=== PATIENT | female | born 1960 | race African-American/Black ===

== ENCOUNTER 2017-10-24 18:24 | Inpatient (IN) | payer OTHER ==
--- NOTE | 2017-10-24 19:36 | PDOC ---
History of Present Illness - General Chief Complaint: Edema Stated Complaint: PAIN Time Seen by Provider: 10/24/17 19:35 - History of Present Illness Initial Comments: 57 year old female, with a significant past medical history of anemia, COPD, CHF , hypertension, hypercholesterolemia, CVA (2017 on Coumadin), DVT of lower extremities, substance abuse and obesity presenting with bilateral lower extremity edema and SOB for the past three days. States that she had noticed her legs swelling suddenly three days prior, less urination, and decreased exercise tolerance. She has had a dry cough at night with Denies any recent travel, increased periods of immobility, hemoptysis, chest pain, headache, visual symptoms, nausea, vomiting, or diarrhea. Of note, she was on Lasix in the past but got taken off because of cramping leg pains. Also, her right leg is always slighty more swollen than her left since her DVT in that leg years prior. 10/24/17 19:36 07 Past History - Past Medical History Allergies/Adverse Reactions: Allergies Allergy/AdvReac Type Severity Reaction Status Date / Time Penicillins Allergy Intermediate Hives Verified 08/03/14 17:19 Home Medications: Ambulatory Orders Atorvastatin Ca [Lipitor] 20 mg PO HS 05/30/14 Docusate Sodium [Colace -] 100 mg PO HS 05/30/14 Fluticasone Propionate [Flovent Diskus] 50 mcg IH BID 05/30/14 Omeprazole Magnesium [Prilosec (OTC)] 20 mg PO DAILY 05/30/14 Amlodipine Besylate [Norvasc -] 10 mg PO DAILY 07/07/14 Warfarin Na [Coumadin -] 5 mg PO DAILY@1800 #30 tablet 07/23/14 Acetaminophen with Codeine [Acetaminophen-Cod #3 Tablet] 1 each PO PRN PRN 10/25 Aspirin [ASA -] 81 mg PO DAILY 10/25/17 Hydralazine HCl 25 mg PO DAILY 10/25/17 Magnesium Oxide [Magnesium] 400 mg PO DAILY 10/25/17 Warfarin Na [Coumadin] 1 mg PO DAILY 10/25/17 Anemia: Yes Asthma: Yes Cardiac Disorders: No CVA: No COPD: Yes CHF: No Dementia: No GI Disorders: Yes (CONSTIPATION, RECTAL BLEEDING) HTN: Yes Hypercholesterolemia: Yes Seizures: No Thyroid Disease: No Other medical history: obesity, pulmonary embolism - Surgical History Cardiac Surgery: No Cholecystectomy: No Lung Surgery: No Neurologic Surgery: No - Suicide/Smoking/Psychosocial Hx Smoking Status: Yes Smoking History: Current every day smoker Have you smoked in the past 12 months: Yes Number of Cigarettes Smoked Daily: 5 Information on smoking cessation initiated: Yes 'Breaking Loose' booklet given: 02/25/13 Hx Alcohol Use: No Drug/Substance Use Hx: No Substance Use Type: None Hx Substance Use Treatment: No Review of Systems - Review of Systems Constitutional: No: Chills, Diaphoresis, Fever, Loss of Appetite HEENTM: No: Blurred Vision, Tearing Respiratory: Yes: Cough, Shortness of Breath, SOB with Exertion. No: Wheezing Cardiac (ROS): Yes: Edema. No: Chest Pain, Irregular Heart Rate, Lightheadedness, Palpitations, Syncope, Chest Tightness ABD/GI: No: Constipated, Diarrhea, Nausea, Vomiting : No: Dysuria, Discharge, Frequency Musculoskeletal: No: Muscle Pain, Muscle Weakness Integumentary: No: Bruising, Change in Color, Lesions, Lumps Neurological: No: Headache, Numbness, Paresthesia Psychiatric: No: Anxiety, Depression Hematologic/Lymphatic: Yes: Blood Clots. No: Anemia, Easy Bleeding *Physical Exam - Vital Signs Last Vital Signs Temp Pulse Resp BP Pulse Ox 98.5 F 90 20 185/101 99 10/24/17 19:24 10/24/17 19:24 10/24/17 19:24 10/24/17 19:24 10/24/17 19:24 - Physical Exam General Appearance: Yes: Nourished, Appropriately Dressed, Obese. No: Apparent Distress HEENT: positive: EOMI, JAMEEL, Normal ENT Inspection, Normal Voice Neck: positive: Trachea midline, Normal Thyroid, Supple. negative: Tender, Rigid Respiratory/Chest: positive: Lungs Clear. negative: Chest Tender, Normal Breath Sounds (decreaed breath ounds bilaterally), Respiratory Distress, Accessory Muscle Use Cardiovascular: positive: Regular Rhythm, Regular Rate Gastrointestinal/Abdominal: positive: Normal Bowel Sounds, Flat, Soft. negative : Tender Musculoskeletal: positive: Normal Inspection. negative: CVA Tenderness Extremity: positive: Normal Capillary Refill, Normal Range of Motion, Tender, Pedal Edema, Swelling, Calf Tenderness (Bilateral calf tendernes sand swelling 3 + pitting edema to lower thigh bilaterally with slighly larger right lower exrtremity.), Erythema. negative: Normal Inspection Integumentary: positive: Normal Color, Dry, Warm, Swelling Neurologic: positive: division manager II-XII NML intact, Fully Oriented, Alert, Normal Mood/ Affect, Normal Response, Motor Strength 08/09 ED Treatment Course - LABORATORY CBC & Chemistry Diagram: 10/24/17 22:15 10/24/17 22:15 Medical Decision Making - Medical Decision Making 57 year old female with history of CHF, COPD, DVTs and ischemic stroke on coumadin presenting with LE swelling and SOB. BL LE dopplers negative, CTA chest negative, labs demonstrating JOSH, subtherapeutic INR, and BNP slightly elevated. CXR appears mildly congested. IV lasix defered because of contrast burden and new JOSH. Ptient signed out to medicine, Dr. Stearns for medsurg obs. 10/25/17 03:10 *DC/Admit/Observation/Transfer Diagnosis at time of Disposition: JOSH (acute kidney injury), Shortness of breath, Subtherapeutic international normalized ratio (INR) CHF (congestive heart failure) Qualifiers: Heart failure type: unspecified Heart failure chronicity: unspecified Qualified Code(s): I50.9 - Heart failure, unspecified - Discharge Dispostion Condition at time of disposition: Stable Decision to Admit order: Yes - Referrals Referrals: Sara Velasco [Primary Care Provider] - - Patient Instructions - Post Discharge Activity
--- NOTE | 2017-10-24 19:39 | PDOC ---
Attending Attestation - HPI HPI: 10/24/17 20:58 The patient is a 57 year old female, with a significant PMH of anemia, COPD, CHF , hypertension, hypercholesterolemia, CVA (2017 on Coumadin), DVT of lower extremities, substance abuse and obesity who presents to the emergency department with 3 days of shortness of breath and bilateral lower extremity edema. The patient also endorses decreased urination, dry cough and decreased exercise tolerance. The patient states at baseline her right leg is slightly more swollen than her left leg secondary to her history of DVT. The patient denies any recent travel or immobility. The patient denies chest pain, diaphoresis, lightheadedness, headache and dizziness. Denies fever, chills, nausea, vomit, diarrhea and constipation. Denies dysuria, frequency, urgency and hematuria. Allergies: penicillins - Physicial Exam PE: 10/24/17 21:02 GENERAL: (+) Obese. Awake, alert, and fully oriented, in no acute distress HEAD: No signs of trauma EYES: PERRLA, EOMI, sclera anicteric, conjunctiva clear ENT: Auricles normal inspection, hearing grossly normal, nares patent, oropharynx clear without exudates. Moist mucosa NECK: Normal ROM, supple, no lymphadenopathy, JVD, or masses LUNGS: (+) Decreased breath sounds bilaterally. No respiratory distress. No wheezes, and no crackles HEART: Regular rate and rhythm, normal S1 and S2, no murmurs, rubs or gallops ABDOMEN: Soft, nontender, normoactive bowel sounds. No guarding, no rebound. No masses EXTREMITIES: (+) Bilateral lower extremity 3+ pitting edema with right slightly > than left. (+) Bilateral calf tenderness. (+) Lower extremity erythema. Normal range of motion. No clubbing or cyanosis. No cords. NEUROLOGICAL: Cranial nerves II through XII grossly intact. Normal speech. SKIN: Warm, Dry, normal turgor, no rashes or lesions noted. <Carlos Ring - Last Filed: 10/24/17 21:10> - Resident Resident Name: Katerine Kuhn - ED Attending Attestation I have performed the following: I have examined & evaluated the patient, The case was reviewed & discussed with the resident, I agree w/resident's findings & plan - Medical Decision Making 07/21/18 04:59 Pt has no clear DVT on sono; however, her legs are bilaterally swollen right side greater than the left side; she also as redness and warmth of the right lower leg. She has pain with ambulation. Pt states that she has decreased mobility due to the pain in her legs and she has great difficulty leaving her 2nd story walkup apt. Pt has a hx of DVTs and PE in the past and she is on coumadin, though she is subtherapeutic. CTA chest in nonspecific. Pt will be admitted for further eval and assessment by vasc surg. <Harini Huerta - Last Filed: 10/25/17 05:01> Attestations - Attestations 10/24/17 20:59 Documentation prepared by Carlos Ring, acting as medical office technician for Harini Huerta MD. <Carlos Ring - Last Filed: 10/24/17 21:10>
[2017-10-24 22:23] LABS: BASO % 0.5 % (0-2.0); EOS % 2.2 % (0-4.5); HEMATOCRIT 31.6 % (32.4-45.2); HEMOGLOBIN 10.4 GM/dL (10.7-15.3); LYMPH % 19.2 % (8-40); MCHC 32.8 g/dl (32.0-36.0); MEAN CELL VOLUME 91.4 fl (80-96); MEAN PLT VOLUME 8.2 fl (7.5-11.1); MONO % 8.7 % (3.8-10.2); NEUT % 69.4 % (42.8-82.8); PLATELET COUNT 260 K/MM3 (134-434); RBC 3.46 M/mm3 (3.60-5.2); RDW 16.6 % (11.6-15.6); WHITE BLOOD COUNT 5.7 K/mm3 (4.0-10.0)
[2017-10-24 22:56] LABS: ALBUMIN 3.5 g/dl (3.4-5.0); ANION GAP 7 (8-16); BLOOD UREA NITROGEN 16 mg/dL (7-18); CALCIUM 8.7 mg/dL (8.5-10.1); CHLORIDE 113 mmol/L (98-107); CO2 27 mmol/L (21-32); CREATININE 1.3 mg/dL (0.55-1.02); GLUCOSE,RANDOM 84 mg/dL (74-106); SGPT/ALT 21 U/L (12-78); SODIUM 147 mmol/L (136-145)
[2017-10-24 22:59] LABS: ALK PHOS 127 U/L (45-117); BILIRUBIN,TOTAL 0.2 mg/dL (0.2-1.0); N-TERMINAL BNP 191.31 pg/ml (5-125); TOT PROT 7.3 g/dl (6.4-8.2)
[2017-10-24 23:01] LABS: POTASSIUM 4.2 mmol/L (3.5-5.1); SGOT/AST 32 U/L (15-37)
[2017-10-24] MEDS ORDERED: ACETAMINOPHEN 1000 MG/100 ML VIAL (NON FORMULARY) IVPB ONE (23:20)
[2017-10-24] MEDS ORDERED: ALBUTEROL SO4 2.5/IPRATROPIUM 0.5 INH SOL 3 ML VIAL.NEB. NEB ONE (23:21)
[2017-10-24 23:30] LABS: INR 1.04 (0.82-1.09); PROTHROMBIN TIME (PATIENT) 11.7 SEC (9.7-13.0)
[2017-10-24] MEDS ORDERED: SODIUM CHLORIDE 500 ML IV STA (23:59)
[2017-10-25] MEDS ORDERED: ALBUTEROL SO4 2.5/IPRATROPIUM 0.5 INH SOL 3 ML VIAL.NEB. NEB ONE (00:13)
[2017-10-25] MEDS ORDERED: ACETAMINOPHEN INJECTION 100 ML IVPB ONE (00:13)
[2017-10-25] MEDS ORDERED: CLINDAMYCIN 600MG PREMIX IVPB 600 MG/50 ML BAG IVPB ONE ×2 (02:47→03:37)
--- NOTE | 2017-10-25 03:04 | PN ---
Teaching Attending Note Name of Resident: Shahzad Stearns ATTENDING PHYSICIAN STATEMENT I saw and evaluated the patient. I reviewed the resident's note and discussed the case with the resident. I agree with the resident's findings and plan as documented. SUBJECTIVE: Patient is a 57 year old woman with a history of anemia, COPD, CHF, hypertension , hypercholesterolemia, CVA (2017 on Coumadin), DVT of lower extremities, substance abuse and obesity presenting with bilateral lower extremity edema and SOB for the past three days. States that she had noticed her legs swelling suddenly three days prior, less urination, and decreased exercise tolerance. She has had a dry cough at night with Denies any recent travel, increased periods of immobility, hemoptysis, chest pain, headache, visual symptoms, nausea , vomiting, or diarrhea. Of note, she was on Lasix in the past but got taken off because of cramping leg pains. Also, her right leg is always slighty more swollen than her left since her DVT in that leg years prior. Uses a cane due to knee joint disease - did not want knee replacement. OBJECTIVE: Obese and in no acute distress Vital Signs Period Temp Pulse Resp BP Sys/Yoder Pulse Ox Last 24 Hr 98.5 F 90-92 18-20 145-185/95-101 99-100 HEENT: No Jaundice, eye redness or discharge, PERRLA, EOMI. Normocephalic, atraumatic. External ears are normal and hearing is grossly intact. No nasal discharge. Neck: Supple, nontender. No palpable adenopathy or thyromegaly. No JVD Chest: Good effort. Diminished breath sounds. No rales or wheezing. Clear to percussion. Heart: Irregular. No S3, rub or murmur Abdomen: Not distended, soft, nontender and no HSM. No rebound or guarding. Normoactive bowel sounds. Ext: Peripheral pulses intact. Bilateral non pitting leg edema with left > right. Significant edema of dorsum of left foot with prominence over the medial malleolus. Not warm but slightly tender. Skin: Warm and dry. No petechiae, rash or ecchymosis. Neuro: Alert. Oriented x3. CN 2-12 grossly intact. Sensation grossly intact in all four extremities and DTR are symmetric. Current Medications Generic Name Dose Route Start Last Admin Trade Name Freq PRN Reason Stop Dose Admin Clindamycin Phosphate 600 mg in 50 mls @ 100 mls/hr 10/25/17 02:47 Cleocin 600 Mg Premix Ivpb - IVPB 10/25/17 03:16 ONCE ONE Protocol Home Medications Medication Instructions Recorded Atorvastatin Ca [Lipitor] 20 mg PO HS 05/30/14 Docusate Sodium [Colace -] 100 mg PO HS 05/30/14 Fluticasone Propionate [Flovent 50 mcg IH BID 05/30/14 Diskus] Omeprazole Magnesium [Prilosec 20 mg PO DAILY 05/30/14 (OTC)] Amlodipine Besylate [Norvasc -] 10 mg PO DAILY 07/07/14 Warfarin Na [Coumadin -] 5 mg PO DAILY@1800 #30 tablet 07/23/14 Acetaminophen with Codeine 1 each PO PRN PRN 10/25/17 [Acetaminophen-Cod #3 Tablet] Aspirin [ASA -] 81 mg PO DAILY 10/25/17 Hydralazine HCl 25 mg PO DAILY 10/25/17 Magnesium Oxide [Magnesium] 400 mg PO DAILY 10/25/17 Warfarin Na [Coumadin] 1 mg PO DAILY 10/25/17 Abnormal Lab Results 10/24/17 10/24/17 10/24/17 22:15 22:15 22:44 RBC 3.46 L Hgb 10.4 L Hct 31.6 L RDW 16.6 H D-Dimer 1539 H Sodium 147 H Chloride 113 H Anion Gap 7 L Creatinine 1.3 H Alkaline Phosphatase 127 H Creatine Kinase 543 H B-Natriuretic Peptide 191.31 H ASSESSMENT AND PLAN: 1. Acute exacerbation of diatolic CHF? - CTPA ruled out pulmonary embolism and doppler scan did not show DVT. CXR shows cardiomegaly with pulmonary congestion and blunted left CP angle. She says her "water pill" was stopped 1 year ago because of the blood thinner? ECHO from 07/11/14 showed normal systolic LV function with EF of 66.3%. Will give her 80 mg of lasix IV stat and assess urine output. Subsequent dosing will depend on the efficacy of this initial dose. Daily weight, low salt diet, get ECHO, CT scan of feet (?bursitis) and get uric acid level. There are no ST-T wave changes on EKG and initial troponin is negative. Will admit to telemetry to rule out ACS since there is no other obvious acute precipitating factor. Consult cardiology. 2. Remote DVT - Her INR is subtherapeutic. Will bridge her with IV heparin drip , continue current dose of coumadin (?6mg) and get daily INR. 3. Tobacco Use We will provide patient all the necessary assistance to facilitate smoking cessation and prescribe Nicotine patch. 4. Anemia - Likely multifactorial. Will do basic anemia work up including serial stool guaiacs, reticulocyte count and iron studies. 5. Obesity - Will provide patient all the necessary assistance , counseling and positive reinforcement to facilitate weight loss. Consult strategic analyst. 6. DVT prophylaxis - On IV heparin drip for bridging and coumadin 7. Advance directives - Full code
[2017-10-25] MEDS ORDERED: HEPARIN NA (PORCINE) 5,000 UNITS/ML 1ML VIAL IVPUSH PRN (03:43)
[2017-10-25] MEDS ORDERED: HEPARIN NA (PORCINE) 5,000 UNITS/ML 1ML VIAL IVPUSH ONE (03:43)
[2017-10-25] MEDS ORDERED: HEPARIN INFUSION - 25,000 UNITS/500 ML INFUS.BAG IVPB SCH ×2 (03:45→16:45)
[2017-10-25] MEDS ORDERED: FUROSEMIDE 40 MG/4 ML INJECTABLE VIAL IVPUSH ONE (03:53)
[2017-10-25] MEDS ORDERED: FUROSEMIDE 40 MG/4 ML INJECTABLE VIAL ONE (03:59)
[2017-10-25] MEDS ORDERED: HEPARIN NA (PORCINE) 5,000 UNITS/ML 1ML VIAL ONE (04:59)
[2017-10-25] MEDS ORDERED: HEPARIN INFUSION - 25,000 UNITS/500 ML INFUS.BAG IVPB ONE (05:00)
[2017-10-25 06:23] LABS: URINE APPEARANCE SLCLOUDY; URINE BILIRUBIN NEGATIVE (<2.0 mg/dL); URINE COLOR STRAW; URINE GLUCOSE (UA) NEGATIVE (NEGATIVE); URINE KETONE NEGATIVE (NEGATIVE); URINE LEUK ESTERASE NEGATIVE (NEGATIVE); URINE NITRITE NEGATIVE (NEGATIVE); URINE PROTEIN NEGATIVE (NEGATIVE); URINE UROBILINOGEN NEGATIVE mg/dL (0.2-1.0)
[2017-10-25] MEDS ORDERED: METHADONE HCL 10 MG TABLET PO ONE (08:15)
--- NOTE | 2017-10-25 08:20 | PN ---
Physical Exam: SUBJECTIVE: Patient seen and examined Patient is a 57 year old woman with a history of anemia, COPD, CHF, hypertension , hypercholesterolemia, CVA (2017 on Coumadin), DVT of lower extremities, substance abuse and obesity presenting with bilateral lower extremity edema and SOB for the past three days. Feel little better but continued to have swelling of Lower legs OBJECTIVE: Vital Signs Temperature 97.6 F 10/25/17 06:39 Pulse Rate 69 10/25/17 06:39 Respiratory Rate 19 10/25/17 06:39 Blood Pressure 149/99 10/25/17 06:39 O2 Sat by Pulse Oximetry (%) 99 10/25/17 06:25 GENERAL: The patient is awake, alert, and fully oriented, in no acute distress. HEAD: Normal with no signs of trauma. EYES: PERRL, extraocular movements intact, sclera anicteric, conjunctiva clear. ENT: Ears normal, oropharynx clear without exudates, moist mucous membranes. NECK: Trachea midline, full range of motion, supple. LUNGS: Breath sounds equal, clear to auscultation bilaterally, no wheezes, no crackles, no accessory muscle use. HEART: Regular rate and rhythm, S1, S2 without murmur, rub or gallop. ABDOMEN: Soft, nontender, nondistended, normoactive bowel sounds, no guarding, no rebound, no hepatosplenomegaly, no masses. EXTREMITIES: 2+ pulses, warm, well-perfused, 5 plus edema of LE NEUROLOGICAL: Cranial nerves II through XII grossly intact. Normal speech, gait not observed. PSYCH: Normal mood, normal affect. SKIN: Warm, dry, normal turgor, no rashes or lesions noted WBC 5.7 K/mm3 (4.0-10.0) 10/24/17 22:15 RBC 3.46 M/mm3 (3.60-5.2) L 10/24/17 22:15 Hgb 10.4 GM/dL (10.7-15.3) L 10/24/17 22:15 Hct 31.6 % (32.4-45.2) L 10/24/17 22:15 MCV 91.4 fl (80-96) 10/24/17 22:15 MCHC 32.8 g/dl (32.0-36.0) 10/24/17 22:15 RDW 16.6 % (11.6-15.6) H 10/24/17 22:15 Plt Count 260 K/MM3 (134-434) 10/24/17 22:15 MPV 8.2 fl (7.5-11.1) D 10/24/17 22:15 CMP Sodium 147 mmol/L (136-145) H 10/24/17 22:15 Potassium 4.2 mmol/L (3.5-5.1) 10/24/17 22:15 Chloride 113 mmol/L (98-107) H 10/24/17 22:15 Carbon Dioxide 27 mmol/L (21-32) 10/24/17 22:15 Anion Gap 7 (8-16) L 10/24/17 22:15 BUN 16 mg/dL (7-18) 10/24/17 22:15 Creatinine 1.3 mg/dL (0.55-1.02) H 10/24/17 22:15 Creat Clearance w eGFR 42.53 (>60) 10/24/17 22:15 Random Glucose 84 mg/dL (74-106) 10/24/17 22:15 Calcium 8.7 mg/dL (8.5-10.1) 10/24/17 22:15 Total Bilirubin 0.2 mg/dL (0.2-1.0) 10/24/17 22:15 AST 32 U/L (15-37) 10/24/17 22:15 ALT 21 U/L (12-78) 10/24/17 22:15 Alkaline Phosphatase 127 U/L (45-117) H 10/24/17 22:15 Total Protein 7.3 g/dl (6.4-8.2) 10/24/17 22:15 Albumin 3.5 g/dl (3.4-5.0) 10/24/17 22:15 CARDIAC ENZYMES Creatine Kinase 543 IU/L (26-192) H 10/24/17 22:15 Troponin I < 0.02 ng/ml (0.00-0.05) 10/24/17 22:15 Active Medications Generic Name Dose Route Start Last Admin Trade Name Freq PRN Reason Stop Dose Admin Heparin Sodium (Porcine) 5,400 unit 10/25/17 03:43 Heparin - 40 unit/kg (5400 unit) IVPUSH PRN PRN For aPTT 35 to 45 seconds Heparin Sodium (Porcine) 10,800 unit 10/25/17 03:43 Heparin - 80 unit/kg (50044 unit) IVPUSH PRN PRN aPTT <35 seconds Heparin Sodium/Dextrose 25,000 units in 500 mls @ 48.82 mls/hr 10/25/17 03:45 10/25/17 05:15 Heparin Infusion - IVPB 17.99 unit/kg/hr TITR JIE 48.82 mls/hr Administration Protocol 18 UNIT/KG/HR Methadone HCl 60 mg 10/25/17 08:15 Dolophine - PO 10/25/17 08:16 ONCE ONE Methadone HCl 60 mg 10/26/17 06:00 Dolophine - PO DAILY@0600 [facility] Home Medications Medication Instructions Recorded Atorvastatin Ca [Lipitor] 20 mg PO HS 05/30/14 Docusate Sodium [Colace -] 100 mg PO HS 05/30/14 Fluticasone Propionate [Flovent 50 mcg IH BID 05/30/14 Diskus] Omeprazole Magnesium [Prilosec 20 mg PO DAILY 05/30/14 (OTC)] Amlodipine Besylate [Norvasc -] 10 mg PO DAILY 07/07/14 Warfarin Na [Coumadin -] 5 mg PO DAILY@1800 #30 tablet 07/23/14 Acetaminophen with Codeine 1 each PO PRN PRN 10/25/17 [Acetaminophen-Cod #3 Tablet] Aspirin [ASA -] 81 mg PO DAILY 10/25/17 Hydralazine HCl 25 mg PO DAILY 10/25/17 Magnesium Oxide [Magnesium] 400 mg PO DAILY 10/25/17 Methadone (Detox) [Dolophine -] 60 PO DAILY 10/25/17 Warfarin Na [Coumadin] 1 mg PO DAILY 10/25/17 ASSESSMENT/PLAN: Patient is a 57 yo f w/ [facility] anemia, COPD, HTN, CVA, DVT who is admitted for 3 day history of b/l LE edema associated with SOB. # Acute exacerbation of diastolic CHF with LE edema BL will start the patient on IV lasix bid 20mg # Remote DVT - Her INR is subtherapeutic. Will bridge her with IV heparin drip, continue current dose of coumadin (6mg) and get daily INR. # Tobacco Use We will provide patient all the necessary assistance to facilitate smoking cessation and prescribe Nicotine patch. #Anemia - Likely multifactorial. Will do basic anemia work up including serial stool guaiacs, reticulocyte count and iron studies. # Obesity - Will provide patient all the necessary assistance , counseling and positive reinforcement to facilitate weight loss. Consult service writer advisor. DVT prophylaxis - On IV heparin drip for bridging and coumadin Advance directives - Full code Visit type - Emergency Visit Emergency Visit: Yes ED Registration Date: 10/25/17 Care time: The patient presented to the Emergency Department on the above date and was hospitalized for further evaluation of their emergent condition. - New Patient This patient is new to me today: Yes Date on this admission: 10/25/17 - Critical Care Critical Care patient: No - Discharge Referral Referred to [facility] No
[2017-10-25] MEDS ORDERED: METHADONE 40 MG, METHADONE 20 MG PO ONE (08:30)
[2017-10-25] MEDS ORDERED: METHADONE HCL 10 MG TABLET ONE (09:18)
[2017-10-25] MEDS ORDERED: METHADONE HCL 40 MG DISPERSABLE TABLET ONE (09:18)
[2017-10-25] MEDS: amLODIPine BESYLATE 10 MG TABLET (FP) PO SCH (09:22)
[2017-10-25] MEDS: hydrALAZINE HCL 25 MG TABLET (FP) PO SCH (09:22)
[2017-10-25] MEDS: ASPIRIN 81 MG CHEWABLE TABLETS PO SCH (09:22)
[2017-10-25] MEDS ORDERED: WARFARIN NA 1 MG TABLET (FP) PO SCH ×2 (10:00→18:00)
[2017-10-25 10:04] LABS: HEMATOCRIT 33.6 % (32.4-45.2); MCHC 32.8 g/dl (32.0-36.0); MEAN CELL VOLUME 91.3 fl (80-96); MEAN PLT VOLUME 8.1 fl (7.5-11.1); PLATELET COUNT 261 K/MM3 (134-434); RBC 3.68 M/mm3 (3.60-5.2); RDW 16.9 % (11.6-15.6); WHITE BLOOD COUNT 5.6 K/mm3 (4.0-10.0)
--- NOTE | 2017-10-25 10:08 | EKG ---
Test Reason : Blood Pressure : / mmHG Vent. Rate : 079 BPM Atrial Rate : 079 BPM P-R Int : 172 ms QRS Dur : 082 ms QT Int : 402 ms P-R-T Axes : 035 006 019 degrees QTc Int : 460 ms POOR DATA QUALITY, INTERPRETATION MAY BE ADVERSELY AFFECTED NORMAL SINUS RHYTHM NORMAL ECG WHEN COMPARED WITH ECG OF 09-JUL-2014 08:46, CRITERIA FOR INFERIOR INFARCT ARE NO LONGER PRESENT Confirmed by DELVIN BAKER, ALICJA ([id number]) on 10/25/2017 10:08:16 AM Referred By: Confirmed By:ALICJA HARGROVE MD
[2017-10-25 10:30] LABS: INR 1.12 (0.82-1.09); PROTHROMBIN TIME (PATIENT) 12.7 SEC (9.7-13.0)
[2017-10-25 10:45] LABS: ACTIVATED PTT 205.3 SECONDS (25.2-36.5)
[2017-10-25 10:46] LABS: ANION GAP 9 (8-16); BLOOD UREA NITROGEN 16 mg/dL (7-18); CHLORIDE 109 mmol/L (98-107); CO2 26 mmol/L (21-32); CREATININE 1.3 mg/dL (0.55-1.02); GLUCOSE,RANDOM 105 mg/dL (74-106); PHOSPHOROUS 3.7 mg/dL (2.5-4.9); SODIUM 144 mmol/L (136-145)
--- NOTE | 2017-10-25 14:17 | HP ---
CHIEF COMPLAINT: leg swelling PCP: HISTORY OF PRESENT ILLNESS: The patient is a 57 yo f w/ OMH anemia, COPD, HTN, CVA, DVT who comes into the ed c/o a 3 day history of b/l LE edema associated with SOB. The patient also associates these symptoms with decrease unriation, decreased exercise tolerance and a dry cough for the same period of time. Patient denies chest pain, nausea, vomiting or abdominal pain. ER course was notable for: (1) D-dimer positive (2) CTA negative (3) LE dopplers negative, INR 1.04 PAST MEDICAL HISTORY: See HPI PAST SURGICAL HISTORY: Social History: Smoking: smokes 5 cigarettes per day Alcohol: denies Drugs: denies Family History: Allergies Penicillins Allergy (Intermediate, Verified 08/03/14 17:19) Hives HOME MEDICATIONS: Home Medications Medication Instructions Recorded Atorvastatin Ca [Lipitor] 20 mg PO HS 05/30/14 Docusate Sodium [Colace -] 100 mg PO HS 05/30/14 Fluticasone Propionate [Flovent 50 mcg IH BID 05/30/14 Diskus] Omeprazole Magnesium [Prilosec 20 mg PO DAILY 05/30/14 (OTC)] Amlodipine Besylate [Norvasc -] 10 mg PO DAILY 07/07/14 Warfarin Na [Coumadin -] 5 mg PO DAILY@1800 #30 tablet 07/23/14 Acetaminophen with Codeine 1 each PO PRN PRN 10/25/17 [Acetaminophen-Cod #3 Tablet] Aspirin [ASA -] 81 mg PO DAILY 10/25/17 Hydralazine HCl 25 mg PO DAILY 10/25/17 Magnesium Oxide [Magnesium] 400 mg PO DAILY 10/25/17 Methadone (Detox) [Dolophine -] 60 PO DAILY 10/25/17 Warfarin Na [Coumadin] 1 mg PO DAILY 10/25/17 REVIEW OF SYSTEMS CONSTITUTIONAL: Absent: fever, chills, diaphoresis, generalized weakness, malaise, loss of appetite, weight change HEENT: Absent: rhinorrhea, nasal congestion, throat pain, throat swelling, difficulty swallowing, mouth swelling, ear pain, eye pain, visual changes CARDIOVASCULAR: Absent: chest pain, syncope, palpitations, irregular heart rate, lightheadedness. RESPIRATORY: Absent: orthopnea, wheezing, stridor, hemoptysis GASTROINTESTINAL: Absent: abdominal pain, abdominal distension, nausea, vomiting, diarrhea, constipation, melena, hematochezia GENITOURINARY: Absent: dysuria, frequency, urgency, hesitancy, hematuria, flank pain, genital pain MUSCULOSKELETAL: Absent: myalgia, arthralgia, joint swelling, back pain, neck pain SKIN: Absent: rash, itching, pallor HEMATOLOGIC/IMMUNOLOGIC: Absent: easy bleeding, easy bruising, lymphadenopathy, frequent infections ENDOCRINE: Absent: unexplained weight gain, unexplained weight loss, heat intolerance, cold intolerance NEUROLOGIC: Absent: headache, focal weakness or paresthesias, dizziness, unsteady gait, seizure, mental status changes, bladder or bowel incontinence PSYCHIATRIC: Absent: anxiety, depression, suicidal or homicidal ideation, hallucinations. PHYSICAL EXAMINATION Vital Signs - 24 hr 10/24/17 10/24/17 10/25/17 19:24 19:51 05:17 Temperature 98.5 F 98.5 F Pulse Rate 90 Pulse Rate [ 92 H 89 Left Radial] Respiratory 20 18 19 Rate Blood Pressure 185/101 Blood Pressure 145/95 138/89 [Left Arm] O2 Sat by Pulse 99 100 99 Oximetry (%) 10/25/17 10/25/17 06:25 06:39 Temperature 97.6 F Pulse Rate 69 Pulse Rate [ Left Radial] Respiratory 19 Rate Blood Pressure 149/99 Blood Pressure [Left Arm] O2 Sat by Pulse 99 Oximetry (%) GENERAL: Awake, alert, and fully oriented, in no acute distress. EYES: Pupils equal, round and reactive to light, extraocular movements intact, sclera anicteric, conjunctiva clear. No lid lag. EARS, NOSE, THROAT: Moist mucous membranes. NECK: Normal range of motion, supple without lymphadenopathy, JVD, or masses. LUNGS: Breath sounds equal, clear to auscultation bilaterally. No wheezes, and no crackles. No accessory muscle use. HEART: Regular rate, irregular rhythm, normal S1 and S2 without murmur, rub or gallop. ABDOMEN: Soft, nontender, not distended, normoactive bowel sounds, no guarding, no rebound, no masses. No hepatomegaly or splenomegaly. LOWER EXTREMITIES: 2+ pulses, warm, well-perfused. No calf tenderness. 2+ pitting edema b/l. NEUROLOGICAL: Cranial nerves II-X intact. Normal speech. Laboratory Results - last 24 hr 10/24/17 10/24/17 10/24/17 22:15 22:15 22:44 WBC 5.7 RBC 3.46 L Hgb 10.4 L Hct 31.6 L MCV 91.4 MCH 30.0 MCHC 32.8 RDW 16.6 H Plt Count 260 MPV 8.2 D Absolute Neuts (auto) 4.0 Neutrophils % 69.4 Lymphocytes % 19.2 D Monocytes % 8.7 Eosinophils % 2.2 D Basophils % 0.5 Nucleated RBC % 0 PT with INR 11.70 INR 1.04 D PTT (Actin FS) D-Dimer Sodium 147 H Potassium 4.2 Chloride 113 H Carbon Dioxide 27 Anion Gap 7 L BUN 16 Creatinine 1.3 H Creat Clearance w eGFR 42.53 Random Glucose 84 Uric Acid Calcium 8.7 Phosphorus Magnesium Total Bilirubin 0.2 AST 32 ALT 21 Alkaline Phosphatase 127 H Creatine Kinase 543 H Creatine Kinase Index 0.3 CK-MB (CK-2) 2.07 Troponin I < 0.02 B-Natriuretic Peptide 191.31 H Total Protein 7.3 Albumin 3.5 Urine Color Urine Appearance Urine pH Ur Specific [place] Urine Protein Urine Glucose (UA) Urine Ketones Urine Blood Urine Nitrite Urine Bilirubin Urine Urobilinogen Ur Leukocyte Esterase 10/24/17 10/25/17 10/25/17 22:44 05:46 09:12 WBC RBC Hgb Hct MCV MCH MCHC RDW Plt Count MPV Absolute Neuts (auto) Neutrophils % Lymphocytes % Monocytes % Eosinophils % Basophils % Nucleated RBC % PT with INR INR PTT (Actin FS) D-Dimer 1539 H Sodium 144 Potassium 4.0 Chloride 109 H Carbon Dioxide 26 Anion Gap 9 BUN 16 Creatinine 1.3 H Creat Clearance w eGFR 42.53 Random Glucose 105 Uric Acid 6.0 Calcium 9.0 Phosphorus 3.7 Magnesium 2.0 Total Bilirubin AST ALT Alkaline Phosphatase Creatine Kinase Creatine Kinase Index CK-MB (CK-2) Troponin I B-Natriuretic Peptide Total Protein Albumin Urine Color Straw Urine Appearance Slcloudy Urine pH 5.0 D Ur Specific [place] 1.012 Urine Protein Negative Urine Glucose (UA) Negative Urine Ketones Negative Urine Blood Negative Urine Nitrite Negative Urine Bilirubin Negative Urine Urobilinogen Negative Ur Leukocyte Esterase Negative 10/25/17 10/25/17 09:12 09:12 WBC 5.6 RBC 3.68 Hgb 11.0 Hct 33.6 MCV 91.3 MCH 30.0 MCHC 32.8 RDW 16.9 H Plt Count 261 MPV 8.1 Absolute Neuts (auto) Neutrophils % Lymphocytes % Monocytes % Eosinophils % Basophils % Nucleated RBC % PT with INR 12.70 INR 1.12 PTT (Actin FS) 205.3 H D-Dimer Sodium Potassium Chloride Carbon Dioxide Anion Gap BUN Creatinine Creat Clearance w eGFR Random Glucose Uric Acid Calcium Phosphorus Magnesium Total Bilirubin AST ALT Alkaline Phosphatase Creatine Kinase Creatine Kinase Index CK-MB (CK-2) Troponin I B-Natriuretic Peptide Total Protein Albumin Urine Color Urine Appearance Urine pH Ur Specific [place] Urine Protein Urine Glucose (UA) Urine Ketones Urine Blood Urine Nitrite Urine Bilirubin Urine Urobilinogen Ur Leukocyte Esterase ASSESSMENT/PLAN: The patient is a 57 yo f w/ PMH COPD, HTN, DVT, CVA who comes into the ED c/o b/ l LE edema and SOB for to have subtheraputic INR #SOB and LE swelling possibly 2/2 CHF exacerbation vs COPD exacerbation -Echo -CT of the ankles; patient has deformity @ this joint -Uric acid level -Strict I&O -80mg lasix IV once #subtheraputic INR -Heparin GTT with VTE level PTT goals -c/w home coumadin dose once verified #JOSH -UA -holding IV hydration in the setting of possible CHF exacerbation #FEN -no fluids indicated -monitor lytes -sodium controlled diet #prophy -heparin GTT #dispo -admit med surg Visit type - Emergency Visit Emergency Visit: Yes ED Registration Date: 10/25/17 Care time: The patient presented to the Emergency Department on the above date and was hospitalized for further evaluation of their emergent condition. - New Patient This patient is new to me today: Yes Date on this admission: 10/25/17 - Critical Care Critical Care patient: No Hospitalist Screening - Colonoscopy Questionnaire Colonoscopy Questionnaire: Colonoscopy Questionnaire - Patient: 50 - 75 years old and never had a screening colonoscopy: Unknown History of colon or rectal polyps, or CA: Unknown History of IBD, Crohn's disease or UC: Unknown History of abdominal radiation therapy as a child: Unknown - Relative: 1 with colon or rectal CA, or polyps at age 60 or younger: Unknown Colon or rectal CA diagnosed at age 45 or younger: Unknown Multiple relatives with colon or rectal CA: Unknown - Outcome: Screening Result: Negative Screen
[2017-10-25] MEDS: HEPARIN INFUSION - 25,000 UNITS/500 ML INFUS.BAG IVPB SCH ×2 (16:54→17:24)
[2017-10-25] MEDS ORDERED: WARFARIN NA 5 MG TABLET (UD) PO SCH (18:00)
[2017-10-25] MEDS ORDERED: WARFARIN NA 1 MG TABLET (FP) ONE (18:02)
[2017-10-25] MEDS ORDERED: WARFARIN NA 5 MG TABLET (UD) ONE (18:02)
[2017-10-25] MEDS: WARFARIN NA 5 MG, WARFARIN NA 1 MG PO SCH (18:06)
[2017-10-25] MEDS: ATORVASTATIN CA 20 MG TABLET (FP) PO SCH (22:01)
[2017-10-25] MEDS: DOCUSATE SODIUM 100 MG CAPSULE (FP) PO SCH (22:01)
[2017-10-26] MEDS: HEPARIN NA (PORCINE) 5,000 UNITS/ML 1ML VIAL IVPUSH PRN ×2 (01:55→08:00)
[2017-10-26] MEDS: HEPARIN INFUSION - 25,000 UNITS/500 ML INFUS.BAG IVPB SCH ×2 (02:05→17:52)
[2017-10-26] MEDS ORDERED: METHADONE HCL 40 MG DISPERSABLE TABLET ONE (05:49)
[2017-10-26] MEDS ORDERED: METHADONE HCL 10 MG TABLET ONE (05:49)
[2017-10-26] MEDS: METHADONE 40 MG, METHADONE 20 MG PO SCH (05:51)
[2017-10-26] MEDS: FUROSEMIDE 40 MG/4 ML INJECTABLE VIAL IVPUSH SCH ×2 (05:51→14:52)
[2017-10-26] MEDS ORDERED: METHADONE HCL 10 MG TABLET PO SCH (06:00)
[2017-10-26] MEDS ORDERED: FUROSEMIDE 100 MG/10 ML INJECTABLE VIAL IVPB SCH (06:00)
[2017-10-26 08:03] LABS: HEMATOCRIT 33.3 % (32.4-45.2); HEMOGLOBIN 11.1 GM/dL (10.7-15.3); MCH 30.4 pg (25.7-33.7); MCHC 33.4 g/dl (32.0-36.0); MEAN CELL VOLUME 91.1 fl (80-96); PLATELET COUNT 279 K/MM3 (134-434); RBC 3.65 M/mm3 (3.60-5.2); RDW 16.6 % (11.6-15.6); WHITE BLOOD COUNT 4.9 K/mm3 (4.0-10.0)
[2017-10-26 08:13] LABS: INR 1.05 (0.82-1.09); PROTHROMBIN TIME (PATIENT) 11.9 SEC (9.7-13.0)
[2017-10-26 08:51] LABS: ALBUMIN 3.6 g/dl (3.4-5.0); ANION GAP 7 (8-16); BLOOD UREA NITROGEN 19 mg/dL (7-18); CALCIUM 9.2 mg/dL (8.5-10.1); CHLORIDE 105 mmol/L (98-107); CO2 29 mmol/L (21-32); GLUCOSE,RANDOM 87 mg/dL (74-106); POTASSIUM 3.9 mmol/L (3.5-5.1); SGOT/AST 25 U/L (15-37); SGPT/ALT 21 U/L (12-78); SODIUM 141 mmol/L (136-145)
[2017-10-26 08:53] LABS: ALK PHOS 116 U/L (45-117); BILIRUBIN,TOTAL 0.3 mg/dL (0.2-1.0); CREATININE 1.3 mg/dL (0.55-1.02); TOT PROT 7.7 g/dl (6.4-8.2)
[2017-10-26] MEDS: amLODIPine BESYLATE 10 MG TABLET (FP) PO SCH (11:10)
[2017-10-26] MEDS: hydrALAZINE HCL 25 MG TABLET (FP) PO SCH (11:10)
[2017-10-26] MEDS: ASPIRIN 81 MG CHEWABLE TABLETS PO SCH (11:10)
--- NOTE | 2017-10-26 12:14 | PN ---
<Olinda Richard - Last Filed: 10/26/17 13:39> Physical Exam: SUBJECTIVE: Patient seen and examined at bedside. No acute events overnight. Pt admits to improvement in b/l lower leg swelling today. OBJECTIVE: Vital Signs Period Temp Pulse Resp BP Sys/Yoder Pulse Ox Last 24 Hr 96.6 F-98.6 F 70-82 18-20 122-129/65-77 99 GENERAL: Awake, alert, and fully oriented, in no acute distress. EYES: Pupils equal, round and reactive to light, extraocular movements intact, sclera anicteric, conjunctiva clear. No lid lag. EARS, NOSE, THROAT: Moist mucous membranes. NECK: Normal range of motion, supple without lymphadenopathy, JVD, or masses. LUNGS: Breath sounds equal, clear to auscultation bilaterally. No wheezes, and no crackles. No accessory muscle use. HEART: Regular rate, irregular rhythm, normal S1 and S2 without murmur, rub or gallop. ABDOMEN: Soft, nontender, not distended, normoactive bowel sounds, no guarding, no rebound, no masses. No hepatomegaly or splenomegaly. LOWER EXTREMITIES: 2+ pulses, warm, well-perfused. No calf tenderness. 2+ pitting edema b/l. NEUROLOGICAL: Cranial nerves II-X intact. Normal speech. Laboratory Results - last 24 hr 10/25/17 10/25/17 10/26/17 16:40 21:50 07:30 WBC RBC Hgb Hct MCV MCH MCHC RDW Plt Count MPV PT with INR 11.90 INR 1.05 PTT (Actin FS) Cancelled 29.2 D Sodium Potassium Chloride Carbon Dioxide Anion Gap BUN Creatinine Creat Clearance w eGFR Random Glucose Calcium Total Bilirubin AST ALT Alkaline Phosphatase Total Protein Albumin 10/26/17 10/26/17 10/26/17 07:30 07:30 07:30 WBC 4.9 RBC 3.65 Hgb 11.1 Hct 33.3 MCV 91.1 MCH 30.4 MCHC 33.4 RDW 16.6 H Plt Count 279 MPV 8.0 PT with INR INR PTT (Actin FS) 56.5 H D Sodium 141 Potassium 3.9 Chloride 105 Carbon Dioxide 29 Anion Gap 7 L BUN 19 H Creatinine 1.3 H Creat Clearance w eGFR 42.53 Random Glucose 87 Calcium 9.2 Total Bilirubin 0.3 AST 25 ALT 21 Alkaline Phosphatase 116 D Total Protein 7.7 Albumin 3.6 Active Medications Generic Name Dose Route Start Last Admin Trade Name oTrreyq PRN Reason Stop Dose Admin Amlodipine Besylate 10 mg 10/25/17 10:00 10/26/17 11:10 Norvasc - PO 10 mg DAILY JIE Administration Aspirin 81 mg 10/25/17 10:00 10/26/17 11:10 Asa - PO 81 mg DAILY JIE Administration Atorvastatin Calcium 20 mg 10/25/17 22:00 10/25/17 22:01 Lipitor - PO 20 mg HS JIE Administration Docusate Sodium 100 mg 10/25/17 22:00 10/25/17 22:01 Colace - PO 100 mg HS JIE Administration Furosemide 20 mg 10/26/17 06:00 10/26/17 05:51 Lasix Injection - IVPUSH 20 mg BID@0600,1400 JIE Administration Heparin Sodium (Porcine) 5,400 unit 10/25/17 03:43 Heparin - 40 unit/kg (5400 unit) IVPUSH PRN PRN For aPTT 35 to 45 seconds Heparin Sodium (Porcine) 10,800 unit 10/25/17 03:43 10/26/17 01:55 Heparin - 80 unit/kg (07648 unit) 10,800 unit IVPUSH Administration PRN PRN aPTT <35 seconds Hydralazine HCl 25 mg 10/25/17 10:00 10/26/17 11:10 Apresoline - PO 25 mg DAILY JIE Administration Heparin Sodium/Dextrose 25,000 units in 500 mls @ 54.295 mls/hr 10/25/17 17: 00 10/26/17 02:05 Heparin Infusion - IVPB 22 units/kg/hr TITR JIE 66.36 mls/hr Administration Protocol 18 UNITS/KG/HR Methadone HCl 40 mg/ Methadone 60 mg 10/26/17 06:00 10/26/17 05:51 HCl 20 mg PO 60 mg DAILY@0600 JIE Administration Warfarin Sodium 5 mg/ Warfarin 6 mg 10/25/17 18:00 10/25/17 18:06 Sodium 1 mg PO 6 mg DAILY@1800 JIE Administration CTA: No evidence of acute pulm. emboli Doppler of B/L LE: No evidence of acute DVT. ASSESSMENT/PLAN: The patient is a 57 yo f w/ PMH COPD, HTN, DVT, CVA who comes into the ED c/o b/ l LE edema and SOB for to have subtheraputic INR. #Acute CHF exacerbation; Improving b/l LE edema -cont Lasix 20 mg IV BID, monitor for output -f/u echo tomorrow -CT of the ankles; patient has deformity @ this joint #subtheraputic INR; 1.05 today. -Heparin GTT with VTE level PTT goals -bridging with heparin drip and Coumadin 6 mg PO daily #JOSH; Cr 1.3, unchanged since yesterday. -UA -holding IV hydration in the setting of possible CHF exacerbation #anemia; Hgb 11.1, Hct 33.3, Improved since admission. - monitor CBC #HTN - cont amlodipine 10 mg PO QD, hydralazine 25 mg PO QD #HLD - cont Atorvastatin 20 mg PO HS #hx of tobacco use - counseling on smoking cessation #high BMI/obesity - f/u dietitian consult - weight loss counseling #DVT ppx - currently on IV heparin drip and coumadin for bridging - Doppler B/L LE negative for acute DVT. #FEN -no fluids indicated -monitor lytes -sodium controlled diet dispo -admit med surg -full code Visit type - Emergency Visit Emergency Visit: Yes ED Registration Date: 10/25/17 Care time: The patient presented to the Emergency Department on the above date and was hospitalized for further evaluation of their emergent condition. - New Patient This patient is new to me today: Yes Date on this admission: 10/26/17 - Critical Care Critical Care patient: No <Jake Rodriguez - Last Filed: 10/26/17 18:39> Physical Exam: Agree with the resident note , will get PT/INR for am . Vital Signs Temperature 98.0 F 10/26/17 14:51 Pulse Rate 74 10/26/17 14:51 Respiratory Rate 20 10/26/17 14:51 Blood Pressure 142/81 10/26/17 14:51 O2 Sat by Pulse Oximetry (%) 99 10/26/17 09:00 CBCD WBC 4.9 K/mm3 (4.0-10.0) 10/26/17 07:30 RBC 3.65 M/mm3 (3.60-5.2) 10/26/17 07:30 Hgb 11.1 GM/dL (10.7-15.3) 10/26/17 07:30 Hct 33.3 % (32.4-45.2) 10/26/17 07:30 MCV 91.1 fl (80-96) 10/26/17 07:30 MCHC 33.4 g/dl (32.0-36.0) 10/26/17 07:30 RDW 16.6 % (11.6-15.6) H 10/26/17 07:30 Plt Count 279 K/MM3 (134-434) 10/26/17 07:30 MPV 8.0 fl (7.5-11.1) 10/26/17 07:30 CMP Sodium 141 mmol/L (136-145) 10/26/17 07:30 Potassium 3.9 mmol/L (3.5-5.1) 10/26/17 07:30 Chloride 105 mmol/L (98-107) 10/26/17 07:30 Carbon Dioxide 29 mmol/L (21-32) 10/26/17 07:30 Anion Gap 7 (8-16) L 10/26/17 07:30 BUN 19 mg/dL (7-18) H 10/26/17 07:30 Creatinine 1.3 mg/dL (0.55-1.02) H 10/26/17 07:30 Creat Clearance w eGFR 42.53 (>60) 10/26/17 07:30 Random Glucose 87 mg/dL (74-106) 10/26/17 07:30 Calcium 9.2 mg/dL (8.5-10.1) 10/26/17 07:30 Total Bilirubin 0.3 mg/dL (0.2-1.0) 10/26/17 07:30 AST 25 U/L (15-37) 10/26/17 07:30 ALT 21 U/L (12-78) 10/26/17 07:30 Alkaline Phosphatase 116 U/L (45-117) D 10/26/17 07:30 Total Protein 7.7 g/dl (6.4-8.2) 10/26/17 07:30 Albumin 3.6 g/dl (3.4-5.0) 10/26/17 07:30 CARDIAC ENZYMES Creatine Kinase 543 IU/L (26-192) H 10/24/17 22:15 Troponin I < 0.02 ng/ml (0.00-0.05) 10/24/17 22:15 Current Medications Generic Name Dose Route Start Last Admin Trade Name Karlie PRN Reason Stop Dose Admin Acetaminophen 650 mg 10/26/17 12:45 10/26/17 15:03 Tylenol - PO 650 mg Q6H PRN Administration Fever Or Pain Amlodipine Besylate 10 mg 10/25/17 10:00 10/26/17 11:10 Norvasc - PO 10 mg DAILY JIE Administration Aspirin 81 mg 10/25/17 10:00 10/26/17 11:10 Asa - PO 81 mg DAILY JIE Administration Atorvastatin Calcium 20 mg 10/25/17 22:00 10/25/17 22:01 Lipitor - PO 20 mg HS JIE Administration Docusate Sodium 100 mg 10/25/17 22:00 10/25/17 22:01 Colace - PO 100 mg HS JIE Administration Furosemide 20 mg 10/26/17 06:00 10/26/17 14:52 Lasix Injection - IVPUSH 20 mg BID@0600,1400 [facility] Administration Heparin Sodium (Porcine) 5,400 unit 10/25/17 03:43 Heparin - 40 unit/kg (5400 unit) IVPUSH PRN PRN For aPTT 35 to 45 seconds Heparin Sodium (Porcine) 10,800 unit 10/25/17 03:43 10/26/17 01:55 Heparin - 80 unit/kg (40390 unit) 10,800 unit IVPUSH Administration PRN PRN aPTT <35 seconds Hydralazine HCl 25 mg 10/25/17 10:00 10/26/17 11:10 Apresoline - PO 25 mg DAILY JIE Administration Heparin Sodium/Dextrose 25,000 units in 500 mls @ 54.295 mls/hr 10/25/17 17: 00 10/26/17 17:52 Heparin Infusion - IVPB 22 units/kg/hr TITR JIE 66.36 mls/hr Administration Protocol 18 UNITS/KG/HR Methadone HCl 40 mg/ Methadone 60 mg 10/26/17 06:00 10/26/17 05:51 HCl 20 mg PO 60 mg DAILY@0600 [facility] Administration Warfarin Sodium 5 mg/ Warfarin 6 mg 10/25/17 18:00 10/26/17 17:52 Sodium 1 mg PO 6 mg DAILY@1800 [facility] Administration Home Medications Medication Instructions Recorded RX: Atorvastatin Ca [Lipitor] 20 mg PO HS 05/30/14 RX: Docusate Sodium [Colace -] 100 mg PO HS 05/30/14 RX: Fluticasone Propionate 50 mcg IH BID 05/30/14 [Flovent Diskus] RX: Omeprazole Magnesium [Prilosec 20 mg PO DAILY 05/30/14 (OTC)] RX: Amlodipine Besylate [Norvasc -] 10 mg PO DAILY 07/07/14 RX: Warfarin Na [Coumadin -] 5 mg PO DAILY@1800 #30 tablet 07/23/14 Acetaminophen with Codeine 1 each PO PRN PRN 10/25/17 [Acetaminophen-Cod #3 Tablet] Aspirin [ASA -] 81 mg PO DAILY 10/25/17 Magnesium Oxide [Magnesium] 400 mg PO DAILY 10/25/17 RX: Hydralazine HCl 25 mg PO DAILY 10/25/17 RX: Methadone (Detox) [Dolophine -] 60 PO DAILY 10/25/17 Warfarin Na [Coumadin] 1 mg PO DAILY 10/25/17
[2017-10-26] MEDS: ACETAMINOPHEN 325 MG TABLET (FP) PO PRN ×2 (15:03→22:11)
[2017-10-26] MEDS ORDERED: WARFARIN NA 1 MG TABLET (FP) ONE (17:43)
[2017-10-26] MEDS ORDERED: WARFARIN NA 5 MG TABLET (UD) ONE (17:43)
[2017-10-26] MEDS: WARFARIN NA 5 MG, WARFARIN NA 1 MG PO SCH (17:52)
[2017-10-26] MEDS: DOCUSATE SODIUM 100 MG CAPSULE (FP) PO SCH (21:38)
[2017-10-26] MEDS: ATORVASTATIN CA 20 MG TABLET (FP) PO SCH (21:38)
[2017-10-27] MEDS: HEPARIN INFUSION - 25,000 UNITS/500 ML INFUS.BAG IVPB SCH ×2 (00:10→19:21)
[2017-10-27] MEDS ORDERED: METHADONE HCL 40 MG DISPERSABLE TABLET ONE (05:50)
[2017-10-27] MEDS ORDERED: METHADONE HCL 10 MG TABLET ONE (05:50)
[2017-10-27] MEDS: METHADONE 40 MG, METHADONE 20 MG PO SCH (05:57)
[2017-10-27] MEDS: FUROSEMIDE 40 MG/4 ML INJECTABLE VIAL IVPUSH SCH ×2 (05:57→14:39)
[2017-10-27 08:43] LABS: BASO % 0.8 % (0-2.0); EOS % 2.6 % (0-4.5); HEMATOCRIT 35.2 % (32.4-45.2); HEMOGLOBIN 11.7 GM/dL (10.7-15.3); LYMPH % 22.3 % (8-40); MCH 30.2 pg (25.7-33.7); MCHC 33.3 g/dl (32.0-36.0); MEAN CELL VOLUME 90.8 fl (80-96); MEAN PLT VOLUME 7.8 fl (7.5-11.1); MONO % 10.5 % (3.8-10.2); NEUT % 63.8 % (42.8-82.8); PLATELET COUNT 269 K/MM3 (134-434); RBC 3.88 M/mm3 (3.60-5.2); RDW 16.5 % (11.6-15.6); WHITE BLOOD COUNT 4.9 K/mm3 (4.0-10.0)
[2017-10-27 09:01] LABS: INR 1.14 (0.82-1.09); PROTHROMBIN TIME (PATIENT) 12.9 SEC (9.7-13.0)
[2017-10-27 09:21] LABS: ALBUMIN 3.6 g/dl (3.4-5.0); ALK PHOS 114 U/L (45-117); ANION GAP 7 (8-16); BILIRUBIN,TOTAL 0.3 mg/dL (0.2-1.0); BLOOD UREA NITROGEN 16 mg/dL (7-18); CALCIUM 9.1 mg/dL (8.5-10.1); CHLORIDE 104 mmol/L (98-107); CO2 31 mmol/L (21-32); CREATININE 1.2 mg/dL (0.55-1.02); GLUCOSE,RANDOM 81 mg/dL (74-106); MAGNESIUM 1.8 mg/dL (1.8-2.4); POTASSIUM 3.8 mmol/L (3.5-5.1); SGOT/AST 23 U/L (15-37); SGPT/ALT 19 U/L (12-78); SODIUM 142 mmol/L (136-145); TOT PROT 7.7 g/dl (6.4-8.2)
--- NOTE | 2017-10-27 09:21 | PN ---
Physical Exam: SUBJECTIVE: Patient seen and examined. Admits to improved B/L leg swelling. Eliseo PO intake. Denies fever/chills, nausea/vomiting, headaches/dizziness. OBJECTIVE: Vital Signs Period Temp Pulse Resp BP Sys/Yoder Pulse Ox Last 24 Hr 97.8 F-98.3 F 70-74 20-20 130-148/77-89 99 GENERAL: Awake, alert, and fully oriented, in no acute distress. Obese. EYES: Pupils equal, round and reactive to light, extraocular movements intact, sclera anicteric, conjunctiva clear. No lid lag. EARS, NOSE, THROAT: Moist mucous membranes. NECK: Normal range of motion, supple without lymphadenopathy, JVD, or masses. LUNGS: Breath sounds equal, clear to auscultation bilaterally. No wheezes, and no crackles. No accessory muscle use. HEART: Regular rate, irregular rhythm, normal S1 and S2 without murmur, rub or gallop. ABDOMEN: Soft, nontender, not distended, normoactive bowel sounds, no guarding, no rebound, no masses. No hepatomegaly or splenomegaly. LOWER EXTREMITIES: 2+ pulses, warm, well-perfused. 1+ pitting edema b/l LE, improved since yesterday. +warmth, redness RLE NEUROLOGICAL: Cranial nerves II-X intact. Normal speech. Laboratory Results - last 24 hr 10/26/17 10/26/17 10/27/17 15:30 22:10 08:30 WBC 4.9 RBC 3.88 Hgb 11.7 Hct 35.2 MCV 90.8 MCH 30.2 MCHC 33.3 RDW 16.5 H Plt Count 269 MPV 7.8 Absolute Neuts (auto) 3.1 Neutrophils % 63.8 Lymphocytes % 22.3 Monocytes % 10.5 H Eosinophils % 2.6 Basophils % 0.8 Nucleated RBC % 0 PT with INR INR PTT (Actin FS) 142.7 H D 201.6 H 10/27/17 08:30 WBC RBC Hgb Hct MCV MCH MCHC RDW Plt Count MPV Absolute Neuts (auto) Neutrophils % Lymphocytes % Monocytes % Eosinophils % Basophils % Nucleated RBC % PT with INR 12.90 INR 1.14 PTT (Actin FS) Active Medications Generic Name Dose Route Start Last Admin Trade Name Freq PRN Reason Stop Dose Admin Acetaminophen 650 mg 10/26/17 12:45 10/26/17 22:11 Tylenol - PO 650 mg Q6H PRN Administration Fever Or Pain Amlodipine Besylate 10 mg 10/25/17 10:00 10/26/17 11:10 Norvasc - PO 10 mg DAILY JIE Administration Aspirin 81 mg 10/25/17 10:00 10/26/17 11:10 Asa - PO 81 mg DAILY JIE Administration Atorvastatin Calcium 20 mg 10/25/17 22:00 10/26/17 21:38 Lipitor - PO 20 mg HS JIE Administration Docusate Sodium 100 mg 10/25/17 22:00 10/26/17 21:38 Colace - PO 100 mg HS JIE Administration Furosemide 20 mg 10/26/17 06:00 10/27/17 05:57 Lasix Injection - IVPUSH 20 mg BID@0600,1400 JIE Administration Heparin Sodium (Porcine) 5,400 unit 10/25/17 03:43 Heparin - 40 unit/kg (5400 unit) IVPUSH PRN PRN For aPTT 35 to 45 seconds Heparin Sodium (Porcine) 10,800 unit 10/25/17 03:43 10/26/17 01:55 Heparin - 80 unit/kg (25748 unit) 10,800 unit IVPUSH Administration PRN PRN aPTT <35 seconds Hydralazine HCl 25 mg 10/25/17 10:00 10/26/17 11:10 Apresoline - PO 25 mg DAILY JIE Administration Heparin Sodium/Dextrose 25,000 units in 500 mls @ 54.295 mls/hr 10/25/17 17: 00 10/27/17 00:10 Heparin Infusion - IVPB 19 units/kg/hr TITR JIE 57.311 mls/hr Administration Protocol 18 UNITS/KG/HR Methadone HCl 40 mg/ Methadone 60 mg 10/26/17 06:00 10/27/17 05:57 HCl 20 mg PO 60 mg DAILY@0600 JIE Administration Warfarin Sodium 5 mg/ Warfarin 6 mg 10/25/17 18:00 10/26/17 17:52 Sodium 1 mg PO 6 mg DAILY@1800 JIE Administration CTA: No evidence of acute pulm emboli Doppler of B/L LE: No evidence of acute DVT. Echo: Trace to mild TR. R ventricular systolic pressure is normal. Regional wall motion abnormalities cannot be excluded due to limited visualization. LV EF is normal LV size, thickness, fxn are normal. RV not well visualized. Trace to mild MR. ASSESSMENT/PLAN: 57F w/ PMH COPD, HTN, hx of DVT, CVA who comes into the ED c/o b/l LE edema and SOB for to have subtherapeutic INR. #Acute CHF exacerbation; Improving b/l LE edema; good urine output. -cont Lasix 20 mg IV BID, monitor for output -echo: results stated above -CT of the ankles; patient has deformity @ this joint #subtheraputic INR; 1.14 today. coumadin for hx of DVT (2012) -Heparin GTT with VTE level PTT goals -bridging with heparin drip and Coumadin 6 mg PO daily -called PCP, Dr. Jacquelyn Kruse ([phone]), for follow up regarding coumadin prescribed to pt; await call back #JOSH; Stable. Cr 1.2, yesterday 1.3. -UA neg (10/27/17) #anemia; Hgb 11.7, Hct 36.2, Improved since admission. - monitor CBC #HTN - cont amlodipine 10 mg PO QD, hydralazine 25 mg PO QD #HLD - cont Atorvastatin 20 mg PO HS #hx of tobacco use - counseling on smoking cessation #high BMI/obesity - low sodium diet - weight loss counseling; as per dietitian note, compliance unlikely #DVT ppx - currently on IV heparin drip and coumadin for bridging - Doppler B/L LE negative for acute DVT. #FEN -no fluids indicated -monitor lytes -sodium controlled diet dispo -cont to monitor on med surg -full code Visit type - Emergency Visit Emergency Visit: Yes ED Registration Date: 10/25/17 Care time: The patient presented to the Emergency Department on the above date and was hospitalized for further evaluation of their emergent condition. - New Patient This patient is new to me today: No - Critical Care Critical Care patient: No
[2017-10-27] MEDS ORDERED: PT OWN MED DRAWER 7, Y5N ONE (09:42)
[2017-10-27] MEDS: hydrALAZINE HCL 25 MG TABLET (FP) PO SCH (09:44)
[2017-10-27] MEDS: ASPIRIN 81 MG CHEWABLE TABLETS PO SCH (09:44)
[2017-10-27] MEDS: amLODIPine BESYLATE 10 MG TABLET (FP) PO SCH (09:45)
[2017-10-27 15:58] VITALS: BMI 48.2
--- NOTE | 2017-10-27 16:09 | ECHO ---
Name: NATALIE GARCIA Exam:Adult Echocardiogram Study Date: 10/27/2017 03:17 PM Age: 57 yrs Reason For Study: R/O LV DYSFUNCTION Height: 69 in Weight: 327 lb BSA: 2.5 m2 MMode/2D Measurements & Calculations IVSd: 0.92 cm Ao root diam: 2.6 cm LVIDd: 4.8 cm LA dimension: 3.1 cm LVIDs: 3.1 cm LVPWd: 0.90 cm EDV(Teich): 107.1 ml ESV(Teich): 36.7 ml Doppler Measurements & Calculations MV E max camron: 46.9 cm/sec TR max camron: 178.2 cm/sec MV A max camron: 70.6 cm/sec TR max P.7 mmHg MV E/A: 0.66 PI end-d camron: 66.9 cm/sec Med Peak E' Camron: 6.6 cm/sec Med E/e': 7.1 Lat Peak E' Camron: 7.5 cm/sec Lat E/e': 6.2 Procedure A two-dimensional transthoracic echocardiogram with color flow and Doppler was performed. The study w as technically difficult with many images being suboptimal in quality. Left Ventricle The left ventricular size, thickness and function are normal. The left ventricular ejection fraction is normal. Regional wall motion abnormalities cannot be excluded due to limited visualization. Right Ventricle The right ventricle is not well visualized. Atria Normal left and right atrial size and function. Mitral Valve There is mild mitral valve thickening. There is no mitral valve stenosis. There is trace to mild mitr al regurgitation. Tricuspid Valve There is mild tricuspid valve thickening. There is no tricuspid stenosis. There is Trace to mild tric uspid regurgitation. Right ventricular systolic pressure is normal. Aortic Valve The aortic valve is not well visualized. No hemodynamically significant valvular aortic stenosis. No aortic regurgitation is present. Pulmonic Valve The pulmonic valve is not well visualized. There is no pulmonic valvular stenosis. Trace pulmonic aurelia vular regurgitation. Great Vessels The aortic root is normal size. Interpretation Summary There is Trace to mild tricuspid regurgitation. Right ventricular systolic pressure is normal. The study was technically difficult with many images being suboptimal in quality. Regional wall motion abnormalities cannot be excluded due to limited visualization. The left ventricular ejection fraction is normal. The left ventricular size, thickness and function are normal The right ventricle is not well visualized. There is trace to mild mitral regurgitation. MD Raphael Lyman 10/27/2017 04:09 PM
[2017-10-27] MEDS ORDERED: WARFARIN NA 10 MG TABLET (FP) PO SCH (18:00)
--- NOTE | 2017-10-27 19:09 | PN ---
Teaching Attending Note Name of Resident: Olinda Richard ATTENDING PHYSICIAN STATEMENT I saw and evaluated the patient. I reviewed the resident's note and discussed the case with the resident. I agree with the resident's findings and plan as documented. SUBJECTIVE: Patient is feeling better, swelling of lower extremities are improving. OBJECTIVE: Vital Signs Temperature 97.4 F L 10/27/17 16:30 Pulse Rate 68 10/27/17 16:30 Respiratory Rate 20 10/27/17 16:30 Blood Pressure 153/89 10/27/17 16:30 O2 Sat by Pulse Oximetry (%) 99 10/26/17 21:00 CBCD WBC 4.9 K/mm3 (4.0-10.0) 10/27/17 08:30 RBC 3.88 M/mm3 (3.60-5.2) 10/27/17 08:30 Hgb 11.7 GM/dL (10.7-15.3) 10/27/17 08:30 Hct 35.2 % (32.4-45.2) 10/27/17 08:30 MCV 90.8 fl (80-96) 10/27/17 08:30 MCHC 33.3 g/dl (32.0-36.0) 10/27/17 08:30 RDW 16.5 % (11.6-15.6) H 10/27/17 08:30 Plt Count 269 K/MM3 (134-434) 10/27/17 08:30 MPV 7.8 fl (7.5-11.1) 10/27/17 08:30 CMP Sodium 142 mmol/L (136-145) 10/27/17 08:30 Potassium 3.8 mmol/L (3.5-5.1) 10/27/17 08:30 Chloride 104 mmol/L (98-107) 10/27/17 08:30 Carbon Dioxide 31 mmol/L (21-32) 10/27/17 08:30 Anion Gap 7 (8-16) L 10/27/17 08:30 BUN 16 mg/dL (7-18) 10/27/17 08:30 Creatinine 1.2 mg/dL (0.55-1.02) H 10/27/17 08:30 Creat Clearance w eGFR 46.64 (>60) 10/27/17 08:30 Random Glucose 81 mg/dL (74-106) 10/27/17 08:30 Calcium 9.1 mg/dL (8.5-10.1) 10/27/17 08:30 Total Bilirubin 0.3 mg/dL (0.2-1.0) 10/27/17 08:30 AST 23 U/L (15-37) 10/27/17 08:30 ALT 19 U/L (12-78) 10/27/17 08:30 Alkaline Phosphatase 114 U/L (45-117) 10/27/17 08:30 Total Protein 7.7 g/dl (6.4-8.2) 10/27/17 08:30 Albumin 3.6 g/dl (3.4-5.0) 10/27/17 08:30 CARDIAC ENZYMES Creatine Kinase 543 IU/L (26-192) H 10/24/17 22:15 Troponin I < 0.02 ng/ml (0.00-0.05) 10/24/17 22:15 Current Medications Generic Name Dose Route Start Last Admin Trade Name Torreyq PRN Reason Stop Dose Admin Acetaminophen 650 mg 10/26/17 12:45 10/26/17 22:11 Tylenol - PO 650 mg Q6H PRN Administration Fever Or Pain Amlodipine Besylate 10 mg 10/25/17 10:00 10/27/17 09:45 Norvasc - PO 10 mg DAILY JIE Administration Aspirin 81 mg 10/25/17 10:00 10/27/17 09:44 Asa - PO 81 mg DAILY JIE Administration Atorvastatin Calcium 20 mg 10/25/17 22:00 10/26/17 21:38 Lipitor - PO 20 mg HS JIE Administration Docusate Sodium 100 mg 10/25/17 22:00 10/26/17 21:38 Colace - PO 100 mg HS JIE Administration Furosemide 20 mg 10/26/17 06:00 10/27/17 14:39 Lasix Injection - IVPUSH 20 mg BID@0600,1400 JIE Administration Heparin Sodium (Porcine) 5,400 unit 10/25/17 03:43 Heparin - 40 unit/kg (5400 unit) IVPUSH PRN PRN For aPTT 35 to 45 seconds Heparin Sodium (Porcine) 10,800 unit 10/25/17 03:43 10/26/17 01:55 Heparin - 80 unit/kg (26402 unit) 10,800 unit IVPUSH Administration PRN PRN aPTT <35 seconds Hydralazine HCl 25 mg 10/25/17 10:00 10/27/17 09:44 Apresoline - PO 25 mg DAILY JIE Administration Heparin Sodium/Dextrose 25,000 units in 500 mls @ 54.295 mls/hr 10/25/17 17: 00 10/27/17 00:10 Heparin Infusion - IVPB 19 units/kg/hr TITR JIE 57.311 mls/hr Administration Protocol 18 UNITS/KG/HR Methadone HCl 40 mg/ Methadone 60 mg 10/26/17 06:00 10/27/17 05:57 HCl 20 mg PO 60 mg DAILY@0600 [facility] Administration Warfarin Sodium 10 mg 10/27/17 18:00 10/27/17 17:52 Coumadin - PO 10 mg DAILY@1800 [facility] Administration Home Medications Medication Instructions Recorded Atorvastatin Ca [Lipitor] 20 mg PO HS 05/30/14 Docusate Sodium [Colace -] 100 mg PO HS 05/30/14 Fluticasone Propionate [Flovent 50 mcg IH BID 05/30/14 Diskus] Omeprazole Magnesium [Prilosec 20 mg PO DAILY 05/30/14 (OTC)] Amlodipine Besylate [Norvasc -] 10 mg PO DAILY 07/07/14 Warfarin Na [Coumadin -] 5 mg PO DAILY@1800 #30 tablet 07/23/14 Acetaminophen with Codeine 1 each PO PRN PRN 10/25/17 [Acetaminophen-Cod #3 Tablet] Aspirin [ASA -] 81 mg PO DAILY 10/25/17 Hydralazine HCl 25 mg PO DAILY 10/25/17 Magnesium Oxide [Magnesium] 400 mg PO DAILY 10/25/17 Methadone (Detox) [Dolophine -] 60 PO DAILY 10/25/17 Warfarin Na [Coumadin] 1 mg PO DAILY 10/25/17 PE: per resident's note ASSESSMENT AND PLAN: Patient is a 57 yo f w/ OMH anemia, COPD, HTN, CVA, DVT who is admitted for 3 day history of b/l LE edema associated with SOB. # Acute exacerbation of diastolic CHF with LE edema BL continue IV lasix bid 20mg for now, echo read is pending # Remote DVT - Her INR is subtherapeutic. Will bridge her with IV heparin drip, continue current dose of coumadin (10mg today) and get daily INR. will try to get her records from her MDs office why she is on Coumadin at home, since CTA and duplex are negative for DVT and patient has IVC filter, called and left a message with the primary office to call back. # Tobacco Use We will provide patient all the necessary assistance to facilitate smoking cessation and prescribe Nicotine patch. #Anemia - Likely multifactorial. Will do basic anemia work up including serial stool guaiacs, reticulocyte count and iron studies. # Obesity - Will provide patient all the necessary assistance , counseling and positive reinforcement to facilitate weight loss. Consult welt stitcher. DVT prophylaxis - On IV heparin drip for bridging and coumadin Advance directives - Full code
[2017-10-27] MEDS: ATORVASTATIN CA 20 MG TABLET (FP) PO SCH (22:02)
[2017-10-27] MEDS: DOCUSATE SODIUM 100 MG CAPSULE (FP) PO SCH (22:02)
[2017-10-28] MEDS ORDERED: METHADONE HCL 40 MG DISPERSABLE TABLET ONE (06:13)
[2017-10-28] MEDS ORDERED: METHADONE HCL 10 MG TABLET ONE (06:13)
[2017-10-28] MEDS: FUROSEMIDE 40 MG/4 ML INJECTABLE VIAL IVPUSH SCH ×2 (06:36→14:17)
[2017-10-28] MEDS: METHADONE 40 MG, METHADONE 20 MG PO SCH (06:36)
[2017-10-28 08:19] LABS: BASO % 0.5 % (0-2.0); EOS % 2.3 % (0-4.5); HEMATOCRIT 33.6 % (32.4-45.2); HEMOGLOBIN 11.4 GM/dL (10.7-15.3); MCH 30.5 pg (25.7-33.7); MCHC 33.9 g/dl (32.0-36.0); MEAN CELL VOLUME 89.9 fl (80-96); MEAN PLT VOLUME 7.5 fl (7.5-11.1); MONO % 12.9 % (3.8-10.2); NEUT % 64.3 % (42.8-82.8); PLATELET COUNT 273 K/MM3 (134-434); RBC 3.74 M/mm3 (3.60-5.2); RDW 16.7 % (11.6-15.6); WHITE BLOOD COUNT 4.6 K/mm3 (4.0-10.0)
[2017-10-28 08:44] LABS: ALBUMIN 3.6 g/dl (3.4-5.0); ANION GAP 9 (8-16); BILIRUBIN,TOTAL 0.3 mg/dL (0.2-1.0); BLOOD UREA NITROGEN 17 mg/dL (7-18); CALCIUM 9.2 mg/dL (8.5-10.1); CHLORIDE 102 mmol/L (98-107); CO2 30 mmol/L (21-32); CREATININE 1.2 mg/dL (0.55-1.02); GLUCOSE,RANDOM 92 mg/dL (74-106); POTASSIUM 3.7 mmol/L (3.5-5.1); SGOT/AST 18 U/L (15-37); SGPT/ALT 18 U/L (12-78); SODIUM 141 mmol/L (136-145); TOT PROT 7.4 g/dl (6.4-8.2)
[2017-10-28 08:45] LABS: ALK PHOS 107 U/L (45-117)
--- NOTE | 2017-10-28 09:41 | PN ---
Physical Exam: SUBJECTIVE: Patient seen and examined at bedside. No acute events overnight. Pt admits to b/l lateral leg swelling that is improving. Minimal pain. OBJECTIVE: Vital Signs Period Temp Pulse Resp BP Sys/Yoder Pulse Ox Last 24 Hr 97.4 F-97.9 F 68-81 18-20 112-154/69-96 99 GENERAL: Awake, alert, and fully oriented, in no acute distress. Obese. EYES: Pupils equal, round and reactive to light, extraocular movements intact, sclera anicteric, conjunctiva clear. No lid lag. EARS, NOSE, THROAT: Moist mucous membranes. NECK: Normal range of motion, supple without lymphadenopathy, JVD, or masses. LUNGS: Breath sounds equal, clear to auscultation bilaterally. No wheezes, and no crackles. No accessory muscle use. HEART: Regular rate, irregular rhythm, normal S1 and S2 without murmur, rub or gallop. ABDOMEN: Soft, nontender, not distended, normoactive bowel sounds, no guarding, no rebound, no masses. No hepatomegaly or splenomegaly. LOWER EXTREMITIES: 2+ pulses, warm, well-perfused. 1+ pitting edema b/l LE, improved since yesterday. +warmth, redness RLE NEUROLOGICAL: Cranial nerves II-X intact. Normal speech. Laboratory Results - last 24 hr 10/27/17 10/28/17 10/28/17 16:45 01:20 08:07 WBC 4.6 RBC 3.74 Hgb 11.4 Hct 33.6 MCV 89.9 MCH 30.5 MCHC 33.9 RDW 16.7 H Plt Count 273 MPV 7.5 Absolute Neuts (auto) 2.9 Neutrophils % 64.3 Lymphocytes % 20.0 Monocytes % 12.9 H Eosinophils % 2.3 Basophils % 0.5 Nucleated RBC % 0 PTT (Actin FS) 133.5 H D Cancelled Sodium Potassium Chloride Carbon Dioxide Anion Gap BUN Creatinine Creat Clearance w eGFR Random Glucose Calcium Total Bilirubin AST ALT Alkaline Phosphatase Total Protein Albumin 10/28/17 08:07 WBC RBC Hgb Hct MCV MCH MCHC RDW Plt Count MPV Absolute Neuts (auto) Neutrophils % Lymphocytes % Monocytes % Eosinophils % Basophils % Nucleated RBC % PTT (Actin FS) Sodium 141 Potassium 3.7 Chloride 102 Carbon Dioxide 30 Anion Gap 9 BUN 17 Creatinine 1.2 H Creat Clearance w eGFR 46.64 Random Glucose 92 Calcium 9.2 Total Bilirubin 0.3 AST 18 ALT 18 Alkaline Phosphatase 107 Total Protein 7.4 Albumin 3.6 Active Medications Generic Name Dose Route Start Last Admin Trade Name Karlie PRN Reason Stop Dose Admin Acetaminophen 650 mg 10/26/17 12:45 10/26/17 22:11 Tylenol - PO 650 mg Q6H PRN Administration Fever Or Pain Amlodipine Besylate 10 mg 10/25/17 10:00 10/27/17 09:45 Norvasc - PO 10 mg DAILY JIE Administration Aspirin 81 mg 10/25/17 10:00 10/27/17 09:44 Asa - PO 81 mg DAILY JIE Administration Atorvastatin Calcium 20 mg 10/25/17 22:00 10/27/17 22:02 Lipitor - PO 20 mg HS JIE Administration Docusate Sodium 100 mg 10/25/17 22:00 10/27/17 22:02 Colace - PO 100 mg HS JIE Administration Furosemide 40 mg 10/28/17 09:22 Lasix Injection - IVPUSH BID@0600,1400 JIE Hydralazine HCl 25 mg 10/25/17 10:00 10/27/17 09:44 Apresoline - PO 25 mg DAILY JIE Administration Methadone HCl 40 mg/ Methadone 60 mg 10/26/17 06:00 10/28/17 06:36 HCl 20 mg PO 60 mg DAILY@0600 JIE Administration CTA: No evidence of acute pulm emboli Doppler of B/L LE: No evidence of acute DVT. Echo: Trace to mild TR. R ventricular systolic pressure is normal. Regional wall motion abnormalities cannot be excluded due to limited visualization. LV EF is normal LV size, thickness, fxn are normal. RV not well visualized. Trace to mild MR. ASSESSMENT/PLAN: 57F w/ PMH COPD, HTN, hx of DVT, CVA who comes into the ED c/o b/l LE edema and SOB for to have subtherapeutic INR. #Acute CHF exacerbation; Improving b/l LE edema; good urine output. BP 151/95 this AM. -increased Lasix from 20 mg to 40 mg IV BID, monitor for output -echo: results stated above -CT of the ankles; patient has deformity @ this joint #subtheraputic INR; 1.14 today. coumadin for hx of DVT (2012) -Spoke to pt's PCP, Dr. Kruse ([phone]) from [facility]. Pt's last office visit was 03/2017 and was told to schedule followup visit with pulm and cardio to re-evaluate if Coumadin was still necessary to take since last DVT/PE was in 2014. Pt's last INR was also documented 03/2017 at a subtherapeutic value of 1.8. According to PCP, pt is an unreliable historian and has not been compliant with medical appointments. Of note, pt also has a hx of CHF and was told to follow up with cardio for echo, but patient never went. Echo done during this admission, results stated above. -d/c'd heparin drip and coumadin as hx of DVT/PE was years ago and most likely does not need AC at this time #JOSH; Stable. Cr 1.2, yesterday 1.2. -UA neg (10/27/17) #HTN - cont amlodipine 10 mg PO QD, hydralazine 25 mg PO QD #HLD - cont Atorvastatin 20 mg PO HS #hx of tobacco use - counseling on smoking cessation #high BMI/obesity - low sodium diet - weight loss counseling; as per dietitian note, compliance unlikely #DVT ppx - d/c'd heparin drip and coumadin today - will hold off on hep subQ for now; early ambulation - Doppler B/L LE negative for acute DVT. #FEN -no fluids indicated -monitor lytes -sodium controlled diet dispo -cont to monitor on med surg -full code Visit type - Emergency Visit Emergency Visit: Yes ED Registration Date: 10/25/17 Care time: The patient presented to the Emergency Department on the above date and was hospitalized for further evaluation of their emergent condition. - New Patient This patient is new to me today: No - Critical Care Critical Care patient: No
[2017-10-28] MEDS: hydrALAZINE HCL 25 MG TABLET (FP) PO SCH (09:51)
[2017-10-28] MEDS: amLODIPine BESYLATE 10 MG TABLET (FP) PO SCH (09:51)
[2017-10-28] MEDS: ASPIRIN 81 MG CHEWABLE TABLETS PO SCH (09:51)
--- NOTE | 2017-10-28 15:34 | PN ---
Teaching Attending Note Name of Resident: Olinda Richard ATTENDING PHYSICIAN STATEMENT I saw and evaluated the patient. I reviewed the resident's note and discussed the case with the resident. I agree with the resident's findings and plan as documented. SUBJECTIVE: Patient is improving but still LEs are swollen. OBJECTIVE: Vital Signs Temperature 98.2 F 10/28/17 14:02 Pulse Rate 74 10/28/17 14:02 Respiratory Rate 18 10/28/17 14:02 Blood Pressure 132/68 10/28/17 14:02 O2 Sat by Pulse Oximetry (%) 98 10/28/17 09:00 CBCD WBC 4.6 K/mm3 (4.0-10.0) 10/28/17 08:07 RBC 3.74 M/mm3 (3.60-5.2) 10/28/17 08:07 Hgb 11.4 GM/dL (10.7-15.3) 10/28/17 08:07 Hct 33.6 % (32.4-45.2) 10/28/17 08:07 MCV 89.9 fl (80-96) 10/28/17 08:07 MCHC 33.9 g/dl (32.0-36.0) 10/28/17 08:07 RDW 16.7 % (11.6-15.6) H 10/28/17 08:07 Plt Count 273 K/MM3 (134-434) 10/28/17 08:07 MPV 7.5 fl (7.5-11.1) 10/28/17 08:07 CMP Sodium 141 mmol/L (136-145) 10/28/17 08:07 Potassium 3.7 mmol/L (3.5-5.1) 10/28/17 08:07 Chloride 102 mmol/L (98-107) 10/28/17 08:07 Carbon Dioxide 30 mmol/L (21-32) 10/28/17 08:07 Anion Gap 9 (8-16) 10/28/17 08:07 BUN 17 mg/dL (7-18) 10/28/17 08:07 Creatinine 1.2 mg/dL (0.55-1.02) H 10/28/17 08:07 Creat Clearance w eGFR 46.64 (>60) 10/28/17 08:07 Random Glucose 92 mg/dL (74-106) 10/28/17 08:07 Calcium 9.2 mg/dL (8.5-10.1) 10/28/17 08:07 Total Bilirubin 0.3 mg/dL (0.2-1.0) 10/28/17 08:07 AST 18 U/L (15-37) 10/28/17 08:07 ALT 18 U/L (12-78) 10/28/17 08:07 Alkaline Phosphatase 107 U/L (45-117) 10/28/17 08:07 Total Protein 7.4 g/dl (6.4-8.2) 10/28/17 08:07 Albumin 3.6 g/dl (3.4-5.0) 10/28/17 08:07 CARDIAC ENZYMES Creatine Kinase 543 IU/L (26-192) H 10/24/17 22:15 Troponin I < 0.02 ng/ml (0.00-0.05) 10/24/17 22:15 Current Medications Generic Name Dose Route Start Last Admin Trade Name Karlie PRN Reason Stop Dose Admin Acetaminophen 650 mg 10/26/17 12:45 10/26/17 22:11 Tylenol - PO 650 mg Q6H PRN Administration Fever Or Pain Amlodipine Besylate 10 mg 10/25/17 10:00 10/28/17 09:51 Norvasc - PO 10 mg DAILY JIE Administration Aspirin 81 mg 10/25/17 10:00 10/28/17 09:51 Asa - PO 81 mg DAILY [facility] Administration Atorvastatin Calcium 40 mg 10/28/17 22:00 Lipitor - PO HS [facility] Docusate Sodium 100 mg 10/25/17 22:00 10/27/17 22:02 Colace - PO 100 mg HS [facility] Administration Furosemide 40 mg 10/28/17 09:22 10/28/17 14:17 Lasix Injection - IVPUSH 40 mg BID@0600,1400 [facility] Administration Hydralazine HCl 25 mg 10/25/17 10:00 10/28/17 09:51 Apresoline - PO 25 mg DAILY JIE Administration Methadone HCl 40 mg/ Methadone 60 mg 10/29/17 06:00 HCl 20 mg PO DAILY@0600 [facility] Home Medications Medication Instructions Recorded RX: Atorvastatin Ca [Lipitor] 40 mg PO HS 05/30/14 RX: Fluticasone Propionate 110 mcg IH DAILY 05/30/14 [Flovent Diskus] RX: Omeprazole Magnesium [Prilosec 20 mg PO DAILY 05/30/14 (OTC)] Aspirin [ASA -] 81 mg PO DAILY 10/25/17 Magnesium Oxide [Magnesium] 400 mg PO QID 10/25/17 RX: Hydralazine HCl 25 mg PO TID 10/25/17 Warfarin Na [Coumadin] 1 mg PO DAILY 10/25/17 Amlodipine Besylate/Benazepril 1 cap PO DAILY 10/28/17 [Lotrel 10-20 mg Capsule] Methadone [Dolophine -] 60 mg PO DAILY 10/28/17 PE: LEs swollen 3 plus but better than before rest of PE per resident's note CTA scan of chest - PE protocol, 62 cc Visipaque 320 There is no acute pulmonary emboli. There is no hilar, mediastinal or axillary lymphadenopathy. There is no pleural or pericardial effusion. There is no thoracic aortic aneurysm. There are no infiltrates, pulmonary masses or nodules. There are no adrenal masses. IMPRESSION: No evidence of acute pulmonary emboli. Referring Physician notified of results at time of examination by [facility] radiology service Reported By: Kieran Hansen MD 10/25/17 1012 Duples of LE: demonstrate good compressibility. The calf veins are patent. There is a 2.2 x 1.8 cm right popliteal cyst. Impression: No evidence of acute DVT. 2.2 cm right popliteal cyst Referring Physician notified of results at time of examination by [facility] radiology services Reported By: Kieran Hansen MD 10/25/17 0980 Echo: reviewed ASSESSMENT AND PLAN: Patient is a 57 yo f w/ OMH anemia, COPD, HTN, CVA, DVT who is admitted for 3 day history of b/l LE edema associated with SOB. # Acute exacerbation of diastolic CHF with LE edema BL on IV lasix bid 20mg increased to 40mg bid for now, echo is reviewed. # Hx of DVT 2012 and 2014 and PE 2014 s/p IVC filter , as per PCP, ) from [facility] not sure whether her DVT/ PE is provoked or unprovoked also was given an appointment at [facility] , as per primary ,she never followed up with them and last follow with her PMD is in 2016 , So dr. Kruse is unsure whether to continue Ac or not, discussed the case with will continue with Lovenox 120mg sq Bid for now, and continue with Coumadin 10mg. will see the patient. CTA and duplex of lower extremities are negative. As per will try to get more information and possible that she will benefit from NOac vs coumadin since she is noncompliant as well. Please discuss with further for appropiate management for this patient. Further work up as per by ,discussed with. # Tobacco Use We will provide patient all the necessary assistance to facilitate smoking cessation and prescribe Nicotine patch. #Anemia - Likely multifactorial. improving # Obesity - Will provide patient all the necessary assistance , counseling and positive reinforcement to facilitate weight loss. final inspector paper on board. DVT prophylaxis - On Lovenox 120mg sq bid with coumadin 10mg for now Advance directives - Full code
[2017-10-28] MEDS: WARFARIN NA 10 MG TABLET (FP) PO SCH (18:05)
--- NOTE | 2017-10-28 19:39 | PN ---
Progress Note (short form) - Note Progress Note: CONSULT DICTATED 57 year old obese, sedentary female , smoker since age 18 presents with LE edema. Has history of DVT and P.E> in 2012 and DVT and P>E in 2014 with IVC filter. No antecedent long trips, hormone therapy, prior surgery or trauma. Presumed unprovoked DVT by history. States she has taken a/c since 2012. Since we do not know the INR in 2014 when patient developed her 2nd vascuar evnts, cannot truly state that she is a coumadin failure. In fact, presented with a subtherapeutic INR to hospital Since patient has had 2 unprovoked vascular events despite the IVC filter she will need life-long anticoagulation. There is also a family history of a father who of a blood clot. Whether patient resumes coumadin or switches to a NOAC is choice of patients physicians. She should have age appropriate screening for malignancy with CT of chest , abdomen and pelvis .She has had a colonoscopy 2 years earlier and a mammogrm one year earlier. She could have a thrombophilia work up absence Protein C, S, and ATIII. These can be falsely lowered on a/c.
--- NOTE | 2017-10-28 20:39 | CONS ---
DATE OF CONSULTATION: 10/28/2017 This is a 57-year-old female being seen for evaluation with a history of a DVT. Patient's history includes smoking since age 18 and has smoked up to 2 packs per day. She continues to smoke. She denies drinking in excess. 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 She had occasional marijuana. She states recently there has been no drug abuse. Past history includes stroke in 2017. History in 2012 of DVT and PE. Patient at that time had no control pills, no long trips, and no prior surgery. It does sound like an unprovoked DVT and PE. Patient maintained on anticoagulation and in 2014 once again had a DVT and PE. At that time, an IVC filter was placed. Patient has been on anticoagulation with Coumadin and came in subtherapeutic. Patient is followed at the [facility]. Recent CTA revealed no evidence of acute pulmonary emboli and recent duplex of the lower extremities revealed no evidence of DVT with a right popliteal Chen's cyst. SOCIAL HISTORY: The patient is . Has 2 children. Father of a stroke. Mother of dementia. One brother had HIV and of AIDS. PAST MEDICAL HISTORY: Includes that of COPD, hypertension, stroke, and aforementioned unprovoked DVT and PE x2, on anticoagulation. Current admission was for a lower extremity edema and diastolic failure, i.e. congestive heart failure. CURRENT HOME MEDICINES: Include Lipitor, omeprazole, aspirin, magnesium, hydralazine, Coumadin, amlodipine, and methadone. ALLERGIES: PENICILLIN. REVIEW OF SYSTEMS: Right-sided frontal headaches. No diplopia. No epistaxis. No dysphagia. Positive shortness of breath, plus dyspnea on exertion. No dysphagia or odynophagia. Patient had a mammogram one year ago which reportedly was nonrevealing. Patient denies chest pain, denies palpitations, has reflux. Patient denies nausea, vomiting, diarrhea, constipation, melena. Patient had a colonoscopy 2 years ago. Reportedly unremarkable. Patient states she will never have another colonoscopy. Patient denies dysuria, hematuria, pyuria. Patient denies vaginal bleeding or discharge. CURRENT MEDICINES: Tylenol, Lovenox, Coumadin, Colace, Norvasc, hydralazine, Lipitor, Lasix, aspirin, and methadone. CURRENT PHYSICAL EXAMINATION: Vital Signs: Blood pressure 147/84, pulse 82, respiratory rate 18, afebrile. HEENT: PERRLA. EOM intact. Oropharynx unremarkable. Lungs: Relatively clear. Cardiac: RSR. Breasts: Pendulous. No dominant masses. Abdomen: Obese. Extremities: Reveal lower extremity edema. LABORATORY: Sodium 141, potassium 3.7, chloride 102, CO2 30, BUN 17, creatinine 1.2, uric acid 6.0, phosphorous 4, bilirubin 0.3. AST 18, ALT 18, alkaline phosphatase 107, protein 7.4, albumin 3.6. Chest x-ray: No evidence of focal infiltrate identified. IMPRESSION: Obese 57-year-old female with history of deep vein thrombosis and pulmonary embolus, presumably unprovoked in 2012. History of deep vein thrombosis, pulmonary embolus, and inferior vena cava filter in 2014. Patient states she has been on anticoagulation since 2012. Level of INR when the patient had second pulmonary embolism is unclear. No obvious provocations. Patient has a family history of a father who of a pulmonary embolus. Current physical reveals an obese female. Patient is somewhat sedentary and has difficulty with ambulation. Patient's risks factors for DVT are obesity, sedentary lifestyle, and smoking since age 18. In addition, there is a family history as aforementioned. I would suggest evaluation with age-appropriate malignancy workup. Patient has had a mammogram in the past year. She has had a colonoscopy 2 years ago. Chest, abdomen, and pelvis CT scan can be obtained. Thrombophilia workup can be performed, although protein CS and antithrombin-3 levels will be non-valid as they may be low secondary to the current anticoagulation therapy. Unclear if the patient is a Coumadin failure, in view of lack of knowledge of INR at the time of the secondary blood clot. In that setting, the patient will need life-long anticoagulation and would be a candidate for either a NOAC or anticoagulation with Coumadin. RAMSES DING M.D. [id number]
[2017-10-28] MEDS ORDERED: ENOXAPARIN 100 MG, ENOXAPARIN 40 MG SQ SCH (22:00)
[2017-10-28] MEDS: ACETAMINOPHEN 325 MG TABLET (FP) PO PRN (22:40)
[2017-10-28] MEDS: DOCUSATE SODIUM 100 MG CAPSULE (FP) PO SCH (22:40)
[2017-10-28] MEDS: ATORVASTATIN CA 40 MG TABLET (FP) PO SCH (22:40)
[2017-10-28] MEDS: ENOXAPARIN NA (PORCINE) 80 MG/0.8 ML DISP.SYRIN SQ SCH (22:41)
[2017-10-29] MEDS ORDERED: METHADONE HCL 10 MG TABLET ONE (05:44)
[2017-10-29] MEDS ORDERED: METHADONE HCL 40 MG DISPERSABLE TABLET ONE (05:44)
[2017-10-29] MEDS: FUROSEMIDE 40 MG/4 ML INJECTABLE VIAL IVPUSH SCH ×2 (05:47→13:40)
[2017-10-29] MEDS: METHADONE 40 MG, METHADONE 20 MG PO SCH (05:47)
[2017-10-29] MEDS ORDERED: METHADONE HCL 40 MG DISPERSABLE TABLET PO SCH ×2 (06:00)
--- NOTE | 2017-10-29 06:55 | PN ---
Physical Exam: SUBJECTIVE: Patient seen and examined at bedside. Pt had no complaints overnight. As per nurse, not acute events overnight. OBJECTIVE: Vital Signs Period Temp Pulse Resp BP Sys/Yoder Pulse Ox Last 24 Hr 97.7 F-98.2 F 70-82 18-20 132-151/68-95 98-98 GENERAL: Awake, alert, and fully oriented, in no acute distress. Obese. HEENT: NC/AT. EOMI. Moist mucus membranes. NECK: Normal range of motion, supple without lymphadenopathy, JVD, or masses. LUNGS: Breath sounds equal, clear to auscultation bilaterally. No wheezes, and no crackles. No accessory muscle use. HEART: Regular rate, irregular rhythm, normal S1 and S2 without murmur, rub or gallop. ABDOMEN: Soft, nontender, not distended, normoactive bowel sounds, no guarding, no rebound, no masses. No hepatomegaly or splenomegaly. LOWER EXTREMITIES: 2+ pulses, warm, well-perfused. 1+ pitting edema b/l LE, improved since yesterday. +warmth, redness RLE. 5/5 muscle strength in B/L U/L extremities. NEUROLOGICAL: Cranial nerves II-X intact. Normal speech. Laboratory Results - last 24 hr 10/28/17 10/28/17 08:07 08:07 WBC 4.6 RBC 3.74 Hgb 11.4 Hct 33.6 MCV 89.9 MCH 30.5 MCHC 33.9 RDW 16.7 H Plt Count 273 MPV 7.5 Absolute Neuts (auto) 2.9 Neutrophils % 64.3 Lymphocytes % 20.0 Monocytes % 12.9 H Eosinophils % 2.3 Basophils % 0.5 Nucleated RBC % 0 Sodium 141 Potassium 3.7 Chloride 102 Carbon Dioxide 30 Anion Gap 9 BUN 17 Creatinine 1.2 H Creat Clearance w eGFR 46.64 Random Glucose 92 Calcium 9.2 Total Bilirubin 0.3 AST 18 ALT 18 Alkaline Phosphatase 107 Total Protein 7.4 Albumin 3.6 Active Medications Generic Name Dose Route Start Last Admin Trade Name Freq PRN Reason Stop Dose Admin Acetaminophen 650 mg 10/26/17 12:45 10/28/17 22:40 Tylenol - PO 650 mg Q6H PRN Administration Fever Or Pain Amlodipine Besylate 10 mg 10/25/17 10:00 07/24/18 09:51 Norvasc - PO 10 mg DAILY JIE Administration Aspirin 81 mg 10/25/17 10:00 10/28/17 09:51 Asa - PO 81 mg DAILY JIE Administration Atorvastatin Calcium 40 mg 10/28/17 22:00 10/28/17 22:40 Lipitor - PO 40 mg HS JIE Administration Docusate Sodium 100 mg 10/25/17 22:00 10/28/17 22:40 Colace - PO 100 mg HS JIE Administration Enoxaparin Sodium 140 mg 10/28/17 22:00 10/28/17 22:41 Lovenox - SQ 140 mg BID JIE Administration Furosemide 40 mg 10/28/17 09:22 10/29/17 05:47 Lasix Injection - IVPUSH 40 mg BID@0600,1400 JIE Administration Hydralazine HCl 25 mg 10/25/17 10:00 10/28/17 09:51 Apresoline - PO 25 mg DAILY JIE Administration Methadone HCl 40 mg/ Methadone 60 mg 10/29/17 06:00 10/29/17 05:47 HCl 20 mg PO 60 mg DAILY@0600 JIE Administration Warfarin Sodium 10 mg 10/28/17 18:00 10/28/17 18:05 Coumadin - PO 10 mg DAILY@1800 JIE Administration CTA: No evidence of acute pulm emboli Doppler of B/L LE: No evidence of acute DVT. Echo: Trace to mild TR. R ventricular systolic pressure is normal. Regional wall motion abnormalities cannot be excluded due to limited visualization. LV EF is normal LV size, thickness, fxn are normal. RV not well visualized. Trace to mild MR. ASSESSMENT/PLAN: 57F w/ PMH COPD, HTN, hx of DVT, CVA who comes into the ED c/o b/l LE edema and SOB for to have subtherapeutic INR. #Acute CHF exacerbation; Improving b/l LE edema; good urine output. BP 117/75 this AM. -cont Lasix to 40 mg IV BID, monitor for output; If Cr continues to increase , consider decreasing Lasix dose -echo: results stated above -CT of the ankles; patient has deformity @ this joint #Hx of DVT/PE/subtheraputic INR; 1.14 today. coumadin for hx of DVT (2012) -Per Heme (Dr. Michaud): Spoke to Dr. Michaud this AM. Would like pt to be on Coumadin given history of DVT/PE. Has requested thrombophilia workup and requested CT Abd/Pel/Chest to evaluate possible malignancy as possible cause of DVT -f/u CT chest/abd/pel for malignancy workup -f/u thrombophilia workup -Cont Coumadin 10 mg PO daily at 6pm -Spoke to pt's PCP, Dr. Kruse ([phone]) on 10/28/17 from [facility]. Pt's last office visit was 03/2017 and was told to schedule followup visit with pulm and cardio to re-evaluate if Coumadin was still necessary to take since last DVT/PE was in 2014. Pt's last INR was also documented 03/2017 at a subtherapeutic value of 1.8. According to PCP, pt is an unreliable historian and has not been compliant with medical appointments. Of note, pt also has a hx of CHF and was told to follow up with cardio for echo, but patient never went. Echo done during this admission, results stated above. #JOSH; Stable. Cr 1.4, yesterday 1.2. -UA neg (10/27/17) -Cont to monitor; If Cr increases, decrease Lasix #HTN - cont Amlodipine 10 mg PO QD, Hydralazine 25 mg PO QD #HLD - cont Atorvastatin 20 mg PO HS #hx of tobacco use - counseling on smoking cessation #high BMI/obesity - low sodium diet - weight loss counseling; as per dietitian note, compliance unlikely #DVT ppx - cont Lovenox 140 mg SQ BID - Doppler B/L LE negative for acute DVT; persistent b/l leg swelling #FEN -no fluids indicated -monitor lytes -sodium controlled diet dispo -cont to monitor on med surg -full code Visit type - Emergency Visit Emergency Visit: Yes ED Registration Date: 10/25/17 Care time: The patient presented to the Emergency Department on the above date and was hospitalized for further evaluation of their emergent condition. - New Patient This patient is new to me today: No - Critical Care Critical Care patient: No
[2017-10-29 07:21] LABS: HEMATOCRIT 32.6 % (32.4-45.2); HEMOGLOBIN 10.8 GM/dL (10.7-15.3); MCH 30.3 pg (25.7-33.7); MCHC 33.2 g/dl (32.0-36.0); MEAN CELL VOLUME 91.1 fl (80-96); PLATELET COUNT 246 K/MM3 (134-434); RBC 3.58 M/mm3 (3.60-5.2); RDW 16.8 % (11.6-15.6); WHITE BLOOD COUNT 4.7 K/mm3 (4.0-10.0)
[2017-10-29 07:29] LABS: INR 1.6 (0.82-1.09); PROTHROMBIN TIME (PATIENT) 18.1 SEC (9.7-13.0)
[2017-10-29 07:41] LABS: ALBUMIN 3.5 g/dl (3.4-5.0); ANION GAP 7 (8-16); BLOOD UREA NITROGEN 23 mg/dL (7-18); CALCIUM 8.8 mg/dL (8.5-10.1); CHLORIDE 101 mmol/L (98-107); CO2 32 mmol/L (21-32); CREATININE 1.4 mg/dL (0.55-1.02); GLUCOSE,RANDOM 88 mg/dL (74-106); MAGNESIUM 1.9 mg/dL (1.8-2.4); POTASSIUM 3.9 mmol/L (3.5-5.1); SGOT/AST 19 U/L (15-37); SGPT/ALT 20 U/L (12-78); SODIUM 140 mmol/L (136-145)
[2017-10-29 07:43] LABS: ALK PHOS 104 U/L (45-117); BILIRUBIN,TOTAL 0.2 mg/dL (0.2-1.0); TOT PROT 7.3 g/dl (6.4-8.2)
[2017-10-29] MEDS ORDERED: PT OWN MED DRAWER 7, Y5N ONE ×2 (08:07→09:44)
[2017-10-29] MEDS: hydrALAZINE HCL 25 MG TABLET (FP) PO SCH (09:47)
[2017-10-29] MEDS: ASPIRIN 81 MG CHEWABLE TABLETS PO SCH (09:47)
[2017-10-29] MEDS: amLODIPine BESYLATE 10 MG TABLET (FP) PO SCH (09:47)
[2017-10-29] MEDS: ENOXAPARIN NA (PORCINE) 80 MG/0.8 ML DISP.SYRIN SQ SCH ×2 (09:48→21:41)
[2017-10-29] MEDS: WARFARIN NA 10 MG TABLET (FP) PO SCH (17:44)
--- NOTE | 2017-10-29 18:53 | PN ---
Teaching Attending Note Name of Resident: Olinda Richard ATTENDING PHYSICIAN STATEMENT I saw and evaluated the patient. I reviewed the resident's note and discussed the case with the resident. I agree with the resident's findings and plan as documented. SUBJECTIVE: No fever or chills. SOB is better OBJECTIVE: NAD Cv : RRr Lungs:" CTAB Abd: obese, soft, Nt, ND Ext: edema , tenderness on LE. erythema on R leg . ASSESSMENT AND PLAN: 57 yo lady with h/o DVT/PE, HTN, CVA, COPD , diastolic heart failure , who presented with LE edema and was found to have acute diastolic heart failure 1- Acute diastolic heart failure: cont lasix . monitor renal function , if cnt to increae, then will decrease to once daily echo reviewed. 2- h/o DVT/PE. s/p IVC filter. - cont lovenox with bridging to coumadin - ? NOACS not studies in morbidly obese patients. will d/w Heme . - CT Abd/pelvis to r/o malignancy . had CTA of chest on 10/25 neg for masses - hypercoagulable w/u . - on aspirin at home. not clear if has stents. per Card note in 2013 was on asa for primary prophylaxis . nl cath in 2012. will confirm with her doctor 3- CKD: cr around her base line 4- HTN: cont Norvasc . 5- cont methadone dispo : HLOC
[2017-10-29] MEDS: ACETAMINOPHEN 325 MG TABLET (FP) PO PRN (20:19)
[2017-10-29] MEDS: ATORVASTATIN CA 40 MG TABLET (FP) PO SCH (21:40)
[2017-10-29] MEDS: DOCUSATE SODIUM 100 MG CAPSULE (FP) PO SCH (21:40)
[2017-10-30] MEDS ORDERED: METHADONE HCL 10 MG TABLET ONE (06:01)
[2017-10-30] MEDS ORDERED: METHADONE HCL 40 MG DISPERSABLE TABLET ONE (06:02)
[2017-10-30] MEDS: METHADONE 40 MG, METHADONE 20 MG PO SCH (06:07)
[2017-10-30] MEDS: FUROSEMIDE 40 MG/4 ML INJECTABLE VIAL IVPUSH SCH (06:08)
--- NOTE | 2017-10-30 06:10 | PN ---
Physical Exam: SUBJECTIVE: Patient seen and examined at bedside. As per nurse, no acute events overnight. Pt complains of R ankle pain in lateral aspect. Denies fever/chills, nausea/vomiting, headaches/dizziness. +BM this AM. OBJECTIVE: Vital Signs Period Temp Pulse Resp BP Sys/Yoder Pulse Ox Last 24 Hr 98.2 F-98.4 F 74-90 18-20 108-148/53-81 98 GENERAL: Awake, alert, and fully oriented, in no acute distress. Obese. HEENT: NC/AT. EOMI. Moist mucus membranes. NECK: Normal range of motion, supple without lymphadenopathy, JVD, or masses. LUNGS: Breath sounds equal, clear to auscultation bilaterally. No wheezes, and no crackles. No accessory muscle use. HEART: Regular rate, irregular rhythm, normal S1 and S2 without murmur, rub or gallop. ABDOMEN: Soft, nontender, not distended, normoactive bowel sounds, no guarding, no rebound, no masses. No hepatomegaly or splenomegaly. LOWER EXTREMITIES: 2+ pulses, warm, well-perfused. 1+ pitting edema b/l LE, improved since yesterday. +warmth, redness RLE. 5/5 muscle strength in B/L U/L extremities. Lateral R ankle tenderness. NEUROLOGICAL: Cranial nerves II-X intact. Normal speech. Laboratory Results - last 24 hr 10/29/17 10/29/17 10/29/17 06:40 06:40 06:40 WBC 4.7 RBC 3.58 L Hgb 10.8 Hct 32.6 MCV 91.1 MCH 30.3 MCHC 33.2 RDW 16.8 H Plt Count 246 MPV 8.0 PT with INR 18.10 H* INR 1.60 H D Sodium 140 Potassium 3.9 Chloride 101 Carbon Dioxide 32 Anion Gap 7 L BUN 23 H Creatinine 1.4 H Creat Clearance w eGFR 39.04 Random Glucose 88 Calcium 8.8 Phosphorus 5.0 H Magnesium 1.9 Total Bilirubin 0.2 AST 19 ALT 20 Alkaline Phosphatase 104 Total Protein 7.3 Albumin 3.5 Active Medications Generic Name Dose Route Start Last Admin Trade Name Freq PRN Reason Stop Dose Admin Acetaminophen 650 mg 10/26/17 12:45 10/29/17 20:19 Tylenol - PO 650 mg Q6H PRN Administration Fever Or Pain Amlodipine Besylate 10 mg 10/25/17 10:00 10/29/17 09:47 Norvasc - PO 10 mg DAILY JIE Administration Aspirin 81 mg 10/25/17 10:00 10/29/17 09:47 Asa - PO 81 mg DAILY JIE Administration Atorvastatin Calcium 40 mg 10/28/17 22:00 10/29/17 21:40 Lipitor - PO 40 mg HS JIE Administration Docusate Sodium 100 mg 10/25/17 22:00 10/29/17 21:40 Colace - PO 100 mg HS JIE Administration Enoxaparin Sodium 140 mg 10/28/17 22:00 10/29/17 21:41 Lovenox - SQ 140 mg BID JIE Administration Furosemide 40 mg 10/28/17 09:22 10/30/17 06:08 Lasix Injection - IVPUSH 40 mg BID@0600,1400 JIE Administration Hydralazine HCl 25 mg 10/25/17 10:00 10/29/17 09:47 Apresoline - PO 25 mg DAILY JIE Administration Methadone HCl 40 mg/ Methadone 60 mg 10/29/17 06:00 10/30/17 06:07 HCl 20 mg PO 60 mg DAILY@0600 JIE Administration Warfarin Sodium 10 mg 10/28/17 18:00 10/29/17 17:44 Coumadin - PO 10 mg DAILY@1800 JIE Administration CTA: No evidence of acute pulm emboli Doppler of B/L LE: No evidence of acute DVT. Echo: Trace to mild TR. R ventricular systolic pressure is normal. Regional wall motion abnormalities cannot be excluded due to limited visualization. LV EF is normal LV size, thickness, fxn are normal. RV not well visualized. Trace to mild MR. Antiphospholipid Ab panel - pending ASSESSMENT/PLAN: 57F w/ PMH COPD, HTN, hx of DVT, CVA who comes into the ED c/o b/l LE edema and SOB for to have subtherapeutic INR. #Acute CHF exacerbation; Improving b/l LE edema; good urine output. BP 133/76 this AM. -decrease frequency of Lasix to 40 mg IV QD, monitor for output -echo: results stated above -CT of the ankles; patient has deformity @ this joint #Hx of DVT/PE/subtheraputic INR; 2.21 today. Coumadin for hx of DVT (2012) -Per Heme (Dr. Michaud/Dr. Burkett): Spoke to Dr. Burkett, Antiphospholipid Ab workup ordered. f/u recs in regards to giving pt coumadin vs. NOAcs upon discharge -f/u antiphosphilipid Ab workup -Cont Coumadin 10 mg PO daily at 6pm, possibly decrease dose since INR 2.21 today -Spoke to pt's PCP, Dr. Kruse ([phone]) on 10/28/17 from [facility]. Pt's last office visit was 03/2017 and was told to schedule followup visit with pulm and cardio to re-evaluate if Coumadin was still necessary to take since last DVT/PE was in 2014. Pt's last INR was also documented 03/2017 at a subtherapeutic value of 1.8. According to PCP, pt is an unreliable historian and has not been compliant with medical appointments. Of note, pt also has a hx of CHF and was told to follow up with cardio for echo, but patient never went. Echo done during this admission, results stated above. #JOSH; Stable. Cr 1.6, yesterday 1.4. -Cont to monitor; Lasix decreased from BID to QD #HTN - cont Amlodipine 10 mg PO QD, Hydralazine 25 mg PO QD #HLD - cont Atorvastatin 20 mg PO HS #hx of tobacco use - counseling on smoking cessation #high BMI/obesity - low sodium diet - weight loss counseling; as per dietitian note, compliance unlikely #DVT ppx - cont Lovenox 140 mg SQ BID - Doppler B/L LE negative for acute DVT; persistent b/l leg swelling #FEN -no fluids indicated -monitor lytes -sodium controlled diet dispo -cont to monitor on med surg -full code Visit type - Emergency Visit Emergency Visit: Yes ED Registration Date: 10/25/17 Care time: The patient presented to the Emergency Department on the above date and was hospitalized for further evaluation of their emergent condition. - New Patient This patient is new to me today: No - Critical Care Critical Care patient: No
[2017-10-30 07:20] LABS: HEMATOCRIT 33.3 % (32.4-45.2); HEMOGLOBIN 11.1 GM/dL (10.7-15.3); MCH 30.3 pg (25.7-33.7); MCHC 33.4 g/dl (32.0-36.0); MEAN CELL VOLUME 90.7 fl (80-96); PLATELET COUNT 266 K/MM3 (134-434); RBC 3.67 M/mm3 (3.60-5.2); RDW 16.3 % (11.6-15.6); WHITE BLOOD COUNT 5.2 K/mm3 (4.0-10.0)
[2017-10-30 07:42] LABS: INR 2.21 (0.82-1.09)
[2017-10-30 08:07] LABS: ALBUMIN 3.5 g/dl (3.4-5.0); ANION GAP 10 (8-16); BLOOD UREA NITROGEN 26 mg/dL (7-18); CALCIUM 8.8 mg/dL (8.5-10.1); CHLORIDE 104 mmol/L (98-107); CO2 28 mmol/L (21-32); GLUCOSE,RANDOM 86 mg/dL (74-106); POTASSIUM 4.3 mmol/L (3.5-5.1); SGOT/AST 22 U/L (15-37); SGPT/ALT 20 U/L (12-78); SODIUM 142 mmol/L (136-145)
[2017-10-30 08:11] LABS: ALK PHOS 105 U/L (45-117); BILIRUBIN,TOTAL 0.2 mg/dL (0.2-1.0); CREATININE 1.6 mg/dL (0.55-1.02); TOT PROT 7.3 g/dl (6.4-8.2)
[2017-10-30] MEDS ORDERED: PT OWN MED DRAWER 7, Y5N ONE ×3 (09:41→18:22)
[2017-10-30] MEDS: hydrALAZINE HCL 25 MG TABLET (FP) PO SCH (09:52)
[2017-10-30] MEDS: amLODIPine BESYLATE 10 MG TABLET (FP) PO SCH (09:53)
[2017-10-30] MEDS: ENOXAPARIN NA (PORCINE) 80 MG/0.8 ML DISP.SYRIN SQ SCH (09:53)
[2017-10-30] MEDS: ASPIRIN 81 MG CHEWABLE TABLETS PO SCH (09:53)
[2017-10-30] MEDS: FUROSEMIDE 40 MG TABLET (FP) PO SCH (09:58)
--- NOTE | 2017-10-30 14:59 | PN ---
Teaching Attending Note Name of Resident: Olinda Richard ATTENDING PHYSICIAN STATEMENT I saw and evaluated the patient. I reviewed the resident's note and discussed the case with the resident. I agree with the resident's findings and plan as documented. SUBJECTIVE: No fever or chills. No CP , No ABD pain. ambulating with her cane with no problem OBJECTIVE: NAD, morbidly obese Cv : RRr Lungs: CTAB Abd: obese, soft, Nt, ND Ext: edema , tenderness on LE. erythema on R leg is better ASSESSMENT AND PLAN: 57 yo lady with h/o DVT/PE, HTN, CVA, COPD , diastolic heart failure , who presented with LE edema and was found to have acute diastolic heart failure 1- Acute diastolic heart failure: cont lasix, but switch to PO due to rising renal function 2- h/o DVT/PE. s/p IVC filter. No evidence of malignancy on CT scans - INR 2.2 , stop lovenox. - coumadin might be the choice of AC despite questionable compliance. will d/w Heme if NOACS are appropriate in extreme weight as her BMI is > 40 . - on aspirin at home. not clear if has stents. per Card note in 2013 was on asa for primary prophylaxis . nl cath in 2013. will confirm with her doctor 3- CKD:monitor Cr . slightly above her base line with IV diuresis . PO lasix 4- HTN: cont Norvasc and hydralazine . 5- cont methadone dispo : Might Dc today , awaiting Heme Recs about AC PCP monitors her INR usually
[2017-10-30] MEDS ORDERED: WARFARIN NA 10 MG TABLET (FP) PO SCH (17:18)
[2017-10-30] MEDS ORDERED: WARFARIN NA 7.5 MG TABLET (FP) PO SCH (18:00)
--- NOTE | 2017-10-30 19:49 | DS ---
Physical Exam: SUBJECTIVE: Patient seen and examined OBJECTIVE: Vital Signs Period Temp Pulse Resp BP Sys/Yoder Pulse Ox Last 24 Hr 97.5 F-98.3 F 74-103 18-20 115-145/76-86 98 PHYSICAL EXAM GENERAL: The patient is awake, alert, and fully oriented, in no acute distress. HEAD: Normal with no signs of trauma. EYES: PERRL, extraocular movements intact, sclera anicteric, conjunctiva clear. ENT: Ears normal, nares patent, oropharynx clear without exudates, moist mucous membranes. NECK: Trachea midline, full range of motion, supple. LUNGS: Breath sounds equal, clear to auscultation bilaterally, no wheezes, no crackles, no accessory muscle use. HEART: Regular rate and rhythm, S1, S2 without murmur, rub or gallop. ABDOMEN: Soft, nontender, nondistended, normoactive bowel sounds, no guarding, no rebound, no hepatosplenomegaly, no masses. EXTREMITIES: 2+ pulses, warm, well-perfused, no edema. NEUROLOGICAL: Cranial nerves II through XII grossly intact. Normal speech, gait not observed. PSYCH: Normal mood, normal affect. SKIN: Warm, dry, normal turgor, no rashes or lesions noted. LABS Laboratory Results - last 24 hr 10/30/17 10/30/17 10/30/17 06:40 06:40 06:40 WBC 5.2 RBC 3.67 Hgb 11.1 Hct 33.3 MCV 90.7 MCH 30.3 MCHC 33.4 RDW 16.3 H Plt Count 266 MPV 8.0 PT with INR 25.00 H* INR 2.21 H D Sodium 142 Potassium 4.3 Chloride 104 Carbon Dioxide 28 Anion Gap 10 BUN 26 H Creatinine 1.6 H Creat Clearance w eGFR 33.47 Random Glucose 86 Calcium 8.8 Total Bilirubin 0.2 AST 22 ALT 20 Alkaline Phosphatase 105 Total Protein 7.3 Albumin 3.5 HOSPITAL COURSE: Date of Admission:10/25/17 CTA: No evidence of acute pulm emboli Doppler of B/L LE: No evidence of acute DVT. Echo: Trace to mild TR. R ventricular systolic pressure is normal. Regional wall motion abnormalities cannot be excluded due to limited visualization. LV EF is normal LV size, thickness, fxn are normal. RV not well visualized. Trace to mild MR. 57F w/ PMH COPD, HTN, hx of DVT, CVA presented with b/l LE edema and SOB and found to have subtherapeutic INR (currently on Coumadin). In the ED, ddimer, CTA and, doppler of b/l legs ordered. D-dimer was positive, but CTA showed no acute PE, and doppler showed no acute DVT. Due to pt's persistent b/l leg edema , pt was given Lasix due to likely CHF exacerbation. After treatment, bilateral leg swelling subsequently improved throughout hospital stay with good urine output and no SOB. Echo was ordered to further evaluate HF. Additionally, pt's INR was found to be subtherapeutic as well. She was placed on a heparin drip to establish therapeutic level of anticoagulation and then bridged to Coumadin. Heme was consulted for further evaluation of appropriate AC medication. Further workup was done to determine possible causes of DVT/PE in the past as reasons were unknown. CT abd/pel was done, but was negative for malignancy. Antiphospholipid panel was ordered and results will be followed up outpatient. Per dennis's recommendation, pt was discharged on Coumadin with outpatient follow up for INR checks. Pt was also instructed to follow up with PCP outpatient. Date of Discharge: 10/30/17 Minutes to complete discharge: 35 Discharge Summary Reason For Visit: ACUTE KIDNEY INJURY Current Active Problems JOSH (acute kidney injury) (Acute) CHF (congestive heart failure) (Acute) COPD (chronic obstructive pulmonary disease) (Chronic) Condition: Improved - Instructions Diet, Activity, Other Instructions: You were admitted to the hospital for bilateral leg swelling and shortness of breath. YOu were treated for acute diastolic heart failure exacerbation .. A CT scan with angiography was done that was negative for an acute pulmonary embolism. An ultrasound of both legs was done that showed no evidence of DVT. During your hospital stay, your leg swelling and shortness of breath improved. You were discharged to home with instructions to follow up with your primary care physician. MEDICAL RECOMMENDATIONS Please take Coumadin 7.5 mg every day at 6pm starting tomorrow night. Please be advised that you should be consistent with your leafy greens intake while taking this medication Please continue to take the rest of your home medications as prescribed. You should get a blood test in 2 days to check your INR and make sure your Coumadin level in therapeutic. fax result to your primary care doctor You should get a blood test in 1 week to make sure your kidneys are improving CONSULT RECOMMENDATIONS Please follow up with your primary care physician within 1 week. Please follow up with lunchroom mother lunchroom mother within 1 week.( Dr. casarez ) Please follow up with a bucket turner within one week to follow up on some tests to find out why you keep having clots. If you experience worsening leg swelling, persistent shortness of breath, chest pain or other worsening symptoms, please go to your nearest emergency room immediately. Do not stop any of your medicationson your own without consulting with your doctors first Referrals: Sara Velasco [Non Staff, Medical] - 1 Week Chandni Linton MD [Staff Physician] - 1 Week Madelaine Hill MD [Staff Physician] - 1 Week Disposition: VNS/HOME HEALTH CARE - Home Medications Comprehensive Discharge Medication List: Ambulatory Orders Atorvastatin Ca [Lipitor] 40 mg PO HS 05/30/14 Fluticasone Propionate [Flovent Diskus] 110 mcg IH DAILY 05/30/14 Omeprazole Magnesium [Prilosec (OTC)] 20 mg PO DAILY 05/30/14 Aspirin [ASA -] 81 mg PO DAILY 10/25/17 Hydralazine HCl 25 mg PO TID 10/25/17 Magnesium Oxide [Magnesium] 400 mg PO QID 10/25/17 Amlodipine Besylate/Benazepril [Lotrel 10-20 mg Capsule] 1 cap PO DAILY Methadone [Dolophine -] 60 mg PO DAILY 10/28/17 Miscellaneous Drug Not In Syst [Outpatient Lab Test] 1 each ASDIR #1 [facility] [place] Miscellaneous Drug Not In Syst [Outpatient Lab Test] 1 each ASDIR #1 [facility] [place] Miscellaneous Medical Supply [Outpatient Order] 1 each ASDIR #1 [facility] [place] Warfarin Na [Coumadin -] 7.5 mg PO DAILY@1800 #30 tablet 10/30/17 This patient is new to me today: No Emergency Visit: Yes ED Registration Date: 10/25/17 Care time: The patient presented to the Emergency Department on the above date and was hospitalized for further evaluation of their emergent condition. Critical Care patient: No - Discharge Referral Referred to [facility] Med P.C.: No
[2017-10-30] MEDS: ATORVASTATIN CA 40 MG TABLET (FP) PO SCH (21:24)
[2017-10-30] MEDS: DOCUSATE SODIUM 100 MG CAPSULE (FP) PO SCH (21:24)
[2017-10-30] MEDS: ACETAMINOPHEN 325 MG TABLET (FP) PO PRN (21:26)
--- NOTE | 2017-10-30 23:29 | PN ---
Progress Note (short form) - Note Progress Note: Patient seen and examined No complaints AFVSS Cor: RSR, No murmurs, No gallops Lungs: Clear to P&A Abd: Soft, Normal bowel sounds, No organomegaly Ext:No significant edema Abnormal Lab Results 10/30/17 10/30/17 10/30/17 06:40 06:40 06:40 RDW 16.3 H PT with INR 25.00 H* INR 2.21 H D BUN 26 H Creatinine 1.6 H Active Medications Generic Name Dose Route Start Last Admin Trade Name Freq PRN Reason Stop Dose Admin Acetaminophen 650 mg 10/26/17 12:45 10/30/17 21:26 Tylenol - PO 650 mg Q6H PRN Administration Fever Or Pain Amlodipine Besylate 10 mg 10/25/17 10:00 10/30/17 09:53 Norvasc - PO 10 mg DAILY JIE Administration Aspirin 81 mg 10/25/17 10:00 10/30/17 09:53 Asa - PO 81 mg DAILY JIE Administration Atorvastatin Calcium 40 mg 10/28/17 22:00 10/30/17 21:24 Lipitor - PO 40 mg HS JIE Administration Docusate Sodium 100 mg 10/25/17 22:00 10/30/17 21:24 Colace - PO 100 mg HS JIE Administration Furosemide 40 mg 10/30/17 10:00 10/30/17 09:58 Lasix - PO 40 mg DAILY JIE Administration Hydralazine HCl 25 mg 10/25/17 10:00 10/30/17 09:52 Apresoline - PO 25 mg DAILY JIE Administration Methadone HCl 40 mg/ Methadone 60 mg 10/29/17 06:00 10/30/17 06:07 HCl 20 mg PO 60 mg DAILY@0600 JIE Administration Warfarin Sodium 7.5 mg 10/30/17 18:00 10/30/17 18:24 Coumadin - PO 7.5 mg DAILY@1800 JIE Administration A/P 57 year old obese, sedentary female , smoker since age 18 presented with LE edema. Has history of DVT and P.E> in 2012 and DVT and P>E in 2014 with IVC filter. No antecedent long trips, hormone therapy, prior surgery or trauma. Presumed unprovoked DVT by history. States she has taken a/c since 2012. Since we do not know the INR in 2014 when patient developed her 2nd vascuar evnts, cannot truly state that she is a coumadin failure. In fact, presented with a subtherapeutic INR to hospital Since patient has had 2 unprovoked vascular events despite the IVC filter she will need life-long anticoagulation. There is also a family history of a father who of a blood clot. She should have age appropriate screening for malignancy with CT of chest , abdomen and pelvis .She has had a colonoscopy 2 years earlier and a mammogrm one year earlier. CTA chest/ CT abdomen/pelvis w/o contrast shows no evidence of malignancy No evidence of DVT/PE this admission Bridged from hepain to coumadin--currently INR therapeutic on 7.5mg daily coumadin Rediscussed pros/cos of NOACS vs coumadin---convenience of NOACS but lack oaf date fro VTE in obese patients, lack of antidotes She understands. Discussed that we would consider NOACs if difficulty maintaining therapeutic INR/if she has compliance issues monitoring coumadin She understands and at this time prefers to continue coumadin
[2017-10-31] MEDS ORDERED: METHADONE HCL 10 MG TABLET ONE (06:14)
[2017-10-31] MEDS ORDERED: METHADONE HCL 40 MG DISPERSABLE TABLET ONE (06:14)
[2017-10-31] MEDS: METHADONE 40 MG, METHADONE 20 MG PO SCH (06:19)
[2017-10-31 07:56] LABS: HEMATOCRIT 32.9 % (32.4-45.2); MCH 30.2 pg (25.7-33.7); MCHC 33.3 g/dl (32.0-36.0); MEAN CELL VOLUME 90.7 fl (80-96); MEAN PLT VOLUME 8.4 fl (7.5-11.1); PLATELET COUNT 256 K/MM3 (134-434); RBC 3.63 M/mm3 (3.60-5.2); RDW 17.4 % (11.6-15.6); WHITE BLOOD COUNT 4.8 K/mm3 (4.0-10.0)
[2017-10-31 08:09] LABS: ALBUMIN 3.4 g/dl (3.4-5.0); ANION GAP 7 (8-16); BLOOD UREA NITROGEN 26 mg/dL (7-18); CHLORIDE 103 mmol/L (98-107); CO2 33 mmol/L (21-32); CREATININE 1.6 mg/dL (0.55-1.02); GLUCOSE,RANDOM 83 mg/dL (74-106); POTASSIUM 4.4 mmol/L (3.5-5.1); SGOT/AST 19 U/L (15-37); SGPT/ALT 19 U/L (12-78); SODIUM 143 mmol/L (136-145)
[2017-10-31 08:11] LABS: ALK PHOS 93 U/L (45-117); BILIRUBIN,TOTAL 0.2 mg/dL (0.2-1.0)
[2017-10-31 08:25] LABS: INR 2.24 (0.82-1.09); PROTHROMBIN TIME (PATIENT) 25.3 SEC (9.7-13.0)
[2017-10-31] MEDS: FUROSEMIDE 40 MG TABLET (FP) PO SCH (09:56)
[2017-10-31] MEDS: ASPIRIN 81 MG CHEWABLE TABLETS PO SCH (09:56)
[2017-10-31] MEDS: amLODIPine BESYLATE 10 MG TABLET (FP) PO SCH (09:56)
[2017-10-31] MEDS: hydrALAZINE HCL 25 MG TABLET (FP) PO SCH (09:56)
[2017-10-31 10:59] VITALS: BP 151/86; PULSE 90; TEMP 98.3
== END 2017-10-31 15:29 | disposition home health service (06) | DRG 291 ==
LOC: JER 18:24 → JERBED 10-25 03:14 → OBSVTOIN 10-25 03:54 → J8W 10-25 06:12
PROVIDERS: ADMIT Internal Medicine; ATTEND Internal Medicine
DX: I13.0 Hypertensive heart and chronic kidney disease with heart failure and stage 1 through stage 4 chronic kidney disease, or unspecified chronic kidney disease (principal); I50.33 Acute on chronic diastolic (congestive) heart failure; N17.9 Acute kidney failure, unspecified; Z68.42 Body mass index [BMI] 45.0-49.9, adult; D68.8 Other specified coagulation defects; F17.210 Nicotine dependence, cigarettes, uncomplicated; J44.9 Chronic obstructive pulmonary disease, unspecified; E78.5 Hyperlipidemia, unspecified; Z86.73 Personal history of transient ischemic attack (TIA), and cerebral infarction without residual deficits; Z86.718 Personal history of other venous thrombosis and embolism; Z79.01 Long term (current) use of anticoagulants; K59.00 Constipation, unspecified; E66.01 Morbid (severe) obesity due to excess calories
CPT/HCPCS: 36415; 71045-TC-FY; 71275-TC; 73700-TC-RT; 74176-TC; 80048; 80053; 81003; 82550; 82553; 83735; 83880; 84100; 84484; 84550; 85025; 85027; 85379; 85610; 85730; 93005; 93010; 93306-TC; 93970-TC; 99283-25; G0378; J0131; J1644; J7620

== ENCOUNTER 2018-04-15 14:22 | Inpatient (IN) | payer OTHER ==
--- NOTE | 2018-04-15 14:34 | PDOC ---
Rapid Medical Evaluation Chief Complaint: Shortness of Breath Time Seen by Provider: 04/15/18 14:33 Medical Evaluation: Allergies Allergy/AdvReac Type Severity Reaction Status Date / Time Penicillins Allergy Intermediate Hives Verified 04/15/18 14:31 Vital Signs Temp Pulse Resp BP Pulse Ox 98.4 F 110 H 16 179/100 H 96 04/15/18 14:29 04/15/18 14:29 04/15/18 14:29 04/15/18 14:29 04/15/18 14:29 04/15/18 14:33 I have performed a brief in-person evaluation of this patient. The patient presents with a chief complaint of: SOB and pedal edema Pertinent physical exam findings: Fine crackles bases bilaterally. +pitting edema I have ordered the following: labs, urine, cxr, ekg The patient will proceed to the ED for further evaluation. Discharge Disposition - Diagnosis SOB (shortness of breath) - Referrals - Patient Instructions - Post Discharge Activity
--- NOTE | 2018-04-15 16:52 | PDOC ---
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 The patient reports that her symptoms began 2 weeks ago and consist of subjective fever, headache (5/10, right frontal lobe), orthopnea, dizziness, numbness in lower extremities, difficulty swallowing, lower extremity edema, and darkening of skin in her lower extremities. She also reports not receiving the flu vaccine. Patient denies chest pain. Denies nausea, vomiting, diarrhea, abdominal pain. Allergies: Penicillins PCP: none reported - Medical Decision Making 04/15/18 18:50 Documentation prepared by AVI Sanchez, acting as medical administrative specialist for Roosevelt Jenkins MD. <Chan Tabor - Last Filed: 04/15/18 19:02> - Resident Resident Name: Lonnie Jaime - ED Attending Attestation I have performed the following: I have examined & evaluated the patient, The case was reviewed & discussed with the resident, I agree w/resident's findings & plan, Exceptions are as noted - Physicial Exam PE: 04/15/18 21:22 Patient is awake and alert, morbidly obese, tachypneic and dyspneic on initial evaluation Normocephalic, atraumatic PERRLA, EOMI No JVD Significantly decreased air entry bilaterally with intermittent end expiratory wheezing bilaterally Speaking in short phrases only RRR Abdomen soft, nontender, nondistended +1 pitting edema bilaterally - Medical Decision Making 04/15/18 21:23 Patient is a 58-year-old female with multiple comorbidities, history of morbid obesity who presented with shortness of breath, cough productive of initially purulent no clear sputum and lower extremity edema. Patient noted be tachypneic , dyspneic on initial evaluation with severely limited air entry and wheezing bilaterally. I suspect acute COPD exacerbation brought on by an infectious process. EKG showed no evidence of acute ischemia. Chest x-ray revealed cardiomegaly but no evidence of infiltrate or effusion. CBC/CMP are within normal limit. Lower extremity Doppler ultrasound reveals a nonocclusive DVT of the left superficial femoral and popliteal veins. INR is noted to be 0.98. Patient received Combivent therapy, IM Decadron-10 mg; Lovenox- 160 mg subcutaneously and Zithromax-500iv. Patient will require admission for further evaluation and treatments. <Roosevelt Jenkins - Last Filed: 04/15/18 21:25>
--- NOTE | 2018-04-15 17:22 | PDOC ---
History of Present Illness - General Chief Complaint: Shortness of Breath Stated Complaint: SEND BY PCP Time Seen by Provider: 04/15/18 14:33 History Source: Patient Exam Limitations: No Limitations - History of Present Illness Initial Comments: 04/15/18 17:20 Pt. is a 58 y.o. F w/ PMHx. 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 Pt. states that she has had subjective fever and chills. Pt. endorses headache(5/10) intensity in the right frontal lobe over the last 3 days. Pt. endorses having to sit up at night to sleep because of increased difficulty breathing, dizziness on standing , increased numbness and tingling form her baseline in lower extremities R>L, and difficulty swallowing (over the last 3 days). Pt. states that her legs are more than 2x her normal size with darkening of the skin. Pt. denies receiving Pneumonia vaccine or Flu vaccine for this year. CBC, CMP, Mag, CXR, EKG, PT/INR, UA, Cardiac Profile, LE Duplex, BNP ordered to evaluate for CHF exacerbation vs. COPD exacerbation vs. PE. Pt. likely has COPD exacerbation given clear CXR, wheezing and non-pitting edema therefore will give Decadron 10 mg, Duonebs x 3 and Atrovent PRN. 04/15/18 18:50 INR came back at ~1 despite Pt. saying she takes 7mg Coumadin. PE has increased in likelihood. If we are able to obtain IV access we will consider Heparin to Coumadin bridge, if not we can do a therapeutic Lovenox regimen to Coumadin bridge. 04/15/18 19:07 Pt. endorsed over to Dr. Joseph. Timing/Duration: constant Modifying Factors: improves with: rest Associated Symptoms: reports: fever/chills, headaches, shortness of breath, weakness. denies: loss of appetite, nausea/vomiting, syncope Aspirin Received prior to arrival: Yes: 81 mg x 1 Beta Charles Contraindications(Core Measure): Yes: Not Prescribed Past History - Past Medical History Allergies/Adverse Reactions: Allergies Allergy/AdvReac Type Severity Reaction Status Date / Time Penicillins Allergy Intermediate Hives Verified 04/15/18 14:31 Home Medications: Ambulatory Orders RX: Atorvastatin Ca [Lipitor] 40 mg PO HS 05/30/14 RX: Fluticasone Propionate [Flovent Diskus] 110 mcg IH PRN 05/30/14 RX: Omeprazole Magnesium [Prilosec (OTC)] 20 mg PO DAILY 05/30/14 RX: Aspirin [ASA -] 81 mg PO DAILY 10/25/17 RX: Hydralazine HCl 25 mg PO BID 10/25/17 RX: Amlodipine Besylate/Benazepril [Lotrel 10-20 mg Capsule] 1 cap PO DAILY RX: Methadone [Dolophine -] 40 mg PO DAILY 10/28/17 RX: Warfarin Na [Coumadin -] 7.5 mg PO DAILY@1800 #30 tablet 10/30/17 Anemia: Yes Asthma: Yes Cardiac Disorders: No CVA: Yes (residual right sided weakness ) COPD: Yes CHF: Yes Dementia: No Diabetes: No Dialysis: No GI Disorders: Yes (CONSTIPATION, RECTAL BLEEDING) Disorders: Yes (GERD) HTN: Yes Hypercholesterolemia: Yes Liver Disease: No Seizures: No Thyroid Disease: No Lung CA: No Other medical history: Pulmonary artery aneurysm repair, RA - Surgical History Cardiac Surgery: No Cholecystectomy: No Lung Surgery: No Neurologic Surgery: No - Suicide/Smoking/Psychosocial Hx Smoking Status: Yes Smoking History: Former smoker Have you smoked in the past 12 months: No Number of Cigarettes Smoked Daily: 5 Information on smoking cessation initiated: No 'Breaking Loose' booklet given: 02/25/13 Hx Alcohol Use: No Drug/Substance Use Hx: No Substance Use Type: None Hx Substance Use Treatment: No Review of Systems - Review of Systems Able to Perform ROS?: Yes Is the patient limited Occitan proficient: No Constitutional: Yes: Chills, Fever, Weakness. No: Malaise HEENTM: Yes: Difficulty Swallowing. No: Recent change in vision Respiratory: Yes: Cough, Orthopnea, Shortness of Breath, SOB with Exertion, Wheezing, Productive cough Cardiac (ROS): Yes: Chest Pain (substernal worse with deep breaths and ) ABD/GI: Yes: Symptoms Reported, Difficulty Swallowing, Other (RLQ abdominal pain ). No: Diarrhea, Nausea, Poor Appetite, Poor Fluid Intake, Rectal Bleeding, Vomiting : No: Symptoms Reported, Burning, Dysuria, Discharge, Frequency, Flank Pain, Hematuria, Incontinence, Pain, Urgency Musculoskeletal: Yes: See HPI, Muscle Weakness, Joint Stiffness Integumentary: Yes: Change in Color (darkening of the skin in lower extremities ) Neurological: Yes: See HPI, Headache, Numbness, Pre-Existing Deficit, Weakness, Unsteady Gait, Dizziness Endocrine: No: Symptoms Reported *Physical Exam - Vital Signs Last Vital Signs Temp Pulse Resp BP Pulse Ox 98.4 F 110 H 16 179/100 H 96 04/15/18 14:29 04/15/18 14:29 04/15/18 14:29 04/15/18 14:29 04/15/18 14:29 - Physical Exam General Appearance: Yes: Nourished, Appropriately Dressed, Apparent Distress, Mild Distress, Obese. No: Alcohol on Breath HEENT: positive: JAMEEL, Normal ENT Inspection, Normal Voice, Symmetrical, Pharynx Normal, Sinus Tenderness, Hearing Grossly Normal. negative: Scleral Icterus (R), Scleral Icterus (L), Pharyngeal Erythema, Tonsillar Exudate, Tonsillar Erythema Neck: positive: Tender, Trachea midline, Normal Thyroid, Supple, Tender midline Respiratory/Chest: positive: Chest Tender, Respiratory Distress, Decreased Breath Sounds, Wheezing. negative: Accessory Muscle Use, Labored Respiration, Crackles, Rales, Rhonchi Cardiovascular: positive: Regular Rhythm, Regular Rate, S1, S2, Edema, Other ( limted exam d/t body habitus ). negative: JVD, Murmur Vascular Pulses: Dorsalis-Pedis (R): 0 (too edematous, 2+ radial pulse ), Doralis-Pedis (L): 0 (too edematous, 2+ radial pulse ) Gastrointestinal/Abdominal: positive: Normal Bowel Sounds, Tender (RLQ tenderness ), Soft, Protuberent, Tenderness. negative: Distended, Guarding, Rebound Rectal Exam: positive: deferred Musculoskeletal: positive: Normal Inspection. negative: CVA Tenderness Extremity: positive: Normal Capillary Refill, Tender, Pelvis Stable, Pedal Edema , Swelling, Calf Tenderness. negative: Normal Inspection (significant non- pitting edema with anasarca R>L), Coldness Integumentary: positive: Dry, Warm, Swelling, Other (Anasarca). negative: Pale , Cold, Diaphoresis, Petechiae Neurologic: positive: Fully Oriented, Alert, Normal Mood/Affect, Normal Response , Respond to painful stimul, Responsive, Numbness. negative: Confused Moderate Sedation - Procedure Monitoring Vital Signs: Procedure Monitoring Vital Signs Temperature 98.4 F 04/15/18 14:29 Pulse Rate 110 H 04/15/18 14:29 Respiratory Rate 16 04/15/18 14:29 Blood Pressure 179/100 H 04/15/18 14:29 O2 Sat by Pulse Oximetry (%) 96 04/15/18 14:29 ED Treatment Course - LABORATORY CBC & Chemistry Diagram: 04/15/18 18:00 04/15/18 18:00 *DC/Admit/Observation/Transfer Diagnosis at time of Disposition: SOB (shortness of breath) - Referrals - Patient Instructions - Post Discharge Activity
[2018-04-15] MEDS ORDERED: methylPREDNISolone NA SUCC 125 MG/2 ML VIAL IVPUSH ONE (17:26)
[2018-04-15] MEDS ORDERED: IPRATROPIUM BR 0.02% 0.5 MG/2.5 ML VIAL.NEB. NEB PRN (17:33)
[2018-04-15] MEDS ORDERED: methylPREDNISolone NA SUCC 125 MG/2 ML VIAL ONE (17:34)
[2018-04-15] MEDS ORDERED: ALBUTEROL SO4 2.5/IPRATROPIUM 0.5 INH SOL 3 ML VIAL.NEB. NEB ONE ×3 (17:34→18:33)
[2018-04-15] MEDS: ALBUTEROL SO4 2.5/IPRATROPIUM 0.5 INH SOL 3 ML VIAL.NEB. NEB SCH ×3 (18:01→18:32)
[2018-04-15 18:06] LABS: BASO % 0.5 % (0-2.0); EOS % 3.6 % (0-4.5); HEMATOCRIT 35.5 % (32.4-45.2); HEMOGLOBIN 11.8 GM/dL (10.7-15.3); LYMPH % 17.9 % (8-40); MCH 29.8 pg (25.7-33.7); MCHC 33.2 g/dl (32.0-36.0); MEAN CELL VOLUME 89.6 fl (80-96); MEAN PLT VOLUME 7.6 fl (7.5-11.1); PLATELET COUNT 241 K/MM3 (134-434); RBC 3.96 M/mm3 (3.60-5.2); RDW 14.8 % (11.6-15.6); WHITE BLOOD COUNT 6.3 K/mm3 (4.0-10.0)
[2018-04-15] MEDS ORDERED: DEXAMETHASONE SOD PHOSPHATE 10 MG/1 ML VIAL IM ONE (18:22)
[2018-04-15 18:23] LABS: INR 0.98 (0.83-1.09); PROTHROMBIN TIME (PATIENT) 11.6 SEC (9.7-13.0)
[2018-04-15] MEDS ORDERED: DEXAMETHASONE SOD PHOSPHATE 10 MG/1 ML VIAL ONE (18:33)
[2018-04-15 18:47] LABS: ALBUMIN 3.3 g/dl (3.4-5.0); ALK PHOS 138 U/L (45-117); ANION GAP 3 MMOL/L (8-16); BILIRUBIN,TOTAL 0.2 mg/dL (0.2-1); BLOOD UREA NITROGEN 16 mg/dL (7-18); CALCIUM 8.9 mg/dL (8.5-10.1); CHLORIDE 106 mmol/L (98-107); CO2 31 mmol/L (21-32); CREATININE 1.3 mg/dL (0.55-1.3); GLUCOSE,RANDOM 96 mg/dL (74-106); N-TERMINAL BNP 31.1 pg/ml (5-125); POTASSIUM 4.2 mmol/L (3.5-5.1); SGOT/AST 19 U/L (15-37); SGPT/ALT 18 U/L (13-61); SODIUM 140 mmol/L (136-145); TOT PROT 7.9 g/dl (6.4-8.2)
[2018-04-15] MEDS ORDERED: ENOXAPARIN NA (PORCINE) 40 MG/0.4 ML DISP.SYRIN SQ ONE (20:21)
[2018-04-15] MEDS ORDERED: ENOXAPARIN NA (PORCINE) 100 MG/1 ML DISP.SYRIN SQ ONE (20:44)
[2018-04-15] MEDS ORDERED: ENOXAPARIN NA (PORCINE) 60 MG/0.6 ML DISP.SYRIN SQ ONE (20:44)
--- NOTE | 2018-04-15 21:09 | PDOC ---
*Physical Exam - Vital Signs Last Vital Signs Temp Pulse Resp BP Pulse Ox 98.4 F 100 H 20 167/92 97 04/15/18 14:29 04/15/18 19:15 04/15/18 19:15 04/15/18 19:15 04/15/18 19:15 ED Treatment Course - LABORATORY CBC & Chemistry Diagram: 04/15/18 18:00 04/15/18 18:00 - ADDITIONAL ORDERS Additional order review: Laboratory Results 04/15/18 04/15/18 18:00 18:00 PT with INR 11.60 INR 0.98 Sodium 140 Potassium 4.2 Chloride 106 Carbon Dioxide 31 Anion Gap 3 L BUN 16 Creatinine 1.3 Creat Clearance w eGFR 42.37 Random Glucose 96 Calcium 8.9 Magnesium 2.0 Total Bilirubin 0.2 AST 19 ALT 18 Alkaline Phosphatase 138 H Creatine Kinase 194 H Creatine Kinase Index 0.7 CK-MB (CK-2) 1.4 Troponin I < 0.02 B-Natriuretic Peptide 31.1 Total Protein 7.9 Albumin 3.3 L 04/15/18 18:00 RBC 3.96 MCV 89.6 MCHC 33.2 RDW 14.8 D MPV 7.6 Neutrophils % 68.0 Lymphocytes % 17.9 Monocytes % 10.0 Eosinophils % 3.6 Basophils % 0.5 - Medications Given in the ED: ED Medications Discontinued Medications Generic Name Dose Route Start Last Admin Trade Name Freq PRN Reason Stop Dose Admin Albuterol/Ipratropium 1 amp 04/15/18 17:30 04/15/18 18:32 Duoneb - NEB 04/15/18 18:11 1 amp Q20M JIE Administration Albuterol/Ipratropium 2 amp 04/15/18 18:23 04/15/18 18:38 Duoneb - NEB 04/15/18 18:24 2 amp ONCE ONE Administration Dexamethasone Sodium Phosphate 10 mg 04/15/18 18:22 04/15/18 18:38 Decadron Injection - IM 04/15/18 18:23 10 mg ONCE ONE Administration Enoxaparin Sodium 160 mg 04/15/18 20:21 04/15/18 20:51 Lovenox - SQ 04/15/18 20:22 160 mg ONCE ONE Administration Methylprednisolone Sodium Succinate 125 mg 04/15/18 17:26 04/15/18 18:38 Solu-Medrol - IVPUSH 04/15/18 17:27 Not Given ONCE ONE Medical Decision Making - Medical Decision Making Patient signed out from Dr. Jaime 58yo F with shortness of breath and cold-like symptoms DDX includes CHF, COPD, PE DVT ultrasound positive for left SF femoral and popliteal DVT EKG: rate 102, QTc 427, Sinus Tachycardia 160mg Lovenox ordered Dr. Jenkins discussed case with Dr. Luke who accepted patient for admission *DC/Admit/Observation/Transfer Diagnosis at time of Disposition: SOB (shortness of breath), DVT (deep venous thrombosis) - Discharge Dispostion Condition at time of disposition: Guarded Decision to Admit order: Yes - Referrals - Patient Instructions - Post Discharge Activity
[2018-04-15] MEDS ORDERED: AZITHROMYCIN IVPB 500 MG in DEXTROSE 5%-WATER - 250 ML IVPB ONE (21:11)
[2018-04-15] MEDS ORDERED: AZITHROMYCIN IVPB 500 MG/250 ML BAG IVPB ONE (21:16)
--- NOTE | 2018-04-15 22:05 | HP ---
Admitting History and Physical - Primary Care Physician PCP: Nereida Luke - Admission History of Present Illness: -58 y.o. F w/ PMHx. 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 Pt. states that she has had subjective fever and chills. Pt. c/o headache(5/10) intensity in the right frontal lobe over the last 3 days. Pt. also had to to sit up at night to sleep because of increased difficulty breathing, dizziness on standing, increased numbness and tingling form her baseline in lower extremities R>L, and difficulty swallowing (over the last 3 days). Pt. states that her legs are more than 2x her normal size with darkening of the skin. Pt. denies receiving Pneumonia vaccine or Flu vaccine for this year. - Past Medical History Cardiovascular: Yes: CHF (Chronic Diastolic), HTN, Hyperlipdemia Pulmonary: Yes: Asthma, COPD, Sleep Apnea (Pt states negative recent test, will attempt to retrieve results) - Smoking History Smoking history: Former smoker Have you smoked in the past 12 months: No Aproximately how many cigarettes per day: 5 - Alcohol/Substance Use Hx Alcohol Use: No - Social History ADL: Independent History of Recent Travel: No Home Medications - Allergies Allergies/Adverse Reactions: Allergies Allergy/AdvReac Type Severity Reaction Status Date / Time Penicillins Allergy Intermediate Hives Verified 04/15/18 14:31 - Home Medications Home Medications: Ambulatory Orders Atorvastatin Ca [Lipitor] 40 mg PO HS 05/30/14 Fluticasone Propionate [Flovent Diskus] 110 mcg IH PRN 05/30/14 Omeprazole Magnesium [Prilosec (OTC)] 20 mg PO DAILY 05/30/14 Aspirin [ASA -] 81 mg PO DAILY 10/25/17 Hydralazine HCl 25 mg PO BID 10/25/17 Amlodipine Besylate/Benazepril [Lotrel 10-20 mg Capsule] 1 cap PO DAILY Methadone [Dolophine -] 40 mg PO DAILY 10/28/17 Warfarin Na [Coumadin -] 7.5 mg PO DAILY@1800 #30 tablet 10/30/17 Family Disease History - Family Disease History Family Disease History: Other: Father (33, multiple DVTs) Physical Examination Vital Signs: Vital Signs Temperature 98.4 F 04/15/18 14:29 Pulse Rate 100 H 04/15/18 19:15 Respiratory Rate 20 04/15/18 19:15 Blood Pressure 167/92 04/15/18 19:15 O2 Sat by Pulse Oximetry (%) 97 04/15/18 19:15 Constitutional: Yes: No Distress HENT: Yes: Atraumatic Neck: Yes: Supple Cardiovascular: Yes: Regular Rate and Rhythm Respiratory: Yes: CTA Bilaterally Gastrointestinal: Yes: Normal Bowel Sounds Edema: Yes Neurological: Yes: Alert, Oriented Labs: CBC, BMP 04/15/18 18:00 04/15/18 18:00 Problem List - Problems (1) DVT (deep venous thrombosis) Assessment/Plan: left candi on lovenox heme consult Code(s): I82.409 - ACUTE EMBOLISM AND THOMBOS UNSP DEEP VN UNSP LOWER EXTREMITY (2) SOB (shortness of breath) Assessment/Plan: duo nebs iv steroids pulmonary consult Code(s): R06.02 - SHORTNESS OF BREATH (3) JOSH (acute kidney injury) Code(s): N17.9 - ACUTE KIDNEY FAILURE, UNSPECIFIED (4) COPD (chronic obstructive pulmonary disease) Code(s): J44.9 - CHRONIC OBSTRUCTIVE PULMONARY DISEASE, UNSPECIFIED (5) Presence of IVC filter Code(s): Z95.828 - PRESENCE OF OTHER VASCULAR IMPLANTS AND GRAFTS Assessment/Plan Laboratory Tests 04/15/18 04/15/18 04/15/18 18:00 18:00 18:00 WBC 6.3 RBC 3.96 Hgb 11.8 Hct 35.5 MCV 89.6 MCH 29.8 MCHC 33.2 RDW 14.8 D Plt Count 241 MPV 7.6 Absolute Neuts (auto) 4.3 Neutrophils % 68.0 Lymphocytes % 17.9 Monocytes % 10.0 Eosinophils % 3.6 Basophils % 0.5 Nucleated RBC % 0 PT with INR 11.60 INR 0.98 Sodium 140 Potassium 4.2 Chloride 106 Carbon Dioxide 31 Anion Gap 3 L BUN 16 Creatinine 1.3 Creat Clearance w eGFR 42.37 Random Glucose 96 Calcium 8.9 Magnesium 2.0 Total Bilirubin 0.2 AST 19 ALT 18 Alkaline Phosphatase 138 H Creatine Kinase 194 H Creatine Kinase Index 0.7 CK-MB (CK-2) 1.4 Troponin I < 0.02 B-Natriuretic Peptide 31.1 Total Protein 7.9 Albumin 3.3 L Active Medications Generic Name Dose Route Start Last Admin Trade Name Torreyq PRN Reason Stop Dose Admin Azithromycin 500 mg/ Dextrose 250 mls @ 250 mls/hr 04/15/18 21:11 04/15/18 21 :22 IVPB 04/15/18 22:10 250 mls/hr ONCE ONE Administration Ipratropium [place] 1 amp 04/15/18 17:33 Atrovent 0.02% Nebulizer - NEB Q1H PRN WHEEZING Active Medications Generic Name Dose Route Start Last Admin Trade Name Karlie PRN Reason Stop Dose Admin Amlodipine Besylate 10 mg 04/16/18 10:00 04/17/18 09:07 Norvasc - PO 10 mg DAILY JIE Administration Atorvastatin Calcium 40 mg 04/16/18 22:00 04/16/18 21:39 Lipitor - PO 40 mg HS JIE Administration Enoxaparin Sodium 100 mg/ 160 mg 04/16/18 10:00 04/17/18 09:08 Enoxaparin Sodium 60 mg SQ 160 mg BID JIE Administration Hydralazine HCl 25 mg 04/16/18 10:00 04/17/18 09:08 Apresoline - PO 25 mg BID JIE Administration Aztreonam 1 gm/ Dextrose 50 mls @ 100 mls/hr 04/16/18 18:00 04/17/18 17:13 IVPB 100 mls/hr Q8H-IV JIE Administration Protocol Ibuprofen 600 mg 04/16/18 18:45 04/17/18 17:13 Motrin - PO 600 mg Q8H PRN Administration PAIN LEVEL 4 - 6 Ipratropium [place] 1 amp 04/15/18 17:33 Atrovent 0.02% Nebulizer - NEB Q1H PRN WHEEZING Lisinopril 20 mg 04/16/18 10:00 04/17/18 09:08 Prinivil PO 20 mg DAILY JIE Administration Methadone HCl 40 mg/ Methadone 60 mg 04/16/18 13:30 04/17/18 09:07 HCl 20 mg PO 60 mg DAILY JIE Administration Methylprednisolone Sodium Succinate 60 mg 01/11/19 17:33 Solu-Medrol - IVPUSH Q8H-IV JIE Nystatin 1 applic 04/16/18 11:15 04/17/18 09:09 Nystop Powder - TP 1 applic BID JIE Administration Pantoprazole Sodium 20 mg 04/16/18 10:00 04/17/18 09:08 Protonix - PO 20 mg DAILY JIE Administration
[2018-04-15] MEDS ORDERED: ACETAMINOPHEN 325 MG TABLET (FP) PO PRN (22:08)
[2018-04-16] MEDS ORDERED: PNEUMOC 13-VAL CONJ-DIP CRM/PF 0.5 ML DISP.SYRIN IM ONE (01:17)
[2018-04-16] MEDS: methylPREDNISolone NA SUCC 40 MG/1 ML VIAL IVPUSH SCH ×3 (01:30→18:32)
[2018-04-16 09:06] LABS: URINE APPEARANCE CLEAR; URINE BILIRUBIN NEGATIVE (<2.0 mg/dL); URINE COLOR YELLOW; URINE GLUCOSE (UA) NEGATIVE (NEGATIVE); URINE KETONE NEGATIVE (NEGATIVE); URINE LEUK ESTERASE NEGATIVE (NEGATIVE); URINE NITRITE NEGATIVE (NEGATIVE); URINE PROTEIN 3+ (NEGATIVE); URINE UROBILINOGEN NEGATIVE mg/dL (0.2-1.0)
[2018-04-16 09:17] LABS: EPI CELLS RARE /HPF (FEW); URINE MUCUS RARE
[2018-04-16] MEDS ORDERED: ENOXAPARIN NA (PORCINE) 100 MG/1 ML DISP.SYRIN SQ ONE ×2 (09:59→21:09)
[2018-04-16] MEDS ORDERED: ENOXAPARIN NA (PORCINE) 60 MG/0.6 ML DISP.SYRIN SQ ONE ×2 (09:59→21:09)
[2018-04-16] MEDS ORDERED: PATIENT'S OWN MEDICATION (NON-FORMULARY) (Amlodipine Besylate/Benazepril [Lotrel 10-20 Mg PO SCH (10:00)
[2018-04-16] MEDS ORDERED: METHADONE HCL 40 MG DISPERSABLE TABLET PO SCH (10:00)
[2018-04-16] MEDS ORDERED: ENOXAPARIN NA (PORCINE) 40 MG/0.4 ML DISP.SYRIN SQ SCH (10:00)
[2018-04-16] MEDS: LISINOPRIL 20 MG TABLET (FP) PO SCH (10:11)
[2018-04-16] MEDS: PANTOPRAZOLE 20 MG TABLET (FP) PO SCH (10:11)
[2018-04-16] MEDS: hydrALAZINE HCL 25 MG TABLET (FP) PO SCH ×2 (10:11→21:39)
[2018-04-16] MEDS: amLODIPine BESYLATE 10 MG TABLET (FP) PO SCH (10:11)
--- NOTE | 2018-04-16 10:29 | CONSULT ---
Consult Consult Specialty:: Hematology-Oncology Referred by:: Ti Reason for Consultation:: VTE - History of Present Illness Chief Complaint: lower leg swelling History of Present Illness: 58 yr old woman with a hx of multipe VTEs since 2013 initially post-right knee surgery currently on warfarin presents with b/l LE swelling R>L progressively increasing for past week. She c/o productive cough with yellow sputum and taking OTC robutussin for the past 1.5 weeks a/w SOB. She has been eating green cabbage 3-4 meals last week She checks her INR at home once a week on Friday, 04/08/2018 was 2.3. She went on an 8hr car ride to [place] for [employer] with minimal car breaks, INR prior to trip was therapeutic, after returning from [place] checked her INR on 04/01/2018 and it was 1.2 and 03/25/2018 it was 2.1. After her initial VTE she was placed on xarelto but developed another VTE so she was switched on warfarin. She quit smoking Dec 2017 (was smoking 3ppk/day since she was 18 then slowly weaned down to 2cigs and finally quit in dec 2017, denies restarting) PCP: Jacquelyn Youngblood, [facility] Pmhx: HTN, diastolic CHF, aortic aneurysm, VTEs, methadone maintenence therapy says she gets a mammogram every year without any abnomarlities, last one in spring. last colonoscopy was 2 yrs ago but "she got sick from it" and had to be hospitalized(unclear, pt unable to elaborate specifics) and does not want another colonoscopy denies fevers, weightloss, chest pain, night sweating, change in urinary or bowel habits. - Past Medical History Cardio/Vascular: Yes: CHF (Chronic Diastolic), HTN, Hyperlipdemia Pulmonary: Yes: Asthma, COPD, Sleep Apnea (Pt states negative recent test, will attempt to retrieve results) ...: No - Alcohol/Substance Use Hx Alcohol Use: No - Smoking History Smoking history: Former smoker Have you smoked in the past 12 months: Yes Aproximately how many cigarettes per day: 5 If you are a former smoker, when did you quit?: 1 month - Social History ADL: Independent History of Recent Travel: No Home Medications - Allergies Allergies/Adverse Reactions: Allergies Allergy/AdvReac Type Severity Reaction Status Date / Time Penicillins Allergy Intermediate Hives Verified 04/15/18 14:31 - Home Medications Home Medications: Ambulatory Orders Atorvastatin Ca [Lipitor] 40 mg PO HS 05/30/14 Fluticasone Propionate [Flovent Diskus] 110 mcg IH PRN 05/30/14 Omeprazole Magnesium [Prilosec (OTC)] 20 mg PO DAILY 05/30/14 Aspirin [ASA -] 81 mg PO DAILY 10/25/17 Hydralazine HCl 25 mg PO BID 10/25/17 Amlodipine Besylate/Benazepril [Lotrel 10-20 mg Capsule] 1 cap PO DAILY Methadone [Dolophine -] 60 mg PO DAILY 10/28/17 Amlodipine Besylate [Norvasc -] 10 mg PO DAILY #30 tablet 04/20/18 Enoxaparin [Lovenox -] 160 mg SQ BID #14 disp.syrin 04/20/18 Lisinopril [Prinivil] 20 mg PO BID #30 tablet 04/20/18 Prednisone 10 mg PO ASDIR #30 tablet 04/20/18 Family Disease History - Family Disease History Family Disease History: Other: Father (33, multiple DVTs) Physical Exam Vital Signs: Vital Signs Temperature 98.1 F 04/16/18 10:09 Pulse Rate 88 04/16/18 10:09 Respiratory Rate 20 04/16/18 10:09 Blood Pressure 187/108 H 04/16/18 10:09 O2 Sat by Pulse Oximetry (%) 97 04/16/18 01:18 Labs: CBC, BMP 04/15/18 18:00 04/15/18 18:00 Assessment/Plan 58 yr old woman with morbid obesity, with a hx of VTE's on warfarin presented leg swelling found to have acute VTE. A/P - VTE likely resulting from a combination of dietary interaction from cabbage + prolonged car ride + subtherapeutic INR rather than warfarin failure, can restart warfarin with goal INR 2-3. however, pt would prefer to continue with lovenox shots BID, 160mg BID(weight BID dosing preferred for obese patients). It is covered by her insurance, will need to send two prescriptions: 1 for 100mg prefilled syringe and 1 for 60mg prefilled syringe to reach required dose of 160mg. - diet and exercise counseling - recommend testing of anti Factor Xa levels to be drawn 4hrs after lovenox dose
[2018-04-16] MEDS: ENOXAPARIN SQ SCH ×2 (10:38→21:39)
[2018-04-16] MEDS ORDERED: FLU VACCINE QUAD 60 MCG/0.5 ML (MDV 18-19) IM ONE (11:00)
[2018-04-16] MEDS ORDERED: PNEUMOCOCCAL 23 VACCINE 0.5 ML VIAL IM ONE (11:00)
[2018-04-16] MEDS ORDERED: METHADONE 40 MG, METHADONE 10 MG PO SCH (11:15)
[2018-04-16] MEDS ORDERED: METHADONE 40 MG, METHADONE 20 MG PO SCH (11:29)
--- NOTE | 2018-04-16 12:47 | EKG ---
Test Reason : Blood Pressure : / mmHG Vent. Rate : 102 BPM Atrial Rate : 102 BPM P-R Int : 184 ms QRS Dur : 068 ms QT Int : 336 ms P-R-T Axes : 059 021 032 degrees QTc Int : 437 ms SINUS TACHYCARDIA CANNOT RULE OUT ANTERIOR INFARCT , AGE UNDETERMINED ABNORMAL ECG WHEN COMPARED WITH ECG OF 24-OCT-2017 21:19, NO SIGNIFICANT CHANGE WAS FOUND Confirmed by ROSARIO WALLACE MD ([id number]) on 04/16/2018 12:46:50 PM Referred By: Confirmed By:ROSARIO WALLACE MD
[2018-04-16] MEDS: NYSTATIN POWDER 100,000 UNITS/GM - 15 GM TOPICAL POWDER TP SCH ×2 (13:16→21:40)
[2018-04-16] MEDS ORDERED: METHADONE HCL 10 MG TABLET ONE (13:34)
[2018-04-16] MEDS ORDERED: METHADONE HCL 40 MG DISPERSABLE TABLET ONE (13:34)
[2018-04-16] MEDS: METHADONE 40 MG, METHADONE 20 MG PO SCH (13:36)
--- NOTE | 2018-04-16 16:26 | PN ---
Progress Note, Physician History of Present Illness: feeling better - Current Medication List Current Medications: Active Medications Acetaminophen (Tylenol -) 650 mg PO Q6H PRN PRN Reason: FEVER Amlodipine Besylate (Norvasc -) 10 mg PO DAILY [facility] Last Admin: 04/16/18 10:11 Dose: 10 mg Atorvastatin Calcium (Lipitor -) 40 mg PO HS [facility] Enoxaparin Sodium 100 mg/ (Enoxaparin Sodium 60 mg) 160 mg SQ BID [facility] Last Admin: 04/16/18 10:38 Dose: 160 mg Hydralazine HCl (Apresoline -) 25 mg PO BID [facility] Last Admin: 04/16/18 10:11 Dose: 25 mg Ipratropium [place] (Atrovent 0.02% Nebulizer -) 1 amp NEB Q1H PRN PRN Reason: WHEEZING Lisinopril (Prinivil) 20 mg PO DAILY [facility] Last Admin: 04/16/18 10:11 Dose: 20 mg Methadone HCl 40 mg/ Methadone (HCl 20 mg) 60 mg PO DAILY [facility] Last Admin: 04/16/18 13:36 Dose: 60 mg Methylprednisolone Sodium Succinate (Solu-Medrol -) 80 mg IVPUSH Q8H-IV [facility] Last Admin: 04/16/18 10:11 Dose: 80 mg Nystatin (Nystop Powder -) 1 applic TP BID [facility] Last Admin: 04/16/18 13:16 Dose: 1 applic Pantoprazole Sodium (Protonix -) 20 mg PO DAILY [facility] Last Admin: 04/16/18 10:11 Dose: 20 mg - Objective Vital Signs: Vital Signs Temperature 97.8 F 04/16/18 14:32 Pulse Rate 102 H 04/16/18 14:32 Respiratory Rate 22 H 04/16/18 14:32 Blood Pressure 153/79 04/16/18 14:32 O2 Sat by Pulse Oximetry (%) 97 04/16/18 01:18 Constitutional: Yes: No Distress HENT: Yes: Atraumatic Neck: Yes: Supple Cardiovascular: Yes: Regular Rate and Rhythm Respiratory: Yes: CTA Bilaterally Gastrointestinal: Yes: Normal Bowel Sounds Extremities: Yes: WNL Edema: No Peripheral Pulses WNL: Yes Neurological: Yes: Alert, Oriented Labs: CBC, BMP 04/15/18 18:00 04/15/18 18:00 INR, PTT INR 0.98 (0.83-1.09) 04/15/18 18:00 Problem List - Problems (1) DVT (deep venous thrombosis) Assessment/Plan: left candi on lovenox heme consult Code(s): I82.409 - ACUTE EMBOLISM AND THOMBOS UNSP DEEP VN UNSP LOWER EXTREMITY (2) SOB (shortness of breath) Assessment/Plan: duo nebs iv steroids pulmonary consult Code(s): R06.02 - SHORTNESS OF BREATH (3) JOSH (acute kidney injury) Code(s): N17.9 - ACUTE KIDNEY FAILURE, UNSPECIFIED (4) COPD (chronic obstructive pulmonary disease) Code(s): J44.9 - CHRONIC OBSTRUCTIVE PULMONARY DISEASE, UNSPECIFIED
--- NOTE | 2018-04-16 16:27 | CON.ID ---
Consult Consult Specialty:: infectious diseases Referred by:: Reason for Consultation:: [place] - History of Present Illness Chief Complaint: cough and sputum production History of Present Illness: 58 y.o. F w/ PMHx. 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 Pt. states that she has had subjective fever and chills. Pt. c/o headache(5/10) intensity in the right frontal lobe over the last 3 days. Pt. also had to to sit up at night to sleep because of increased difficulty breathing, dizziness on standing, increased numbness and tingling form her baseline in lower extremities R>L, and difficulty swallowing (over the last 3 days). says she also feels weak still with cough and sputum production - History Source History Provided By: Patient Limitations to Obtaining History: No Limitations - Past Medical History Cardio/Vascular: Yes: CHF (Chronic Diastolic), HTN, Hyperlipdemia Pulmonary: Yes: Asthma, COPD, Sleep Apnea (Pt states negative recent test, will attempt to retrieve results) ...: No - Alcohol/Substance Use Hx Alcohol Use: No - Smoking History Smoking history: Former smoker Have you smoked in the past 12 months: Yes Aproximately how many cigarettes per day: 5 If you are a former smoker, when did you quit?: 1 month - Social History ADL: Independent History of Recent Travel: No Home Medications - Allergies Allergies/Adverse Reactions: Allergies Allergy/AdvReac Type Severity Reaction Status Date / Time Penicillins Allergy Intermediate Hives Verified 04/15/18 14:31 - Home Medications Home Medications: Ambulatory Orders RX: Atorvastatin Ca [Lipitor] 40 mg PO HS 05/30/14 RX: Fluticasone Propionate [Flovent Diskus] 110 mcg IH PRN 05/30/14 RX: Omeprazole Magnesium [Prilosec (OTC)] 20 mg PO DAILY 05/30/14 RX: Aspirin [ASA -] 81 mg PO DAILY 10/25/17 RX: Hydralazine HCl 25 mg PO BID 10/25/17 RX: Amlodipine Besylate/Benazepril [Lotrel 10-20 mg Capsule] 1 cap PO DAILY RX: Methadone [Dolophine -] 40 mg PO DAILY 10/28/17 RX: Warfarin Na [Coumadin -] 7.5 mg PO DAILY@1800 #30 tablet 10/30/17 Family Disease History - Family Disease History Family Disease History: Other: Father (33, multiple DVTs) Review of Systems - Review of Systems Constitutional: reports: No Symptoms Eyes: reports: No Symptoms HENT: reports: No Symptoms Neck: reports: No Symptoms Cardiovascular: reports: No Symptoms Respiratory: reports: Cough, SOB, Other (sputum) Gastrointestinal: reports: No Symptoms Genitourinary: reports: No Symptoms Musculoskeletal: reports: No Symptoms Integumentary: reports: No Symptoms Neurological: reports: No Symptoms Endocrine: reports: No Symptoms Hematology/Lymphatic: reports: No Symptoms Psychiatric: reports: No Symptoms Physical Exam Vital Signs: Vital Signs Temperature 97.8 F 04/16/18 14:32 Pulse Rate 102 H 04/16/18 14:32 Respiratory Rate 22 H 04/16/18 14:32 Blood Pressure 153/79 04/16/18 14:32 O2 Sat by Pulse Oximetry (%) 97 04/16/18 01:18 Constitutional: Yes: Well Nourished, Calm, Mild Distress, Obese Eyes: Yes: Conjunctiva Clear Cardiovascular: Yes: Regular Rate and Rhythm Respiratory: Yes: On Nasal O2, Poor Air Entry, Rhonchi Gastrointestinal: Yes: Normal Bowel Sounds, Soft Musculoskeletal: Yes: WNL Extremities: Yes: WNL Neurological: Yes: Alert, Oriented Psychiatric: Yes: Alert, Oriented Labs: CBC, BMP 04/15/18 18:00 04/15/18 18:00 Imaging - Results Chest X-ray: Report Reviewed, Image Reviewed Assessment/Plan Problem List - Problems (1) DVT (deep venous thrombosis) Code(s): I82.409 - ACUTE EMBOLISM AND THOMBOS UNSP DEEP VN UNSP LOWER EXTREMITY (2) SOB (shortness of breath) Code(s): R06.02 - SHORTNESS OF BREATH (3) JOSH (acute kidney injury) Code(s): N17.9 - ACUTE KIDNEY FAILURE, UNSPECIFIED (4) COPD (chronic obstructive pulmonary disease) Code(s): J44.9 - CHRONIC OBSTRUCTIVE PULMONARY DISEASE, UNSPECIFIED 5 pneumonia plan will start patient on abx incentive jena await for all the results ct scan rest as per the team
[2018-04-16] MEDS: IBUPROFEN 600 MG TABLET (FP) PO PRN (19:08)
[2018-04-16] MEDS ORDERED: PT OWN MED DRAWER 7, Y5N ONE ×2 (19:39→20:20)
[2018-04-16] MEDS: AZTREONAM 1 GM in DEXTROSE 5%-WATER - 50 ML IVPB SCH (20:11)
[2018-04-16] MEDS: ATORVASTATIN CA 40 MG TABLET (FP) PO SCH (21:39)
--- NOTE | 2018-04-16 23:36 | PN ---
Teaching Attending Note Name of Resident: Sage Moss ATTENDING PHYSICIAN STATEMENT I saw and evaluated the patient. I reviewed the resident's note and discussed the case with the resident. I agree with the resident's findings and plan as documented. ASSESSMENT AND PLAN: recurrent dvt after prolonged car ride, also with morbid obesity, subtherapeutic INR PAtient prefers lovenox and does not wnt to do frequent inr checks discussed that titrating coumadin would be ideal also given obesity need to check anti XA LEBVELS 4 HRS. AFTER LOVENOX DOSE prefer bid lovenox dosing Data of NOACS in patients iwth morbid obesity is limited and h/o gi bleed on xeralto discussed all this with patient and need for f/u ith PMD
[2018-04-17] MEDS: methylPREDNISolone NA SUCC 40 MG/1 ML VIAL IVPUSH SCH ×3 (01:58→17:12)
[2018-04-17] MEDS: AZTREONAM 1 GM in DEXTROSE 5%-WATER - 50 ML IVPB SCH ×3 (01:59→17:13)
[2018-04-17] MEDS: IBUPROFEN 600 MG TABLET (FP) PO PRN ×2 (06:34→17:13)
[2018-04-17] MEDS ORDERED: METHADONE HCL 40 MG DISPERSABLE TABLET ONE (09:05)
[2018-04-17] MEDS ORDERED: METHADONE HCL 10 MG TABLET ONE (09:05)
[2018-04-17] MEDS ORDERED: ENOXAPARIN NA (PORCINE) 100 MG/1 ML DISP.SYRIN SQ ONE ×2 (09:05→20:38)
[2018-04-17] MEDS ORDERED: ENOXAPARIN NA (PORCINE) 60 MG/0.6 ML DISP.SYRIN SQ ONE ×2 (09:06→20:38)
[2018-04-17] MEDS ORDERED: PT OWN MED DRAWER 7, Y5N ONE ×3 (09:06→23:36)
[2018-04-17] MEDS: amLODIPine BESYLATE 10 MG TABLET (FP) PO SCH (09:07)
[2018-04-17] MEDS: METHADONE 40 MG, METHADONE 20 MG PO SCH (09:07)
[2018-04-17] MEDS: hydrALAZINE HCL 25 MG TABLET (FP) PO SCH ×2 (09:08→21:27)
[2018-04-17] MEDS: ENOXAPARIN SQ SCH ×2 (09:08→21:28)
[2018-04-17] MEDS: LISINOPRIL 20 MG TABLET (FP) PO SCH (09:08)
[2018-04-17] MEDS: PANTOPRAZOLE 20 MG TABLET (FP) PO SCH (09:08)
[2018-04-17] MEDS: NYSTATIN POWDER 100,000 UNITS/GM - 15 GM TOPICAL POWDER TP SCH ×2 (09:09→21:28)
--- NOTE | 2018-04-17 13:27 | PN ---
Progress Note, Physician History of Present Illness: patient stable feels much better coughing less minimal sputum production - Current Medication List Current Medications: Active Medications Amlodipine Besylate (Norvasc -) 10 mg PO DAILY [facility] Last Admin: 04/17/18 09:07 Dose: 10 mg Atorvastatin Calcium (Lipitor -) 40 mg PO HS [facility] Last Admin: 04/16/18 21:39 Dose: 40 mg Enoxaparin Sodium 100 mg/ (Enoxaparin Sodium 60 mg) 160 mg SQ BID [facility] Last Admin: 04/17/18 09:08 Dose: 160 mg Hydralazine HCl (Apresoline -) 25 mg PO BID [facility] Last Admin: 04/17/18 09:08 Dose: 25 mg Aztreonam 1 gm/ Dextrose 50 mls @ 100 mls/hr IVPB Q8H-IV [facility]; Protocol Last Admin: 04/17/18 09:07 Dose: 100 mls/hr Ibuprofen (Motrin -) 600 mg PO Q8H PRN PRN Reason: PAIN LEVEL 4 - 6 Last Admin: 04/17/18 06:34 Dose: 600 mg Ipratropium [place] (Atrovent 0.02% Nebulizer -) 1 amp NEB Q1H PRN PRN Reason: WHEEZING Lisinopril (Prinivil) 20 mg PO DAILY [facility] Last Admin: 04/17/18 09:08 Dose: 20 mg Methadone HCl 40 mg/ Methadone (HCl 20 mg) 60 mg PO DAILY [facility] Last Admin: 04/17/18 09:07 Dose: 60 mg Methylprednisolone Sodium Succinate (Solu-Medrol -) 80 mg IVPUSH Q8H-IV [facility] Last Admin: 04/17/18 09:08 Dose: 80 mg Nystatin (Nystop Powder -) 1 applic TP BID [facility] Last Admin: 04/17/18 09:09 Dose: 1 applic Pantoprazole Sodium (Protonix -) 20 mg PO DAILY [facility] Last Admin: 04/17/18 09:08 Dose: 20 mg - Objective Vital Signs: Vital Signs Temperature 98.3 F 04/17/18 10:00 Pulse Rate 76 04/17/18 10:00 Respiratory Rate 18 04/17/18 10:00 Blood Pressure 137/47 L 04/17/18 10:00 O2 Sat by Pulse Oximetry (%) 96 04/17/18 09:44 Constitutional: Yes: No Distress, Calm, Obese (morbid) Neck: Yes: Supple Cardiovascular: Yes: Regular Rate and Rhythm Respiratory: Yes: Regular, Poor Air Entry Gastrointestinal: Yes: Normal Bowel Sounds, Soft Musculoskeletal: Yes: WNL Extremities: Yes: WNL Neurological: Yes: Alert, Oriented Psychiatric: Yes: Alert, Oriented Labs: CBC, BMP 04/15/18 18:00 04/15/18 18:00 INR, PTT INR 0.98 (0.83-1.09) 04/15/18 18:00 Assessment/Plan Problem List - Problems (1) DVT (deep venous thrombosis) Code(s): I82.409 - ACUTE EMBOLISM AND THOMBOS UNSP DEEP VN UNSP LOWER EXTREMITY (2) SOB (shortness of breath) Code(s): R06.02 - SHORTNESS OF BREATH (3) JOSH (acute kidney injury) Code(s): N17.9 - ACUTE KIDNEY FAILURE, UNSPECIFIED (4) COPD (chronic obstructive pulmonary disease) Code(s): J44.9 - CHRONIC OBSTRUCTIVE PULMONARY DISEASE, UNSPECIFIED 5 pneumonia plan we will continue abx monitor closely heam/onc onboard will see how patient does tomorrow and then decie incentive jena rest as per the team
[2018-04-17 15:13] VITALS: BMI 54.0
--- NOTE | 2018-04-17 17:38 | PN ---
Progress Note, Physician - Current Medication List Current Medications: Active Medications Amlodipine Besylate (Norvasc -) 10 mg PO DAILY [facility] Last Admin: 04/17/18 09:07 Dose: 10 mg Atorvastatin Calcium (Lipitor -) 40 mg PO HS [facility] Last Admin: 04/16/18 21:39 Dose: 40 mg Enoxaparin Sodium 100 mg/ (Enoxaparin Sodium 60 mg) 160 mg SQ BID [facility] Last Admin: 04/17/18 09:08 Dose: 160 mg Hydralazine HCl (Apresoline -) 25 mg PO BID [facility] Last Admin: 04/17/18 09:08 Dose: 25 mg Aztreonam 1 gm/ Dextrose 50 mls @ 100 mls/hr IVPB Q8H-IV [facility]; Protocol Last Admin: 04/17/18 17:13 Dose: 100 mls/hr Ibuprofen (Motrin -) 600 mg PO Q8H PRN PRN Reason: PAIN LEVEL 4 - 6 Last Admin: 04/17/18 17:13 Dose: 600 mg Ipratropium [place] (Atrovent 0.02% Nebulizer -) 1 amp NEB Q1H PRN PRN Reason: WHEEZING Lisinopril (Prinivil) 20 mg PO DAILY [facility] Last Admin: 04/17/18 09:08 Dose: 20 mg Methadone HCl 40 mg/ Methadone (HCl 20 mg) 60 mg PO DAILY [facility] Last Admin: 04/17/18 09:07 Dose: 60 mg Methylprednisolone Sodium Succinate (Solu-Medrol -) 60 mg IVPUSH Q8H-IV [facility] Nystatin (Nystop Powder -) 1 applic TP BID [facility] Last Admin: 04/17/18 09:09 Dose: 1 applic Pantoprazole Sodium (Protonix -) 20 mg PO DAILY [facility] Last Admin: 04/17/18 09:08 Dose: 20 mg - Objective Vital Signs: Vital Signs Temperature 98.3 F 04/17/18 15:12 Pulse Rate 79 04/17/18 15:12 Respiratory Rate 18 04/17/18 15:12 Blood Pressure 157/82 04/17/18 15:12 O2 Sat by Pulse Oximetry (%) 96 04/17/18 09:44 Constitutional: Yes: No Distress HENT: Yes: Atraumatic Neck: Yes: Supple Cardiovascular: Yes: Regular Rate and Rhythm Respiratory: Yes: Rhonchi Gastrointestinal: Yes: Normal Bowel Sounds Extremities: Yes: WNL Edema: Yes Edema: LLE: 1+ Neurological: Yes: Alert, Oriented Labs: CBC, BMP 04/15/18 18:00 04/15/18 18:00 INR, PTT INR 0.98 (0.83-1.09) 04/15/18 18:00 Problem List - Problems (1) DVT (deep venous thrombosis) Assessment/Plan: left candi on lovenox heme consult Code(s): I82.409 - ACUTE EMBOLISM AND THOMBOS UNSP DEEP VN UNSP LOWER EXTREMITY (2) SOB (shortness of breath) Assessment/Plan: duo nebs iv steroids pulmonary consult Code(s): R06.02 - SHORTNESS OF BREATH (3) JOSH (acute kidney injury) Assessment/Plan: cr wnl Code(s): N17.9 - ACUTE KIDNEY FAILURE, UNSPECIFIED (4) COPD (chronic obstructive pulmonary disease) Assessment/Plan: iv steroids duo nebs prn Code(s): J44.9 - CHRONIC OBSTRUCTIVE PULMONARY DISEASE, UNSPECIFIED
[2018-04-17] MEDS: ATORVASTATIN CA 40 MG TABLET (FP) PO SCH (21:28)
[2018-04-18] MEDS: AZTREONAM 1 GM in DEXTROSE 5%-WATER - 50 ML IVPB SCH ×2 (01:59→09:08)
[2018-04-18] MEDS: methylPREDNISolone NA SUCC 40 MG/1 ML VIAL IVPUSH SCH ×3 (01:59→18:14)
[2018-04-18 08:14] LABS: BASO % 0.1 % (0-2.0); HEMATOCRIT 38.6 % (32.4-45.2); LYMPH % 8.1 % (8-40); MCH 28.1 pg (25.7-33.7); MCHC 31.1 g/dl (32.0-36.0); MEAN CELL VOLUME 90.1 fl (80-96); MEAN PLT VOLUME 8.2 fl (7.5-11.1); MONO % 3.8 % (3.8-10.2); PLATELET COUNT 296 K/MM3 (134-434); RBC 4.28 M/mm3 (3.60-5.2); RDW 15.1 % (11.6-15.6); WHITE BLOOD COUNT 7.5 K/mm3 (4.0-10.0)
[2018-04-18] MEDS ORDERED: METHADONE HCL 40 MG DISPERSABLE TABLET ONE (09:02)
[2018-04-18] MEDS ORDERED: METHADONE HCL 10 MG TABLET ONE (09:02)
[2018-04-18] MEDS ORDERED: ENOXAPARIN NA (PORCINE) 100 MG/1 ML DISP.SYRIN SQ ONE ×2 (09:03→20:37)
[2018-04-18] MEDS ORDERED: PT OWN MED DRAWER 7, Y5N ONE (09:03)
[2018-04-18] MEDS ORDERED: ENOXAPARIN NA (PORCINE) 60 MG/0.6 ML DISP.SYRIN SQ ONE ×2 (09:03→20:37)
[2018-04-18] MEDS: NYSTATIN POWDER 100,000 UNITS/GM - 15 GM TOPICAL POWDER TP SCH ×2 (09:07→21:16)
[2018-04-18] MEDS: METHADONE 40 MG, METHADONE 20 MG PO SCH (09:08)
[2018-04-18] MEDS: amLODIPine BESYLATE 10 MG TABLET (FP) PO SCH (09:09)
[2018-04-18] MEDS: LISINOPRIL 20 MG TABLET (FP) PO SCH (09:09)
[2018-04-18] MEDS: ENOXAPARIN SQ SCH ×2 (09:09→21:16)
[2018-04-18] MEDS: PANTOPRAZOLE 20 MG TABLET (FP) PO SCH (09:09)
[2018-04-18] MEDS: hydrALAZINE HCL 25 MG TABLET (FP) PO SCH ×2 (09:09→21:15)
[2018-04-18 09:19] LABS: ALBUMIN 3.3 g/dl (3.4-5.0); ALK PHOS 117 U/L (45-117); ANION GAP 8 MMOL/L (8-16); BILIRUBIN,TOTAL 0.7 mg/dL (0.2-1); BLOOD UREA NITROGEN 22 mg/dL (7-18); CALCIUM 9.2 mg/dL (8.5-10.1); CHLORIDE 104 mmol/L (98-107); CO2 25 mmol/L (21-32); CREATININE 1.2 mg/dL (0.55-1.3); GLUCOSE,RANDOM 138 mg/dL (74-106); POTASSIUM 4.1 mmol/L (3.5-5.1); SGOT/AST 13 U/L (15-37); SGPT/ALT 18 U/L (13-61); SODIUM 137 mmol/L (136-145); TOT PROT 8.1 g/dl (6.4-8.2)
--- NOTE | 2018-04-18 13:05 | PN ---
Progress Note, Physician History of Present Illness: feeling better - Current Medication List Current Medications: Active Medications Amlodipine Besylate (Norvasc -) 10 mg PO DAILY [facility] Last Admin: 04/18/18 09:09 Dose: 10 mg Atorvastatin Calcium (Lipitor -) 40 mg PO HS [facility] Last Admin: 04/17/18 21:28 Dose: 40 mg Enoxaparin Sodium 100 mg/ (Enoxaparin Sodium 60 mg) 160 mg SQ BID [facility] Last Admin: 04/18/18 09:09 Dose: 160 mg Hydralazine HCl (Apresoline -) 25 mg PO BID [facility] Last Admin: 04/18/18 09:09 Dose: 25 mg Aztreonam 1 gm/ Dextrose 50 mls @ 100 mls/hr IVPB Q8H-IV [facility]; Protocol Last Admin: 04/18/18 09:08 Dose: 100 mls/hr Ibuprofen (Motrin -) 600 mg PO Q8H PRN PRN Reason: PAIN LEVEL 4 - 6 Last Admin: 04/17/18 17:13 Dose: 600 mg Ipratropium [place] (Atrovent 0.02% Nebulizer -) 1 amp NEB Q1H PRN PRN Reason: WHEEZING Lisinopril (Prinivil) 20 mg PO DAILY [facility] Last Admin: 04/18/18 09:09 Dose: 20 mg Methadone HCl 40 mg/ Methadone (HCl 20 mg) 60 mg PO DAILY [facility] Last Admin: 04/18/18 09:08 Dose: 60 mg Methylprednisolone Sodium Succinate (Solu-Medrol -) 60 mg IVPUSH Q8H-IV [facility] Last Admin: 04/18/18 09:09 Dose: 60 mg Nystatin (Nystop Powder -) 1 applic TP BID [facility] Last Admin: 04/18/18 09:07 Dose: 1 applic Pantoprazole Sodium (Protonix -) 20 mg PO DAILY [facility] Last Admin: 04/18/18 09:09 Dose: 20 mg - Objective Vital Signs: Vital Signs Temperature 98.0 F 04/18/18 09:21 Pulse Rate 87 04/18/18 09:21 Respiratory Rate 18 04/18/18 09:21 Blood Pressure 148/76 04/18/18 09:21 O2 Sat by Pulse Oximetry (%) 99 04/18/18 09:27 Constitutional: Yes: No Distress HENT: Yes: Atraumatic Neck: Yes: Supple Cardiovascular: Yes: Regular Rate and Rhythm Respiratory: Yes: CTA Bilaterally Gastrointestinal: Yes: Normal Bowel Sounds Extremities: Yes: WNL Edema: Yes Edema: LLE: Trace Peripheral Pulses WNL: Yes Neurological: Yes: Alert, Oriented Labs: CBC, BMP 04/18/18 07:00 04/18/18 07:00 INR, PTT INR 0.98 (0.83-1.09) 04/15/18 18:00 Problem List - Problems (1) DVT (deep venous thrombosis) Assessment/Plan: left candi on lovenox heme consult Code(s): I82.409 - ACUTE EMBOLISM AND THOMBOS UNSP DEEP VN UNSP LOWER EXTREMITY (2) SOB (shortness of breath) Assessment/Plan: duo nebs iv steroids pulmonary consult Code(s): R06.02 - SHORTNESS OF BREATH (3) JOHS (acute kidney injury) Assessment/Plan: cr wnl Code(s): N17.9 - ACUTE KIDNEY FAILURE, UNSPECIFIED (4) COPD (chronic obstructive pulmonary disease) Assessment/Plan: iv steroids duo nebs prn Code(s): J44.9 - CHRONIC OBSTRUCTIVE PULMONARY DISEASE, UNSPECIFIED
--- NOTE | 2018-04-18 13:42 | PN ---
Progress Note (short form) - Note Progress Note: PULMONARY CONSULTATION DICTATED 04/18/18 IMP DYSPNEA COPD EXACERBATION RECURRENT DVT,?PE H/O PE S/P IVC FILTER DIASTOLIC HF HTN H/O CVA MORBID OBESITY LIKELY OSAS PLAN MEDROL INHALED BRONCHODILATORS LOVENOX O2 NEEDED CHEST CTA PFTS OUTPATIENT YEARLY LOW DOSE CHEST CT FOR LUNG CANCER SCREENING SLEEP SCREEN DR SONG Problem List - Problems (1) DVT (deep venous thrombosis) Code(s): I82.409 - ACUTE EMBOLISM AND THOMBOS UNSP DEEP VN UNSP LOWER EXTREMITY (2) SOB (shortness of breath) Code(s): R06.02 - SHORTNESS OF BREATH (3) JOSH (acute kidney injury) Code(s): N17.9 - ACUTE KIDNEY FAILURE, UNSPECIFIED (4) CHF (congestive heart failure) Code(s): I50.9 - HEART FAILURE, UNSPECIFIED Qualifiers: Heart failure type: unspecified Heart failure chronicity: unspecified Qualified Code(s): I50.9 - Heart failure, unspecified (5) COPD (chronic obstructive pulmonary disease) Code(s): J44.9 - CHRONIC OBSTRUCTIVE PULMONARY DISEASE, UNSPECIFIED (6) Presence of IVC filter Code(s): Z95.828 - PRESENCE OF OTHER VASCULAR IMPLANTS AND GRAFTS (7) Abdominal pain Code(s): R10.9 - UNSPECIFIED ABDOMINAL PAIN (8) Shortness of breath Code(s): R06.02 - SHORTNESS OF BREATH
--- NOTE | 2018-04-18 13:51 | PN ---
Progress Note (short form) - Note Progress Note: PULMONARY CONSULTATION DICTATED 04/18/18 IMP DYSPNEA COPD EXACERBATION RECURRENT DVT,?PE H/O PE S/P IVC FILTER DIASTOLIC HF HTN H/O CVA MORBID OBESITY LIKELY OSAS PLAN MEDROL INHALED BRONCHODILATORS LOVENOX O2 NEEDED CHEST CTA PFTS OUTPATIENT YEARLY LOW DOSE CHEST CT FOR LUNG CANCER SCREENING SLEEP SCREEN DR SONG Problem List - Problems (1) DVT (deep venous thrombosis) Code(s): I82.409 - ACUTE EMBOLISM AND THOMBOS UNSP DEEP VN UNSP LOWER EXTREMITY (2) SOB (shortness of breath) Code(s): R06.02 - SHORTNESS OF BREATH (3) CHF (congestive heart failure) Code(s): I50.9 - HEART FAILURE, UNSPECIFIED Qualifiers: Heart failure type: unspecified Heart failure chronicity: unspecified Qualified Code(s): I50.9 - Heart failure, unspecified (4) COPD (chronic obstructive pulmonary disease) Code(s): J44.9 - CHRONIC OBSTRUCTIVE PULMONARY DISEASE, UNSPECIFIED (5) Presence of IVC filter Code(s): Z95.828 - PRESENCE OF OTHER VASCULAR IMPLANTS AND GRAFTS (6) Morbid obesity Code(s): E66.01 - MORBID (SEVERE) OBESITY DUE TO EXCESS CALORIES (7) Shortness of breath Code(s): R06.02 - SHORTNESS OF BREATH (8) History of pulmonary embolism Code(s): Z86.711 - PERSONAL HISTORY OF PULMONARY EMBOLISM
--- NOTE | 2018-04-18 14:34 | PN ---
Progress Note, Physician History of Present Illness: patient stable improving breathing well no sputum production - Current Medication List Current Medications: Active Medications Albuterol/Ipratropium (Duoneb -) 1 amp NEB Q4H PRN PRN Reason: SHORTNESS OF BREATH Amlodipine Besylate (Norvasc -) 10 mg PO DAILY [facility] Last Admin: 04/18/18 09:09 Dose: 10 mg Atorvastatin Calcium (Lipitor -) 40 mg PO HS [facility] Last Admin: 04/17/18 21:28 Dose: 40 mg Enoxaparin Sodium 100 mg/ (Enoxaparin Sodium 60 mg) 160 mg SQ BID [facility] Last Admin: 04/18/18 09:09 Dose: 160 mg Hydralazine HCl (Apresoline -) 25 mg PO BID [facility] Last Admin: 04/18/18 09:09 Dose: 25 mg Ibuprofen (Motrin -) 600 mg PO Q8H PRN PRN Reason: PAIN LEVEL 4 - 6 Last Admin: 04/17/18 17:13 Dose: 600 mg Lisinopril (Prinivil) 20 mg PO DAILY [facility] Last Admin: 04/18/18 09:09 Dose: 20 mg Methadone HCl 40 mg/ Methadone (HCl 20 mg) 60 mg PO DAILY [facility] Last Admin: 04/18/18 09:08 Dose: 60 mg Methylprednisolone Sodium Succinate (Solu-Medrol -) 60 mg IVPUSH Q8H-IV [facility] Last Admin: 04/18/18 09:09 Dose: 60 mg Nystatin (Nystop Powder -) 1 applic TP BID [facility] Last Admin: 04/18/18 09:07 Dose: 1 applic Pantoprazole Sodium (Protonix -) 20 mg PO DAILY [facility] Last Admin: 04/18/18 09:09 Dose: 20 mg - Objective Vital Signs: Vital Signs Temperature 98.0 F 04/18/18 09:21 Pulse Rate 87 04/18/18 09:21 Respiratory Rate 18 04/18/18 09:21 Blood Pressure 148/76 04/18/18 09:21 O2 Sat by Pulse Oximetry (%) 99 04/18/18 09:27 Constitutional: Yes: No Distress, Calm, Obese Cardiovascular: Yes: Regular Rate and Rhythm Respiratory: Yes: Regular, CTA Bilaterally Gastrointestinal: Yes: Normal Bowel Sounds, Soft Musculoskeletal: Yes: WNL Extremities: Yes: WNL Neurological: Yes: Alert, Oriented Psychiatric: Yes: Alert, Oriented Labs: CBC, BMP 04/18/18 07:00 04/18/18 07:00 INR, PTT INR 0.98 (0.83-1.09) 04/15/18 18:00 Assessment/Plan Problem List - Problems (1) DVT (deep venous thrombosis) Code(s): I82.409 - ACUTE EMBOLISM AND THOMBOS UNSP DEEP VN UNSP LOWER EXTREMITY (2) SOB (shortness of breath) Code(s): R06.02 - SHORTNESS OF BREATH (3) JOSH (acute kidney injury) Code(s): N17.9 - ACUTE KIDNEY FAILURE, UNSPECIFIED (4) COPD (chronic obstructive pulmonary disease) Code(s): J44.9 - CHRONIC OBSTRUCTIVE PULMONARY DISEASE, UNSPECIFIED 5 pneumonia plan will stop abx and monitor incentive jena rest as per the team
--- NOTE | 2018-04-18 14:49 | CONS ---
DATE OF CONSULTATION: 04/18/2018 REFERRING PHYSICIAN: Nereida Luke MD HISTORY OF PRESENT ILLNESS: The patient is a 58-year-old black female with past medical history of CHF, GERD, DVT, pulmonary emboli 2 years ago, hypertension, COPD, CVA, residual right-sided weakness, admitted to [facility] on April 15 with complaint of 2-week history of cough productive of yellow sputum, shortness of breath and wheezing. Patient had subjective fevers and chills. Patient presented to the emergency room. On admission she was felt to have acute exacerbation of COPD likely secondary to bronchitis. Prior to admission she was also complaining of 2-pillow orthopnea and states when she walks gets severely dyspneic with minimal exertion. She presented to the emergency department as above. On admission she was placed on steroids, inhaled bronchodilators. Of note is she underwent a duplex on her lower extremities on April 15 which revealed DVT in the left superficial femoral and popliteal veins. Patient as noted has been on Coumadin chronically. Apparently she recently had a prolonged car ride around [place] when she went to [place]. On admission she was noted to have a sub- therapeutic INR. She was started on Lovenox. Patient has a history of tobacco use; quit approximately 2 years ago. There is no history of occupational exposure to chemicals or fumes. She denies any chest pains or palpitations. PAST MEDICAL HISTORY: Again includes recurrent DVT, pulmonary embolism, CVA, a history of right knee surgery, diastolic heart failure, aortic aneurysm, hypertension and COPD and methadone maintenance program, pulmonary artery aneurysm repair. SOCIAL HISTORY: Positive tobacco use 3 packs a day since 18, quit in 2018. No occupational exposures. REVIEW OF SYSTEMS: Positive orthopnea. Positive dyspnea. Positive cough. Positive mild chest congestion. No fever. No chills. No weight loss. No night sweats. Positive lower extremity edema. CURRENT MEDICATIONS: Include Solu-Medrol, prednisone, Lovenox, Norvasc, Apresoline, Atrovent, Lipitor, methadone, Protonix PHYSICAL EXAMINATION: General: The patient is an obese female, wide awake, alert, in no acute distress. Vital Signs: She is currently afebrile, blood pressure 140/76, respiratory rate is 18, O2 saturation is 99% on room air. HEENT: Normocephalic, atraumatic. Neck: Supple. Heart: Regular, S1, S2. Chest: A few bibasilar crackles. Abdomen: Soft, bowel sounds positive. Extremities: Bilateral lower extremity edema. LABORATORIES: WBC is 7.5, hemoglobin 12.0, hematocrit 38.5 with a platelet count of 296,000. INR is 0.98. BUN 22, creatinine 1.2. CK is 194. Chest x-ray: Cardiomegaly but no acute infiltrates or effusions. IMPRESSION: 1. Dyspnea, multiple factors, one likely chronic obstructive pulmonary disease with exacerbation possibly secondary to upper respiratory infection.? PE 2. Recurrent deep vein thrombosis most likely secondary to subtherapeutic international normalized ratio. 3. Morbid obesity. 4. Likely obstructive sleep apnea. 5. Diastolic congestive heart failure. 6. Hypertension. 7. History of pulmonary embolism. 8. History of cerebrovascular accident with residual right-sided weakness. 9. History of pulmonary artery aneurysm, status post repair. PLAN: Continue Lovenox. Inhaled bronchodilators. Supplemental O2 as needed. Taper steroids. Obtain CTA of the chest. Pulmonary function tests as outpatient. compliance with Lovenox. Also patient requires yearly low-dose CAT scan for lung cancer screening secondary to longstanding history of tobacco use.Sleep screen Thank you. Will follow closely with you. MEIR SONG M.D. LILIAN/[id number] MTDD
[2018-04-18] MEDS: ALBUTEROL SO4 2.5/IPRATROPIUM 0.5 INH SOL 3 ML VIAL.NEB. NEB PRN (20:10)
[2018-04-18] MEDS: ATORVASTATIN CA 40 MG TABLET (FP) PO SCH (21:15)
[2018-04-19] MEDS: methylPREDNISolone NA SUCC 40 MG/1 ML VIAL IVPUSH SCH ×3 (01:56→17:23)
[2018-04-19] MEDS: amLODIPine BESYLATE 10 MG TABLET (FP) PO SCH ×2 (06:50→15:52)
[2018-04-19] MEDS: hydrALAZINE HCL 25 MG TABLET (FP) PO SCH ×3 (06:50→21:03)
[2018-04-19] MEDS: LISINOPRIL 20 MG TABLET (FP) PO SCH ×3 (06:50→21:03)
[2018-04-19] MEDS: IBUPROFEN 600 MG TABLET (FP) PO PRN (06:54)
[2018-04-19] MEDS ORDERED: METHADONE HCL 40 MG DISPERSABLE TABLET ONE (09:30)
[2018-04-19] MEDS ORDERED: METHADONE HCL 10 MG TABLET ONE (09:31)
[2018-04-19] MEDS ORDERED: ENOXAPARIN NA (PORCINE) 60 MG/0.6 ML DISP.SYRIN SQ ONE ×2 (09:31→20:49)
[2018-04-19] MEDS ORDERED: ENOXAPARIN NA (PORCINE) 100 MG/1 ML DISP.SYRIN SQ ONE ×2 (09:31→20:49)
[2018-04-19] MEDS: PANTOPRAZOLE 20 MG TABLET (FP) PO SCH (09:57)
[2018-04-19] MEDS: METHADONE 40 MG, METHADONE 20 MG PO SCH (10:00)
[2018-04-19] MEDS: ENOXAPARIN SQ SCH ×2 (10:04→21:04)
[2018-04-19] MEDS: NYSTATIN POWDER 100,000 UNITS/GM - 15 GM TOPICAL POWDER TP SCH ×2 (10:50→22:27)
--- NOTE | 2018-04-19 11:57 | PN ---
Progress Note, Physician History of Present Illness: PULMONARY ALERT,FEELING BETTER,LESS DYSPNEIC.SLEEP SCREEN AHI 7 - Current Medication List Current Medications: Active Medications Albuterol/Ipratropium (Duoneb -) 1 amp NEB Q4H PRN PRN Reason: SHORTNESS OF BREATH Last Admin: 04/18/18 20:10 Dose: 1 amp Amlodipine Besylate (Norvasc -) 10 mg PO DAILY [facility] Last Admin: 04/19/18 06:50 Dose: 10 mg Atorvastatin Calcium (Lipitor -) 40 mg PO HS [facility] Last Admin: 04/18/18 21:15 Dose: 40 mg Enoxaparin Sodium 100 mg/ (Enoxaparin Sodium 60 mg) 160 mg SQ BID [facility] Last Admin: 04/19/18 10:04 Dose: 160 mg Hydralazine HCl (Apresoline -) 25 mg PO BID [facility] Last Admin: 04/19/18 06:50 Dose: 25 mg Ibuprofen (Motrin -) 600 mg PO Q8H PRN PRN Reason: PAIN LEVEL 4 - 6 Last Admin: 04/19/18 06:54 Dose: 600 mg Lisinopril (Prinivil) 20 mg PO DAILY [facility] Last Admin: 04/19/18 06:50 Dose: 20 mg Methadone HCl 40 mg/ Methadone (HCl 20 mg) 60 mg PO DAILY [facility] Last Admin: 04/19/18 10:00 Dose: 60 mg Methylprednisolone Sodium Succinate (Solu-Medrol -) 40 mg IVPUSH Q8H-IV [facility] Last Admin: 04/19/18 10:04 Dose: 40 mg Nystatin (Nystop Powder -) 1 applic TP BID [facility] Last Admin: 04/18/18 21:16 Dose: 1 applic Pantoprazole Sodium (Protonix -) 20 mg PO DAILY [facility] Last Admin: 04/19/18 09:57 Dose: 20 mg - Objective Vital Signs: Vital Signs Temperature 98.0 F 04/19/18 01:00 Pulse Rate 72 04/19/18 01:00 Respiratory Rate 18 04/19/18 06:47 Blood Pressure 155/106 H 04/19/18 06:47 O2 Sat by Pulse Oximetry (%) 97 04/18/18 21:00 Constitutional: Yes: Calm, Obese Eyes: Yes: WNL HENT: Yes: WNL Neck: Yes: WNL Cardiovascular: Yes: Regular Rate and Rhythm, S1, S2 Respiratory: Yes: Diminished Gastrointestinal: Yes: Normal Bowel Sounds, Soft Extremities: Yes: WNL Edema: Yes Labs: CBC, BMP 04/18/18 07:00 04/18/18 07:00 INR, PTT INR 0.98 (0.83-1.09) 04/15/18 18:00 Problem List - Problems (1) DVT (deep venous thrombosis) Code(s): I82.409 - ACUTE EMBOLISM AND THOMBOS UNSP DEEP VN UNSP LOWER EXTREMITY (2) SOB (shortness of breath) Code(s): R06.02 - SHORTNESS OF BREATH (3) CHF (congestive heart failure) Code(s): I50.9 - HEART FAILURE, UNSPECIFIED Qualifiers: Heart failure type: unspecified Heart failure chronicity: unspecified Qualified Code(s): I50.9 - Heart failure, unspecified (4) COPD (chronic obstructive pulmonary disease) Code(s): J44.9 - CHRONIC OBSTRUCTIVE PULMONARY DISEASE, UNSPECIFIED (5) Presence of IVC filter Code(s): Z95.828 - PRESENCE OF OTHER VASCULAR IMPLANTS AND GRAFTS (6) Morbid obesity Code(s): E66.01 - MORBID (SEVERE) OBESITY DUE TO EXCESS CALORIES (7) Shortness of breath Code(s): R06.02 - SHORTNESS OF BREATH (8) History of pulmonary embolism Code(s): Z86.711 - PERSONAL HISTORY OF PULMONARY EMBOLISM Assessment/Plan IMP DYSPNEA COPD EXACERBATION RECURRENT DVT,?PE H/O PE S/P IVC FILTER DIASTOLIC HF HTN H/O CVA MORBID OBESITY OSAS AHI 7 PLAN MEDROL INHALED BRONCHODILATORS LOVENOX O2 NEEDED PFTS OUTPATIENT YEARLY LOW DOSE CHEST CT FOR LUNG CANCER SCREENING FORMAL SLEEP STUDIES OUTPATIENT DR SONG
--- NOTE | 2018-04-19 13:05 | PN ---
Progress Note, Physician History of Present Illness: stable says no issues - Current Medication List Current Medications: Active Medications Albuterol/Ipratropium (Duoneb -) 1 amp NEB Q4H PRN PRN Reason: SHORTNESS OF BREATH Last Admin: 04/18/18 20:10 Dose: 1 amp Amlodipine Besylate (Norvasc -) 10 mg PO DAILY [facility] Last Admin: 04/19/18 06:50 Dose: 10 mg Atorvastatin Calcium (Lipitor -) 40 mg PO HS [facility] Last Admin: 04/18/18 21:15 Dose: 40 mg Enoxaparin Sodium 100 mg/ (Enoxaparin Sodium 60 mg) 160 mg SQ BID [facility] Last Admin: 04/19/18 10:04 Dose: 160 mg Hydralazine HCl (Apresoline -) 25 mg PO BID [facility] Last Admin: 04/19/18 06:50 Dose: 25 mg Ibuprofen (Motrin -) 600 mg PO Q8H PRN PRN Reason: PAIN LEVEL 4 - 6 Last Admin: 04/19/18 06:54 Dose: 600 mg Lisinopril (Prinivil) 20 mg PO DAILY [facility] Last Admin: 04/19/18 06:50 Dose: 20 mg Methadone HCl 40 mg/ Methadone (HCl 20 mg) 60 mg PO DAILY [facility] Last Admin: 04/19/18 10:00 Dose: 60 mg Methylprednisolone Sodium Succinate (Solu-Medrol -) 40 mg IVPUSH Q8H-IV [facility] Last Admin: 04/19/18 10:04 Dose: 40 mg Nystatin (Nystop Powder -) 1 applic TP BID [facility] Last Admin: 04/19/18 10:50 Dose: 1 applic Pantoprazole Sodium (Protonix -) 20 mg PO DAILY [facility] Last Admin: 04/19/18 09:57 Dose: 20 mg - Objective Vital Signs: Vital Signs Temperature 98.0 F 04/19/18 01:00 Pulse Rate 72 04/19/18 01:00 Respiratory Rate 18 04/19/18 06:47 Blood Pressure 155/106 H 04/19/18 06:47 O2 Sat by Pulse Oximetry (%) 97 04/18/18 21:00 Constitutional: Yes: No Distress, Calm, Obese Cardiovascular: Yes: Regular Rate and Rhythm Respiratory: Yes: Regular, CTA Bilaterally Gastrointestinal: Yes: Normal Bowel Sounds, Soft Musculoskeletal: Yes: WNL Extremities: Yes: WNL Neurological: Yes: Alert, Oriented Psychiatric: Yes: Alert, Oriented Labs: CBC, BMP 04/18/18 07:00 04/18/18 07:00 INR, PTT INR 0.98 (0.83-1.09) 04/15/18 18:00 Assessment/Plan Problem List - Problems (1) DVT (deep venous thrombosis) Code(s): I82.409 - ACUTE EMBOLISM AND THOMBOS UNSP DEEP VN UNSP LOWER EXTREMITY (2) SOB (shortness of breath) Code(s): R06.02 - SHORTNESS OF BREATH (3) JOSH (acute kidney injury) Code(s): N17.9 - ACUTE KIDNEY FAILURE, UNSPECIFIED (4) COPD (chronic obstructive pulmonary disease) Code(s): J44.9 - CHRONIC OBSTRUCTIVE PULMONARY DISEASE, UNSPECIFIED 5 pneumonia plan continue to monitor doing well incentive jena rest as per the team
--- NOTE | 2018-04-19 15:28 | CON.CARD ---
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 Patient reports improved dyspnea, denies chest pain, near or true syncope, palpitations, orthopnea, PND or LE edema. Allergies: Penicillins PCP: none reported - History Source History Provided By: Patient Limitations to Obtaining History: No Limitations - Past Medical History Cardio/Vascular: Yes: CHF (Chronic Diastolic), HTN, Hyperlipdemia Pulmonary: Yes: Asthma, COPD, Sleep Apnea (Pt states negative recent test, will attempt to retrieve results) ...: No - Alcohol/Substance Use Hx Alcohol Use: No - Smoking History Smoking history: Former smoker Have you smoked in the past 12 months: No Aproximately how many cigarettes per day: 5 If you are a former smoker, when did you quit?: 1 month - Social History ADL: Independent History of Recent Travel: No Home Medications - Allergies Allergies/Adverse Reactions: Allergies Allergy/AdvReac Type Severity Reaction Status Date / Time Penicillins Allergy Intermediate Hives Verified 04/15/18 14:31 - Home Medications Home Medications: Ambulatory Orders Atorvastatin Ca [Lipitor] 40 mg PO HS 05/30/14 Fluticasone Propionate [Flovent Diskus] 110 mcg IH PRN 05/30/14 Omeprazole Magnesium [Prilosec (OTC)] 20 mg PO DAILY 05/30/14 Aspirin [ASA -] 81 mg PO DAILY 10/25/17 Hydralazine HCl 25 mg PO BID 10/25/17 Amlodipine Besylate/Benazepril [Lotrel 10-20 mg Capsule] 1 cap PO DAILY Methadone [Dolophine -] 40 mg PO DAILY 10/28/17 Warfarin Na [Coumadin -] 7.5 mg PO DAILY@1800 #30 tablet 10/30/17 Family Disease History - Family Disease History Family Disease History: Other: Father (33, multiple DVTs) Review of Systems - Review of Systems Cardiovascular: reports: Shortness of Breath Vital Signs: Vital Signs Temperature 98.1 F 04/19/18 13:19 Pulse Rate 81 04/19/18 13:19 Respiratory Rate 20 04/19/18 13:19 Blood Pressure 151/94 04/19/18 13:19 O2 Sat by Pulse Oximetry (%) 97 04/19/18 09:00 Constitutional: Yes: No Distress, Calm Neck: Yes: Supple Respiratory: Yes: Regular, Diminished, On Nasal O2 Gastrointestinal: Yes: Normal Bowel Sounds, Soft, Abdomen, Obese Cardiovascular: Yes: Regular Rate and Rhythm JVD: No Carotid Bruit: No Heart Sounds: Yes: S1, S2 Edema: Yes Edema: LLE: 1+, RLE: 1+ - Other Data Labs, Other Data: CBC, BMP 04/18/18 07:00 04/18/18 07:00 INR, PTT INR 0.98 (0.83-1.09) 04/15/18 18:00 Imaging - Results Cat Scan: Report Reviewed (No PE) Ultrasound: Report Reviewed (Left SFV and popliteal DVT) Problem List - Problems (1) DVT (deep venous thrombosis) Code(s): I82.409 - ACUTE EMBOLISM AND THOMBOS UNSP DEEP VN UNSP LOWER EXTREMITY Qualifiers: Affected thrombotic vein of extremity: femoral Laterality: left (2) History of pulmonary embolism Code(s): Z86.711 - PERSONAL HISTORY OF PULMONARY EMBOLISM (3) Morbid obesity Code(s): E66.01 - MORBID (SEVERE) OBESITY DUE TO EXCESS CALORIES (4) SOB (shortness of breath) Code(s): R06.02 - SHORTNESS OF BREATH (5) JOSH (acute kidney injury) Code(s): N17.9 - ACUTE KIDNEY FAILURE, UNSPECIFIED (6) COPD (chronic obstructive pulmonary disease) Code(s): J44.9 - CHRONIC OBSTRUCTIVE PULMONARY DISEASE, UNSPECIFIED Qualifiers: COPD type: unspecified COPD Qualified Code(s): J44.9 - Chronic obstructive pulmonary disease, unspecified (7) Presence of IVC filter Code(s): Z95.828 - PRESENCE OF OTHER VASCULAR IMPLANTS AND GRAFTS Assessment/Plan 1. Dyspnea referable to AE COPD 2. Recurrent DVT w/o PE after prolonged immobility, car ride 3. H/o PE s/p IVC filter 4. Diastolic dysfunction 5. Hypertensive heart disease 6. H/o CVA 7. Morbid obesity with OSAS AHI 7 8. Hyperlipidemia P:1. Increase lisinopril 20 bid, continue Norvasc 10 qd, Lipitor 40 qhs, hydralazine 25 bid, d/c ibuprofen if possible 2. IV steroid taper with GI protection, BD, O2 as needed, empiric abx, weight based Lovenox per heme recs (GI bleed h/o on Xarelto and limited data on obesity and NOAC), PFT and sleep screen as outpatient 3. Thank you for consultative opportunity
[2018-04-19] MEDS: guaiFENesin 200 MG/10 ML 10 ML UNIT-DOSE CUPS PO PRN (16:01)
[2018-04-19] MEDS: ALBUTEROL SO4 2.5/IPRATROPIUM 0.5 INH SOL 3 ML VIAL.NEB. NEB PRN (20:18)
--- NOTE | 2018-04-19 20:45 | PN ---
Progress Note, Physician - Current Medication List Current Medications: Active Medications Albuterol/Ipratropium (Duoneb -) 1 amp NEB Q4H PRN PRN Reason: SHORTNESS OF BREATH Last Admin: 04/19/18 20:18 Dose: 1 amp Amlodipine Besylate (Norvasc -) 10 mg PO DAILY [facility] Last Admin: 04/19/18 15:52 Dose: Not Given Atorvastatin Calcium (Lipitor -) 40 mg PO HS [facility] Last Admin: 04/18/18 21:15 Dose: 40 mg Enoxaparin Sodium 100 mg/ (Enoxaparin Sodium 60 mg) 160 mg SQ BID [facility] Last Admin: 04/19/18 10:04 Dose: 160 mg Guaifenesin (Robitussin -) 10 ml PO Q6H PRN PRN Reason: COUGH Last Admin: 04/19/18 16:01 Dose: 10 ml Hydralazine HCl (Apresoline -) 25 mg PO BID [facility] Last Admin: 04/19/18 15:51 Dose: Not Given Ibuprofen (Motrin -) 600 mg PO Q8H PRN PRN Reason: PAIN LEVEL 4 - 6 Last Admin: 04/19/18 06:54 Dose: 600 mg Lisinopril (Prinivil) 20 mg PO BID [facility] Methadone HCl 40 mg/ Methadone (HCl 20 mg) 60 mg PO DAILY [facility] Last Admin: 04/19/18 10:00 Dose: 60 mg Methylprednisolone Sodium Succinate (Solu-Medrol -) 40 mg IVPUSH Q8H-IV [facility] Last Admin: 04/19/18 17:23 Dose: 40 mg Nystatin (Nystop Powder -) 1 applic TP BID [facility] Last Admin: 04/19/18 10:50 Dose: 1 applic Pantoprazole Sodium (Protonix -) 20 mg PO DAILY [facility] Last Admin: 04/19/18 09:57 Dose: 20 mg - Objective Vital Signs: Vital Signs Temperature 98.1 F 04/19/18 18:00 Pulse Rate 81 04/19/18 18:00 Respiratory Rate 20 04/19/18 18:00 Blood Pressure 151/94 04/19/18 18:00 O2 Sat by Pulse Oximetry (%) 97 04/19/18 09:00 Labs: CBC, BMP 04/18/18 07:00 04/18/18 07:00 INR, PTT INR 0.98 (0.83-1.09) 04/15/18 18:00
[2018-04-19] MEDS: ATORVASTATIN CA 40 MG TABLET (FP) PO SCH (21:03)
[2018-04-20] MEDS: guaiFENesin 200 MG/10 ML 10 ML UNIT-DOSE CUPS PO PRN (01:47)
[2018-04-20] MEDS: methylPREDNISolone NA SUCC 40 MG/1 ML VIAL IVPUSH SCH ×3 (01:47→21:20)
[2018-04-20] MEDS ORDERED: METHADONE HCL 40 MG DISPERSABLE TABLET ONE (09:37)
[2018-04-20] MEDS ORDERED: ENOXAPARIN NA (PORCINE) 100 MG/1 ML DISP.SYRIN SQ ONE ×2 (09:38→20:52)
[2018-04-20] MEDS ORDERED: METHADONE HCL 10 MG TABLET ONE (09:38)
[2018-04-20] MEDS ORDERED: ENOXAPARIN NA (PORCINE) 60 MG/0.6 ML DISP.SYRIN SQ ONE ×2 (09:39→20:52)
[2018-04-20] MEDS: LISINOPRIL 20 MG TABLET (FP) PO SCH ×2 (09:40→21:18)
[2018-04-20] MEDS: PANTOPRAZOLE 20 MG TABLET (FP) PO SCH (09:40)
[2018-04-20] MEDS: hydrALAZINE HCL 25 MG TABLET (FP) PO SCH ×2 (09:40→21:19)
[2018-04-20] MEDS: METHADONE 40 MG, METHADONE 20 MG PO SCH (09:41)
[2018-04-20] MEDS: amLODIPine BESYLATE 10 MG TABLET (FP) PO SCH (09:41)
[2018-04-20] MEDS: ENOXAPARIN SQ SCH ×2 (09:56→21:19)
[2018-04-20] MEDS: NYSTATIN POWDER 100,000 UNITS/GM - 15 GM TOPICAL POWDER TP SCH ×2 (09:59→21:18)
--- NOTE | 2018-04-20 12:26 | PN ---
Progress Note, Physician History of Present Illness: Dyspnea and cough improving. - Current Medication List Current Medications: Active Medications Albuterol/Ipratropium (Duoneb -) 1 amp NEB Q4H PRN PRN Reason: SHORTNESS OF BREATH Last Admin: 04/19/18 20:18 Dose: 1 amp Amlodipine Besylate (Norvasc -) 10 mg PO DAILY [facility] Last Admin: 04/20/18 09:41 Dose: 10 mg Atorvastatin Calcium (Lipitor -) 40 mg PO HS [facility] Last Admin: 04/19/18 21:03 Dose: 40 mg Enoxaparin Sodium 100 mg/ (Enoxaparin Sodium 60 mg) 160 mg SQ BID [facility] Last Admin: 04/20/18 09:56 Dose: 160 mg Guaifenesin (Robitussin -) 10 ml PO Q6H PRN PRN Reason: COUGH Last Admin: 04/20/18 01:47 Dose: 10 ml Hydralazine HCl (Apresoline -) 25 mg PO BID [facility] Last Admin: 04/20/18 09:40 Dose: 25 mg Ibuprofen (Motrin -) 600 mg PO Q8H PRN PRN Reason: PAIN LEVEL 4 - 6 Last Admin: 04/19/18 06:54 Dose: 600 mg Lisinopril (Prinivil) 20 mg PO BID [facility] Last Admin: 04/20/18 09:40 Dose: 20 mg Methadone HCl 40 mg/ Methadone (HCl 20 mg) 60 mg PO DAILY [facility] Last Admin: 04/20/18 09:41 Dose: 60 mg Methylprednisolone Sodium Succinate (Solu-Medrol -) 40 mg IVPUSH Q8H-IV [facility] Last Admin: 04/20/18 01:47 Dose: 40 mg Nystatin (Nystop Powder -) 1 applic TP BID [facility] Last Admin: 04/20/18 09:59 Dose: 1 applic Pantoprazole Sodium (Protonix -) 20 mg PO DAILY [facility] Last Admin: 04/20/18 09:40 Dose: 20 mg - Objective Vital Signs: Vital Signs Temperature 97.5 F L 04/20/18 10:00 Pulse Rate 72 04/20/18 10:00 Respiratory Rate 20 04/20/18 10:00 Blood Pressure 162/92 04/20/18 10:00 O2 Sat by Pulse Oximetry (%) 97 04/19/18 21:00 Constitutional: Yes: No Distress, Calm Neck: Yes: Supple, Tenderness Respiratory: Yes: Regular, Diminished, On Nasal O2 Gastrointestinal: Yes: Normal Bowel Sounds, Soft, Abdomen, Obese Edema: Yes Edema: LLE: 2+, RLE: 2+ Integumentary: Yes: Venous Stasis Changes Labs: CBC, BMP 04/18/18 07:00 04/18/18 07:00 INR, PTT INR 0.98 (0.83-1.09) 04/15/18 18:00 Problem List - Problems (1) DVT (deep venous thrombosis) Code(s): I82.409 - ACUTE EMBOLISM AND THOMBOS UNSP DEEP VN UNSP LOWER EXTREMITY Qualifiers: Affected thrombotic vein of extremity: femoral Laterality: left (2) History of pulmonary embolism Code(s): Z86.711 - PERSONAL HISTORY OF PULMONARY EMBOLISM (3) Morbid obesity Code(s): E66.01 - MORBID (SEVERE) OBESITY DUE TO EXCESS CALORIES (4) SOB (shortness of breath) Code(s): R06.02 - SHORTNESS OF BREATH (5) JOSH (acute kidney injury) Code(s): N17.9 - ACUTE KIDNEY FAILURE, UNSPECIFIED (6) COPD (chronic obstructive pulmonary disease) Code(s): J44.9 - CHRONIC OBSTRUCTIVE PULMONARY DISEASE, UNSPECIFIED Qualifiers: COPD type: unspecified COPD Qualified Code(s): J44.9 - Chronic obstructive pulmonary disease, unspecified (7) Presence of IVC filter Code(s): Z95.828 - PRESENCE OF OTHER VASCULAR IMPLANTS AND GRAFTS Assessment/Plan 1. Dyspnea referable to AE COPD 2. Recurrent DVT w/o PE after prolonged immobility, car ride 3. H/o PE s/p IVC filter 4. Diastolic dysfunction 5. Hypertensive heart disease 6. H/o CVA 7. Morbid obesity with OSAS AHI 7 8. Hyperlipidemia P:1. Increased lisinopril 20 bid, continue Norvasc 10 qd, Lipitor 40 qhs, hydralazine 25 bid, d/c ibuprofen if possible 2. IV steroid taper with GI protection, BD, O2 as needed, empiric abx, weight based Lovenox per heme recs (GI bleed h/o on Xarelto and limited data on obesity and NOAC), PFT and sleep screen as outpatient
--- NOTE | 2018-04-20 13:42 | PN ---
Progress Note (short form) - Note Progress Note: PULMONARY States breathing better, closer to baseline. Less cough and wheezing. Vital Signs Period Temp Pulse Resp BP Sys/Yoder Pulse Ox Last 24 Hr 97.5 F-98.4 F 72-81 20-20 145-162/89-94 97 Gen: NAD at rest Heart: RRR Lung: decreased breath sounds at the bases Abd: soft, nontender Ext: distal edema CBC, BMP 04/18/18 07:00 04/18/18 07:00 Active Medications Albuterol/Ipratropium (Duoneb -) 1 amp NEB Q4H PRN PRN Reason: SHORTNESS OF BREATH Last Admin: 04/19/18 20:18 Dose: 1 amp Amlodipine Besylate (Norvasc -) 10 mg PO DAILY [facility] Last Admin: 04/20/18 09:41 Dose: 10 mg Atorvastatin Calcium (Lipitor -) 40 mg PO HS [facility] Last Admin: 04/19/18 21:03 Dose: 40 mg Enoxaparin Sodium 100 mg/ (Enoxaparin Sodium 60 mg) 160 mg SQ BID [facility] Last Admin: 04/20/18 09:56 Dose: 160 mg Guaifenesin (Robitussin -) 10 ml PO Q6H PRN PRN Reason: COUGH Last Admin: 04/20/18 01:47 Dose: 10 ml Hydralazine HCl (Apresoline -) 25 mg PO BID [facility] Last Admin: 04/20/18 09:40 Dose: 25 mg Ibuprofen (Motrin -) 600 mg PO Q8H PRN PRN Reason: PAIN LEVEL 4 - 6 Last Admin: 04/19/18 06:54 Dose: 600 mg Lisinopril (Prinivil) 20 mg PO BID [facility] Last Admin: 04/20/18 09:40 Dose: 20 mg Methadone HCl 40 mg/ Methadone (HCl 20 mg) 60 mg PO DAILY [facility] Last Admin: 04/20/18 09:41 Dose: 60 mg Methylprednisolone Sodium Succinate (Solu-Medrol -) 40 mg IVPUSH Q8H-IV [facility] Last Admin: 04/20/18 12:33 Dose: 40 mg Nystatin (Nystop Powder -) 1 applic TP BID [facility] Last Admin: 04/20/18 09:59 Dose: 1 applic Pantoprazole Sodium (Protonix -) 20 mg PO DAILY [facility] Last Admin: 04/20/18 09:40 Dose: 20 mg A/P Acute COPD Exacerbation Recurrent DVT s/p IVC filter h/o PE LV Diastolic Dysfunction Morbid Obesity HTN Hyperlipidemia h/o CVA Methadone Maintenance - will decrease medrol to q12h - can likely change steroids to PO prednisone 40mg daily in AM and taper as outpt - continue anticoagulation - inhaled bronchodilators - PFTs, PSG as outpt
--- NOTE | 2018-04-20 14:27 | PN ---
Progress Note, Physician History of Present Illness: patient doing well no new issues - Current Medication List Current Medications: Active Medications Albuterol/Ipratropium (Duoneb -) 1 amp NEB Q4H PRN PRN Reason: SHORTNESS OF BREATH Last Admin: 04/19/18 20:18 Dose: 1 amp Amlodipine Besylate (Norvasc -) 10 mg PO DAILY [facility] Last Admin: 04/20/18 09:41 Dose: 10 mg Atorvastatin Calcium (Lipitor -) 40 mg PO HS [facility] Last Admin: 04/19/18 21:03 Dose: 40 mg Enoxaparin Sodium 100 mg/ (Enoxaparin Sodium 60 mg) 160 mg SQ BID [facility] Last Admin: 04/20/18 09:56 Dose: 160 mg Guaifenesin (Robitussin -) 10 ml PO Q6H PRN PRN Reason: COUGH Last Admin: 04/20/18 01:47 Dose: 10 ml Hydralazine HCl (Apresoline -) 25 mg PO BID [facility] Last Admin: 04/20/18 09:40 Dose: 25 mg Ibuprofen (Motrin -) 600 mg PO Q8H PRN PRN Reason: PAIN LEVEL 4 - 6 Last Admin: 04/19/18 06:54 Dose: 600 mg Lisinopril (Prinivil) 20 mg PO BID [facility] Last Admin: 04/20/18 09:40 Dose: 20 mg Methadone HCl 40 mg/ Methadone (HCl 20 mg) 60 mg PO DAILY [facility] Last Admin: 04/20/18 09:41 Dose: 60 mg Methylprednisolone Sodium Succinate (Solu-Medrol -) 40 mg IVPUSH BID [facility] Nystatin (Nystop Powder -) 1 applic TP BID [facility] Last Admin: 04/20/18 09:59 Dose: 1 applic Pantoprazole Sodium (Protonix -) 20 mg PO DAILY [facility] Last Admin: 04/20/18 09:40 Dose: 20 mg - Objective Vital Signs: Vital Signs Temperature 97.5 F L 04/20/18 10:00 Pulse Rate 85 04/20/18 13:52 Respiratory Rate 04/20/18 13:52 Blood Pressure 141/92 04/20/18 13:52 O2 Sat by Pulse Oximetry (%) 97 04/19/18 21:00 Constitutional: Yes: No Distress, Calm, Obese Cardiovascular: Yes: Regular Rate and Rhythm Respiratory: Yes: Regular, Poor Air Entry Gastrointestinal: Yes: Normal Bowel Sounds, Soft Musculoskeletal: Yes: WNL Extremities: Yes: WNL Neurological: Yes: Alert, Oriented Psychiatric: Yes: Alert, Oriented Labs: CBC, BMP 04/18/18 07:00 04/18/18 07:00 INR, PTT INR 0.98 (0.83-1.09) 04/15/18 18:00 Assessment/Plan Problem List - Problems (1) DVT (deep venous thrombosis) Code(s): I82.409 - ACUTE EMBOLISM AND THOMBOS UNSP DEEP VN UNSP LOWER EXTREMITY (2) SOB (shortness of breath) Code(s): R06.02 - SHORTNESS OF BREATH (3) JOSH (acute kidney injury) Code(s): N17.9 - ACUTE KIDNEY FAILURE, UNSPECIFIED (4) COPD (chronic obstructive pulmonary disease) Code(s): J44.9 - CHRONIC OBSTRUCTIVE PULMONARY DISEASE, UNSPECIFIED 5 pneumonia plan continue to monitor incentive jena rest as per pul and the team
--- NOTE | 2018-04-20 16:07 | PN ---
Progress Note, Physician History of Present Illness: feeling better - Current Medication List Current Medications: Active Medications Albuterol/Ipratropium (Duoneb -) 1 amp NEB Q4H PRN PRN Reason: SHORTNESS OF BREATH Last Admin: 04/19/18 20:18 Dose: 1 amp Amlodipine Besylate (Norvasc -) 10 mg PO DAILY [facility] Last Admin: 04/20/18 09:41 Dose: 10 mg Atorvastatin Calcium (Lipitor -) 40 mg PO HS [facility] Last Admin: 04/19/18 21:03 Dose: 40 mg Enoxaparin Sodium 100 mg/ (Enoxaparin Sodium 60 mg) 160 mg SQ BID [facility] Last Admin: 04/20/18 09:56 Dose: 160 mg Guaifenesin (Robitussin -) 10 ml PO Q6H PRN PRN Reason: COUGH Last Admin: 04/20/18 01:47 Dose: 10 ml Hydralazine HCl (Apresoline -) 25 mg PO BID [facility] Last Admin: 04/20/18 09:40 Dose: 25 mg Ibuprofen (Motrin -) 600 mg PO Q8H PRN PRN Reason: PAIN LEVEL 4 - 6 Last Admin: 04/19/18 06:54 Dose: 600 mg Lisinopril (Prinivil) 20 mg PO BID [facility] Last Admin: 04/20/18 09:40 Dose: 20 mg Methadone HCl 40 mg/ Methadone (HCl 20 mg) 60 mg PO DAILY [facility] Last Admin: 04/20/18 09:41 Dose: 60 mg Methylprednisolone Sodium Succinate (Solu-Medrol -) 40 mg IVPUSH BID [facility] Nystatin (Nystop Powder -) 1 applic TP BID [facility] Last Admin: 04/20/18 09:59 Dose: 1 applic Pantoprazole Sodium (Protonix -) 20 mg PO DAILY [facility] Last Admin: 04/20/18 09:40 Dose: 20 mg - Objective Vital Signs: Vital Signs Temperature 98.2 F 04/20/18 14:46 Pulse Rate 85 04/20/18 13:52 Respiratory Rate 04/20/18 13:52 Blood Pressure 141/92 04/20/18 13:52 O2 Sat by Pulse Oximetry (%) 95 04/20/18 09:00 Constitutional: Yes: No Distress HENT: Yes: Atraumatic Neck: Yes: Supple Cardiovascular: Yes: Regular Rate and Rhythm Respiratory: Yes: CTA Bilaterally Gastrointestinal: Yes: Normal Bowel Sounds Extremities: Yes: WNL Edema: No Peripheral Pulses WNL: Yes Neurological: Yes: Alert, Oriented Labs: CBC, BMP 04/18/18 07:00 04/18/18 07:00 INR, PTT INR 0.98 (0.83-1.09) 04/15/18 18:00 Problem List - Problems (1) DVT (deep venous thrombosis) Assessment/Plan: left candi on lovenox heme consult Code(s): I82.409 - ACUTE EMBOLISM AND THOMBOS UNSP DEEP VN UNSP LOWER EXTREMITY Qualifiers: Affected thrombotic vein of extremity: femoral Laterality: left (2) SOB (shortness of breath) Assessment/Plan: duo nebs...much better now iv steroids...taper pulmonary consult Code(s): R06.02 - SHORTNESS OF BREATH (3) JOSH (acute kidney injury) Assessment/Plan: cr wnl Code(s): N17.9 - ACUTE KIDNEY FAILURE, UNSPECIFIED (4) COPD (chronic obstructive pulmonary disease) Assessment/Plan: iv steroids duo nebs prn Code(s): J44.9 - CHRONIC OBSTRUCTIVE PULMONARY DISEASE, UNSPECIFIED Qualifiers: COPD type: unspecified COPD Qualified Code(s): J44.9 - Chronic obstructive pulmonary disease, unspecified
--- NOTE | 2018-04-20 20:45 | DS ---
Physical Examination Vital Signs: Vital Signs Temperature 98.2 F 04/20/18 14:46 Pulse Rate 85 04/20/18 13:52 Respiratory Rate 19 04/20/18 13:52 Blood Pressure 141/92 04/20/18 13:52 O2 Sat by Pulse Oximetry (%) 95 04/20/18 09:00 Labs: CBC, BMP 04/18/18 07:00 04/18/18 07:00 Discharge Summary Reason For Visit: DEEP VEIN THROMBOSIS CHRONIC OBSTRUCTIVE PULMONARY Current Active Problems DVT (deep venous thrombosis) (Acute) History of pulmonary embolism (Acute) Morbid obesity (Acute) SOB (shortness of breath) (Acute) Condition: Guarded - Instructions Diet, Activity, Other Instructions: see kidney doctor as out patient see your pmd Referrals: Jacquelyn Kruse MD [Other] Flaco Michaud MD [Staff Physician] - - Home Medications Comprehensive Discharge Medication List: Ambulatory Orders Atorvastatin Ca [Lipitor] 40 mg PO HS 05/30/14 Fluticasone Propionate [Flovent Diskus] 110 mcg IH PRN 05/30/14 Omeprazole Magnesium [Prilosec (OTC)] 20 mg PO DAILY 05/30/14 Aspirin [ASA -] 81 mg PO DAILY 10/25/17 Hydralazine HCl 25 mg PO BID 10/25/17 Amlodipine Besylate/Benazepril [Lotrel 10-20 mg Capsule] 1 cap PO DAILY Methadone [Dolophine -] 40 mg PO DAILY 10/28/17 Amlodipine Besylate [Norvasc -] 10 mg PO DAILY #30 tablet 04/20/18 Enoxaparin [Lovenox -] 160 mg SQ BID #14 disp.syrin 04/20/18 Lisinopril [Prinivil] 20 mg PO BID #30 tablet 04/20/18 Prednisone 10 mg PO ASDIR #30 tablet 04/20/18
--- NOTE | 2018-04-20 20:55 | PN ---
Progress Note (short form) - Note Progress Note: patient seen and examined feels well afvss Cor: RSR, No murmurs, No gallops Lungs: Clear to P&A Abd: Soft, Normal bowel sounds, No organomegaly Ext:CHRONIC STASIS DERMATITIS labs/meds reiewed a/p recurrent dvt after prolonged car ride, also with morbid obesity, subtherapeutic INR PAtient prefers lovenox and does not wnt to do frequent inr checks discussed that titrating coumadin would be ideal also given obesity need to check anti XA LEBVELS 4 HRS. AFTER LOVENOX DOSE prefer bid lovenox dosing Data of NOACS in patients iwth morbid obesity is limited and h/o gi bleed on xeralto 3+proteinuri--nephrology consult discussed all this with patient and need for close f/u ith PMD
[2018-04-20] MEDS: ATORVASTATIN CA 40 MG TABLET (FP) PO SCH (21:17)
[2018-04-21 08:01] LABS: BASO % 0.2 % (0-2.0); HEMATOCRIT 39.6 % (32.4-45.2); HEMOGLOBIN 13.2 GM/dL (10.7-15.3); MCH 29.6 pg (25.7-33.7); MCHC 33.4 g/dl (32.0-36.0); MEAN CELL VOLUME 88.7 fl (80-96); MEAN PLT VOLUME 8.4 fl (7.5-11.1); NEUT % 85.8 % (42.8-82.8); PLATELET COUNT 332 K/MM3 (134-434); RBC 4.47 M/mm3 (3.60-5.2); RDW 14.9 % (11.6-15.6); WHITE BLOOD COUNT 9.2 K/mm3 (4.0-10.0)
[2018-04-21 08:41] LABS: ALBUMIN 3.2 g/dl (3.4-5.0); ALK PHOS 104 U/L (45-117); ANION GAP 8 MMOL/L (8-16); BILIRUBIN,TOTAL 0.4 mg/dL (0.2-1); BLOOD UREA NITROGEN 25 mg/dL (7-18); CALCIUM 8.6 mg/dL (8.5-10.1); CHLORIDE 104 mmol/L (98-107); CO2 27 mmol/L (21-32); CREATININE 1.3 mg/dL (0.55-1.3); GLUCOSE,RANDOM 147 mg/dL (74-106); POTASSIUM 4.1 mmol/L (3.5-5.1); SGOT/AST 10 U/L (15-37); SGPT/ALT 21 U/L (13-61); SODIUM 138 mmol/L (136-145); TOT PROT 7.5 g/dl (6.4-8.2)
[2018-04-21] MEDS ORDERED: METHADONE HCL 40 MG DISPERSABLE TABLET ONE (08:55)
[2018-04-21] MEDS ORDERED: METHADONE HCL 10 MG TABLET ONE (08:55)
[2018-04-21] MEDS ORDERED: ENOXAPARIN NA (PORCINE) 60 MG/0.6 ML DISP.SYRIN SQ ONE (08:56)
[2018-04-21] MEDS ORDERED: ENOXAPARIN NA (PORCINE) 100 MG/1 ML DISP.SYRIN SQ ONE (08:56)
[2018-04-21] MEDS: amLODIPine BESYLATE 10 MG TABLET (FP) PO SCH (09:24)
[2018-04-21] MEDS: LISINOPRIL 20 MG TABLET (FP) PO SCH (09:24)
[2018-04-21] MEDS: hydrALAZINE HCL 25 MG TABLET (FP) PO SCH (09:24)
[2018-04-21] MEDS: PANTOPRAZOLE 20 MG TABLET (FP) PO SCH (09:24)
[2018-04-21] MEDS: METHADONE 40 MG, METHADONE 20 MG PO SCH (09:24)
[2018-04-21] MEDS: methylPREDNISolone NA SUCC 40 MG/1 ML VIAL IVPUSH SCH (09:25)
[2018-04-21] MEDS: ENOXAPARIN SQ SCH (09:26)
[2018-04-21] MEDS: NYSTATIN POWDER 100,000 UNITS/GM - 15 GM TOPICAL POWDER TP SCH (09:33)
[2018-04-21 09:35] VITALS: BP 156/91; PULSE 88; TEMP 97.5
[2018-04-21 11:10] LABS: ANISOCYTOSIS 0; MACROCYTOSIS 0; PLATELET ESTIMATE NORMAL
[2018-04-21] MEDS ORDERED: FLU VACCINE QUAD 60 MCG/0.5 ML (MDV 18-19) IM ONE (12:33)
--- NOTE | 2018-04-21 12:42 | PN ---
Progress Note (short form) - Note Progress Note: PULMONARY States breathing continues to improve. Less cough and wheezing. Vital Signs Period Temp Pulse Resp BP Sys/Yoder Pulse Ox Last 24 Hr 97.5 F-98.3 F 81-88 18-22 141-156/86-92 98 Gen: NAD at rest Heart: RRR Lung: decreased breath sounds at the bases Abd: soft, nontender Ext: distal edema CBC, BMP 04/21/18 06:35 04/21/18 06:35 Active Medications Albuterol/Ipratropium (Duoneb -) 1 amp NEB Q4H PRN PRN Reason: SHORTNESS OF BREATH Last Admin: 04/19/18 20:18 Dose: 1 amp Amlodipine Besylate (Norvasc -) 10 mg PO DAILY [facility] Last Admin: 04/21/18 09:24 Dose: 10 mg Atorvastatin Calcium (Lipitor -) 40 mg PO HS [facility] Last Admin: 04/20/18 21:17 Dose: 40 mg Enoxaparin Sodium 100 mg/ (Enoxaparin Sodium 60 mg) 160 mg SQ BID [facility] Last Admin: 04/21/18 09:26 Dose: 160 mg Guaifenesin (Robitussin -) 10 ml PO Q6H PRN PRN Reason: COUGH Last Admin: 04/20/18 01:47 Dose: 10 ml Hydralazine HCl (Apresoline -) 25 mg PO BID [facility] Last Admin: 04/21/18 09:24 Dose: 25 mg Ibuprofen (Motrin -) 600 mg PO Q8H PRN PRN Reason: PAIN LEVEL 4 - 6 Last Admin: 04/19/18 06:54 Dose: 600 mg Lisinopril (Prinivil) 20 mg PO BID [facility] Last Admin: 04/21/18 09:24 Dose: 20 mg Methadone HCl 40 mg/ Methadone (HCl 20 mg) 60 mg PO DAILY [facility] Last Admin: 04/21/18 09:24 Dose: 60 mg Methylprednisolone Sodium Succinate (Solu-Medrol -) 40 mg IVPUSH BID [facility] Last Admin: 04/21/18 09:25 Dose: 40 mg Nystatin (Nystop Powder -) 1 applic TP BID [facility] Last Admin: 04/21/18 09:33 Dose: 1 applic Pantoprazole Sodium (Protonix -) 20 mg PO DAILY [facility] Last Admin: 01/15/19 09:24 Dose: 20 mg A/P Acute COPD Exacerbation Recurrent DVT s/p IVC filter h/o PE LV Diastolic Dysfunction Morbid Obesity HTN Hyperlipidemia h/o CVA Methadone Maintenance - can change steroids to PO prednisone 40mg daily and taper as outpt - continue anticoagulation - inhaled bronchodilators - PFTs, PSG as outpt
--- NOTE | 2018-04-21 13:23 | PN ---
Progress Note, Physician Chief Complaint: Not in distress History of Present Illness: Patient seen. Chart reviewed Awake and alert. Denies chest pain, SOB or palpitations Planned for discharge - Current Medication List Current Medications: Active Medications Albuterol/Ipratropium (Duoneb -) 1 amp NEB Q4H PRN PRN Reason: SHORTNESS OF BREATH Last Admin: 04/19/18 20:18 Dose: 1 amp Amlodipine Besylate (Norvasc -) 10 mg PO DAILY [facility] Last Admin: 04/21/18 09:24 Dose: 10 mg Atorvastatin Calcium (Lipitor -) 40 mg PO HS [facility] Last Admin: 04/20/18 21:17 Dose: 40 mg Enoxaparin Sodium 100 mg/ (Enoxaparin Sodium 60 mg) 160 mg SQ BID [facility] Last Admin: 04/21/18 09:26 Dose: 160 mg Guaifenesin (Robitussin -) 10 ml PO Q6H PRN PRN Reason: COUGH Last Admin: 04/20/18 01:47 Dose: 10 ml Hydralazine HCl (Apresoline -) 25 mg PO BID [facility] Last Admin: 04/21/18 09:24 Dose: 25 mg Ibuprofen (Motrin -) 600 mg PO Q8H PRN PRN Reason: PAIN LEVEL 4 - 6 Last Admin: 04/19/18 06:54 Dose: 600 mg Lisinopril (Prinivil) 20 mg PO BID [facility] Last Admin: 04/21/18 09:24 Dose: 20 mg Methadone HCl 40 mg/ Methadone (HCl 20 mg) 60 mg PO DAILY [facility] Last Admin: 04/21/18 09:24 Dose: 60 mg Methylprednisolone Sodium Succinate (Solu-Medrol -) 40 mg IVPUSH BID [facility] Last Admin: 04/21/18 09:25 Dose: 40 mg Nystatin (Nystop Powder -) 1 applic TP BID [facility] Last Admin: 04/21/18 09:33 Dose: 1 applic Pantoprazole Sodium (Protonix -) 20 mg PO DAILY [facility] Last Admin: 04/21/18 09:24 Dose: 20 mg - Objective Vital Signs: Vital Signs Temperature 97.5 F L 04/21/18 09:34 Pulse Rate 88 04/21/18 09:34 Respiratory Rate 20 04/21/18 09:34 Blood Pressure 156/91 04/21/18 09:34 O2 Sat by Pulse Oximetry (%) 98 04/20/18 21:00 HENT: Yes: Atraumatic Neck: Yes: Supple Cardiovascular: Yes: Regular Rate and Rhythm, S1, S2 Respiratory: Yes: CTA Bilaterally Gastrointestinal: Yes: Normal Bowel Sounds, Soft. No: Tenderness Edema: Yes Labs: CBC, BMP 04/21/18 06:35 04/21/18 06:35 Problem List - Problems (1) DVT (deep venous thrombosis) Code(s): I82.409 - ACUTE EMBOLISM AND THOMBOS UNSP DEEP VN UNSP LOWER EXTREMITY Qualifiers: Affected thrombotic vein of extremity: femoral Laterality: left (2) History of pulmonary embolism Code(s): Z86.711 - PERSONAL HISTORY OF PULMONARY EMBOLISM (3) Morbid obesity Code(s): E66.01 - MORBID (SEVERE) OBESITY DUE TO EXCESS CALORIES (4) SOB (shortness of breath) Code(s): R06.02 - SHORTNESS OF BREATH (5) JOSH (acute kidney injury) Code(s): N17.9 - ACUTE KIDNEY FAILURE, UNSPECIFIED (6) CHF (congestive heart failure) Code(s): I50.9 - HEART FAILURE, UNSPECIFIED Qualifiers: Heart failure type: unspecified Heart failure chronicity: unspecified Qualified Code(s): I50.9 - Heart failure, unspecified (7) COPD (chronic obstructive pulmonary disease) Code(s): J44.9 - CHRONIC OBSTRUCTIVE PULMONARY DISEASE, UNSPECIFIED Qualifiers: COPD type: unspecified COPD Qualified Code(s): J44.9 - Chronic obstructive pulmonary disease, unspecified (8) Presence of IVC filter Code(s): Z95.828 - PRESENCE OF OTHER VASCULAR IMPLANTS AND GRAFTS Assessment/Plan 1. Dyspnea referable to acute exacerbation of COPD 2. Recurrent DVT w/o PE after prolonged immobility 3. History of PE s/p IVC filter 4. Diastolic dysfunction 5. Hypertensive heart disease 6. History of CVA 7. Morbid obesity with OSAS 8. Hyperlipidemia PLAN: 1. Continue Lisinopril, Norvasc, Lipitor and Hydralazine 2. Lovenox 3. Sleep study as outpatient 4. Patient asks for follow up as outpatient. Sid Gallego MD
--- NOTE | 2018-04-21 13:40 | PN ---
Progress Note, Physician History of Present Illness: patient stable no new issues - Current Medication List Current Medications: Active Medications Albuterol/Ipratropium (Duoneb -) 1 amp NEB Q4H PRN PRN Reason: SHORTNESS OF BREATH Last Admin: 04/19/18 20:18 Dose: 1 amp Amlodipine Besylate (Norvasc -) 10 mg PO DAILY [facility] Last Admin: 04/21/18 09:24 Dose: 10 mg Atorvastatin Calcium (Lipitor -) 40 mg PO HS [facility] Last Admin: 04/20/18 21:17 Dose: 40 mg Enoxaparin Sodium 100 mg/ (Enoxaparin Sodium 60 mg) 160 mg SQ BID [facility] Last Admin: 04/21/18 09:26 Dose: 160 mg Guaifenesin (Robitussin -) 10 ml PO Q6H PRN PRN Reason: COUGH Last Admin: 04/20/18 01:47 Dose: 10 ml Hydralazine HCl (Apresoline -) 25 mg PO BID [facility] Last Admin: 04/21/18 09:24 Dose: 25 mg Ibuprofen (Motrin -) 600 mg PO Q8H PRN PRN Reason: PAIN LEVEL 4 - 6 Last Admin: 04/19/18 06:54 Dose: 600 mg Lisinopril (Prinivil) 20 mg PO BID [facility] Last Admin: 04/21/18 09:24 Dose: 20 mg Methadone HCl 40 mg/ Methadone (HCl 20 mg) 60 mg PO DAILY [facility] Last Admin: 04/21/18 09:24 Dose: 60 mg Methylprednisolone Sodium Succinate (Solu-Medrol -) 40 mg IVPUSH BID [facility] Last Admin: 04/21/18 09:25 Dose: 40 mg Nystatin (Nystop Powder -) 1 applic TP BID [facility] Last Admin: 04/21/18 09:33 Dose: 1 applic Pantoprazole Sodium (Protonix -) 20 mg PO DAILY [facility] Last Admin: 04/21/18 09:24 Dose: 20 mg - Objective Vital Signs: Vital Signs Temperature 97.5 F L 04/21/18 09:34 Pulse Rate 88 04/21/18 09:34 Respiratory Rate 20 04/21/18 09:34 Blood Pressure 156/91 04/21/18 09:34 O2 Sat by Pulse Oximetry (%) 98 04/20/18 21:00 Constitutional: Yes: No Distress, Calm Cardiovascular: Yes: Regular Rate and Rhythm Respiratory: Yes: Regular, CTA Bilaterally Gastrointestinal: Yes: Normal Bowel Sounds, Soft Musculoskeletal: Yes: WNL Extremities: Yes: WNL Neurological: Yes: Alert, Oriented Psychiatric: Yes: Alert, Oriented Labs: CBC, BMP 04/21/18 06:35 04/21/18 06:35 INR, PTT INR 0.98 (0.83-1.09) 04/15/18 18:00 Assessment/Plan Problem List - Problems (1) DVT (deep venous thrombosis) Code(s): I82.409 - ACUTE EMBOLISM AND THOMBOS UNSP DEEP VN UNSP LOWER EXTREMITY (2) SOB (shortness of breath) Code(s): R06.02 - SHORTNESS OF BREATH (3) JOSH (acute kidney injury) Code(s): N17.9 - ACUTE KIDNEY FAILURE, UNSPECIFIED (4) COPD (chronic obstructive pulmonary disease) Code(s): J44.9 - CHRONIC OBSTRUCTIVE PULMONARY DISEASE, UNSPECIFIED 5 pneumonia plan continue to monitor incentive jena rest as per pul and the team
--- NOTE | 2018-04-21 15:59 | DS ---
Physical Examination Vital Signs: Vital Signs Temperature 97.5 F L 04/21/18 09:34 Pulse Rate 88 04/21/18 09:34 Respiratory Rate 20 04/21/18 09:34 Blood Pressure 156/91 04/21/18 09:34 O2 Sat by Pulse Oximetry (%) 96 04/21/18 09:00 Constitutional: Yes: No Distress HENT: Yes: Atraumatic Neck: Yes: Supple Cardiovascular: Yes: Regular Rate and Rhythm Respiratory: Yes: CTA Bilaterally Gastrointestinal: Yes: Normal Bowel Sounds Extremities: Yes: WNL Edema: Yes Edema: LLE: Trace, RLE: Trace Neurological: Yes: Alert, Oriented Labs: CBC, BMP 04/21/18 06:35 04/21/18 06:35 Discharge Summary Reason For Visit: DEEP VEIN THROMBOSIS CHRONIC OBSTRUCTIVE PULMONARY Condition: Guarded - Instructions Diet, Activity, Other Instructions: see kidney doctor as out patient see your pmd Referrals: Jacquelyn Kruse MD [Other] Flaco Michaud MD [Staff Physician] - Nathanael Thakur MD [Staff Physician] - Disposition: HOME - Home Medications Comprehensive Discharge Medication List: Ambulatory Orders Atorvastatin Ca [Lipitor] 40 mg PO HS 05/30/14 Fluticasone Propionate [Flovent Diskus] 110 mcg IH PRN 05/30/14 Omeprazole Magnesium [Prilosec (OTC)] 20 mg PO DAILY 05/30/14 Aspirin [ASA -] 81 mg PO DAILY 10/25/17 Hydralazine HCl 25 mg PO BID 10/25/17 Amlodipine Besylate/Benazepril [Lotrel 10-20 mg Capsule] 1 cap PO DAILY Methadone [Dolophine -] 60 mg PO DAILY 10/28/17 Amlodipine Besylate [Norvasc -] 10 mg PO DAILY #30 tablet 04/20/18 Enoxaparin [Lovenox -] 160 mg SQ BID #14 disp.syrin 04/20/18 Lisinopril [Prinivil] 20 mg PO BID #30 tablet 04/20/18 Prednisone 10 mg PO ASDIR #30 tablet 04/20/18 [facility]
== END 2018-04-21 15:10 | disposition home or self-care (01) | DRG 299 ==
LOC: JER 14:22 → JERBED 21:09 → J5S 04-16 00:44
PROVIDERS: ADMIT Internal Medicine; ATTEND Internal Medicine
DX: I82.432 Acute embolism and thrombosis of left popliteal vein (principal); J18.9 Pneumonia, unspecified organism; J44.1 Chronic obstructive pulmonary disease with (acute) exacerbation; Z68.43 Body mass index [BMI] 50.0-59.9, adult; I50.32 Chronic diastolic (congestive) heart failure; I69.351 Hemiplegia and hemiparesis following cerebral infarction affecting right dominant side; D68.8 Other specified coagulation defects; I82.412 Acute embolism and thrombosis of left femoral vein; E66.9 Obesity, unspecified; I11.0 Hypertensive heart disease with heart failure; E66.01 Morbid (severe) obesity due to excess calories; Z68.39 Body mass index [BMI] 39.0-39.9, adult; K21.9 Gastro-esophageal reflux disease without esophagitis; Z86.718 Personal history of other venous thrombosis and embolism; Z86.711 Personal history of pulmonary embolism; M06.9 Rheumatoid arthritis, unspecified; Z88.0 Allergy status to penicillin; Z87.891 Personal history of nicotine dependence; R51 Headache; E78.5 Hyperlipidemia, unspecified; Z79.01 Long term (current) use of anticoagulants; Z95.828 Presence of other vascular implants and grafts; G47.33 Obstructive sleep apnea (adult) (pediatric)
CPT/HCPCS: 36415; 71046-TC-FY; 71275-TC; 80053; 81003; 81015; 82550; 82553; 83735; 83880; 84484; 85025; 85610; 90688; 93005; 93010; 93970-TC; 94640; 99283-25; G0008; J1100

== ENCOUNTER 2018-06-30 11:55 | Emergency (ER) | payer OTHER ==
[2018-06-30 12:12] VITALS: BP 136/85; PULSE 85; TEMP 98.2; BMI 47.2
--- NOTE | 2018-06-30 14:29 | PDOC ---
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 Patient was seen by her primary doctor today and was referred to the emergency department for continued evaluation. Patient had factor Xa labs drawn at her primary's office but no results as of yet. Patient reports she's been taking Lovenox shots for her DVT as prescribed and has not missed any doses. Patient reports the pain in her left breast that started approximately 1-1/2 weeks ago which started as a mild rash is now spread to the underside of her left breast. Patient has been using baby powder with minimal to no relief of symptoms. No recent travel or sick contacts. PAST MEDICAL HISTORY: see HPI SURGICAL HISTORY: Denies ALLERGIES: PCN REVIEW OF SYSTEMS General/Constitutional: Denies fever or chills. Denies weakness, weight change. HEENT: Denies change in vision. Denies ear pain or discharge. Denies sore throat. Cardiovascular: Denies chest pain or shortness of breath. Respiratory: see HPI Gastrointestinal: Denies nausea, vomiting, diarrhea or constipation. Denies rectal bleeding. Genitourinary: Denies dysuria, frequency, or change in urination. Musculoskeletal: see HPI Skin and breasts: see HPI Neurologic: Denies headache, vertigo, loss of consciousness, or loss of sensation. Psychiatric: Denies depression or anxiety. Endocrine: Denies increased thirst. Denies abnormal weight change. Hematologic/Lymphatic: Denies anemia, easy bleeding, or history of blood clots. Allergic/Immunologic: Denies hives or skin allergy. Denies latex allergy. PHYSICAL EXAM General Appearance: Well-appearing, appropriately dressed. No apparent distress , no intoxication. HEENT: EOMI, PERRLA, normal ENT inspection, normal voice, TMs normal, pharynx normal. No conjunctival pallor. No photophobia, scleral icterus. Neck: Supple. Trachea midline. No tenderness, rigidity, carotid bruit, stridor , lymphadenopathy, or thyromegaly. Respiratory/Chest: Patient is tachypneic. Lungs clear to auscultation bilaterally. No accessory muscle use noted. Unable to lie flat. Cardiovascular: RRR. S1, S2. No JVD, murmur, bradycardia, tachycardia. Vascular Pulses: Dorsalis-Pedis (R): 2+, Dorsalis-Pedis (L): 2+ Gastrointestinal/Abdominal: Normal bowel sounds. Abdomen soft, non-distended. No tenderness or rebound tenderness. No organomegaly, pulsatile mass, guarding, hernia, hepatomegaly, splenomegaly. Lymphatic: No adenopathy, tenderness. Musculoskeletal/Extremities: Bilateral lower extremity +3 edema. Right leg worse than left. Bony edema present on the right leg. No pitting present. 2+ DP pulses present bilaterally. Patient with tenderness in the right popliteal. Integumentary: Excoriated tissue present underneath the left breast. Skin breaks present in the skin fold with erythema present in the shape of her left breast. Area is warm to touch and moist. 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 Fully oriented, alert. Appropriate mood/affect. Motor strength 5/5. No appreciable EOM palsy, facial droop or sensory deficit. 06/30/18 14:30 06/30/18 15:05 07/01/18 19:32 Past History - Past Medical History Allergies/Adverse Reactions: Allergies Allergy/AdvReac Type Severity Reaction Status Date / Time Penicillins Allergy Intermediate Hives Verified 06/30/18 14:05 Home Medications: Ambulatory Orders Atorvastatin Ca [Lipitor] 40 mg PO HS 05/30/14 Fluticasone Propionate [Flovent Diskus] 110 mcg IH PRN 05/30/14 Omeprazole Magnesium [Prilosec (OTC)] 20 mg PO DAILY 05/30/14 Aspirin [ASA -] 81 mg PO DAILY 10/25/17 Hydralazine HCl 25 mg PO BID 10/25/17 Amlodipine Besylate/Benazepril [Lotrel 10-20 mg Capsule] 1 cap PO DAILY Methadone [Dolophine -] 60 mg PO DAILY 10/28/17 Amlodipine Besylate [Norvasc -] 10 mg PO DAILY #30 tablet 04/20/18 Enoxaparin [Lovenox -] 160 mg SQ BID #14 disp.syrin 04/20/18 Lisinopril [Prinivil] 20 mg PO BID #30 tablet 04/20/18 Prednisone 10 mg PO ASDIR #30 tablet 04/20/18 Nystatin Powder [Nystop Powder -] 15 gm TP TID #2 bottle 06/30/18 Anemia: No Asthma: No Cancer: No Cardiac Disorders: No CVA: Yes (residual right sided weakness ) COPD: Yes CHF: Yes Dementia: No Diabetes: No Dialysis: No GI Disorders: Yes (GERD, Constipation, rectal bleeding) Disorders: No HTN: Yes Hypercholesterolemia: Yes Liver Disease: No Seizures: No Thyroid Disease: No Lung CA: No Other medical history: DVT LEFT LEG - Surgical History Abdominal Surgery: No Appendectomy: No Cardiac Surgery: No Cholecystectomy: No Lung Surgery: No Neurologic Surgery: No Orthopedic Surgery: No - Suicide/Smoking/Psychosocial Hx Smoking Status: Yes Smoking History: Current every day smoker Have you smoked in the past 12 months: Yes Number of Cigarettes Smoked Daily: 5 If you are a former smoker, when did you quit?: 1 month Information on smoking cessation initiated: No 'Breaking Loose' booklet given: 02/25/13 Hx Alcohol Use: No Drug/Substance Use Hx: No Substance Use Type: None Hx Substance Use Treatment: Yes (Methadone) *Physical Exam - Vital Signs Last Vital Signs Temp Pulse Resp BP Pulse Ox 98.2 F 85 24 H 136/85 97 06/30/18 12:04 06/30/18 12:04 06/30/18 12:04 06/30/18 12:04 06/30/18 12:04 ED Treatment Course - LABORATORY CBC & Chemistry Diagram: 06/30/18 14:56 06/30/18 14:56 - RADIOLOGY Radiology Studies Ordered: Category Date Time Status CHEST PA & LAT [RAD] Stat Radiology 06/30/18 14:09 Ordered Medical Decision Making - Medical Decision Making 06/30/18 14:36 A/P: 58-year-old woman with worsening shortness of breath and right lower extremity swelling. Patient also with excoriated tissue to the skin fold under left breast which is likely fungal in nature Labs including cardiac profile Urinalysis, urine culture EKG Chest x-ray 06/30/18 15:05 06/30/18 15:06 Patient Able to Obtain IV Access or Lab Draws. 20-gauge Angiocath Placed in the Left before Meals Using Ultrasound on the [place]. Visualization of the Vein on the [place] Reveals Successful Cannulation with Easy Blood Draw. 06/30/18 18:55 Patient unable to get CT scan as Sa;ine lock was infiltrated. Patient is refusing continued attempts to place IV for CT angiogram of the chest. 06/30/18 18:56 The patient insists on leaving the emergency dept and is signing out against medical advice. The patient understands the risks and complications that may result from the refusal of medical care and admission which includes cardiac arrest, severe infection, dehydration, myocardial infarction, arrhythmias, stroke, respiratory failure, electrolyte derangements, coma, pulmonary embolism, coma, severe disability and . The patient has the mental capacity of understanding the risks of refusing care and is capable of making an informed decision. The patient was instructed to return to the emergency department should she change her mind regarding medical care or should she condition worsen. The patient signed the Against Medical Advice form. 06/30/18 19:02 07/01/18 19:33 07/01/18 19:34 *DC/Admit/Observation/Transfer Diagnosis at time of Disposition: SOB (shortness of breath), Tinea - Discharge Dispostion Disposition: AGAINST MEDICAL ADVICE Condition at time of disposition: Fair - Prescriptions Prescriptions: Nystatin Powder [Nystop Powder -] 15 gm TP TID #2 bottle - Referrals - Patient Instructions Additional Instructions: You are signing out of this hospital against medical advice when further testing needs to be completed to protect your health. Try to wear brassiere. Apply nystatin to skin under both breasts 3 times a day for the next week. Follow-up with her primary doctor in the next couple of days for reevaluation. You are welcome to return to the emergency department at any time for continued evaluation. - Post Discharge Activity
[2018-06-30 15:32] LABS: BASO % 0.3 % (0-2.0); EOS % 2.6 % (0-4.5); HEMATOCRIT 36.9 % (32.4-45.2); HEMOGLOBIN 12.4 GM/dL (10.7-15.3); LYMPH % 15.8 % (8-40); MCH 30.7 pg (25.7-33.7); MCHC 33.7 g/dl (32.0-36.0); MEAN CELL VOLUME 91.1 fl (80-96); MEAN PLT VOLUME 7.8 fl (7.5-11.1); MONO % 9.3 % (3.8-10.2); PLATELET COUNT 267 K/MM3 (134-434); RBC 4.05 M/mm3 (3.60-5.2); RDW 16.2 % (11.6-15.6); WHITE BLOOD COUNT 6.8 K/mm3 (4.0-10.0)
[2018-06-30 15:45] LABS: INR 1.06 (0.83-1.09); PROTHROMBIN TIME (PATIENT) 12.5 SEC (9.7-13.0)
[2018-06-30 16:03] LABS: ALBUMIN 3.6 g/dl (3.4-5.0); ALK PHOS 117 U/L (45-117); ANION GAP 5 MMOL/L (8-16); BILIRUBIN,TOTAL 0.3 mg/dL (0.2-1); BLOOD UREA NITROGEN 13 mg/dL (7-18); CALCIUM 9.4 mg/dL (8.5-10.1); CHLORIDE 106 mmol/L (98-107); CO2 30 mmol/L (21-32); CREATININE 1.1 mg/dL (0.55-1.3); GLUCOSE,RANDOM 80 mg/dL (74-106); MAGNESIUM 1.8 mg/dL (1.8-2.4); N-TERMINAL BNP 75.6 pg/ml (5-125); POTASSIUM 3.7 mmol/L (3.5-5.1); SGOT/AST 14 U/L (15-37); SGPT/ALT 15 U/L (13-61); SODIUM 141 mmol/L (136-145)
--- NOTE | 2018-06-30 21:55 | EKG ---
Test Reason : Blood Pressure : / mmHG Vent. Rate : 073 BPM Atrial Rate : 073 BPM P-R Int : 204 ms QRS Dur : 076 ms QT Int : 390 ms P-R-T Axes : 033 006 027 degrees QTc Int : 429 ms NORMAL SINUS RHYTHM CANNOT RULE OUT ANTERIOR INFARCT (CITED ON OR BEFORE 07-JUL-2014) ABNORMAL ECG WHEN COMPARED WITH ECG OF 15-APR-2018 14:39, NO SIGNIFICANT CHANGE WAS FOUND Confirmed by MD ZACHARIAH, JAKE ([id number]) on 06/30/2018 9:55:14 PM Referred By: Confirmed By:JAKE SONI MD
== END 2018-06-30 19:06 | disposition left against medical advice (07) ==
LOC: JER 11:55
DX: R06.02 Shortness of breath (principal); B35.4 Tinea corporis; I11.0 Hypertensive heart disease with heart failure; I50.9 Heart failure, unspecified; J44.9 Chronic obstructive pulmonary disease, unspecified; K21.9 Gastro-esophageal reflux disease without esophagitis; Z86.711 Personal history of pulmonary embolism; Z86.718 Personal history of other venous thrombosis and embolism; Z79.01 Long term (current) use of anticoagulants; Z95.828 Presence of other vascular implants and grafts; I69.851 Hemiplegia and hemiparesis following other cerebrovascular disease affecting right dominant side; M06.9 Rheumatoid arthritis, unspecified
CPT/HCPCS: 36415; 71046-TC-FY; 80053; 82550; 83735; 83880; 84484; 85025; 85610; 87040; 93005; 93010; 99283-25

== ENCOUNTER 2018-12-20 09:45 | Inpatient (IN) | payer OTHER ==
--- NOTE | 2018-12-20 10:05 | PDOC ---
History of Present Illness - General Chief Complaint: Wound Stated Complaint: BILAT LEG WOUNDS Time Seen by Provider: 12/20/18 10:04 - History of Present Illness Initial Comments: 12/20/18 11:47 58W of CHF, GERD, COPD, hypertension, DVT, PE s/p IVC filter, rheumatoid arthritis, pulmonary artery aneurysm and CVA with right-sided residual weakness who presents emergency department for evaluation of worsening leg ulcers, worse in the back of her right leg, foul smelling. WAS seen in [facility] office on where she was started on Doxycyclin by Dr. Allen. However the bandages a soaked by a yellowish seepage and the pain is worst than it's ever been. Denies fever, chills, n/v/d, fatigue or weakness. Past History - Past Medical History Allergies/Adverse Reactions: Allergies Allergy/AdvReac Type Severity Reaction Status Date / Time Penicillins Allergy Intermediate Hives Verified 12/20/18 09:52 Home Medications: Ambulatory Orders Atorvastatin Ca [Lipitor] 40 mg PO HS 05/30/14 Fluticasone Propionate [Flovent Diskus] 110 mcg IH PRN 05/30/14 Omeprazole Magnesium [Prilosec (OTC)] 20 mg PO DAILY 05/30/14 Hydralazine HCl 25 mg PO TID 10/25/17 Methadone [Dolophine -] 60 mg PO DAILY 10/28/17 Amlodipine Besylate [Norvasc -] 10 mg PO DAILY #30 tablet 04/20/18 Lisinopril [Prinivil] 20 mg PO BID #30 tablet 04/20/18 Nystatin Powder [Nystop Powder -] 15 gm TP TID #2 bottle 06/30/18 Albuterol Sulfate [Proair Respiclick] 90 mcg IH QID PRN 09/11/18 Diclofenac Sodium [Voltaren] 2 gm TP TID PRN #3 tube 09/11/18 Docusate Sodium [Colace -] 100 mg PO TID 09/11/18 Furosemide [Lasix -] 20 mg PO BID 09/11/18 Cholecalciferol (Vitamin D3) [Vitamin D3] 5,000 unit PO DAILY #30 capsule Pramipexole Dihydrochloride [Mirapex -] 1 - 2 tab PO HS #60 tablet 12/01/18 Enoxaparin Sodium [Lovenox] 160 mg SQ BID 12/15/18 Anemia: No Asthma: No Cancer: No Cardiac Disorders: No CVA: Yes (residual right sided weakness ) COPD: Yes (also with history of PE, on inhalers) CHF: Yes Dementia: No Diabetes: No Dialysis: No GI Disorders: Yes (GERD, Constipation) Disorders: No HTN: Yes Hypercholesterolemia: Yes Liver Disease: No Seizures: No Thyroid Disease: No Lung CA: No Other medical history: morbib obesity, leg wounds - Surgical History Abdominal Surgery: No Appendectomy: No Cardiac Surgery: No Cholecystectomy: No Lung Surgery: Yes (IVC filter in Rt groin for PE 2012) Neurologic Surgery: No Orthopedic Surgery: No - Suicide/Smoking/Psychosocial Hx Smoking Status: Yes Smoking History: Never smoked Have you smoked in the past 12 months: No Number of Cigarettes Smoked Daily: 2 If you are a former smoker, when did you quit?: 1 month Information on smoking cessation initiated: No 'Breaking Loose' booklet given: 02/25/13 Hx Alcohol Use: No Drug/Substance Use Hx: No Substance Use Type: None, Heroin Hx Substance Use Treatment: Yes (Methadone) Review of Systems - Review of Systems Able to Perform ROS?: Yes Is the patient limited Macedonian proficient: No Constitutional: No: Symptoms Reported HEENTM: No: Symptoms Reported Respiratory: No: Symptoms reported Cardiac (ROS): No: Symptoms Reported ABD/GI: No: Symptoms Reported : No: Symptoms Reported Musculoskeletal: Yes: See HPI Integumentary: Yes: See HPI Neurological: No: Symptoms reported All Other Systems: Reviewed and Negative *Physical Exam - Vital Signs Last Vital Signs Temp Pulse Resp BP Pulse Ox 98.2 F 107 H 19 173/104 H 94 L 12/20/18 09:47 12/20/18 09:47 12/20/18 09:47 12/20/18 09:47 12/20/18 09:47 - Physical Exam General Appearance: Yes: Obese HEENT: positive: EOMI, JAMEEL, Normal ENT Inspection Respiratory/Chest: positive: Lungs Clear, Normal Breath Sounds. negative: Chest Tender, Respiratory Distress Cardiovascular: positive: S1, S2, Tachycardia Gastrointestinal/Abdominal: positive: Normal Bowel Sounds, Soft, Protuberent. negative: Tender Extremity: positive: Pedal Edema (4+), Swelling Integumentary: positive: Other (Left leg, posterior distal multiple (largest 4x4cm) irregular ulcerations of the skin with foul discharge deep to the subcutaneous tissues, ) Neurologic: positive: Fully Oriented, Alert, Normal Mood/Affect, Normal Response , Motor Strength 08/09 ED Treatment Course - LABORATORY CBC & Chemistry Diagram: 12/21/18 06:24 12/21/18 06:24 Medical Decision Making - Medical Decision Making 12/20/18 12:49 58W of CHF, GERD, COPD, hypertension, DVT, PE s/p IVC filter, rheumatoid arthritis, pulmonary artery aneurysm and CVA with right-sided residual weakness who presents emergency department for evaluation of worsening leg ulcers, worse in the back of her right leg, foul smelling. Spoke to Dr. Allen who recommended switching the patient to IV Vanco and admitting. Placing consult for Dr. Toño Narvaez. First CMP partially hemolyzed. EKG done : Normal sinus rhythm, minimal voltage criteria for LVH, may be normal varian. vent rate 86, AK 178, QRS 78, QT/QTc: 372/445 Patient admitted to med surg. *DC/Admit/Observation/Transfer Diagnosis at time of Disposition: Lower extremity ulceration - Referrals - Patient Instructions - Post Discharge Activity
[2018-12-20] MEDS ORDERED: VANCOMYCIN 1 GM in D5W (PRE-DOCKED) 1,000 MG/250 ML IVPB ONE (10:33)
[2018-12-20] MEDS ORDERED: VANCOMYCIN 1 GRAM (PRE-DOCKED) 1,000 MG/250 ML BAG IVPB ONE (11:25)
[2018-12-20 11:58] LABS: ALBUMIN 3.3 g/dl (3.4-5.0); BILIRUBIN,TOTAL 0.4 mg/dL (0.2-1); BLOOD UREA NITROGEN 14.6 mg/dL (7-18); CALCIUM 9.4 mg/dL (8.5-10.1); CREATININE 1.3 mg/dL (0.55-1.3); TOT PROT 8.1 g/dl (6.4-8.2)
[2018-12-20 12:09] LABS: POTASSIUM 6.5 mmol/L (3.5-5.1)
--- NOTE | 2018-12-20 12:20 | PDOC ---
Documentation entered by Chan Tabor SCRIBE, acting as scribe for Ej Mcnair MD. Ej Mcnair MD: This documentation has been prepared by the Leander feliz Daniel, SCRIBE, under my direction and personally reviewed by me in its entirety. I confirm that the documentation accurately reflects all work, treatment, procedures, and medical decision making performed by me. Attending Attestation - Resident Resident Name: MainMane - ED Attending Attestation I have performed the following: I have examined & evaluated the patient, The case was reviewed & discussed with the resident, I agree w/resident's findings & plan, Exceptions are as noted - HPI HPI: 12/20/18 11:00 The patient is a 58 year old female with a past medical history of CHF, COPD, DVT, PE s/p IVC filter, GERD, HTN, HLD, and CVA (2017 with residual right sided weakness) here today for evaluation of worsening leg ulcers. The patient reports that she was recently seen by Dr. Allen at wound clinic and was prescribed doxycycline for her leg ulcers. Patient is here today due to the worsening of her leg ulcers. Allergies: penicillins PCP: Sara Velasco - Physicial Exam PE: 12/20/18 11:00 agree with resident exam - Medical Decision Making 12/20/18 12:16 58yo F presents to the ED with persistent LE cellulitis despite outpt doxycycline Wound appears infected, is very malodorous Case discussed with Dr. Allen, recommends IV vanc, admission Heart Score/ECG Review #1 12/20/18 12:57 Twelve-lead EKG was performed and reviewed by me. Normal sinus rhythm, rate 86. Normal axis. No ST elevations or T-wave inversions.
[2018-12-20 12:33] LABS: EPI CELLS 8.3 /HPF (0-5/HPF); HYALINE CASTS 6 /lpf (0-8); PH,URINE 5.5 (5.0-8.0); URINE APPEARANCE CLEAR; URINE BACTERIA 276.7 /hpf (NEGATIVE); URINE BILIRUBIN NEGATIVE (NEGATIVE); URINE COLOR YELLOW; URINE GLUCOSE (UA) NEGATIVE (NEGATIVE); URINE KETONE NEGATIVE (NEGATIVE); URINE LEUK ESTERASE NEGATIVE (NEGATIVE); URINE NITRITE NEGATIVE (NEGATIVE); URINE PROTEIN 3+ (NEGATIVE); URINE RBC 4 /hpf (0-4); URINE WBC 4 /hpf (0-5)
[2018-12-20 13:33] LABS: BASO % 0.9 % (0-2.0); EOS % 1.5 % (0-4.5); HEMATOCRIT 33.6 % (32.4-45.2); LYMPH % 16.7 % (8-40); MCH 30.2 pg (25.7-33.7); MCHC 32.8 g/dl (32.0-36.0); MEAN CELL VOLUME 92.2 fl (80-96); MEAN PLT VOLUME 7.2 fl (7.5-11.1); MONO % 8.4 % (3.8-10.2); NEUT % 72.5 % (42.8-82.8); PLATELET COUNT 249 K/MM3 (134-434); RBC 3.65 M/mm3 (3.60-5.2); RDW 16.9 % (11.6-15.6); WHITE BLOOD COUNT 5.9 K/mm3 (4.0-10.0)
--- NOTE | 2018-12-20 14:23 | HP ---
CHIEF COMPLAINT: Draining ulcers on the L and R lower extremities PCP: Sara Velasco HISTORY OF PRESENT ILLNESS: Ms. Jay is a 58 y/o F with a pmhx of HTN,CHF, HLD , DVT/PE (s/p R IVC filter), MICHELE, OA, GERD, and restless leg syndrome who presents today with a 3 week history of ulcers on her bilateral lower extremities which are associated with pain and foul smelling, green drainage. The patient reports that about 3 weeks ago she noted a small draining ulcer on the L leg which she tried to keep clean with dial antibacterial soap. The ulcer did not improve and about 1 week later she noticed she had one on her R leg. She followed up in wound care clinic was was given an antibiotic. She returned to clinic 1 week later (Saturday 12/16) and they gave her a "stronger" antibiotic but her condition did not improve. The patient cannot remember which antibiotics she had been taking. She came to the hospital today because last night her wounds became extremely painful and were reportedly draining copious amounts of green fluids. Dr. Allen was consulted by the ED physicians, and he recommended we start IV vanc and admit the patient to med-surg. ER course was notable for: (1) IV vanc started (2) blood, wound, and urine cultures pending (3) UA w/ 3+ protein Recent Travel: denies PAST MEDICAL HISTORY: HTN,CHF, HLD, DVT/PE (s/p R IVC filter), MICHELE, GERD, and restless leg syndrome PAST SURGICAL HISTORY: R side IVC filter Social History: Smokin cigarettes/ day, down from 3ppd previously Alcohol: denies Drugs: denies Family History: dad- prostate cancer Allergies Penicillins Allergy (Intermediate, Verified 12/20/18 09:52) Hives HOME MEDICATIONS: Home Medications Medication Instructions Recorded Atorvastatin Ca [Lipitor] 40 mg PO HS 05/30/14 Fluticasone Propionate [Flovent 110 mcg IH PRN 05/30/14 Diskus] Omeprazole Magnesium [Prilosec 20 mg PO DAILY 05/30/14 (OTC)] Hydralazine HCl 25 mg PO TID 10/25/17 Methadone [Dolophine -] 60 mg PO DAILY 10/28/17 Amlodipine Besylate [Norvasc -] 10 mg PO DAILY #30 tablet 04/20/18 Lisinopril [Prinivil] 20 mg PO BID #30 tablet 04/20/18 Nystatin Powder [Nystop Powder -] 15 gm TP TID #2 bottle 06/30/18 Albuterol Sulfate [Proair 90 mcg IH QID PRN 09/11/18 Respiclick] Diclofenac Sodium [Voltaren] 2 gm TP TID PRN #3 tube 09/11/18 Docusate Sodium [Colace -] 100 mg PO TID 09/11/18 Furosemide [Lasix -] 20 mg PO BID 09/11/18 Cholecalciferol (Vitamin D3) 5,000 unit PO DAILY #30 capsule 10/02/18 [Vitamin D3] Pramipexole Dihydrochloride 1 - 2 tab PO HS #60 tablet 12/01/18 [Mirapex -] Enoxaparin Sodium [Lovenox] 160 mg SQ BID 12/15/18 REVIEW OF SYSTEMS CONSTITUTIONAL: chills Absent: fever, diaphoresis, generalized weakness, malaise, loss of appetite, weight change HEENT: Absent: rhinorrhea, nasal congestion, throat pain, throat swelling, difficulty swallowing, mouth swelling, ear pain, eye pain, visual changes CARDIOVASCULAR: Absent: chest pain, syncope, palpitations, irregular heart rate, lightheadedness , peripheral edema RESPIRATORY: Absent: cough, shortness of breath, dyspnea with exertion, orthopnea, wheezing, stridor, hemoptysis GASTROINTESTINAL: nausea, diarrhea (for 2days, watery without blood) Absent: abdominal pain, abdominal distension, vomiting, constipation, melena, hematochezia GENITOURINARY: Absent: dysuria, frequency, urgency, hesitancy, hematuria, flank pain, genital pain MUSCULOSKELETAL: Absent: myalgia, arthralgia, joint swelling, back pain, neck pain SKIN: Absent: rash, itching, pallor HEMATOLOGIC/IMMUNOLOGIC: Absent: easy bleeding, easy bruising, lymphadenopathy, frequent infections ENDOCRINE: Absent: unexplained weight gain, unexplained weight loss, heat intolerance, cold intolerance NEUROLOGIC: Absent: headache, focal weakness or paresthesias, dizziness, unsteady gait, seizure, mental status changes, bladder or bowel incontinence PSYCHIATRIC: Absent: anxiety, depression, suicidal or homicidal ideation, hallucinations. PHYSICAL EXAMINATION Vital Signs - 24 hr 12/20/18 09:47 Temperature 98.2 F Pulse Rate 107 H Respiratory 19 Rate Blood Pressure 173/104 H O2 Sat by Pulse 94 L Oximetry (%) GENERAL: Awake, alert, and fully oriented, in no acute distress, obese HEAD: Normal with no signs of trauma. EYES: Pupils equal, round and reactive to light, extraocular movements intact, sclera anicteric, conjunctiva clear. No lid lag. EARS, NOSE, THROAT: Ears normal, nares patent, oropharynx clear without exudates. Moist mucous membranes, dentures NECK: Normal range of motion, supple without lymphadenopathy, JVD, or masses. LUNGS: Breath sounds equal, clear to auscultation bilaterally. No wheezes, and no crackles. No accessory muscle use. HEART: Regular rate and rhythm, normal S1 and S2 without murmur, rub or gallop. ABDOMEN: Soft, nontender, not distended, normoactive bowel sounds, no guarding, no rebound, no masses. No hepatomegaly or splenomegaly. MUSCULOSKELETAL: Normal range of motion at all joints. No bony deformities or tenderness. UPPER EXTREMITIES: 2+ pulses, warm, well-perfused. No cyanosis. No clubbing. No peripheral edema. LOWER EXTREMITIES: 2+ pulses, warm, well-perfused. No calf tenderness, bilateral small draining ulcers, pink granulation tissue, no obvious erythrma surrounding. Each ulcer about 1-1.5cm in diameter. L>R. Tender to palpation but no pus drainage observed on my exam. NEUROLOGICAL: Cranial nerves II-XII intact. Normal speech. Gait not observed. PSYCHIATRIC: Cooperative. Good eye contact. Appropriate mood and affect. SKIN: Warm, dry, normal turgor, no rashes or lesions noted, normal capillary refill. Laboratory Results - last 24 hr 12/20/18 12/20/18 12/20/18 11:00 11:00 12:17 WBC Cancelled Corrected WBC (auto) Cancelled RBC Cancelled Hgb Cancelled Hct Cancelled MCV Cancelled MCH Cancelled MCHC Cancelled RDW Cancelled Plt Count Cancelled MPV Cancelled Absolute Neuts (auto) Cancelled Neutrophils % Cancelled Lymphocytes % Cancelled Monocytes % Cancelled Eosinophils % Cancelled Basophils % Cancelled Nucleated RBC % Cancelled Platelet Estimate Cancelled Platelet Comment Cancelled Sodium 135 L Potassium 6.5 H* Chloride 106 Carbon Dioxide 23 Anion Gap 6 L BUN 14.6 Creatinine 1.3 Est GFR (CKD-EPI)AfAm 53.11 Est GFR (CKD-EPI)NonAf 45.82 Random Glucose 107 H Calcium 9.4 Total Bilirubin 0.4 AST 41 H ALT 15 Alkaline Phosphatase 138 H Total Protein 8.1 Albumin 3.3 L Urine Color Yellow Urine Appearance Clear Urine pH 5.5 Ur Specific [place] 1.028 Urine Protein 3+ H Urine Glucose (UA) Negative Urine Ketones Negative Urine Blood 1+ H Urine Nitrite Negative Urine Bilirubin Negative Urine Urobilinogen 1.0 Ur Leukocyte Esterase Negative Urine WBC (Auto) 4 Urine RBC (Auto) 4 Urine Casts (Auto) 6 U Epithel Cells (Auto) 8.3 Urine Bacteria (Auto) 276.7 12/20/18 13:10 WBC 5.9 Corrected WBC (auto) RBC 3.65 Hgb 11.0 Hct 33.6 MCV 92.2 MCH 30.2 MCHC 32.8 RDW 16.9 H Plt Count 249 MPV 7.2 L Absolute Neuts (auto) 4.2 Neutrophils % 72.5 Lymphocytes % 16.7 Monocytes % 8.4 Eosinophils % 1.5 Basophils % 0.9 Nucleated RBC % 0 Platelet Estimate Platelet Comment Sodium Potassium Chloride Carbon Dioxide Anion Gap BUN Creatinine Est GFR (CKD-EPI)AfAm Est GFR (CKD-EPI)NonAf Random Glucose Calcium Total Bilirubin AST ALT Alkaline Phosphatase Total Protein Albumin Urine Color Urine Appearance Urine pH Ur Specific [place] Urine Protein Urine Glucose (UA) Urine Ketones Urine Blood Urine Nitrite Urine Bilirubin Urine Urobilinogen Ur Leukocyte Esterase Urine WBC (Auto) Urine RBC (Auto) Urine Casts (Auto) U Epithel Cells (Auto) Urine Bacteria (Auto) Current Medications Amlodipine Besylate (Norvasc -) 10 mg PO DAILY [facility] Atorvastatin Calcium (Lipitor -) 40 mg PO HS [facility] Docusate Sodium (Colace -) 100 mg PO BID PRN PRN Reason: CONSTIPATION Enoxaparin Sodium (Lovenox -) 160 mg SQ BID [facility] Furosemide (Lasix -) 20 mg PO DAILY [facility] Hydralazine HCl (Apresoline -) 25 mg PO TID [facility] Lisinopril (Prinivil) 20 mg PO BID [facility] Methadone HCl (Dolophine -) 60 mg PO DAILY@0600 [facility] Pramipexole Dihydrochloride (Mirapex -) 1 mg PO HS [facility] ASSESSMENT/PLAN: Ms. Jay is a 58 y/o F with a pmhx of HTN,CHF, HLD, DVT/PE (s/p R IVC filter) , MICHELE, GERD, OA and restless leg syndrome who presents today with a 3 week history of ulcers on her bilateral lower extremities which are associated with pain and foul smelling, green drainage. #Lower extremity ulcers - Dr. Allen and Dr. Narvaez consulted, appreciate recommendations - IV vancomycin - keep area clean and dry, - xeroform and daily dressing changes - elevate legs #HTN/CHF/HLD/DVT - Continue home medications: - hydralazine 25 TID - norvasc 10 daily - lisinopril 20 BID - furosemide 20 daily - lovenox 160 BID - lipitor 40 HS # OA - cont home meds - methadone 60 daily #Restless Leg - cont home meds - mirapex 1HS Hyper-[place]- DUE TO HEMOLYZED SAMPLE - patient with K+ of 6.5 on admission however sample noted to be hemolyzed - F/U repeat chem 7 #FEN - PO fluids - replete lytes PRN - Na controlled diet #PPx - Lovenox 160 BID #Dispo pending switch from IV to oral antibiotics Visit type - Emergency Visit Emergency Visit: Yes ED Registration Date: 12/20/18 Care time: The patient presented to the Emergency Department on the above date and was hospitalized for further evaluation of their emergent condition. - New Patient This patient is new to me today: Yes Date on this admission: 12/20/18 - Critical Care Critical Care patient: No ATTENDING PHYSICIAN STATEMENT I saw and evaluated the patient. I reviewed the resident's note and discussed the case with the resident. I agree with the resident's findings and plan as documented. SUBJECTIVE: OBJECTIVE: ASSESSMENT AND PLAN:
[2018-12-20 14:44] LABS: ALBUMIN 3.6 g/dl (3.4-5.0); BILIRUBIN,TOTAL 0.3 mg/dL (0.2-1); BLOOD UREA NITROGEN 14.8 mg/dL (7-18); CALCIUM 9.6 mg/dL (8.5-10.1); CREATININE 1.2 mg/dL (0.55-1.3); POTASSIUM 4.1 mmol/L (3.5-5.1)
--- NOTE | 2018-12-20 15:40 | PN ---
Teaching Attending Note Name of Resident: Georgia Wasserman ATTENDING PHYSICIAN STATEMENT I saw and evaluated the patient. I reviewed the resident's note and discussed the case with the resident. I agree with the resident's findings and plan as documented. SUBJECTIVE: Patient is a 58 y/o F with a pmhx of HTN,CHF, HLD, DVT/PE (s/p R IVC filter), MICHELE, OA, GERD, and restless leg syndrome who presents today with a 3 week history of ulcers on her bilateral lower extremities with pain ,foul smelling, and green drainage that started 3 days ago as per patient , was on oral antibiotics, had subjective fever las night as per patient. OBJECTIVE: Vital Signs Temperature 98.9 F 12/20/18 15:02 Pulse Rate 84 12/20/18 15:02 Respiratory Rate 19 12/20/18 15:02 Blood Pressure 145/102 H 12/20/18 15:02 O2 Sat by Pulse Oximetry (%) 97 12/20/18 15:02 GENERAL: The patient is awake, alert, and fully oriented, in no acute distress. HEAD: Normal with no signs of trauma. EYES: PERRL, extraocular movements intact, sclera anicteric, conjunctiva clear. ENT: Ears normal, oropharynx clear without exudates, moist mucous membranes. NECK: Trachea midline, full range of motion, supple. LUNGS: Breath sounds equal, clear to auscultation bilaterally, no wheezes, no crackles, no accessory muscle use. HEART: Regular rate and rhythm, S1, S2 without murmur, rub or gallop. ABDOMEN: Soft, nontender, nondistended, normoactive bowel sounds, no guarding, no rebound, no hepatosplenomegaly, no masses. EXTREMITIES: 2+ pulses, warm, bilateral small draining ulcers , Each ulcer about 1-1.5cm in diameter. warm to touch. NEUROLOGICAL: Cranial nerves II through XII grossly intact. Normal speech, gait not observed. PSYCH: Normal mood, normal affect. SKIN: Warm, dry, normal turgor, no rashes or lesions noted CBCD WBC 5.9 K/mm3 (4.0-10.0) 12/20/18 13:10 RBC 3.65 M/mm3 (3.60-5.2) 12/20/18 13:10 Hgb 11.0 GM/dL (10.7-15.3) 12/20/18 13:10 Hct 33.6 % (32.4-45.2) 12/20/18 13:10 MCV 92.2 fl (80-96) 12/20/18 13:10 MCHC 32.8 g/dl (32.0-36.0) 12/20/18 13:10 RDW 16.9 % (11.6-15.6) H 12/20/18 13:10 Plt Count 249 K/MM3 (134-434) 12/20/18 13:10 MPV 7.2 fl (7.5-11.1) L 12/20/18 13:10 CMP Sodium 140 mmol/L (136-145) 12/20/18 13:10 Potassium 4.1 mmol/L (3.5-5.1) 12/20/18 13:10 Chloride 104 mmol/L (98-107) 12/20/18 13:10 Carbon Dioxide 30 mmol/L (21-32) 12/20/18 13:10 Anion Gap 5 MMOL/L (8-16) L 12/20/18 13:10 BUN 14.8 mg/dL (7-18) 12/20/18 13:10 Creatinine 1.2 mg/dL (0.55-1.3) 12/20/18 13:10 Random Glucose 96 mg/dL (74-106) 12/20/18 13:10 Calcium 9.6 mg/dL (8.5-10.1) 12/20/18 13:10 Total Bilirubin 0.3 mg/dL (0.2-1) 12/20/18 13:10 AST 15 U/L (15-37) 12/20/18 13:10 ALT 14 U/L (13-61) 12/20/18 13:10 Alkaline Phosphatase 140 U/L (45-117) H 12/20/18 13:10 Total Protein 8.0 g/dl (6.4-8.2) 12/20/18 13:10 Albumin 3.6 g/dl (3.4-5.0) 12/20/18 13:10 Home Medications Medication Instructions Recorded Atorvastatin Ca [Lipitor] 40 mg PO HS 05/30/14 Fluticasone Propionate [Flovent 110 mcg IH PRN 05/30/14 Diskus] Omeprazole Magnesium [Prilosec 20 mg PO DAILY 05/30/14 (OTC)] Hydralazine HCl 25 mg PO TID 10/25/17 Methadone [Dolophine -] 60 mg PO DAILY 10/28/17 Amlodipine Besylate [Norvasc -] 10 mg PO DAILY #30 tablet 04/20/18 Lisinopril [Prinivil] 20 mg PO BID #30 tablet 04/20/18 Nystatin Powder [Nystop Powder -] 15 gm TP TID #2 bottle 06/30/18 Albuterol Sulfate [Proair 90 mcg IH QID PRN 09/11/18 Respiclick] Diclofenac Sodium [Voltaren] 2 gm TP TID PRN #3 tube 09/11/18 Docusate Sodium [Colace -] 100 mg PO TID 09/11/18 Furosemide [Lasix -] 20 mg PO BID 09/11/18 Cholecalciferol (Vitamin D3) 5,000 unit PO DAILY #30 capsule 10/02/18 [Vitamin D3] Pramipexole Dihydrochloride 1 - 2 tab PO HS #60 tablet 12/01/18 [Mirapex -] Enoxaparin Sodium [Lovenox] 160 mg SQ BID 12/15/18 ASSESSMENT AND PLAN: Patient is a 58 yo female with morbid obesity with PMHx of COPD, MICHELE (on CPAP not consistently used), b/l knee OA, DVT/PE s/p IVC filter, CHF, GERD, presents with worsening pain , edema with b/l lower extremities edema associated with draining ulcers refractory to outpatient oral antibiotics, as per patient she follows with Wound clinic. #Infected LE ulcers on IV vanco as per ID , trough at the 4th dose , continue wound care , dr nieto for consult, #Cellulitis LE follow up wound and blood culture results, hepatitis screen, xeroform and daily dressing changes, elevate legs #COPD continue current meds #MICHELE ; oxygen/bipap #OA on methadone for pain #Hx of DVT/PE s/p IVC #CHF/HTN continue home meds #Morbid obesity #GERD #Restless Leg : on mirapex 1HS DVT/PE Tx: Lovenox 160 BID
--- NOTE | 2018-12-20 16:27 | CON.ID ---
Consult - History of Present Illness History of Present Illness: 58 y.o. female with PMH of COPD, MICHELE (CPAP not consistently used), b/l knee OA, DVT/PE s/p IVC filter, CHF, GERD, and morbid obesity presents with worsening pain and edema in b/l LEs associated with draining ulcers. St states she initially developed ulcerations in LLE about 3 wks ago and subsequently developed them on the RLE as well. She has been gradually having pain in both LEs. Pt states she completed a 1 wk course of Bactrim but was noted to have persistent pain and drainage. She was seen in wound care clinic 3 days ago and was started on Doxycycline. She presented to the ER because of severe pain with difficulty ambulating, worsened drainage and swelling. Also became diaphoretic at night the night before coming to the ER. She was noted to be afebrile but tachycardic. Currently with pain in LEs b/l, ulcers worse on Lt posterior calf with edema and erythema L>RLE. - History Source History Provided By: Patient Limitations to Obtaining History: No Limitations - Past Medical History Cardio/Vascular: Yes: CHF (Chronic Diastolic), HTN, Hyperlipdemia Pulmonary: Yes: Asthma, COPD, Sleep Apnea (Pt states negative recent test, will attempt to retrieve results) Gastrointestinal: Yes: GERD Musculoskeletal: Yes: Osteoarthritis - Alcohol/Substance Use Hx Alcohol Use: No History of Substance Use: reports: Heroin (denies IVDU, has snorted heroin many years ago) - Smoking History Smoking history: Never smoked Have you smoked in the past 12 months: No Aproximately how many cigarettes per day: 2 If you are a former smoker, when did you quit?: 1 month - Social History ADL: Independent History of Recent Travel: No Home Medications - Allergies Allergies/Adverse Reactions: Allergies Allergy/AdvReac Type Severity Reaction Status Date / Time Penicillins Allergy Intermediate Hives Verified 12/20/18 09:52 - Home Medications Home Medications: Ambulatory Orders Atorvastatin Ca [Lipitor] 40 mg PO HS 05/30/14 Fluticasone Propionate [Flovent Diskus] 110 mcg IH PRN 05/30/14 Omeprazole Magnesium [Prilosec (OTC)] 20 mg PO DAILY 05/30/14 Hydralazine HCl 25 mg PO TID 10/25/17 Methadone [Dolophine -] 60 mg PO DAILY 10/28/17 Amlodipine Besylate [Norvasc -] 10 mg PO DAILY #30 tablet 04/20/18 Lisinopril [Prinivil] 20 mg PO BID #30 tablet 04/20/18 Nystatin Powder [Nystop Powder -] 15 gm TP TID #2 bottle 06/30/18 Albuterol Sulfate [Proair Respiclick] 90 mcg IH QID PRN 09/11/18 Diclofenac Sodium [Voltaren] 2 gm TP TID PRN #3 tube 09/11/18 Docusate Sodium [Colace -] 100 mg PO TID 09/11/18 Furosemide [Lasix -] 20 mg PO BID 09/11/18 Cholecalciferol (Vitamin D3) [Vitamin D3] 5,000 unit PO DAILY #30 capsule Pramipexole Dihydrochloride [Mirapex -] 1 - 2 tab PO HS #60 tablet 12/01/18 Enoxaparin Sodium [Lovenox] 160 mg SQ BID 12/15/18 Family Disease History - Family Disease History Family Disease History: Diabetes: Son (living - IDDM), Other: Father (, 33, multiple DVTs), Mother (living - dementia, in [place]), Brother (two, one from AIDS - ), Sister (two living - ), Son, Daughter (living - healthy) Review of Systems - Review of Systems Constitutional: reports: No Symptoms. denies: Chills, Diaphoresis, Fever, Lethargy, Loss of Appetite, Malaise, Night Sweats, Unintentional Wgt. Loss, Weakness, Other Eyes: reports: No Symptoms. denies: Blind Spots, Blurred Vision, Double Vision , Eye Pain, Floaters, Photophobia, Recent Change in Vision, Other HENT: reports: No Symptoms. denies: Difficult Swallowing, Ear Discharge, Ear Pain, Epistaxis, Gingival Bleeding, Hearing Loss, Mouth Swelling, Nasal Congestion, Ocular Prosthesis, Throat Pain, Toothache, Ringing in Ears, Other Neck: reports: No Symptoms. denies: Decreased ROM, Lumps, Pain on Movement, Stiffness, Swollen Glands, Tenderness, Other Cardiovascular: reports: No Symptoms. denies: Chest Pain, Edema, Palpitations, Shortness of Breath, Other Respiratory: reports: No Symptoms. denies: Cough, Exercise Intolerance, Hemoptysis, Orthopnea, PND, Snoring, SOB, SOB on Exertion, Wheezing, Other Gastrointestinal: reports: No Symptoms. denies: Abdominal Pain, Bloating, Constipation, Diarrhea, Dysphagia, Indigestion, Melena, Nausea, Rectal Bleeding , Vomiting, Vomiting Blood, Other Genitourinary: reports: No Symptoms. denies: Burning, Discharge, Dysuria, Flank Pain, Frequency, Hematuria, Incontinence, Lesions, Menses, Pain, Testicular Mass, Testicular Pain, Testicular Swelling, Urgency, Vaginal Bleeding , Other Musculoskeletal: reports: No Symptoms. denies: Back Pain, Crepitus, Decreased ROM, Extremity Pain, Joint Pain, Joint Swelling, Muscle Pain, Muscle Cramps, Muscle Weakness, Other Integumentary: reports: Erythema. denies: No Symptoms, Blister, Bruising, Change in Color, Eczema, Incision, Lesions, Lump, Pallor, Pruritis, Rash, Wound , Other Neurological: reports: No Symptoms. denies: Change in LOC, Change in Speech, Confusion, Dizziness, Headache, Incoordination, Numbness, Parasthesia, Pre- Existing Deficit, Seizure, Syncope, Tremors, Unsteady Gait, Weakness, Other Endocrine: reports: No Symptoms. denies: Excessive Sweating, Flushing, Increased Hunger, Increased Thirst, Intolerance to Cold, Intolerance to Heat, Unexplained Weight Gain, Unexplained Weight Loss, Other Hematology/Lymphatic: reports: No Symptoms. denies: Easily Bruised, Excessive Bleeding, Swollen Glands, Other Physical Exam Vital Signs: Vital Signs Temperature 98.9 F 12/20/18 15:02 Pulse Rate 84 12/20/18 15:02 Respiratory Rate 12/20/18 15:02 Blood Pressure 145/102 H 12/20/18 15:02 O2 Sat by Pulse Oximetry (%) 97 12/20/18 15:02 Constitutional: Yes: No Distress, Calm Eyes: Yes: Conjunctiva Clear Neck: Yes: Supple Cardiovascular: Yes: Regular Rate and Rhythm Respiratory: Yes: CTA Bilaterally Gastrointestinal: Yes: Normal Bowel Sounds, Soft, Abdomen, Obese Renal/: Yes: WNL Musculoskeletal: Yes: WNL Extremities: Yes: Erythema Edema: Yes Edema: LLE: 2+, RLE: 2+ Integumentary: Yes: WNL Wound/Incision: Yes: Other (b/l LE ulcers, Lt post. calf ulcer largest with serous drainage LLE >RLE erythema/warmth/tenderness) Neurological: Yes: Alert, Oriented Psychiatric: Yes: Alert Labs: CBC, BMP 12/20/18 13:10 12/20/18 13:10 Imaging - Results Chest X-ray: Report Reviewed Problem List - Problems (1) CHF (congestive heart failure) Code(s): I50.9 - HEART FAILURE, UNSPECIFIED Qualifiers: Heart failure type: unspecified Heart failure chronicity: unspecified Qualified Code(s): I50.9 - Heart failure, unspecified (2) COPD (chronic obstructive pulmonary disease) Code(s): J44.9 - CHRONIC OBSTRUCTIVE PULMONARY DISEASE, UNSPECIFIED Qualifiers: COPD type: unspecified COPD Qualified Code(s): J44.9 - Chronic obstructive pulmonary disease, unspecified (3) DVT (deep venous thrombosis) Code(s): I82.409 - ACUTE EMBOLISM AND THOMBOS UNSP DEEP VN UNSP LOWER EXTREMITY Qualifiers: Affected thrombotic vein of extremity: femoral Laterality: left (4) HTN (hypertension) Code(s): I10 - ESSENTIAL (PRIMARY) HYPERTENSION (5) History of pulmonary embolism Code(s): Z86.711 - PERSONAL HISTORY OF PULMONARY EMBOLISM (6) Morbid obesity Code(s): E66.01 - MORBID (SEVERE) OBESITY DUE TO EXCESS CALORIES (7) Osteoarthritis of knees, bilateral Code(s): M17.0 - BILATERAL PRIMARY OSTEOARTHRITIS OF KNEE (8) Presence of IVC filter Code(s): Z95.828 - PRESENCE OF OTHER VASCULAR IMPLANTS AND GRAFTS (9) Sleep apnea Code(s): G47.30 - SLEEP APNEA, UNSPECIFIED Assessment/Plan 58 y.o. female with PMH of COPD, MICHELE (CPAP not consistently used), b/l knee OA, DVT/PE s/p IVC filter, CHF, GERD, and morbid obesity presents with worsening pain and edema/erythema in b/l LEs associated with draining ulcers refractory to outpatient oral antibiotics Infected LE ulcers Cellulitis LE COPD MICHELE OA Hx of DVT/PE s/p IVC CHF Morbid obesity GERD -- will start Vancomycin IV, Obtain trough level prior to 4th dose, monitor renal function -- continue wound care -- follow up wound and blood culture results -- hepatitis screen
--- NOTE | 2018-12-20 16:30 | EKG ---
Test Reason : Blood Pressure : / mmHG Vent. Rate : 086 BPM Atrial Rate : 086 BPM P-R Int : 178 ms QRS Dur : 078 ms QT Int : 372 ms P-R-T Axes : 039 006 024 degrees QTc Int : 445 ms NORMAL SINUS RHYTHM MINIMAL VOLTAGE CRITERIA FOR LVH, MAY BE NORMAL VARIANT BORDERLINE ECG WHEN COMPARED WITH ECG OF 30-JUN-2018 14:24, NO SIGNIFICANT CHANGE WAS FOUND Confirmed by MD ALBER, KAMINI ([id number]) on 12/20/2018 4:30:01 PM Referred By: Confirmed By:KAMINI CAMPO MD
[2018-12-20] MEDS ORDERED: amLODIPine BESYLATE 10 MG TABLET (FP) PO ONE (16:55)
[2018-12-20] MEDS ORDERED: PT OWN MED DRAWER 7, Y5N ONE (21:43)
[2018-12-20] MEDS: hydrALAZINE HCL 25 MG TABLET (FP) PO SCH (22:32)
[2018-12-20] MEDS: LISINOPRIL 20 MG TABLET (FP) PO SCH (22:32)
[2018-12-20] MEDS: ATORVASTATIN CA 40 MG TABLET (FP) PO SCH (22:32)
[2018-12-20] MEDS: ENOXAPARIN NA (PORCINE) 80 MG/0.8 ML DISP.SYRIN SQ SCH (22:33)
[2018-12-20] MEDS: VANCOMYCIN 1,250 MG in DEXTROSE 5%-WATER - 250 ML IVPB SCH (22:48)
[2018-12-20] MEDS: PRAMIPEXOLE DIHYDROCHLORIDE 1 MG TABLET PO SCH (23:00)
[2018-12-21] MEDS ORDERED: ACETAMINOPHEN 325 MG TABLET (FP) PO ONE (04:59)
[2018-12-21] MEDS ORDERED: METHADONE HCL 10 MG TABLET PO SCH (06:00)
[2018-12-21] MEDS: hydrALAZINE HCL 25 MG TABLET (FP) PO SCH ×3 (06:21→21:25)
[2018-12-21 07:32] LABS: HEMATOCRIT 31.1 % (32.4-45.2); HEMOGLOBIN 10.2 GM/dL (10.7-15.3); MCH 30.2 pg (25.7-33.7); MCHC 32.8 g/dl (32.0-36.0); MEAN CELL VOLUME 91.8 fl (80-96); MEAN PLT VOLUME 7.3 fl (7.5-11.1); PLATELET COUNT 235 K/MM3 (134-434); RBC 3.39 M/mm3 (3.60-5.2); RDW 17.4 % (11.6-15.6); WHITE BLOOD COUNT 5.7 K/mm3 (4.0-10.0)
[2018-12-21 08:04] LABS: BLOOD UREA NITROGEN 15.5 mg/dL (7-18); CALCIUM 8.8 mg/dL (8.5-10.1); CREATININE 1.2 mg/dL (0.55-1.3); POTASSIUM 4.3 mmol/L (3.5-5.1)
[2018-12-21] MEDS ORDERED: METHADONE HCL 40 MG DISPERSABLE TABLET ONE (08:26)
[2018-12-21] MEDS ORDERED: METHADONE HCL 10 MG TABLET ONE (08:26)
[2018-12-21] MEDS: METHADONE 40 MG, METHADONE 20 MG PO SCH (08:29)
[2018-12-21] MEDS ORDERED: PT OWN MED DRAWER 7, Y5N ONE ×7 (09:01→23:54)
[2018-12-21] MEDS: LISINOPRIL 20 MG TABLET (FP) PO SCH ×2 (09:42→21:25)
[2018-12-21] MEDS: amLODIPine BESYLATE 10 MG TABLET (FP) PO SCH (09:42)
[2018-12-21] MEDS: FUROSEMIDE 20 MG TABLET (FP) PO SCH (09:42)
[2018-12-21] MEDS: ENOXAPARIN NA (PORCINE) 80 MG/0.8 ML DISP.SYRIN SQ SCH ×2 (09:51→21:25)
--- NOTE | 2018-12-21 10:25 | PN ---
Progress Note, Physician Chief Complaint: Cellulitis B/L LE wound History of Present Illness: Previous notes and events reviewed awake and alert NAD LLE wound draining green colored discharge from wound - Current Medication List Current Medications: Active Medications Amlodipine Besylate (Norvasc -) 10 mg PO DAILY [facility] Last Admin: 12/21/18 09:42 Dose: 10 mg Atorvastatin Calcium (Lipitor -) 40 mg PO HS [facility] Last Admin: 12/20/18 22:32 Dose: 40 mg Docusate Sodium (Colace -) 100 mg PO BID PRN PRN Reason: CONSTIPATION Enoxaparin Sodium (Lovenox -) 160 mg SQ BID [facility] Last Admin: 12/21/18 09:51 Dose: 160 mg Furosemide (Lasix -) 20 mg PO DAILY [facility] Last Admin: 12/21/18 09:42 Dose: 20 mg Hydralazine HCl (Apresoline -) 25 mg PO TID [facility] Last Admin: 12/21/18 06:21 Dose: 25 mg Vancomycin HCl 1,250 mg/ (Dextrose) 250 mls @ 166.667 mls/hr IVPB Q12H [facility]; Protocol Last Admin: 12/20/18 22:48 Dose: 166.667 mls/hr Lisinopril (Prinivil) 20 mg PO BID [facility] Last Admin: 12/21/18 09:42 Dose: 20 mg Methadone HCl 40 mg/ Methadone (HCl 20 mg) 60 mg PO DAILY@0600 [facility] Last Admin: 12/21/18 08:29 Dose: 60 mg Pramipexole Dihydrochloride (Mirapex -) 1 mg PO [facility] Last Admin: 12/20/18 23:00 Dose: 1 mg - Objective Vital Signs: Vital Signs Temperature 98.9 F 12/21/18 06:00 Pulse Rate 85 12/21/18 06:00 Respiratory Rate 18 12/21/18 06:00 Blood Pressure 120/64 12/21/18 06:00 O2 Sat by Pulse Oximetry (%) 97 12/20/18 21:00 Constitutional: Yes: No Distress, Calm, Obese Eyes: Yes: Conjunctiva Clear HENT: Yes: Atraumatic Cardiovascular: Yes: Regular Rate and Rhythm Respiratory: Yes: Regular, CTA Bilaterally Gastrointestinal: Yes: Normal Bowel Sounds, Soft, Abdomen, Obese Musculoskeletal: Yes: Muscle Weakness Extremities: Yes: WNL Edema: Yes (lower extremity) Wound/Incision: Yes: Dressing Removed (draining large amount gree fluid), Draining Neurological: Yes: Alert, Oriented Psychiatric: Yes: Alert, Oriented Labs: CBC, BMP 12/21/18 06:24 12/21/18 06:24 Microbiology 12/20/18 12:17 Urine - Urine Clean Catch Urine Culture - Preliminary Problem List - Problems (1) Lower extremity ulceration Assessment/Plan: -ID on board -Vascular consult -Vancomycin -wound culture pending -no leukocytosis -afebrile -daily dressing changes Code(s): L97.909 - NON-PRS CHRONIC ULC UNSP PRT OF UNSP LOW LEG W UNSP SEVERITY (2) CHF (congestive heart failure) Assessment/Plan: -1L fluid restriction -daily weights -Furosemide Code(s): I50.9 - HEART FAILURE, UNSPECIFIED Qualifiers: Heart failure type: unspecified Heart failure chronicity: unspecified Qualified Code(s): I50.9 - Heart failure, unspecified (3) COPD (chronic obstructive pulmonary disease) Assessment/Plan: -O2 via NC -keep SpO2 >90% Code(s): J44.9 - CHRONIC OBSTRUCTIVE PULMONARY DISEASE, UNSPECIFIED Qualifiers: COPD type: unspecified COPD Qualified Code(s): J44.9 - Chronic obstructive pulmonary disease, unspecified (4) DVT (deep venous thrombosis) Assessment/Plan: -Lovenox Code(s): I82.409 - ACUTE EMBOLISM AND THOMBOS UNSP DEEP VN UNSP LOWER EXTREMITY Qualifiers: Affected thrombotic vein of extremity: femoral Laterality: left (5) HTN (hypertension) Assessment/Plan: -Lisinopril, Hydralazine, Amlodipine -low Na diet Code(s): I10 - ESSENTIAL (PRIMARY) HYPERTENSION (6) Morbid obesity Assessment/Plan: -Dietary consult Code(s): E66.01 - MORBID (SEVERE) OBESITY DUE TO EXCESS CALORIES (7) Methadone maintenance therapy patient Assessment/Plan: -Methadone 60mg daily Code(s): F11.20 - OPIOID DEPENDENCE, UNCOMPLICATED Assessment/Plan see problem list dvt ppx
[2018-12-21] MEDS ORDERED: INSULIN (NOVOLOG) ASPART 100 UNITS/ML 10ML VIAL ONE (11:14)
[2018-12-21] MEDS: VANCOMYCIN 1,250 MG in DEXTROSE 5%-WATER - 250 ML IVPB SCH ×2 (11:18→21:30)
--- NOTE | 2018-12-21 11:44 | PN ---
Progress Note, Physician History of Present Illness: stable feels better - Current Medication List Current Medications: Active Medications Amlodipine Besylate (Norvasc -) 10 mg PO DAILY [facility] Last Admin: 12/21/18 09:42 Dose: 10 mg Atorvastatin Calcium (Lipitor -) 40 mg PO HS [facility] Last Admin: 12/20/18 22:32 Dose: 40 mg Ceftazidime (Fortaz 1 Gm Ivpb (Pre-Docked)) 1 gm IVPB Q8H-IV [facility]; Protocol Docusate Sodium (Colace -) 100 mg PO BID PRN PRN Reason: CONSTIPATION Enoxaparin Sodium (Lovenox -) 160 mg SQ BID [facility] Last Admin: 12/21/18 09:51 Dose: 160 mg Furosemide (Lasix -) 20 mg PO DAILY [facility] Last Admin: 12/21/18 09:42 Dose: 20 mg Hydralazine HCl (Apresoline -) 25 mg PO TID [facility] Last Admin: 12/21/18 06:21 Dose: 25 mg Vancomycin HCl 1,250 mg/ (Dextrose) 250 mls @ 166.667 mls/hr IVPB Q12H [facility]; Protocol Last Admin: 12/21/18 11:18 Dose: 166.667 mls/hr Lisinopril (Prinivil) 20 mg PO BID [facility] Last Admin: 12/21/18 09:42 Dose: 20 mg Methadone HCl 40 mg/ Methadone (HCl 20 mg) 60 mg PO DAILY@0600 [facility] Last Admin: 12/21/18 08:29 Dose: 60 mg Pramipexole Dihydrochloride (Mirapex -) 1 mg PO [facility] Last Admin: 12/20/18 23:00 Dose: 1 mg - Objective Vital Signs: Vital Signs Temperature 98.3 F 12/21/18 10:00 Pulse Rate 86 12/21/18 10:00 Respiratory Rate 18 12/21/18 10:00 Blood Pressure 142/76 12/21/18 10:00 O2 Sat by Pulse Oximetry (%) 97 12/20/18 21:00 Constitutional: Yes: No Distress, Calm, Obese Cardiovascular: Yes: S1, S2 Respiratory: Yes: Regular, CTA Bilaterally Gastrointestinal: Yes: Normal Bowel Sounds, Soft Musculoskeletal: Yes: WNL Extremities: Yes: Erythema (warm), Other Wound/Incision: Yes: Clean/Dry, Open to air Neurological: Yes: Alert, Oriented Psychiatric: Yes: Alert, Oriented Labs: CBC, BMP 12/21/18 06:24 12/21/18 06:24 Assessment/Plan Problem List - Problems (1) CHF (congestive heart failure) Code(s): I50.9 - HEART FAILURE, UNSPECIFIED Qualifiers: Heart failure type: unspecified Heart failure chronicity: unspecified Qualified Code(s): I50.9 - Heart failure, unspecified (2) COPD (chronic obstructive pulmonary disease) Code(s): J44.9 - CHRONIC OBSTRUCTIVE PULMONARY DISEASE, UNSPECIFIED Qualifiers: COPD type: unspecified COPD Qualified Code(s): J44.9 - Chronic obstructive pulmonary disease, unspecified (3) DVT (deep venous thrombosis) Code(s): I82.409 - ACUTE EMBOLISM AND THOMBOS UNSP DEEP VN UNSP LOWER EXTREMITY Qualifiers: Affected thrombotic vein of extremity: femoral Laterality: left (4) HTN (hypertension) Code(s): I10 - ESSENTIAL (PRIMARY) HYPERTENSION (5) History of pulmonary embolism Code(s): Z86.711 - PERSONAL HISTORY OF PULMONARY EMBOLISM (6) Morbid obesity Code(s): E66.01 - MORBID (SEVERE) OBESITY DUE TO EXCESS CALORIES (7) Osteoarthritis of knees, bilateral Code(s): M17.0 - BILATERAL PRIMARY OSTEOARTHRITIS OF KNEE (8) Presence of IVC filter Code(s): Z95.828 - PRESENCE OF OTHER VASCULAR IMPLANTS AND GRAFTS (9) Sleep apnea Code(s): G47.30 - SLEEP APNEA, UNSPECIFIED Assessment/Plan 58 y.o. female with PMH of COPD, MICHELE (CPAP not consistently used), b/l knee OA, DVT/PE s/p IVC filter, CHF, GERD, and morbid obesity presents with worsening pain and edema/erythema in b/l LEs associated with draining ulcers refractory to outpatient oral antibiotics Infected LE ulcers Cellulitis LE COPD MICHELE OA Hx of DVT/PE s/p IVC CHF Morbid obesity GERD plan continue vanco check trough before 4th dose added ceftazidime wound care rest as per the team
[2018-12-21] MEDS ORDERED: cefTAZidime PENTAHYDRATE 1 GM/50ML PRE-DOCKED (RESTRICTED TO ID) IVPB SCH (11:45)
[2018-12-21] MEDS: CEFTAZIDIME PENTAHYDRATE 1 GM in DEXTROSE 5%-WATER - 50 ML IVPB SCH ×2 (13:43→18:48)
[2018-12-21] MEDS: ATORVASTATIN CA 40 MG TABLET (FP) PO SCH (21:25)
[2018-12-21] MEDS: PRAMIPEXOLE DIHYDROCHLORIDE 1 MG TABLET PO SCH (21:30)
[2018-12-21] MEDS: ACETAMINOPHEN 325 MG TABLET (FP) PO PRN (23:58)
[2018-12-22] MEDS: CEFTAZIDIME PENTAHYDRATE 1 GM in DEXTROSE 5%-WATER - 50 ML IVPB SCH ×3 (02:30→18:35)
[2018-12-22] MEDS ORDERED: PT OWN MED DRAWER 7, Y5N ONE ×2 (03:06→20:26)
[2018-12-22] MEDS ORDERED: ALBUTEROL SO4 2.5/IPRATROPIUM 0.5 INH SOL 3 ML VIAL.NEB. NEB PRN (04:35)
[2018-12-22] MEDS ORDERED: LIDOCAINE 5% TOPICAL PATCH TP ONE (04:42)
--- NOTE | 2018-12-22 04:50 | HOSP ---
Subjective - Review of Symptoms Events since last encounter: Hospitalist Encounter Was notified by the RN that the patient was wheezing has COPD hx and no treatment ordered. Also, patient reports having lumbar pain. Was asked to assess Arrived to bedside, patient is awake, alert and oriented, reports having lumbar pain. PE performed see EMR Plan: Duonebs prn Lidocaine Patch Musculoskeletal: Yes: Back Pain Physical Examination Vital Signs: Vital Signs Temperature 98.2 F 12/21/18 22:00 Pulse Rate 89 12/21/18 22:00 Respiratory Rate 18 12/21/18 22:00 Blood Pressure 115/73 12/21/18 22:00 O2 Sat by Pulse Oximetry (%) 99 12/21/18 20:32 Constitutional: Yes: Well Nourished, Obese Eyes: Yes: WNL, Conjunctiva Clear, EOM Intact, PERRL HENT: Yes: WNL, Atraumatic, Normocephalic Neck: Yes: WNL, Supple, Trachea Midline Cardiovascular: Yes: WNL, Regular Rate and Rhythm, S1, S2 Respiratory: Yes: WNL, Regular, CTA Bilaterally Gastrointestinal: Yes: WNL, Normal Bowel Sounds, Soft, Abdomen, Obese ...Rectal Exam: Yes: Deferred Renal/: Yes: WNL Breast(s): Yes: WNL Musculoskeletal: Yes: Back Pain Extremities: Yes: WNL Edema: Yes Peripheral Pulses WNL: Yes Integumentary: Yes: Erythema Wound/Incision: Yes: Clean/Dry, Open to air Neurological: Yes: WNL, Alert, Oriented, Cran Nerves II-XII Intact ...Motor Strength: WNL Psychiatric: Yes: WNL, Alert, Oriented Labs: CBC, BMP 12/21/18 06:24 12/21/18 06:24 Laboratory Results - last 24 hr 12/21/18 12/21/18 06:24 06:24 WBC 5.7 RBC 3.39 L Hgb 10.2 L Hct 31.1 L MCV 91.8 MCH 30.2 MCHC 32.8 RDW 17.4 H Plt Count 235 MPV 7.3 L Sodium 139 Potassium 4.3 Chloride 104 Carbon Dioxide 29 Anion Gap 6 L BUN 15.5 Creatinine 1.2 Est GFR (CKD-EPI)AfAm 58.51 Est GFR (CKD-EPI)NonAf 50.48 Random Glucose 91 Calcium 8.8 Microbiology 12/20/18 12:17 Gram Stain - Final Leg - Left Lower Wound Culture - Preliminary Non Lactose Fermenting Gnb Group D Strep Or Entero Coccus 12/20/18 13:10 Blood Culture - Preliminary Blood - Peripheral Venous NO GROWTH OBTAINED AFTER 24 HOURS, INCUBATION TO CONTINUE FOR 4 DAYS. 12/20/18 11:00 Blood Culture - Preliminary Blood - Peripheral Venous NO GROWTH OBTAINED AFTER 24 HOURS, INCUBATION TO CONTINUE FOR 4 DAYS. 12/20/18 12:17 Urine Culture - Preliminary Urine - Urine Clean Catch Current Medications Generic Name Dose Route Start Last Admin Trade Name Freq PRN Reason Stop Dose Admin Acetaminophen 650 mg 12/21/18 21:58 12/21/18 23:58 Tylenol - PO 650 mg Q6H PRN Administration PAIN LEVEL 6-10 Albuterol/Ipratropium 1 amp 12/22/18 04:35 Duoneb - NEB Q6H PRN SHORTNESS OF BREATH Amlodipine Besylate 10 mg 12/21/18 10:00 12/21/18 09:42 Norvasc - PO 10 mg DAILY JIE Administration Atorvastatin Calcium 40 mg 12/20/18 22:00 12/21/18 21:25 Lipitor - PO 40 mg HS JIE Administration Docusate Sodium 100 mg 12/20/18 14:50 Colace - PO BID PRN CONSTIPATION Enoxaparin Sodium 160 mg 12/20/18 22:00 12/21/18 21:25 Lovenox - SQ 160 mg BID JIE Administration Furosemide 20 mg 12/21/18 10:00 12/21/18 09:42 Lasix - PO 20 mg DAILY JIE Administration Hydralazine HCl 25 mg 12/20/18 22:00 12/21/18 21:25 Apresoline - PO 25 mg TID JIE Administration Vancomycin HCl 1,250 mg/ 250 mls @ 166.667 mls/hr 12/20/18 22:00 12/21/18 21: 30 Dextrose IVPB 166.667 mls/hr Q12H JIE Administration Protocol Ceftazidime 1 gm/ Dextrose 50 mls @ 100 mls/hr 12/21/18 12:00 12/22/18 02:30 IVPB 100 mls/hr Q8H-IV JIE Administration Lisinopril 20 mg 12/20/18 22:00 12/21/18 21:25 Prinivil PO 20 mg BID JIE Administration Methadone HCl 40 mg/ Methadone 60 mg 12/21/18 07:30 12/21/18 08:29 HCl 20 mg PO 60 mg DAILY@0600 JIE Administration Miscellaneous 1 each 12/22/18 22:00 Lidoderm Patch Removal MC 12/22/18 22:01 ONCE@2200 ONE Pramipexole Dihydrochloride 1 mg 12/20/18 22:00 12/21/18 21:30 Mirapex - PO 1 mg HS JIE Administration
[2018-12-22] MEDS ORDERED: METHADONE HCL 40 MG DISPERSABLE TABLET ONE (05:17)
[2018-12-22] MEDS ORDERED: METHADONE HCL 10 MG TABLET ONE (05:17)
[2018-12-22] MEDS: METHADONE 40 MG, METHADONE 20 MG PO SCH (05:21)
[2018-12-22] MEDS: hydrALAZINE HCL 25 MG TABLET (FP) PO SCH ×3 (05:25→21:32)
[2018-12-22 07:47] LABS: HEMATOCRIT 32.3 % (32.4-45.2); HEMOGLOBIN 10.5 GM/dL (10.7-15.3); MCH 30.3 pg (25.7-33.7); MCHC 32.4 g/dl (32.0-36.0); MEAN CELL VOLUME 93.3 fl (80-96); MEAN PLT VOLUME 7.7 fl (7.5-11.1); PLATELET COUNT 235 K/MM3 (134-434); RBC 3.46 M/mm3 (3.60-5.2); RDW 17.6 % (11.6-15.6); WHITE BLOOD COUNT 6.1 K/mm3 (4.0-10.0)
[2018-12-22 08:43] LABS: ALBUMIN 3.2 g/dl (3.4-5.0); BILIRUBIN,TOTAL 0.5 mg/dL (0.2-1); BLOOD UREA NITROGEN 19.3 mg/dL (7-18); CALCIUM 9.1 mg/dL (8.5-10.1); CREATININE 1.5 mg/dL (0.55-1.3); POTASSIUM 4.5 mmol/L (3.5-5.1); TOT PROT 7.2 g/dl (6.4-8.2)
[2018-12-22] MEDS: ENOXAPARIN NA (PORCINE) 80 MG/0.8 ML DISP.SYRIN SQ SCH ×2 (09:37→21:31)
[2018-12-22] MEDS: LISINOPRIL 20 MG TABLET (FP) PO SCH ×2 (09:37→21:32)
[2018-12-22] MEDS: FUROSEMIDE 20 MG TABLET (FP) PO SCH (09:37)
[2018-12-22] MEDS: amLODIPine BESYLATE 10 MG TABLET (FP) PO SCH (09:38)
--- NOTE | 2018-12-22 10:32 | CONSULT ---
- Consultation REQUESTING PROVIDER: CONSULT REQUEST: We have been asked to surgically evaluate this patient for b/l leg wounds PCP:Maddi Goodwin HISTORY OF PRESENT ILLNESS: 58yo F h/o b/l venous stasis ulcers seen in the wound care clinic. Pt states that she presented to the ED with worsening redness and pain in her legs. Pt last went to the wound care clinic on and has been having silver aginate and pressure dressings. PMHx: Venous stasis ulcers, HTN, HLD, CAD Home Medications Medication Instructions Recorded Atorvastatin Ca [Lipitor] 40 mg PO HS 05/30/14 Fluticasone Propionate [Flovent 110 mcg IH PRN 05/30/14 Diskus] Omeprazole Magnesium [Prilosec 20 mg PO DAILY 05/30/14 (OTC)] Hydralazine HCl 25 mg PO TID 10/25/17 Methadone [Dolophine -] 60 mg PO DAILY 10/28/17 Amlodipine Besylate [Norvasc -] 10 mg PO DAILY #30 tablet 04/20/18 Lisinopril [Prinivil] 20 mg PO BID #30 tablet 04/20/18 Nystatin Powder [Nystop Powder -] 15 gm TP TID #2 bottle 06/30/18 Albuterol Sulfate [Proair 90 mcg IH QID PRN 09/11/18 Respiclick] Diclofenac Sodium [Voltaren] 2 gm TP TID PRN #3 tube 09/11/18 Docusate Sodium [Colace -] 100 mg PO TID 09/11/18 Furosemide [Lasix -] 20 mg PO BID 09/11/18 Cholecalciferol (Vitamin D3) 5,000 unit PO DAILY #30 capsule 10/02/18 [Vitamin D3] Pramipexole Dihydrochloride 1 - 2 tab PO HS #60 tablet 12/01/18 [Mirapex -] Enoxaparin Sodium [Lovenox] 160 mg SQ BID 12/15/18 Allergies Allergy/AdvReac Type Severity Reaction Status Date / Time Penicillins Allergy Intermediate Hives Verified 12/20/18 09:52 REVIEW OF SYSTEMS: CONSTITUTIONAL: Absent: fever, chills, diaphoresis, generalized weakness, malaise, loss of appetite, weight change CARDIOVASCULAR: Absent: chest pain, syncope, palpitations, irregular heart rate, lightheadedness , peripheral edema RESPIRATORY: Absent: cough, shortness of breath, dyspnea with exertion, wheezing, stridor, hemoptysis PHYSICAL EXAM: GENERAL: Awake, alert, and fully oriented, in no acute distress. HEAD: Normal with no signs of trauma. EYES: PERRL, sclera anicteric, conjunctiva clear. NECK: Normal ROM LUNGS: Breathing comfortably, No accessory muscle use. HEART: Regular rate and rhythm. LOWER EXTREMITIES: 2+ pulses, warm, well-perfused. No calf tenderness. +2 edema , Multiple stasis ulcers b/l Lt>Rt. NEUROLOGICAL: Normal speech, gait not observed. PSYCH: Cooperative. Good eye contact. Appropriate mood and affect. SKIN: Warm, dry, normal turgor, no rashes or lesions noted. Vital Signs Temperature 98.7 F 12/22/18 09:54 Pulse Rate 93 H 12/22/18 09:54 Respiratory Rate 20 12/22/18 09:54 Blood Pressure 109/74 12/22/18 09:54 O2 Sat by Pulse Oximetry (%) 99 12/21/18 20:32 Lab Results WBC 6.1 K/mm3 (4.0-10.0) 12/22/18 06:30 RBC 3.46 M/mm3 (3.60-5.2) L 12/22/18 06:30 Hgb 10.5 GM/dL (10.7-15.3) L 12/22/18 06:30 Hct 32.3 % (32.4-45.2) L 12/22/18 06:30 MCV 93.3 fl (80-96) 12/22/18 06:30 MCHC 32.4 g/dl (32.0-36.0) 12/22/18 06:30 RDW 17.6 % (11.6-15.6) H 12/22/18 06:30 Plt Count 235 K/MM3 (134-434) 12/22/18 06:30 Sodium 139 mmol/L (136-145) 12/22/18 06:30 Potassium 4.5 mmol/L (3.5-5.1) 12/22/18 06:30 Chloride 106 mmol/L (98-107) 12/22/18 06:30 Carbon Dioxide 24 mmol/L (21-32) 12/22/18 06:30 Anion Gap 9 MMOL/L (8-16) 12/22/18 06:30 BUN 19.3 mg/dL (7-18) H 12/22/18 06:30 Creatinine 1.5 mg/dL (0.55-1.3) H 12/22/18 06:30 Random Glucose 95 mg/dL (74-106) 12/22/18 06:30 Calcium 9.1 mg/dL (8.5-10.1) 12/22/18 06:30 Problem List - Problems (1) Lower extremity ulceration Assessment/Plan: Plan -continue silver aginate with compression dressing b/l legs -follow up with wound care clinic as outpatient Code(s): L97.909 - NON-PRS CHRONIC ULC UNSP PRT OF UNSP LOW LEG W UNSP SEVERITY
--- NOTE | 2018-12-22 12:10 | PN ---
Progress Note, Physician History of Present Illness: stable no new issues - Current Medication List Current Medications: Active Medications Acetaminophen (Tylenol -) 650 mg PO Q6H PRN PRN Reason: PAIN LEVEL 6-10 Last Admin: 12/21/18 23:58 Dose: 650 mg Albuterol/Ipratropium (Duoneb -) 1 amp NEB Q6H PRN PRN Reason: SHORTNESS OF BREATH Amlodipine Besylate (Norvasc -) 10 mg PO DAILY [facility] Last Admin: 12/22/18 09:38 Dose: 10 mg Atorvastatin Calcium (Lipitor -) 40 mg PO HS [facility] Last Admin: 12/21/18 21:25 Dose: 40 mg Docusate Sodium (Colace -) 100 mg PO BID PRN PRN Reason: CONSTIPATION Enoxaparin Sodium (Lovenox -) 160 mg SQ BID [facility] Last Admin: 12/22/18 09:37 Dose: 160 mg Furosemide (Lasix -) 20 mg PO DAILY [facility] Last Admin: 12/22/18 09:37 Dose: 20 mg Hydralazine HCl (Apresoline -) 25 mg PO TID [facility] Last Admin: 12/22/18 05:25 Dose: 25 mg Vancomycin HCl 1,250 mg/ (Dextrose) 250 mls @ 166.667 mls/hr IVPB Q12H [facility]; Protocol Last Admin: 12/21/18 21:30 Dose: 166.667 mls/hr Ceftazidime 1 gm/ Dextrose 50 mls @ 100 mls/hr IVPB Q8H-IV [facility] Last Admin: 12/22/18 09:38 Dose: 100 mls/hr Lisinopril (Prinivil) 20 mg PO BID [facility] Last Admin: 12/22/18 09:37 Dose: 20 mg Methadone HCl 40 mg/ Methadone (HCl 20 mg) 60 mg PO DAILY@0600 [facility] Last Admin: 12/22/18 05:21 Dose: 60 mg Miscellaneous (Lidoderm Patch Removal) 1 each [facility] ONCE@2200 ONE Stop: 12/22/18 22:01 Pramipexole Dihydrochloride (Mirapex -) 1 mg PO [facility] Last Admin: 12/21/18 21:30 Dose: 1 mg - Objective Vital Signs: Vital Signs Temperature 98.7 F 12/22/18 09:54 Pulse Rate 93 H 12/22/18 09:54 Respiratory Rate 20 09/17/19 09:54 Blood Pressure 109/74 12/22/18 09:54 O2 Sat by Pulse Oximetry (%) 99 12/21/18 20:32 Constitutional: Yes: No Distress, Calm, Obese Cardiovascular: Yes: S1, S2 Respiratory: Yes: Regular, CTA Bilaterally Gastrointestinal: Yes: Normal Bowel Sounds, Soft Musculoskeletal: Yes: WNL Extremities: Yes: Other Wound/Incision: Yes: Clean/Dry, Open to air Neurological: Yes: Alert, Oriented Psychiatric: Yes: Alert, Oriented Labs: CBC, BMP 12/22/18 06:30 12/22/18 06:30 Assessment/Plan Problem List - Problems (1) CHF (congestive heart failure) Code(s): I50.9 - HEART FAILURE, UNSPECIFIED Qualifiers: Heart failure type: unspecified Heart failure chronicity: unspecified Qualified Code(s): I50.9 - Heart failure, unspecified (2) COPD (chronic obstructive pulmonary disease) Code(s): J44.9 - CHRONIC OBSTRUCTIVE PULMONARY DISEASE, UNSPECIFIED Qualifiers: COPD type: unspecified COPD Qualified Code(s): J44.9 - Chronic obstructive pulmonary disease, unspecified (3) DVT (deep venous thrombosis) Code(s): I82.409 - ACUTE EMBOLISM AND THOMBOS UNSP DEEP VN UNSP LOWER EXTREMITY Qualifiers: Affected thrombotic vein of extremity: femoral Laterality: left (4) HTN (hypertension) Code(s): I10 - ESSENTIAL (PRIMARY) HYPERTENSION (5) History of pulmonary embolism Code(s): Z86.711 - PERSONAL HISTORY OF PULMONARY EMBOLISM (6) Morbid obesity Code(s): E66.01 - MORBID (SEVERE) OBESITY DUE TO EXCESS CALORIES (7) Osteoarthritis of knees, bilateral Code(s): M17.0 - BILATERAL PRIMARY OSTEOARTHRITIS OF KNEE (8) Presence of IVC filter Code(s): Z95.828 - PRESENCE OF OTHER VASCULAR IMPLANTS AND GRAFTS (9) Sleep apnea Code(s): G47.30 - SLEEP APNEA, UNSPECIFIED Assessment/Plan 58 y.o. female with PMH of COPD, MICHELE (CPAP not consistently used), b/l knee OA, DVT/PE s/p IVC filter, CHF, GERD, and morbid obesity presents with worsening pain and edema/erythema in b/l LEs associated with draining ulcers refractory to outpatient oral antibiotics Infected LE ulcers Cellulitis LE COPD MICHELE OA Hx of DVT/PE s/p IVC CHF Morbid obesity GERD plan continue vanco check trough before 4th dose added ceftazidime wound care rest as per the team
--- NOTE | 2018-12-22 14:22 | PN ---
Progress Note, Physician Chief Complaint: Cellulitis B/L LE wound History of Present Illness: Previous notes and events reviewed awake and alert NAD during night complain of SOB and lower back pain complain to R calf tenderness and RLE swelling - Current Medication List Current Medications: Active Medications Acetaminophen (Tylenol -) 650 mg PO Q6H PRN PRN Reason: PAIN LEVEL 6-10 Last Admin: 12/21/18 23:58 Dose: 650 mg Albuterol/Ipratropium (Duoneb -) 1 amp NEB Q6H PRN PRN Reason: SHORTNESS OF BREATH Amlodipine Besylate (Norvasc -) 10 mg PO DAILY [facility] Last Admin: 12/22/18 09:38 Dose: 10 mg Atorvastatin Calcium (Lipitor -) [address] [facility] Last Admin: 12/21/18 21:25 Dose: 40 mg Docusate Sodium (Colace -) 100 mg PO BID PRN PRN Reason: CONSTIPATION Enoxaparin Sodium (Lovenox -) 160 mg SQ BID [facility] Last Admin: 12/22/18 09:37 Dose: 160 mg Furosemide (Lasix -) 20 mg PO DAILY [facility] Last Admin: 12/22/18 09:37 Dose: 20 mg Hydralazine HCl (Apresoline -) 25 mg PO TID [facility] Last Admin: 12/22/18 05:25 Dose: 25 mg Vancomycin HCl 1,250 mg/ (Dextrose) 250 mls @ 166.667 mls/hr IVPB Q12H [facility]; Protocol Last Admin: 12/21/18 21:30 Dose: 166.667 mls/hr Ceftazidime 1 gm/ Dextrose 50 mls @ 100 mls/hr IVPB Q8H-IV [facility] Last Admin: 12/22/18 09:38 Dose: 100 mls/hr Lisinopril (Prinivil) 20 mg PO BID [facility] Last Admin: 12/22/18 09:37 Dose: 20 mg Methadone HCl 40 mg/ Methadone (HCl 20 mg) 60 mg PO DAILY@0600 [facility] Last Admin: 12/22/18 05:21 Dose: 60 mg Miscellaneous (Lidoderm Patch Removal) 1 each [facility] ONCE@2200 ONE Stop: 12/22/18 22:01 Pramipexole Dihydrochloride (Mirapex -) [address] [facility] Last Admin: 12/21/18 21:30 Dose: 1 mg - Objective Vital Signs: Vital Signs Temperature 98.7 F 12/22/18 09:54 Pulse Rate 93 H 12/22/18 09:54 Respiratory Rate 20 12/22/18 09:54 Blood Pressure 109/74 12/22/18 09:54 O2 Sat by Pulse Oximetry (%) 97 12/22/18 09:00 Constitutional: Yes: No Distress, Calm, Obese Eyes: Yes: Conjunctiva Clear HENT: Yes: Atraumatic Cardiovascular: Yes: Regular Rate and Rhythm Respiratory: Yes: Regular, Wheezes Gastrointestinal: Yes: Normal Bowel Sounds, Soft, Abdomen, Obese Genitourinary: Yes: Incontinence Musculoskeletal: Yes: Muscle Weakness Extremities: Yes: Calf Tenderness (right) Edema: Yes (b/l lower extremity R>L) Wound/Incision: Yes: Dressing Dry and Intact Neurological: Yes: Alert, Oriented Psychiatric: Yes: Alert, Oriented Labs: CBC, BMP 12/22/18 06:30 12/22/18 06:30 Microbiology 12/20/18 13:10 Blood - Peripheral Venous Blood Culture - Preliminary NO GROWTH OBTAINED AFTER 48 HOURS, INCUBATION TO CONTINUE FOR 3 DAYS. 12/20/18 11:00 Blood - Peripheral Venous Blood Culture - Preliminary NO GROWTH OBTAINED AFTER 48 HOURS, INCUBATION TO CONTINUE FOR 3 DAYS. 12/20/18 12:17 Leg - Left Lower Gram Stain - Final 12/20/18 12:17 Leg - Left Lower Wound Culture - Final Pseudomonas Aeruginosa Alpha Hemolytic Streptococcus Staphylococcus Coagulase Neg 12/20/18 12:17 Urine - Urine Clean Catch Urine Culture - Final Normal Urogenital Sandy Problem List - Problems (1) Lower extremity ulceration Assessment/Plan: -ID on board -Vascular consult -Vancomycin, Ceftazidime -wound culture positive -no leukocytosis -afebrile -daily dressing changes Code(s): L97.909 - NON-PRS CHRONIC ULC UNSP PRT OF UNSP LOW LEG W UNSP SEVERITY (2) CHF (congestive heart failure) Assessment/Plan: -1L fluid restriction -daily weights -Furosemide Code(s): I50.9 - HEART FAILURE, UNSPECIFIED Qualifiers: Heart failure type: unspecified Heart failure chronicity: unspecified Qualified Code(s): I50.9 - Heart failure, unspecified (3) COPD (chronic obstructive pulmonary disease) Assessment/Plan: -O2 via NC -keep SpO2 >90% -Bronchodilator -Pulm COnsult Code(s): J44.9 - CHRONIC OBSTRUCTIVE PULMONARY DISEASE, UNSPECIFIED Qualifiers: COPD type: unspecified COPD Qualified Code(s): J44.9 - Chronic obstructive pulmonary disease, unspecified (4) DVT (deep venous thrombosis) Assessment/Plan: -Lovenox -R calf edema--Vascular US RLE Code(s): I82.409 - ACUTE EMBOLISM AND THOMBOS UNSP DEEP VN UNSP LOWER EXTREMITY Qualifiers: Affected thrombotic vein of extremity: femoral Laterality: left (5) HTN (hypertension) Assessment/Plan: -Lisinopril, Hydralazine, Amlodipine -low Na diet Code(s): I10 - ESSENTIAL (PRIMARY) HYPERTENSION (6) Morbid obesity Assessment/Plan: -Dietary consult Code(s): E66.01 - MORBID (SEVERE) OBESITY DUE TO EXCESS CALORIES (7) Methadone maintenance therapy patient Assessment/Plan: -Methadone 60mg daily Code(s): F11.20 - OPIOID DEPENDENCE, UNCOMPLICATED Assessment/Plan see problem list dvt ppx
[2018-12-22] MEDS: VANCOMYCIN 1,250 MG in DEXTROSE 5%-WATER - 250 ML IVPB SCH (16:00)
[2018-12-22] MEDS: PRAMIPEXOLE DIHYDROCHLORIDE 1 MG TABLET PO SCH (21:31)
[2018-12-22] MEDS: ATORVASTATIN CA 40 MG TABLET (FP) PO SCH (21:32)
[2018-12-22] MEDS: ACETAMINOPHEN 325 MG TABLET (FP) PO PRN (21:32)
[2018-12-22] MEDS ORDERED: LIDOCAINE PATCH REMOVAL MC ONE (22:00)
[2018-12-23] MEDS: CEFTAZIDIME PENTAHYDRATE 1 GM in DEXTROSE 5%-WATER - 50 ML IVPB SCH ×3 (01:37→19:28)
[2018-12-23] MEDS ORDERED: METHADONE HCL 40 MG DISPERSABLE TABLET ONE (04:46)
[2018-12-23] MEDS ORDERED: METHADONE HCL 10 MG TABLET ONE (04:46)
[2018-12-23] MEDS: METHADONE 40 MG, METHADONE 20 MG PO SCH (05:20)
[2018-12-23] MEDS: ACETAMINOPHEN 325 MG TABLET (FP) PO PRN ×2 (05:21→22:31)
[2018-12-23] MEDS: hydrALAZINE HCL 25 MG TABLET (FP) PO SCH ×3 (05:22→22:30)
[2018-12-23] MEDS ORDERED: RANITIDINE HCL 150 MG TABLET (FP) PO ONE (07:15)
[2018-12-23 07:57] LABS: HEMATOCRIT 34.3 % (32.4-45.2); HEMOGLOBIN 11.1 GM/dL (10.7-15.3); MCH 30.3 pg (25.7-33.7); MCHC 32.4 g/dl (32.0-36.0); MEAN CELL VOLUME 93.5 fl (80-96); MEAN PLT VOLUME 7.7 fl (7.5-11.1); PLATELET COUNT 278 K/MM3 (134-434); RBC 3.67 M/mm3 (3.60-5.2); RDW 17.8 % (11.6-15.6); WHITE BLOOD COUNT 5.4 K/mm3 (4.0-10.0)
[2018-12-23 08:32] LABS: ALBUMIN 3.4 g/dl (3.4-5.0); BILIRUBIN,TOTAL 0.4 mg/dL (0.2-1); BLOOD UREA NITROGEN 24.2 mg/dL (7-18); CALCIUM 9.3 mg/dL (8.5-10.1); CREATININE 1.8 mg/dL (0.55-1.3); POTASSIUM 4.4 mmol/L (3.5-5.1); TOT PROT 7.8 g/dl (6.4-8.2)
[2018-12-23] MEDS ORDERED: PT OWN MED DRAWER 7, Y5N ONE ×2 (09:43→16:58)
[2018-12-23] MEDS: ENOXAPARIN NA (PORCINE) 80 MG/0.8 ML DISP.SYRIN SQ SCH ×2 (09:46→22:30)
[2018-12-23] MEDS: amLODIPine BESYLATE 10 MG TABLET (FP) PO SCH (09:46)
[2018-12-23] MEDS: FUROSEMIDE 20 MG TABLET (FP) PO SCH (09:46)
[2018-12-23] MEDS: LISINOPRIL 20 MG TABLET (FP) PO SCH ×2 (09:46→22:30)
--- NOTE | 2018-12-23 11:12 | PN ---
Progress Note, Physician History of Present Illness: stable no complaints improving - Current Medication List Current Medications: Active Medications Acetaminophen (Tylenol -) 650 mg PO Q6H PRN PRN Reason: PAIN LEVEL 6-10 Last Admin: 12/23/18 05:21 Dose: 650 mg Albuterol/Ipratropium (Duoneb -) 1 amp NEB Q6H PRN PRN Reason: SHORTNESS OF BREATH Amlodipine Besylate (Norvasc -) 10 mg PO DAILY [facility] Last Admin: 12/23/18 09:46 Dose: 10 mg Atorvastatin Calcium (Lipitor -) 40 mg PO HS [facility] Last Admin: 12/22/18 21:32 Dose: 40 mg Docusate Sodium (Colace -) 100 mg PO BID PRN PRN Reason: CONSTIPATION Enoxaparin Sodium (Lovenox -) 160 mg SQ BID [facility] Last Admin: 12/23/18 09:46 Dose: 160 mg Furosemide (Lasix -) 20 mg PO DAILY [facility] Last Admin: 12/23/18 09:46 Dose: 20 mg Hydralazine HCl (Apresoline -) 25 mg PO TID [facility] Last Admin: 12/23/18 05:22 Dose: 25 mg Ceftazidime 1 gm/ Dextrose 50 mls @ 100 mls/hr IVPB Q8H-IV [facility] Last Admin: 12/23/18 09:46 Dose: 100 mls/hr Lisinopril (Prinivil) 20 mg PO BID [facility] Last Admin: 12/23/18 09:46 Dose: 20 mg Methadone HCl 40 mg/ Methadone (HCl 20 mg) 60 mg PO DAILY@0600 [facility] Last Admin: 12/23/18 05:20 Dose: 60 mg Pramipexole Dihydrochloride (Mirapex -) 1 mg PO [facility] Last Admin: 12/22/18 21:31 Dose: 1 mg - Objective Vital Signs: Vital Signs Temperature 97.7 F 12/23/18 06:24 Pulse Rate 92 H 12/22/18 22:00 Respiratory Rate 18 12/23/18 06:24 Blood Pressure 125/82 12/23/18 06:24 O2 Sat by Pulse Oximetry (%) 99 12/22/18 21:00 Constitutional: Yes: No Distress, Calm, Obese Cardiovascular: Yes: S1, S2 Respiratory: Yes: Regular, CTA Bilaterally Gastrointestinal: Yes: Normal Bowel Sounds, Soft Musculoskeletal: Yes: Other Extremities: Yes: Other Wound/Incision: Yes: Clean/Dry Neurological: Yes: Alert, Oriented Psychiatric: Yes: Alert, Oriented Labs: CBC, BMP 12/23/18 07:00 12/23/18 07:00 Assessment/Plan Problem List - Problems (1) CHF (congestive heart failure) Code(s): I50.9 - HEART FAILURE, UNSPECIFIED Qualifiers: Heart failure type: unspecified Heart failure chronicity: unspecified Qualified Code(s): I50.9 - Heart failure, unspecified (2) COPD (chronic obstructive pulmonary disease) Code(s): J44.9 - CHRONIC OBSTRUCTIVE PULMONARY DISEASE, UNSPECIFIED Qualifiers: COPD type: unspecified COPD Qualified Code(s): J44.9 - Chronic obstructive pulmonary disease, unspecified (3) DVT (deep venous thrombosis) Code(s): I82.409 - ACUTE EMBOLISM AND THOMBOS UNSP DEEP VN UNSP LOWER EXTREMITY Qualifiers: Affected thrombotic vein of extremity: femoral Laterality: left (4) HTN (hypertension) Code(s): I10 - ESSENTIAL (PRIMARY) HYPERTENSION (5) History of pulmonary embolism Code(s): Z86.711 - PERSONAL HISTORY OF PULMONARY EMBOLISM (6) Morbid obesity Code(s): E66.01 - MORBID (SEVERE) OBESITY DUE TO EXCESS CALORIES (7) Osteoarthritis of knees, bilateral Code(s): M17.0 - BILATERAL PRIMARY OSTEOARTHRITIS OF KNEE (8) Presence of IVC filter Code(s): Z95.828 - PRESENCE OF OTHER VASCULAR IMPLANTS AND GRAFTS (9) Sleep apnea Code(s): G47.30 - SLEEP APNEA, UNSPECIFIED Assessment/Plan 58 y.o. female with PMH of COPD, MICHELE (CPAP not consistently used), b/l knee OA, DVT/PE s/p IVC filter, CHF, GERD, and morbid obesity presents with worsening pain and edema/erythema in b/l LEs associated with draining ulcers refractory to outpatient oral antibiotics Infected LE ulcers Cellulitis LE COPD MICHELE OA Hx of DVT/PE s/p IVC CHF Morbid obesity GERD plan all cx results noted vanco stopped continue abx rest as per the team wound care
[2018-12-23 12:46] VITALS: BMI 51.8
--- NOTE | 2018-12-23 14:05 | PN ---
Progress Note, Physician Chief Complaint: Cellulitis B/L LE wound History of Present Illness: Previous notes and events reviewed awake and alert NAD episode of chest pain last night intermittent episode of SOB - Current Medication List Current Medications: Active Medications Acetaminophen (Tylenol -) 650 mg PO Q6H PRN PRN Reason: PAIN LEVEL 6-10 Last Admin: 12/23/18 05:21 Dose: 650 mg Albuterol/Ipratropium (Duoneb -) 1 amp NEB Q6H PRN PRN Reason: SHORTNESS OF BREATH Amlodipine Besylate (Norvasc -) 10 mg PO DAILY [facility] Last Admin: 12/23/18 09:46 Dose: 10 mg Atorvastatin Calcium (Lipitor -) 40 mg PO HS [facility] Last Admin: 12/22/18 21:32 Dose: 40 mg Docusate Sodium (Colace -) 100 mg PO BID PRN PRN Reason: CONSTIPATION Enoxaparin Sodium (Lovenox -) 160 mg SQ BID [facility] Last Admin: 12/23/18 09:46 Dose: 160 mg Furosemide (Lasix -) 20 mg PO DAILY [facility] Last Admin: 12/23/18 09:46 Dose: 20 mg Hydralazine HCl (Apresoline -) 25 mg PO TID [facility] Last Admin: 12/23/18 05:22 Dose: 25 mg Ceftazidime 1 gm/ Dextrose 50 mls @ 100 mls/hr IVPB Q8H-IV [facility] Last Admin: 12/23/18 09:46 Dose: 100 mls/hr Lisinopril (Prinivil) 20 mg PO BID [facility] Last Admin: 12/23/18 09:46 Dose: 20 mg Methadone HCl 40 mg/ Methadone (HCl 20 mg) 60 mg PO DAILY@0600 [facility] Last Admin: 12/23/18 05:20 Dose: 60 mg Pramipexole Dihydrochloride (Mirapex -) 1 mg PO HS [facility] Last Admin: 12/22/18 21:31 Dose: 1 mg - Objective Vital Signs: Vital Signs Temperature 97.7 F 12/23/18 06:24 Pulse Rate 92 H 12/22/18 22:00 Respiratory Rate 18 12/23/18 06:24 Blood Pressure 125/82 12/23/18 06:24 O2 Sat by Pulse Oximetry (%) 99 12/22/18 21:00 Constitutional: Yes: No Distress, Calm Eyes: Yes: Conjunctiva Clear HENT: Yes: Atraumatic Cardiovascular: Yes: Regular Rate and Rhythm Respiratory: Yes: Regular, CTA Bilaterally Gastrointestinal: Yes: Normal Bowel Sounds, Soft Musculoskeletal: Yes: Muscle Weakness Extremities: Yes: WNL Edema: Yes (RLE) Neurological: Yes: Alert, Oriented Psychiatric: Yes: Alert, Oriented Labs: CBC, BMP 12/23/18 07:00 12/23/18 07:00 - ....Imaging Ultrasound: Report Reviewed Problem List - Problems (1) Lower extremity ulceration Assessment/Plan: -ID on board -Vascular consult - Ceftazidime -wound culture positive -no leukocytosis -afebrile -daily dressing changes Code(s): L97.909 - NON-PRS CHRONIC ULC UNSP PRT OF UNSP LOW LEG W UNSP SEVERITY (2) CHF (congestive heart failure) Assessment/Plan: -1L fluid restriction -daily weights -Furosemide Code(s): I50.9 - HEART FAILURE, UNSPECIFIED Qualifiers: Heart failure type: unspecified Heart failure chronicity: unspecified Qualified Code(s): I50.9 - Heart failure, unspecified (3) COPD (chronic obstructive pulmonary disease) Assessment/Plan: -O2 via NC -keep SpO2 >90% -Bronchodilator -pulm on board -Bipap HS -Symbicort Code(s): J44.9 - CHRONIC OBSTRUCTIVE PULMONARY DISEASE, UNSPECIFIED Qualifiers: COPD type: unspecified COPD Qualified Code(s): J44.9 - Chronic obstructive pulmonary disease, unspecified (4) DVT (deep venous thrombosis) Assessment/Plan: -Lovenox -Vascular US RLE shows DVT superficial femoral vein--unknown if new DVT or old DVT given history -R IVC filter -Hematology consult -re-consult Vascular Code(s): I82.409 - ACUTE EMBOLISM AND THOMBOS UNSP DEEP VN UNSP LOWER EXTREMITY Qualifiers: Affected thrombotic vein of extremity: femoral Laterality: left (5) HTN (hypertension) Assessment/Plan: -Lisinopril, Hydralazine, Amlodipine -low Na diet Code(s): I10 - ESSENTIAL (PRIMARY) HYPERTENSION (6) Morbid obesity Assessment/Plan: -Dietary consult Code(s): E66.01 - MORBID (SEVERE) OBESITY DUE TO EXCESS CALORIES (7) Methadone maintenance therapy patient Assessment/Plan: -Methadone 60mg daily Code(s): F11.20 - OPIOID DEPENDENCE, UNCOMPLICATED Assessment/Plan see problem list dvt ppx
--- NOTE | 2018-12-23 15:03 | CON.PULM ---
Consult Consult Specialty:: PULMONARY Referred by:: Dr Goodwin Reason for Consultation:: COPD - History of Present Illness Chief Complaint: leg swelling/pain History of Present Illness: 58yo female with h/o HTN, hyperlipidemia, recurrent DVT/PE s/p R IVC filter on home lovenox, MICHELE, LV diastolic dysfunction who was admitted with worsening leg pain and swelling with drainage. Being treated for cellulitis and ulcer infection. Doppler studies showing a nonocclusive R SFV thrombosis. She reports compliance with her lovenox BID. Did have an episode of chest pain yesterday. Reports some shortness of breath and wheezing. No fevers, chills or sweats. No nausea or vomiting. Maintained at home on flovent, proair and nebulizer treatments. - History Source History Provided By: Patient, Medical Record Limitations to Obtaining History: No Limitations - Past Medical History Cardio/Vascular: Yes: CHF (Chronic Diastolic), HTN, Hyperlipdemia Pulmonary: Yes: Asthma, COPD, Sleep Apnea (Pt states negative recent test, will attempt to retrieve results) Gastrointestinal: Yes: GERD Musculoskeletal: Yes: Osteoarthritis - Alcohol/Substance Use Hx Alcohol Use: No History of Substance Use: reports: Heroin (denies IVDU, has snorted heroin many years ago) - Smoking History Smoking history: Never smoked Have you smoked in the past 12 months: No Aproximately how many cigarettes per day: 2 If you are a former smoker, when did you quit?: 1 month - Social History ADL: Independent History of Recent Travel: No Home Medications - Allergies Allergies/Adverse Reactions: Allergies Allergy/AdvReac Type Severity Reaction Status Date / Time Penicillins Allergy Intermediate Hives Verified 12/20/18 09:52 - Home Medications Home Medications: Ambulatory Orders Atorvastatin Ca [Lipitor] 40 mg PO HS 05/30/14 Fluticasone Propionate [Flovent Diskus] 110 mcg IH PRN 05/30/14 Omeprazole Magnesium [Prilosec (OTC)] 20 mg PO DAILY 05/30/14 Hydralazine HCl 25 mg PO TID 10/25/17 Methadone [Dolophine -] 60 mg PO DAILY 10/28/17 Amlodipine Besylate [Norvasc -] 10 mg PO DAILY #30 tablet 04/20/18 Lisinopril [Prinivil] 20 mg PO BID #30 tablet 04/20/18 Nystatin Powder [Nystop Powder -] 15 gm TP TID #2 bottle 06/30/18 Albuterol Sulfate [Proair Respiclick] 90 mcg IH QID PRN 09/11/18 Diclofenac Sodium [Voltaren] 2 gm TP TID PRN #3 tube 09/11/18 Docusate Sodium [Colace -] 100 mg PO TID 09/11/18 Furosemide [Lasix -] 20 mg PO BID 09/11/18 Cholecalciferol (Vitamin D3) [Vitamin D3] 5,000 unit PO DAILY #30 capsule Pramipexole Dihydrochloride [Mirapex -] 1 - 2 tab PO HS #60 tablet 12/01/18 Enoxaparin Sodium [Lovenox] 160 mg SQ BID 12/15/18 Family Disease History - Family Disease History Family Disease History: Diabetes: Son (living - IDDM), Other: Father (, 33, multiple DVTs), Mother (living - dementia, in NH), Brother (two, one from AIDS - ), Sister (two living - ), Son, Daughter (living - healthy) Review of Systems - Review of Systems Constitutional: denies: Chills, Fever Eyes: denies: Recent Change in Vision HENT: denies: Nasal Congestion, Throat Pain Neck: denies: Stiffness, Tenderness Cardiovascular: reports: Chest Pain, Edema, Shortness of Breath. denies: Palpitations Respiratory: reports: Wheezing. denies: Cough, Hemoptysis Gastrointestinal: denies: Abdominal Pain, Nausea, Vomiting Genitourinary: denies: Dysuria, Hematuria Neurological: denies: Dizziness, Headache Endocrine: denies: Unexplained Weight Loss Physical Exam Vital Sings: Vital Signs Temperature 97.7 F 12/23/18 06:24 Pulse Rate 92 H 12/22/18 22:00 Respiratory Rate 18 12/23/18 06:24 Blood Pressure 125/82 12/23/18 06:24 O2 Sat by Pulse Oximetry (%) 99 12/22/18 21:00 Constitutional: Yes: Calm Eyes: Yes: Conjunctiva Clear, EOM Intact HENT: Yes: Atraumatic, Normocephalic Neck: Yes: Supple, Trachea Midline Cardiovascular: Yes: Regular Rate and Rhythm Respiratory: Yes: Diminished, Wheezes (scattered) ...Clubbing: No Gastrointestinal: Yes: Normal Bowel Sounds, Soft. No: Tenderness Extremities: Yes: Other (wrapped) Labs: CBC, BMP 12/23/18 07:00 12/23/18 07:00 Imaging - Results Chest X-ray: Report Reviewed, Image Reviewed (no infiltrates) Assessment/Plan Cellulitis/Infected Leg Ulcers COPD h/o PE/DVT on anticoagulation Recurrent RLE DVT LV Diastolic Dysfunction Obstructive Sleep Apnea RLS HTN Hyperlipidemia - continue antibiotics per ID - wound care - continue anticoagulation - consider heme eval for recurrent DVT on anticoagulation - inhaled bronchodilators - will order BiPAP at night per her last NPSG - O2 as needed Thank you for this consult Peewee Maya MD
[2018-12-23] MEDS ORDERED: ALBUTEROL SO4 0.083% IH SOL 2.5 MG/3 ML VIAL.NEB. NEB PRN (15:06)
[2018-12-23] MEDS ORDERED: DEXTROSE 5%-LACTATED RINGERS 1,000 ML IV SCH (16:30)
[2018-12-23] MEDS ORDERED: TUBERCULIN PPD 5 TU/0.1ML SYRINGE (IN PATIENT USE ONLY) ID ONE (17:45)
[2018-12-23] MEDS: LIDOCAINE 5% TOPICAL PATCH TP SCH (19:03)
[2018-12-23] MEDS: ALBUTEROL SO4 2.5/IPRATROPIUM 0.5 INH SOL 3 ML VIAL.NEB. NEB SCH (20:48)
[2018-12-23] MEDS: ATORVASTATIN CA 40 MG TABLET (FP) PO SCH (22:30)
[2018-12-23] MEDS: DOCUSATE SODIUM 100 MG CAPSULE (FP) PO PRN (22:31)
[2018-12-23] MEDS: PRAMIPEXOLE DIHYDROCHLORIDE 1 MG TABLET PO SCH (22:31)
[2018-12-23] MEDS: LIDOCAINE PATCH REMOVAL MC SCH (23:03)
[2018-12-23] MEDS: BUDESONIDE/FORMETEROL FUMARATE 160/4.5 mcg INHALER IH SCH (23:04)
[2018-12-24] MEDS: CEFTAZIDIME PENTAHYDRATE 1 GM in DEXTROSE 5%-WATER - 50 ML IVPB SCH ×3 (02:13→17:09)
[2018-12-24] MEDS ORDERED: METHADONE HCL 10 MG TABLET ONE (05:32)
[2018-12-24] MEDS ORDERED: METHADONE HCL 40 MG DISPERSABLE TABLET ONE (05:33)
[2018-12-24] MEDS ORDERED: RANITIDINE HCL 150 MG TABLET (FP) PO ONE (06:00)
[2018-12-24] MEDS: METHADONE 40 MG, METHADONE 20 MG PO SCH (06:11)
[2018-12-24] MEDS: hydrALAZINE HCL 25 MG TABLET (FP) PO SCH ×3 (06:11→22:47)
[2018-12-24] MEDS: ALBUTEROL SO4 2.5/IPRATROPIUM 0.5 INH SOL 3 ML VIAL.NEB. NEB SCH ×3 (07:30→20:45)
[2018-12-24 07:31] LABS: HEMATOCRIT 31.7 % (32.4-45.2); HEMOGLOBIN 10.3 GM/dL (10.7-15.3); MCH 30.2 pg (25.7-33.7); MCHC 32.4 g/dl (32.0-36.0); MEAN CELL VOLUME 93.3 fl (80-96); MEAN PLT VOLUME 7.3 fl (7.5-11.1); PLATELET COUNT 253 K/MM3 (134-434); RDW 17.4 % (11.6-15.6); WHITE BLOOD COUNT 5.7 K/mm3 (4.0-10.0)
[2018-12-24] MEDS ORDERED: PT OWN MED DRAWER 7, Y5N ONE ×2 (09:02→17:04)
[2018-12-24] MEDS: FUROSEMIDE 20 MG TABLET (FP) PO SCH (09:06)
[2018-12-24] MEDS: LISINOPRIL 20 MG TABLET (FP) PO SCH ×2 (09:06→22:46)
[2018-12-24] MEDS: amLODIPine BESYLATE 10 MG TABLET (FP) PO SCH (09:06)
[2018-12-24] MEDS: LIDOCAINE 5% TOPICAL PATCH TP SCH (09:07)
[2018-12-24] MEDS: ENOXAPARIN NA (PORCINE) 80 MG/0.8 ML DISP.SYRIN SQ SCH ×2 (09:07→22:48)
[2018-12-24] MEDS: BUDESONIDE/FORMETEROL FUMARATE 160/4.5 mcg INHALER IH SCH ×2 (09:08→22:49)
[2018-12-24 09:09] LABS: ALBUMIN 3.2 g/dl (3.4-5.0); BILIRUBIN,TOTAL 0.3 mg/dL (0.2-1); CALCIUM 9.2 mg/dL (8.5-10.1); CREATININE 1.7 mg/dL (0.55-1.3); POTASSIUM 4.1 mmol/L (3.5-5.1); TOT PROT 7.1 g/dl (6.4-8.2)
[2018-12-24] MEDS: DOCUSATE SODIUM 100 MG CAPSULE (FP) PO PRN (09:12)
--- NOTE | 2018-12-24 09:52 | PN ---
Progress Note (short form) - Note Progress Note: Breathing feels a little better today. Less SOB and cough. No CP. Used NIPPV overnight. Intake & Output 12/21/18 12/22/18 12/23/18 12/24/18 23:59 23:59 23:59 23:59 Intake Total 550 1170 360 Output Total 300 400 Balance 550 870 360 -400 Weight 351 lb 12.8 oz 351 lb 351 lb 5 oz Last Vital Signs Temp Pulse Resp BP Pulse Ox 98.3 F 92 H 22 H 149/79 99 12/24/18 09:22 12/24/18 09:22 12/24/18 09:22 12/24/18 09:22 12/24/18 01:20 Active Medications Acetaminophen (Tylenol -) 650 mg PO Q6H PRN PRN Reason: PAIN LEVEL 6-10 Last Admin: 12/23/18 22:31 Dose: 650 mg Albuterol Sulfate (Ventolin 0.083% Nebulizer Soln -) 1 amp NEB Q4H PRN PRN Reason: SHORT OF BREATH/WHEEZING Albuterol/Ipratropium (Duoneb -) 1 amp NEB RTID [facility] Last Admin: 12/23/18 20:48 Dose: 1 amp Amlodipine Besylate (Norvasc -) 10 mg PO DAILY [facility] Last Admin: 12/24/18 09:06 Dose: 10 mg Atorvastatin Calcium (Lipitor -) 40 mg PO HS [facility] Last Admin: 12/23/18 22:30 Dose: 40 mg Budesonide/Formoterol Fumarate (Symbicort 160/4.5mcg -) 2 puff IH BID [facility] Last Admin: 12/24/18 09:08 Dose: 2 puff Docusate Sodium (Colace -) 100 mg PO BID PRN PRN Reason: CONSTIPATION Last Admin: 12/24/18 09:12 Dose: 100 mg Enoxaparin Sodium (Lovenox -) 160 mg SQ BID [facility] Last Admin: 12/24/18 09:07 Dose: 160 mg Furosemide (Lasix -) 20 mg PO DAILY [facility] Last Admin: 12/24/18 09:06 Dose: 20 mg Hydralazine HCl (Apresoline -) 25 mg PO TID [facility] Last Admin: 12/24/18 06:11 Dose: 25 mg Ceftazidime 1 gm/ Dextrose 50 mls @ 100 mls/hr IVPB Q8H-IV [facility] Last Admin: 12/24/18 09:07 Dose: 100 mls/hr Lidocaine (Lidoderm Patch -) 1 patch TP DAILY [facility] Last Admin: 12/24/18 09:07 Dose: 1 patch Lisinopril (Prinivil) 20 mg PO BID [facility] Last Admin: 12/24/18 09:06 Dose: 20 mg Methadone HCl 40 mg/ Methadone (HCl 20 mg) 60 mg PO DAILY@0600 [facility] Last Admin: 12/24/18 06:11 Dose: 60 mg Miscellaneous (Lidoderm Patch Removal) 1 each MC DAILY@2200 [facility] Last Admin: 12/23/18 23:03 Dose: 1 each Pramipexole Dihydrochloride (Mirapex -) 1 mg PO HS [facility] Last Admin: 12/23/18 22:31 Dose: 1 mg Constitutional: Yes: NAD Eyes: Yes: Conjunctiva Clear, EOM Intact HENT: Yes: Atraumatic, Normocephalic Neck: Yes: Supple, Trachea Midline Cardiovascular: Yes: Regular Rate and Rhythm Respiratory: Yes: Diminished, Few scattered rhonchi, no wheeze ...Clubbing: No Gastrointestinal: Yes: Normal Bowel Sounds, Soft. No: Tenderness Extremities: Yes: Other (wrapped) Labs: Laboratory Results - last 24 hr 12/24/18 12/24/18 06:45 06:45 WBC 5.7 RBC 3.40 L Hgb 10.3 L Hct 31.7 L MCV 93.3 MCH 30.2 MCHC 32.4 RDW 17.4 H Plt Count 253 MPV 7.3 L Sodium 140 Potassium 4.1 Chloride 107 Carbon Dioxide 25 Anion Gap 8 BUN 27.0 H Creatinine 1.7 H Est GFR (CKD-EPI)AfAm 38.40 Est GFR (CKD-EPI)NonAf 33.13 Random Glucose 79 Calcium 9.2 Total Bilirubin 0.3 AST 53 H ALT 13 Alkaline Phosphatase 105 Total Protein 7.1 Albumin 3.2 L Chest X-ray: Report Reviewed, Image Reviewed (no infiltrates) Assessment/Plan Cellulitis/Infected Leg Ulcers COPD h/o PE/DVT on anticoagulation Recurrent RLE DVT LV Diastolic Dysfunction Obstructive Sleep Apnea RLS HTN Hyperlipidemia - continue antibiotics per ID - wound care - continue anticoagulation - Heme eval for recurrent DVT on anticoagulation - inhaled bronchodilators - Patient reports her family will bring in her own PAP device for use - O2 as needed - Monitor off systemic steroids Dr Barnes
--- NOTE | 2018-12-24 10:24 | PN ---
Progress Note, Physician History of Present Illness: doing good breathing good no complaints - Current Medication List Current Medications: Active Medications Acetaminophen (Tylenol -) 650 mg PO Q6H PRN PRN Reason: PAIN LEVEL 6-10 Last Admin: 12/23/18 22:31 Dose: 650 mg Albuterol Sulfate (Ventolin 0.083% Nebulizer Soln -) 1 amp NEB Q4H PRN PRN Reason: SHORT OF BREATH/WHEEZING Albuterol/Ipratropium (Duoneb -) 1 amp NEB RTID [facility] Last Admin: 12/23/18 20:48 Dose: 1 amp Amlodipine Besylate (Norvasc -) 10 mg PO DAILY [facility] Last Admin: 12/24/18 09:06 Dose: 10 mg Atorvastatin Calcium (Lipitor -) 40 mg PO HS [facility] Last Admin: 12/23/18 22:30 Dose: 40 mg Budesonide/Formoterol Fumarate (Symbicort 160/4.5mcg -) 2 puff IH BID [facility] Last Admin: 12/24/18 09:08 Dose: 2 puff Docusate Sodium (Colace -) 100 mg PO BID PRN PRN Reason: CONSTIPATION Last Admin: 12/24/18 09:12 Dose: 100 mg Enoxaparin Sodium (Lovenox -) 160 mg SQ BID [facility] Last Admin: 12/24/18 09:07 Dose: 160 mg Furosemide (Lasix -) 20 mg PO DAILY [facility] Last Admin: 12/24/18 09:06 Dose: 20 mg Hydralazine HCl (Apresoline -) 25 mg PO TID [facility] Last Admin: 12/24/18 06:11 Dose: 25 mg Ceftazidime 1 gm/ Dextrose 50 mls @ 100 mls/hr IVPB Q8H-IV [facility] Last Admin: 12/24/18 09:07 Dose: 100 mls/hr Lidocaine (Lidoderm Patch -) 1 patch TP DAILY [facility] Last Admin: 12/24/18 09:07 Dose: 1 patch Lisinopril (Prinivil) 20 mg PO BID [facility] Last Admin: 12/24/18 09:06 Dose: 20 mg Methadone HCl 40 mg/ Methadone (HCl 20 mg) 60 mg PO DAILY@0600 [facility] Last Admin: 12/24/18 06:11 Dose: 60 mg Miscellaneous (Lidoderm Patch Removal) 1 each MC DAILY@2200 [facility] Last Admin: 12/23/18 23:03 Dose: 1 each Pramipexole Dihydrochloride (Mirapex -) 1 mg PO HS [facility] Last Admin: 12/23/18 22:31 Dose: 1 mg - Objective Vital Signs: Vital Signs Temperature 98.3 F 12/24/18 09:22 Pulse Rate 92 H 12/24/18 09:22 Respiratory Rate 22 H 12/24/18 09:22 Blood Pressure 149/79 12/24/18 09:22 O2 Sat by Pulse Oximetry (%) 99 12/24/18 01:20 Constitutional: Yes: No Distress, Calm, Obese Neck: Yes: Supple, Trachea Midline Cardiovascular: Yes: Regular Rate and Rhythm Respiratory: Yes: Regular, CTA Bilaterally Gastrointestinal: Yes: Normal Bowel Sounds, Soft Musculoskeletal: Yes: WNL Extremities: Yes: Other Wound/Incision: Yes: Dressing Dry and Intact Neurological: Yes: Alert, Oriented Psychiatric: Yes: Alert, Oriented Labs: CBC, BMP 12/24/18 06:45 12/24/18 06:45 Assessment/Plan Problem List - Problems (1) CHF (congestive heart failure) Code(s): I50.9 - HEART FAILURE, UNSPECIFIED Qualifiers: Heart failure type: unspecified Heart failure chronicity: unspecified Qualified Code(s): I50.9 - Heart failure, unspecified (2) COPD (chronic obstructive pulmonary disease) Code(s): J44.9 - CHRONIC OBSTRUCTIVE PULMONARY DISEASE, UNSPECIFIED Qualifiers: COPD type: unspecified COPD Qualified Code(s): J44.9 - Chronic obstructive pulmonary disease, unspecified (3) DVT (deep venous thrombosis) Code(s): I82.409 - ACUTE EMBOLISM AND THOMBOS UNSP DEEP VN UNSP LOWER EXTREMITY Qualifiers: Affected thrombotic vein of extremity: femoral Laterality: left (4) HTN (hypertension) Code(s): I10 - ESSENTIAL (PRIMARY) HYPERTENSION (5) History of pulmonary embolism Code(s): Z86.711 - PERSONAL HISTORY OF PULMONARY EMBOLISM (6) Morbid obesity Code(s): E66.01 - MORBID (SEVERE) OBESITY DUE TO EXCESS CALORIES (7) Osteoarthritis of knees, bilateral Code(s): M17.0 - BILATERAL PRIMARY OSTEOARTHRITIS OF KNEE (8) Presence of IVC filter Code(s): Z95.828 - PRESENCE OF OTHER VASCULAR IMPLANTS AND GRAFTS (9) Sleep apnea Code(s): G47.30 - SLEEP APNEA, UNSPECIFIED Assessment/Plan 58 y.o. female with PMH of COPD, MICHELE (CPAP not consistently used), b/l knee OA, DVT/PE s/p IVC filter, CHF, GERD, and morbid obesity presents with worsening pain and edema/erythema in b/l LEs associated with draining ulcers refractory to outpatient oral antibiotics Infected LE ulcers Cellulitis LE COPD MICHELE OA Hx of DVT/PE s/p IVC CHF Morbid obesity GERD plan all cx results noted continue abx rest as per the team wound care
--- NOTE | 2018-12-24 11:18 | CONSULT ---
Consultation: Hematology/Oncology Consultation REQUESTING PROVIDER: Dr. 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 Found to have a new right superficial femoral vein DVT since the previous study several months prior. Patient has been on lovenox 160mg BID due to previously failed coumadin. Has had prior IVC filter placement. She Reports that she has taken lovenox without missing doses once in the morning and once in the evening. She states that 3 weeks ago she was exhausted from injecting herself and decided to give herself a break. She states that she did not take her lovenox for 2 days, and then resumed again directly afterwards. 1 week after this happened, she noted that her right leg became swollen, lasted for several hours and then came down again. Was asymptomatic until 2 days ago, when she first reported pain in her right medial thigh and noted "bumps" along her skin. Currently reports feeling better with only mild pain in her right thigh. States that she recently had a [address] to [place] 3 weeks ago, during which she took many breaks to walk. No reported family history of bleeding or clotting disorders. Medical Hx: HTN,CHF, HLD, DVT/PE (s/p IVC filter), MICHELE, GERD, and restless leg syndrome Smoking: current 5 cigarettes per day Alcohol: denies Drugs: denies Family History: father with prostate [place] REVIEW OF SYSTEMS: CONSTITUTIONAL: Absent: fever, chills, diaphoresis, generalized weakness, malaise, loss of appetite, weight change HEENT: Absent: rhinorrhea, nasal congestion, throat pain, throat swelling, difficulty swallowing, mouth swelling, ear pain, eye pain, visual changes CARDIOVASCULAR: Absent: chest pain, syncope, palpitations, irregular heart rate, lightheadedness , peripheral edema RESPIRATORY: Absent: cough, shortness of breath, dyspnea with exertion, orthopnea, wheezing, stridor, hemoptysis GASTROINTESTINAL: Absent: abdominal pain, abdominal distension, nausea, vomiting, diarrhea, constipation, melena, hematochezia GENITOURINARY: Absent: dysuria, frequency, urgency, hesitancy, hematuria, flank pain, genital pain MUSCULOSKELETAL: Absent: myalgia, arthralgia, joint swelling, back pain, neck pain SKIN: Absent: rash, itching, pallor HEMATOLOGIC/IMMUNOLOGIC: Absent: easy bleeding, easy bruising, lymphadenopathy, frequent infections ENDOCRINE: Absent: unexplained weight gain, unexplained weight loss, heat intolerance, cold intolerance NEUROLOGIC: Absent: headache, focal weakness or paresthesias, dizziness, unsteady gait, seizure, mental status changes, bladder or bowel incontinence PSYCHIATRIC: Absent: anxiety, depression, suicidal or homicidal ideation, hallucinations. PHYSICAL EXAMINATION Vital Signs - 24 hr 12/23/18 12/23/18 12/23/18 15:14 17:52 20:36 Temperature 97.2 F L 97.8 F Pulse Rate 89 94 H Respiratory 18 18 Rate Blood Pressure 101/63 146/87 O2 Sat by Pulse 98 Oximetry (%) 12/23/18 12/24/18 12/24/18 22:00 01:20 06:19 Temperature 98.3 F 98.1 F Pulse Rate 91 H 91 H 89 Respiratory 18 18 Rate Blood Pressure 117/66 132/83 O2 Sat by Pulse 99 Oximetry (%) 12/24/18 09:22 Temperature 98.3 F Pulse Rate 92 H Respiratory 22 H Rate Blood Pressure 149/79 O2 Sat by Pulse Oximetry (%) GENERAL: A&Ox3, no acute distress EYES: PERRLA, EOMI ENT: Moist mucus membranes LUNGS: CTA, no wheezes HEART: RRR, no murmurs ABDOMEN: Morbidly obese, soft, nontender, BS present MUSCULOSKELETAL: No CVA Tenderness EXTREMITIES: Difficult to appreciate pulses, large lower extremities wrapped in bandages, mild pain on palpation noted in the R medial thigh NEUROLOGICAL: Cranial nerves II-XII intact. Laboratory Results - last 24 hr 12/24/18 12/24/18 06:45 06:45 WBC 5.7 RBC 3.40 L Hgb 10.3 L Hct 31.7 L MCV 93.3 MCH 30.2 MCHC 32.4 RDW 17.4 H Plt Count 253 MPV 7.3 L Sodium 140 Potassium 4.1 Chloride 107 Carbon Dioxide 25 Anion Gap 8 BUN 27.0 H Creatinine 1.7 H Est GFR (CKD-EPI)AfAm 38.40 Est GFR (CKD-EPI)NonAf 33.13 Random Glucose 79 Calcium 9.2 Total Bilirubin 0.3 AST 53 H ALT 13 Alkaline Phosphatase 105 Total Protein 7.1 Albumin 3.2 L Active Medications Generic Name Dose Route Start Last Admin Trade Name Freq PRN Reason Stop Dose Admin Acetaminophen 650 mg 12/21/18 21:58 12/23/18 22:31 Tylenol - PO 650 mg Q6H PRN Administration PAIN LEVEL 6-10 Albuterol Sulfate 1 amp 12/23/18 15:06 Ventolin 0.083% Nebulizer Soln - NEB Q4H PRN SHORT OF BREATH/WHEEZING Albuterol/Ipratropium 1 amp 12/23/18 20:00 12/23/18 20:48 Duoneb - NEB 1 amp RTID [facility] Administration Amlodipine Besylate 10 mg 12/21/18 10:00 12/24/18 09:06 Norvasc - PO 10 mg DAILY [facility] Administration Atorvastatin Calcium 40 mg 12/20/18 22:00 12/23/18 22:30 Lipitor - PO 40 mg HS [facility] Administration Budesonide/Formoterol Fumarate 2 puff 12/23/18 22:00 12/24/18 09:08 Symbicort 160/4.5mcg - IH 2 puff BID [facility] Administration Docusate Sodium 100 mg 12/20/18 14:50 12/24/18 09:12 Colace - PO 100 mg BID PRN Administration CONSTIPATION Enoxaparin Sodium 160 mg 12/20/18 22:00 12/24/18 09:07 Lovenox - SQ 160 mg BID [facility] Administration Furosemide 20 mg 12/21/18 10:00 12/24/18 09:06 Lasix - PO 20 mg DAILY [facility] Administration Hydralazine HCl 25 mg 12/20/18 22:00 12/24/18 06:11 Apresoline - PO 25 mg TID [facility] Administration Ceftazidime 1 gm/ Dextrose 50 mls @ 100 mls/hr 12/21/18 12:00 12/24/18 09:07 IVPB 100 mls/hr Q8H-IV [facility] Administration Lidocaine 1 patch 12/23/18 17:45 12/24/18 09:07 Lidoderm Patch - TP 1 patch DAILY [facility] Administration Lisinopril 20 mg 12/20/18 22:00 12/24/18 09:06 Prinivil PO 20 mg BID [facility] Administration Methadone HCl 40 mg/ Methadone 60 mg 12/21/18 07:30 12/24/18 06:11 HCl 20 mg PO 60 mg DAILY@0600 [facility] Administration Miscellaneous 1 each 12/23/18 22:00 12/23/18 23:03 Lidoderm Patch Removal MC 1 each DAILY@2200 [facility] Administration Pramipexole Dihydrochloride 1 mg 12/20/18 22:00 12/23/18 22:31 Mirapex - PO 1 mg HS [facility] Administration ASSESSMENT/PLAN: 58 year old female with a 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 Madelaine Allison: We will continue to follow the patient. Thank you for this consultative opportunity. ATTENDING PHYSICIAN STATEMENT I saw and evaluated the patient. I reviewed the resident's note and discussed the case with the resident. I agree with the resident's findings and plan as documented. SUBJECTIVE: OBJECTIVE: ASSESSMENT AND PLAN:
--- NOTE | 2018-12-24 11:54 | PN ---
Progress Note, Physician Chief Complaint: Cellulitis B/L LE wound History of Present Illness: Previous notes and events reviewed awake and alert NAD denies chest pain or SOB sts her breathing is improving using Bipap HS - Current Medication List Current Medications: Active Medications Acetaminophen (Tylenol -) 650 mg PO Q6H PRN PRN Reason: PAIN LEVEL 6-10 Last Admin: 12/23/18 22:31 Dose: 650 mg Albuterol Sulfate (Ventolin 0.083% Nebulizer Soln -) 1 amp NEB Q4H PRN PRN Reason: SHORT OF BREATH/WHEEZING Albuterol/Ipratropium (Duoneb -) 1 amp NEB RTID [facility] Last Admin: 12/24/18 07:30 Dose: 1 amp Amlodipine Besylate (Norvasc -) 10 mg PO DAILY [facility] Last Admin: 12/24/18 09:06 Dose: 10 mg Atorvastatin Calcium (Lipitor -) 40 mg PO HS [facility] Last Admin: 12/23/18 22:30 Dose: 40 mg Budesonide/Formoterol Fumarate (Symbicort 160/4.5mcg -) 2 puff IH BID [facility] Last Admin: 12/24/18 09:08 Dose: 2 puff Docusate Sodium (Colace -) 100 mg PO BID PRN PRN Reason: CONSTIPATION Last Admin: 12/24/18 09:12 Dose: 100 mg Enoxaparin Sodium (Lovenox -) 160 mg SQ BID [facility] Last Admin: 12/24/18 09:07 Dose: 160 mg Furosemide (Lasix -) 20 mg PO DAILY [facility] Last Admin: 12/24/18 09:06 Dose: 20 mg Hydralazine HCl (Apresoline -) 25 mg PO TID [facility] Last Admin: 12/24/18 06:11 Dose: 25 mg Ceftazidime 1 gm/ Dextrose 50 mls @ 100 mls/hr IVPB Q8H-IV [facility] Last Admin: 12/24/18 09:07 Dose: 100 mls/hr Lidocaine (Lidoderm Patch -) 1 patch TP DAILY [facility] Last Admin: 12/24/18 09:07 Dose: 1 patch Lisinopril (Prinivil) 20 mg PO BID [facility] Last Admin: 12/24/18 09:06 Dose: 20 mg Methadone HCl 40 mg/ Methadone (HCl 20 mg) 60 mg PO DAILY@0600 [facility] Last Admin: 12/24/18 06:11 Dose: 60 mg Miscellaneous (Lidoderm Patch Removal) 1 each MC DAILY@2200 [facility] Last Admin: 12/23/18 23:03 Dose: 1 each Pramipexole Dihydrochloride (Mirapex -) 1 mg PO HS [facility] Last Admin: 12/23/18 22:31 Dose: 1 mg - Objective Vital Signs: Vital Signs Temperature 98.3 F 12/24/18 09:22 Pulse Rate 92 H 12/24/18 09:22 Respiratory Rate 22 H 12/24/18 09:22 Blood Pressure 149/79 12/24/18 09:22 O2 Sat by Pulse Oximetry (%) 99 12/24/18 01:20 Constitutional: Yes: No Distress, Calm, Obese Eyes: Yes: Conjunctiva Clear HENT: Yes: Atraumatic Cardiovascular: Yes: Regular Rate and Rhythm Respiratory: Yes: Regular, Diminished Gastrointestinal: Yes: Normal Bowel Sounds, Soft, Abdomen, Obese Musculoskeletal: Yes: Muscle Weakness Extremities: Yes: WNL Edema: Yes (lower extremity) Wound/Incision: Yes: Dressing Dry and Intact Neurological: Yes: Alert, Oriented Psychiatric: Yes: Alert, Oriented Labs: CBC, BMP 12/24/18 06:45 12/24/18 06:45 Microbiology 12/20/18 11:00 Blood - Peripheral Venous Blood Culture - Preliminary NO GROWTH OBTAINED AFTER 96 HOURS, INCUBATION TO CONTINUE FOR 1 DAYS. 12/20/18 13:10 Blood - Peripheral Venous Blood Culture - Preliminary NO GROWTH OBTAINED AFTER 72 HOURS, INCUBATION TO CONTINUE FOR 2 DAYS. 12/20/18 12:17 Leg - Left Lower Gram Stain - Final 12/20/18 12:17 Leg - Left Lower Wound Culture - Final Pseudomonas Aeruginosa Alpha Hemolytic Streptococcus Staphylococcus Coagulase Neg 12/20/18 12:17 Urine - Urine Clean Catch Urine Culture - Final Normal Urogenital Sandy Problem List - Problems (1) Lower extremity ulceration Assessment/Plan: -ID on board -Vascular consult -Ceftazidime -wound culture positive -no leukocytosis -afebrile -daily dressing changes -will d/c home when switched to PO antibiotics Code(s): L97.909 - NON-PRS CHRONIC ULC UNSP PRT OF UNSP LOW LEG W UNSP SEVERITY (2) CHF (congestive heart failure) Assessment/Plan: -1L fluid restriction -daily weights -Furosemide Code(s): I50.9 - HEART FAILURE, UNSPECIFIED Qualifiers: Heart failure type: unspecified Heart failure chronicity: unspecified Qualified Code(s): I50.9 - Heart failure, unspecified (3) COPD (chronic obstructive pulmonary disease) Assessment/Plan: -O2 via NC -keep SpO2 >90% -Bronchodilator -pulm on board -Bipap HS -Symbicort Code(s): J44.9 - CHRONIC OBSTRUCTIVE PULMONARY DISEASE, UNSPECIFIED Qualifiers: COPD type: unspecified COPD Qualified Code(s): J44.9 - Chronic obstructive pulmonary disease, unspecified (4) DVT (deep venous thrombosis) Assessment/Plan: -Lovenox -Vascular US RLE shows DVT superficial femoral vein--unknown if new DVT or old DVT given history -R IVC filter -Hematology consult -re-consult Vascular -Cardiology Code(s): I82.409 - ACUTE EMBOLISM AND THOMBOS UNSP DEEP VN UNSP LOWER EXTREMITY Qualifiers: Affected thrombotic vein of extremity: femoral Laterality: left (5) HTN (hypertension) Assessment/Plan: -Lisinopril, Hydralazine, Amlodipine -low Na diet Code(s): I10 - ESSENTIAL (PRIMARY) HYPERTENSION (6) Morbid obesity Assessment/Plan: -Dietary consult Code(s): E66.01 - MORBID (SEVERE) OBESITY DUE TO EXCESS CALORIES (7) Methadone maintenance therapy patient Assessment/Plan: -Methadone 60mg daily Code(s): F11.20 - OPIOID DEPENDENCE, UNCOMPLICATED Assessment/Plan see problem list dvt ppx
--- NOTE | 2018-12-24 12:08 | CON.CARD ---
Consult Consult Specialty:: Cardiology Referred by:: Efrain Galan NP Reason for Consultation:: Recurrent RLE DVT - History of Present Illness Chief Complaint: Right LE discomfort History of Present Illness: 58yo female with h/o HTN, hyperlipidemia, recurrent DVT/PE s/p R IVC filter on home lovenox, MICHELE, LV diastolic dysfunction, CVA (in 2017 w/ residual right sided weakness), morbid obesity who was admitted with worsening right leg pain and swelling with drainage. Being treated for cellulitis and ulcer infection. Doppler studies showing a nonocclusive R SFV thrombosis. She reports compliance with her lovenox BID, but dose may have been too low. Did have an episode of chest pain yesterday. Reports some shortness of breath and wheezing. No fevers, chills or sweats. No nausea or vomiting. Maintained at home on flovent, proair and nebulizer treatments. Allergies: Penicillins PCP: none reported - History Source History Provided By: Patient Limitations to Obtaining History: No Limitations - Past Medical History Cardio/Vascular: Yes: CHF (Chronic Diastolic), HTN, Hyperlipdemia Pulmonary: Yes: Asthma, COPD, Sleep Apnea (Pt states negative recent test, will attempt to retrieve results) Gastrointestinal: Yes: GERD Musculoskeletal: Yes: Osteoarthritis - Alcohol/Substance Use Hx Alcohol Use: No History of Substance Use: reports: Heroin (denies IVDU, has snorted heroin many years ago) - Smoking History Smoking history: Never smoked Have you smoked in the past 12 months: No Aproximately how many cigarettes per day: 2 If you are a former smoker, when did you quit?: 1 month - Social History ADL: Independent History of Recent Travel: No Home Medications - Allergies Allergies/Adverse Reactions: Allergies Allergy/AdvReac Type Severity Reaction Status Date / Time Penicillins Allergy Intermediate Hives Verified 12/20/18 09:52 - Home Medications Home Medications: Ambulatory Orders Atorvastatin Ca [Lipitor] 40 mg PO HS 05/30/14 Fluticasone Propionate [Flovent Diskus] 110 mcg IH PRN 05/30/14 Omeprazole Magnesium [Prilosec (OTC)] 20 mg PO DAILY 05/30/14 Hydralazine HCl 25 mg PO TID 10/25/17 Methadone [Dolophine -] 60 mg PO DAILY 10/28/17 Amlodipine Besylate [Norvasc -] 10 mg PO DAILY #30 tablet 04/20/18 Lisinopril [Prinivil] 20 mg PO BID #30 tablet 04/20/18 Nystatin Powder [Nystop Powder -] 15 gm TP TID #2 bottle 06/30/18 Albuterol Sulfate [Proair Respiclick] 90 mcg IH QID PRN 09/11/18 Diclofenac Sodium [Voltaren] 2 gm TP TID PRN #3 tube 09/11/18 Docusate Sodium [Colace -] 100 mg PO TID 09/11/18 Furosemide [Lasix -] 20 mg PO BID 09/11/18 Cholecalciferol (Vitamin D3) [Vitamin D3] 5,000 unit PO DAILY #30 capsule Pramipexole Dihydrochloride [Mirapex -] 1 - 2 tab PO HS #60 tablet 12/01/18 Enoxaparin Sodium [Lovenox] 160 mg SQ BID 12/15/18 Family Disease History - Family Disease History Family Disease History: Diabetes: Son (living - IDDM), Other: Father (, 33, multiple DVTs), Mother (living - dementia, in NH), Brother (two, one from AIDS - ), Sister (two living - ), Son, Daughter (living - healthy) Review of Systems - Review of Systems Cardiovascular: reports: Chest Pain, Shortness of Breath Vital Signs: Vital Signs Temperature 98.3 F 12/24/18 09:22 Pulse Rate 92 H 12/24/18 09:22 Respiratory Rate 22 H 12/24/18 09:22 Blood Pressure 149/79 12/24/18 09:22 O2 Sat by Pulse Oximetry (%) 99 12/24/18 01:20 Constitutional: Yes: No Distress, Calm Neck: Yes: Supple Respiratory: Yes: Regular, Diminished Gastrointestinal: Yes: Normal Bowel Sounds, Soft, Abdomen, Obese Cardiovascular: Yes: Regular Rate and Rhythm JVD: No Carotid Bruit: No Heart Sounds: Yes: S1, S2 Edema: LLE: 2+, RLE: 2+ Peripheral Pulses WNL: Yes - Other Data Labs, Other Data: CBC, BMP 12/24/18 06:45 12/24/18 06:45 Imaging - Results Ultrasound: Report Reviewed (Rt SFV DVT) Problem List - Problems (1) Lower extremity ulceration Code(s): L97.909 - NON-PRS CHRONIC ULC UNSP PRT OF UNSP LOW LEG W UNSP SEVERITY Qualifiers: Laterality: unspecified laterality (2) Cerebrovascular accident (CVA) with involvement of right side of body Code(s): I63.9 - CEREBRAL INFARCTION, UNSPECIFIED (3) COPD (chronic obstructive pulmonary disease) Code(s): J44.9 - CHRONIC OBSTRUCTIVE PULMONARY DISEASE, UNSPECIFIED Qualifiers: COPD type: unspecified COPD Qualified Code(s): J44.9 - Chronic obstructive pulmonary disease, unspecified (4) Chronic renal insufficiency, stage III (moderate) Code(s): N18.3 - CHRONIC KIDNEY DISEASE, STAGE 3 (MODERATE) (5) HTN (hypertension) Code(s): I10 - ESSENTIAL (PRIMARY) HYPERTENSION Qualifiers: Hypertension type: essential hypertension Qualified Code(s): I10 - Essential (primary) hypertension (6) Morbid obesity Code(s): E66.01 - MORBID (SEVERE) OBESITY DUE TO EXCESS CALORIES (7) Presence of IVC filter Code(s): Z95.828 - PRESENCE OF OTHER VASCULAR IMPLANTS AND GRAFTS (8) Sleep apnea Code(s): G47.30 - SLEEP APNEA, UNSPECIFIED Qualifiers: Sleep apnea type: obstructive Qualified Code(s): G47.33 - Obstructive sleep apnea (adult) (pediatric) (9) Venous stasis dermatitis of right lower extremity Code(s): I87.2 - VENOUS INSUFFICIENCY (CHRONIC) (PERIPHERAL) Assessment/Plan 1. Cellulitis/Infected Leg Ulcers 2. COPD 3. Recurrent RLE DVT w/o PE after prolonged immobility, suspect Lovenox underdosing 4. History of PE s/p IVC filter 5. Diastolic dysfunction 6. Hypertensive heart disease 7. History of CVA 8. Morbid obesity with OSAS 9. Hyperlipidemia 10. RLS PLAN: 1. Continue antibiotics per ID and wound care, Lisinopril 20 bid, Norvasc 10 qd , Lipitor 40 qhs, Lasix 20 qd, and Hydralazine 25 tid 2. Lovenox 160 bid, consider checking anti-factor XA 4 hours after dosing to confirm adequacy of Lovenox activity given morbid obesity and CKD, therapeutic range usually (0.6-1.0 units/mL) 3. CPAP nightly, BD, O2 as needed 4. Thank you for consultative opportunity
[2018-12-24] MEDS: ACETAMINOPHEN 325 MG TABLET (FP) PO PRN (18:35)
[2018-12-24] MEDS ORDERED: GABAPENTIN 100 MG CAPSULE (FP) PO ONE (20:44)
--- NOTE | 2018-12-24 20:47 | PN ---
Progress Note (short form) - Note Progress Note: Patient seen and examined c/o rLE pain AFVSS Cor: RSR, No murmurs, No gallops Lungs: Clear to P&A Abd: Soft, Normal bowel sounds, No organomegaly Ext:No significant edema Labs/mreds reviewed a/p 58 y/o patient with morbid obesity, recurrent DVT, on lovenoix 160mg bid' Reports noncomplince for 3 days , 2 weeks ago recent worsened mobility due to leg wounds now with RLE proximal DVT ? 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 Wants to consider switching to coumadin. Was in the past on coumadin and felt it cumbersome. But willing to try again Given morbid obesity would prefer very close lovenox bridging to coumadin over DOACs start coumadin will follow
[2018-12-24] MEDS: ATORVASTATIN CA 40 MG TABLET (FP) PO SCH (22:46)
[2018-12-24] MEDS: RANITIDINE HCL 150 MG TABLET (FP) PO SCH (22:46)
[2018-12-24] MEDS: LIDOCAINE PATCH REMOVAL MC SCH (22:47)
[2018-12-24] MEDS: PRAMIPEXOLE DIHYDROCHLORIDE 1 MG TABLET PO SCH (22:50)
[2018-12-25] MEDS: CEFTAZIDIME PENTAHYDRATE 1 GM in DEXTROSE 5%-WATER - 50 ML IVPB SCH ×3 (01:01→17:18)
[2018-12-25] MEDS: ACETAMINOPHEN 325 MG TABLET (FP) PO PRN (03:36)
[2018-12-25] MEDS ORDERED: METHADONE HCL 40 MG DISPERSABLE TABLET ONE (05:47)
[2018-12-25] MEDS ORDERED: METHADONE HCL 10 MG TABLET ONE (05:47)
[2018-12-25] MEDS: METHADONE 40 MG, METHADONE 20 MG PO SCH (05:54)
[2018-12-25] MEDS: hydrALAZINE HCL 25 MG TABLET (FP) PO SCH ×2 (05:56→13:18)
[2018-12-25] MEDS: ALBUTEROL SO4 2.5/IPRATROPIUM 0.5 INH SOL 3 ML VIAL.NEB. NEB SCH ×2 (07:20→14:06)
[2018-12-25] MEDS: ENOXAPARIN NA (PORCINE) 80 MG/0.8 ML DISP.SYRIN SQ SCH (10:15)
[2018-12-25] MEDS: LISINOPRIL 20 MG TABLET (FP) PO SCH (10:15)
[2018-12-25] MEDS: amLODIPine BESYLATE 10 MG TABLET (FP) PO SCH (10:15)
[2018-12-25] MEDS: RANITIDINE HCL 150 MG TABLET (FP) PO SCH (10:15)
[2018-12-25] MEDS: FUROSEMIDE 20 MG TABLET (FP) PO SCH (10:16)
[2018-12-25] MEDS: LIDOCAINE 5% TOPICAL PATCH TP SCH (10:16)
[2018-12-25] MEDS: BUDESONIDE/FORMETEROL FUMARATE 160/4.5 mcg INHALER IH SCH (10:17)
--- NOTE | 2018-12-25 11:06 | PN ---
Progress Note, Physician History of Present Illness: patient stable no complaints - Current Medication List Current Medications: Active Medications Acetaminophen (Tylenol -) 650 mg PO Q6H PRN PRN Reason: PAIN LEVEL 6-10 Last Admin: 12/25/18 03:36 Dose: 650 mg Albuterol Sulfate (Ventolin 0.083% Nebulizer Soln -) 1 amp NEB Q4H PRN PRN Reason: SHORT OF BREATH/WHEEZING Albuterol/Ipratropium (Duoneb -) 1 amp NEB RTID [facility] Last Admin: 12/25/18 07:20 Dose: 1 amp Amlodipine Besylate (Norvasc -) 10 mg PO DAILY [facility] Last Admin: 12/25/18 10:15 Dose: 10 mg Atorvastatin Calcium (Lipitor -) 40 mg PO HS [facility] Last Admin: 12/24/18 22:46 Dose: 40 mg Budesonide/Formoterol Fumarate (Symbicort 160/4.5mcg -) 2 puff IH BID [facility] Last Admin: 12/25/18 10:17 Dose: 2 puff Docusate Sodium (Colace -) 100 mg PO BID PRN PRN Reason: CONSTIPATION Last Admin: 12/24/18 09:12 Dose: 100 mg Enoxaparin Sodium (Lovenox -) 160 mg SQ BID [facility] Last Admin: 12/25/18 10:15 Dose: 160 mg Furosemide (Lasix -) 20 mg PO DAILY [facility] Last Admin: 12/25/18 10:16 Dose: 20 mg Hydralazine HCl (Apresoline -) 25 mg PO TID [facility] Last Admin: 12/25/18 05:56 Dose: 25 mg Ceftazidime 1 gm/ Dextrose 50 mls @ 100 mls/hr IVPB Q8H-IV [facility] Last Admin: 12/25/18 10:16 Dose: 100 mls/hr Lidocaine (Lidoderm Patch -) 1 patch TP DAILY [facility] Last Admin: 12/25/18 10:16 Dose: 1 patch Lisinopril (Prinivil) 20 mg PO BID [facility] Last Admin: 12/25/18 10:15 Dose: 20 mg Methadone HCl 40 mg/ Methadone (HCl 20 mg) 60 mg PO DAILY@0600 [facility] Last Admin: 12/25/18 05:54 Dose: 60 mg Miscellaneous (Lidoderm Patch Removal) 1 each MC DAILY@2200 [facility] Last Admin: 12/24/18 22:47 Dose: 1 each Pramipexole Dihydrochloride (Mirapex -) 1 mg PO HS [facility] Last Admin: 12/24/18 22:50 Dose: 1 mg Ranitidine HCl (Zantac -) 150 mg PO BID [facility] Last Admin: 12/25/18 10:15 Dose: 150 mg Warfarin Sodium (Coumadin -) 10 mg PO DAILY@1800 [facility] - Objective Vital Signs: Vital Signs Temperature 8.0 F L 12/25/18 06:05 Pulse Rate 87 12/25/18 07:50 Respiratory Rate 20 12/25/18 06:05 Blood Pressure 183/83 H 12/25/18 06:05 O2 Sat by Pulse Oximetry (%) 95 12/25/18 07:50 Constitutional: Yes: No Distress, Calm, Obese Cardiovascular: Yes: S1, S2 Respiratory: Yes: Regular, CTA Bilaterally Gastrointestinal: Yes: Normal Bowel Sounds, Soft Musculoskeletal: Yes: Other Extremities: Yes: Other Wound/Incision: Yes: Dressing Dry and Intact Neurological: Yes: Alert, Oriented Psychiatric: Yes: Alert, Oriented Labs: CBC, BMP 12/24/18 06:45 12/24/18 06:45 Assessment/Plan Problem List - Problems (1) CHF (congestive heart failure) Code(s): I50.9 - HEART FAILURE, UNSPECIFIED Qualifiers: Heart failure type: unspecified Heart failure chronicity: unspecified Qualified Code(s): I50.9 - Heart failure, unspecified (2) COPD (chronic obstructive pulmonary disease) Code(s): J44.9 - CHRONIC OBSTRUCTIVE PULMONARY DISEASE, UNSPECIFIED Qualifiers: COPD type: unspecified COPD Qualified Code(s): J44.9 - Chronic obstructive pulmonary disease, unspecified (3) DVT (deep venous thrombosis) Code(s): I82.409 - ACUTE EMBOLISM AND THOMBOS UNSP DEEP VN UNSP LOWER EXTREMITY Qualifiers: Affected thrombotic vein of extremity: femoral Laterality: left (4) HTN (hypertension) Code(s): I10 - ESSENTIAL (PRIMARY) HYPERTENSION (5) History of pulmonary embolism Code(s): Z86.711 - PERSONAL HISTORY OF PULMONARY EMBOLISM (6) Morbid obesity Code(s): E66.01 - MORBID (SEVERE) OBESITY DUE TO EXCESS CALORIES (7) Osteoarthritis of knees, bilateral Code(s): M17.0 - BILATERAL PRIMARY OSTEOARTHRITIS OF KNEE (8) Presence of IVC filter Code(s): Z95.828 - PRESENCE OF OTHER VASCULAR IMPLANTS AND GRAFTS (9) Sleep apnea Code(s): G47.30 - SLEEP APNEA, UNSPECIFIED Assessment/Plan 58 y.o. female with PMH of COPD, MICHELE (CPAP not consistently used), b/l knee OA, DVT/PE s/p IVC filter, CHF, GERD, and morbid obesity presents with worsening pain and edema/erythema in b/l LEs associated with draining ulcers refractory to outpatient oral antibiotics Infected LE ulcers Cellulitis LE COPD MICHELE OA Hx of DVT/PE s/p IVC CHF Morbid obesity GERD plan all cx results noted continue abx rest as per the team wound care patient can be switched to levaquin will interact with coumadin will nee monitoring of the levels of coumadin bridging being planned from lovenox to coumadin
--- NOTE | 2018-12-25 13:06 | PN ---
Progress Note, Physician History of Present Illness: Reports noncompliance for 3 days, 2 weeks ago, now agrees to retrying coumadin per INR, antiXA levels sent. - Current Medication List Current Medications: Active Medications Acetaminophen (Tylenol -) 650 mg PO Q6H PRN PRN Reason: PAIN LEVEL 6-10 Last Admin: 12/25/18 03:36 Dose: 650 mg Albuterol Sulfate (Ventolin 0.083% Nebulizer Soln -) 1 amp NEB Q4H PRN PRN Reason: SHORT OF BREATH/WHEEZING Albuterol/Ipratropium (Duoneb -) 1 amp NEB RTID [facility] Last Admin: 12/25/18 07:20 Dose: 1 amp Amlodipine Besylate (Norvasc -) 10 mg PO DAILY [facility] Last Admin: 12/25/18 10:15 Dose: 10 mg Atorvastatin Calcium (Lipitor -) 40 mg PO HS [facility] Last Admin: 12/24/18 22:46 Dose: 40 mg Budesonide/Formoterol Fumarate (Symbicort 160/4.5mcg -) 2 puff IH BID [facility] Last Admin: 12/25/18 10:17 Dose: 2 puff Docusate Sodium (Colace -) 100 mg PO BID PRN PRN Reason: CONSTIPATION Last Admin: 12/24/18 09:12 Dose: 100 mg Enoxaparin Sodium (Lovenox -) 160 mg SQ BID [facility] Last Admin: 12/25/18 10:15 Dose: 160 mg Furosemide (Lasix -) 20 mg PO DAILY [facility] Last Admin: 12/25/18 10:16 Dose: 20 mg Hydralazine HCl (Apresoline -) 25 mg PO TID [facility] Last Admin: 12/25/18 05:56 Dose: 25 mg Ceftazidime 1 gm/ Dextrose 50 mls @ 100 mls/hr IVPB Q8H-IV [facility] Last Admin: 12/25/18 10:16 Dose: 100 mls/hr Lidocaine (Lidoderm Patch -) 1 patch TP DAILY [facility] Last Admin: 12/25/18 10:16 Dose: 1 patch Lisinopril (Prinivil) 20 mg PO BID [facility] Last Admin: 12/25/18 10:15 Dose: 20 mg Methadone HCl 40 mg/ Methadone (HCl 20 mg) 60 mg PO DAILY@0600 [facility] Last Admin: 12/25/18 05:54 Dose: 60 mg Miscellaneous (Lidoderm Patch Removal) 1 each MC DAILY@2200 [facility] Last Admin: 12/24/18 22:47 Dose: 1 each Pramipexole Dihydrochloride (Mirapex -) 1 mg PO HS [facility] Last Admin: 12/24/18 22:50 Dose: 1 mg Ranitidine HCl (Zantac -) 150 mg PO BID [facility] Last Admin: 12/25/18 10:15 Dose: 150 mg Warfarin Sodium (Coumadin -) 10 mg PO DAILY@1800 [facility] - Objective Vital Signs: Vital Signs Temperature 8.0 F L 12/25/18 06:05 Pulse Rate 87 12/25/18 07:50 Respiratory Rate 20 12/25/18 06:05 Blood Pressure 183/83 H 12/25/18 06:05 O2 Sat by Pulse Oximetry (%) 95 12/25/18 07:50 Constitutional: Yes: No Distress, Calm Neck: Yes: Supple Cardiovascular: Yes: Regular Rate and Rhythm Respiratory: Yes: Regular, CTA Bilaterally Gastrointestinal: Yes: Normal Bowel Sounds, Soft, Abdomen, Obese Edema: Yes Labs: CBC, BMP 12/24/18 06:45 12/24/18 06:45 Problem List - Problems (1) Lower extremity ulceration Code(s): L97.909 - NON-PRS CHRONIC ULC UNSP PRT OF UNSP LOW LEG W UNSP SEVERITY Qualifiers: Laterality: unspecified laterality (2) Cerebrovascular accident (CVA) with involvement of right side of body Code(s): I63.9 - CEREBRAL INFARCTION, UNSPECIFIED (3) COPD (chronic obstructive pulmonary disease) Code(s): J44.9 - CHRONIC OBSTRUCTIVE PULMONARY DISEASE, UNSPECIFIED Qualifiers: COPD type: unspecified COPD Qualified Code(s): J44.9 - Chronic obstructive pulmonary disease, unspecified (4) Chronic renal insufficiency, stage III (moderate) Code(s): N18.3 - CHRONIC KIDNEY DISEASE, STAGE 3 (MODERATE) (5) HTN (hypertension) Code(s): I10 - ESSENTIAL (PRIMARY) HYPERTENSION Qualifiers: Hypertension type: essential hypertension Qualified Code(s): I10 - Essential (primary) hypertension (6) Morbid obesity Code(s): E66.01 - MORBID (SEVERE) OBESITY DUE TO EXCESS CALORIES (7) Presence of IVC filter Code(s): Z95.828 - PRESENCE OF OTHER VASCULAR IMPLANTS AND GRAFTS (8) Sleep apnea Code(s): G47.30 - SLEEP APNEA, UNSPECIFIED Qualifiers: Sleep apnea type: obstructive Qualified Code(s): G47.33 - Obstructive sleep apnea (adult) (pediatric) (9) Venous stasis dermatitis of right lower extremity Code(s): I87.2 - VENOUS INSUFFICIENCY (CHRONIC) (PERIPHERAL) Assessment/Plan 1. Cellulitis/Infected Leg Ulcers 2. COPD 3. Recurrent RLE DVT w/o PE after prolonged immobility, suspect Lovenox underdosing vs noncompliance 4. History of PE s/p IVC filter 5. Diastolic dysfunction 6. Hypertensive heart disease 7. History of CVA 8. Morbid obesity with OSAS 9. Hyperlipidemia 10. RLS PLAN: 1. Continue antibiotics per ID and wound care, Lisinopril 20 bid, Norvasc 10 qd , Lipitor 40 qhs, Lasix 20 qd, and Hydralazine 25 tid 2. Lovenox 160 bid, f/u anti-factor XA level to confirm adequacy of Lovenox activity given morbid obesity and CKD, therapeutic range usually (0.6-1.0 units/ mL), agrees to resume coumadin per INR, hypercoagulable w/u as outpatient 3. CPAP nightly, BD, O2 as needed
[2018-12-25 15:16] VITALS: BP 117/69; PULSE 99; TEMP 98.5
--- NOTE | 2018-12-25 15:41 | PN ---
Progress Note, Physician - Current Medication List Current Medications: Active Medications Acetaminophen (Tylenol -) 650 mg PO Q6H PRN PRN Reason: PAIN LEVEL 6-10 Last Admin: 12/25/18 03:36 Dose: 650 mg Albuterol Sulfate (Ventolin 0.083% Nebulizer Soln -) 1 amp NEB Q4H PRN PRN Reason: SHORT OF BREATH/WHEEZING Albuterol/Ipratropium (Duoneb -) 1 amp NEB RTID [facility] Last Admin: 12/25/18 14:06 Dose: 1 amp Amlodipine Besylate (Norvasc -) 10 mg PO DAILY [facility] Last Admin: 12/25/18 10:15 Dose: 10 mg Atorvastatin Calcium (Lipitor -) 40 mg PO HS [facility] Last Admin: 12/24/18 22:46 Dose: 40 mg Budesonide/Formoterol Fumarate (Symbicort 160/4.5mcg -) 2 puff IH BID [facility] Last Admin: 12/25/18 10:17 Dose: 2 puff Docusate Sodium (Colace -) 100 mg PO BID PRN PRN Reason: CONSTIPATION Last Admin: 12/24/18 09:12 Dose: 100 mg Enoxaparin Sodium (Lovenox -) 160 mg SQ BID [facility] Last Admin: 12/25/18 10:15 Dose: 160 mg Furosemide (Lasix -) 20 mg PO DAILY [facility] Last Admin: 12/25/18 10:16 Dose: 20 mg Hydralazine HCl (Apresoline -) 25 mg PO TID [facility] Last Admin: 12/25/18 13:18 Dose: 25 mg Ceftazidime 1 gm/ Dextrose 50 mls @ 100 mls/hr IVPB Q8H-IV [facility] Last Admin: 12/25/18 10:16 Dose: 100 mls/hr Lidocaine (Lidoderm Patch -) 1 patch TP DAILY [facility] Last Admin: 12/25/18 10:16 Dose: 1 patch Lisinopril (Prinivil) 20 mg PO BID [facility] Last Admin: 12/25/18 10:15 Dose: 20 mg Methadone HCl 40 mg/ Methadone (HCl 20 mg) 60 mg PO DAILY@0600 [facility] Last Admin: 12/25/18 05:54 Dose: 60 mg Miscellaneous (Lidoderm Patch Removal) 1 each MC DAILY@2200 [facility] Last Admin: 12/24/18 22:47 Dose: 1 each Pramipexole Dihydrochloride (Mirapex -) 1 mg PO HS [facility] Last Admin: 12/24/18 22:50 Dose: 1 mg Ranitidine HCl (Zantac -) 150 mg PO BID [facility] Last Admin: 12/25/18 10:15 Dose: 150 mg Warfarin Sodium (Coumadin -) 10 mg PO DAILY@1800 [facility] - Objective Vital Signs: Vital Signs Temperature 98.5 F 12/25/18 15:11 Pulse Rate 99 H 12/25/18 15:11 Respiratory Rate 18 12/25/18 15:11 Blood Pressure 117/69 12/25/18 15:11 O2 Sat by Pulse Oximetry (%) 95 12/25/18 07:50 Labs: CBC, BMP 12/24/18 06:45 12/24/18 06:45 Problem List - Problems (1) Lower extremity ulceration Code(s): L97.909 - NON-PRS CHRONIC ULC UNSP PRT OF UNSP LOW LEG W UNSP SEVERITY Qualifiers: Laterality: unspecified laterality (2) CHF (congestive heart failure) Code(s): I50.9 - HEART FAILURE, UNSPECIFIED Qualifiers: Heart failure type: unspecified Heart failure chronicity: unspecified Qualified Code(s): I50.9 - Heart failure, unspecified (3) COPD (chronic obstructive pulmonary disease) Code(s): J44.9 - CHRONIC OBSTRUCTIVE PULMONARY DISEASE, UNSPECIFIED Qualifiers: COPD type: unspecified COPD Qualified Code(s): J44.9 - Chronic obstructive pulmonary disease, unspecified (4) DVT (deep venous thrombosis) Code(s): I82.409 - ACUTE EMBOLISM AND THOMBOS UNSP DEEP VN UNSP LOWER EXTREMITY Qualifiers: Affected thrombotic vein of extremity: femoral Laterality: left (5) HTN (hypertension) Code(s): I10 - ESSENTIAL (PRIMARY) HYPERTENSION Qualifiers: Hypertension type: essential hypertension Qualified Code(s): I10 - Essential (primary) hypertension (6) Morbid obesity Code(s): E66.01 - MORBID (SEVERE) OBESITY DUE TO EXCESS CALORIES (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
--- NOTE | 2018-12-25 16:22 | DS ---
Physical Examination Vital Signs: Vital Signs Temperature 98.5 F 12/25/18 15:11 Pulse Rate 99 H 12/25/18 15:11 Respiratory Rate 18 12/25/18 15:11 Blood Pressure 117/69 12/25/18 15:11 O2 Sat by Pulse Oximetry (%) 95 12/25/18 07:50 Constitutional: Yes: No Distress, Calm Eyes: Yes: Conjunctiva Clear HENT: Yes: Atraumatic Cardiovascular: Yes: Regular Rate and Rhythm Respiratory: Yes: Regular, CTA Bilaterally Gastrointestinal: Yes: Normal Bowel Sounds, Soft, Abdomen, Obese Musculoskeletal: Yes: Muscle Weakness Extremities: Yes: WNL Edema: Yes (b/l lower extremity edema) Neurological: Yes: Alert, Oriented Psychiatric: Yes: Alert, Oriented Labs: CBC, BMP 12/24/18 06:45 12/24/18 06:45 Discharge Summary Reason For Visit: CELLULITIS Current Active Problems Lower extremity ulceration (Acute) Hospital Course: Patient is a58 y/o female with past medical history of HTN, CHF, HLD, DVT/PE (R IVC filter), MICHELE, OA, GERD, and restless leg syndrome. Patient presented to Er with complaints of bilateral lower extremity ulcer for 3 weeks with pain and foul smelling green drainage. Wound cultures positive and treated with IV antibiotics. While inpatient complain of RLE calf tenderness. Doppler done and positive for dvt. Patient on lovenox at home but has been non compliant. Patient switched to coumadin and oral antibiotics for discharge. Laboratory Tests 12/20/18 12/20/18 12/20/18 11:00 11:00 12:17 WBC Cancelled Corrected WBC (auto) Cancelled RBC Cancelled Hgb Cancelled Hct Cancelled MCV Cancelled MCH Cancelled MCHC Cancelled RDW Cancelled Plt Count Cancelled MPV Cancelled Absolute Neuts (auto) Cancelled Neutrophils % Cancelled Lymphocytes % Cancelled Monocytes % Cancelled Eosinophils % Cancelled Basophils % Cancelled Nucleated RBC % Cancelled Platelet Estimate Cancelled Platelet Comment Cancelled Sodium 135 L Potassium 6.5 H* Chloride 106 Carbon Dioxide 23 Anion Gap 6 L BUN 14.6 Creatinine 1.3 Est GFR (CKD-EPI)AfAm 53.11 Est GFR (CKD-EPI)NonAf 45.82 Random Glucose 107 H Calcium 9.4 Total Bilirubin 0.4 AST 41 H ALT 15 Alkaline Phosphatase 138 H Total Protein 8.1 Albumin 3.3 L Urine Color Yellow Urine Appearance Clear Urine pH 5.5 Ur Specific [place] 1.028 Urine Protein 3+ H Urine Glucose (UA) Negative Urine Ketones Negative Urine Blood 1+ H Urine Nitrite Negative Urine Bilirubin Negative Urine Urobilinogen 1.0 Ur Leukocyte Esterase Negative Urine WBC (Auto) 4 Urine RBC (Auto) 4 Urine Casts (Auto) 6 U Epithel Cells (Auto) 8.3 Urine Bacteria (Auto) 276.7 Vancomycin Pre-Dose 12/20/18 12/20/18 12/21/18 13:10 13:10 06:24 WBC 5.9 5.7 Corrected WBC (auto) RBC 3.65 3.39 L Hgb 11.0 10.2 L Hct 33.6 31.1 L MCV 92.2 91.8 MCH 30.2 30.2 MCHC 32.8 32.8 RDW 16.9 H 17.4 H Plt Count 249 235 MPV 7.2 L 7.3 L Absolute Neuts (auto) 4.2 Neutrophils % 72.5 Lymphocytes % 16.7 Monocytes % 8.4 Eosinophils % 1.5 Basophils % 0.9 Nucleated RBC % 0 Platelet Estimate Platelet Comment Sodium 140 Potassium 4.1 Chloride 104 Carbon Dioxide 30 Anion Gap 5 L BUN 14.8 Creatinine 1.2 Est GFR (CKD-EPI)AfAm 58.51 Est GFR (CKD-EPI)NonAf 50.48 Random Glucose 96 Calcium 9.6 Total Bilirubin 0.3 AST 15 ALT 14 Alkaline Phosphatase 140 H Total Protein 8.0 Albumin 3.6 Urine Color Urine Appearance Urine pH Ur Specific [place] Urine Protein Urine Glucose (UA) Urine Ketones Urine Blood Urine Nitrite Urine Bilirubin Urine Urobilinogen Ur Leukocyte Esterase Urine WBC (Auto) Urine RBC (Auto) Urine Casts (Auto) U Epithel Cells (Auto) Urine Bacteria (Auto) Vancomycin Pre-Dose 12/21/18 12/22/18 12/22/18 06:24 06:30 06:30 WBC 6.1 Corrected WBC (auto) RBC 3.46 L Hgb 10.5 L Hct 32.3 L MCV 93.3 MCH 30.3 MCHC 32.4 RDW 17.6 H Plt Count 235 MPV 7.7 Absolute Neuts (auto) Neutrophils % Lymphocytes % Monocytes % Eosinophils % Basophils % Nucleated RBC % Platelet Estimate Platelet Comment Sodium 139 139 Potassium 4.3 4.5 Chloride 104 106 Carbon Dioxide 29 24 Anion Gap 6 L 9 BUN 15.5 19.3 H Creatinine 1.2 1.5 H Est GFR (CKD-EPI)AfAm 58.51 44.67 Est GFR (CKD-EPI)NonAf 50.48 38.54 Random Glucose 91 95 Calcium 8.8 9.1 Total Bilirubin 0.5 AST 22 ALT 12 L Alkaline Phosphatase 124 H Total Protein 7.2 Albumin 3.2 L Urine Color Urine Appearance Urine pH Ur Specific [place] Urine Protein Urine Glucose (UA) Urine Ketones Urine Blood Urine Nitrite Urine Bilirubin Urine Urobilinogen Ur Leukocyte Esterase Urine WBC (Auto) Urine RBC (Auto) Urine Casts (Auto) U Epithel Cells (Auto) Urine Bacteria (Auto) Vancomycin Pre-Dose 12/22/18 12/23/18 12/23/18 13:00 07:00 07:00 WBC 5.4 Corrected WBC (auto) RBC 3.67 Hgb 11.1 Hct 34.3 MCV 93.5 MCH 30.3 MCHC 32.4 RDW 17.8 H Plt Count 278 MPV 7.7 Absolute Neuts (auto) Neutrophils % Lymphocytes % Monocytes % Eosinophils % Basophils % Nucleated RBC % Platelet Estimate Platelet Comment Sodium 137 Potassium 4.4 Chloride 104 Carbon Dioxide 24 Anion Gap 8 BUN 24.2 H Creatinine 1.8 H Est GFR (CKD-EPI)AfAm 35.84 Est GFR (CKD-EPI)NonAf 30.92 Random Glucose 102 Calcium 9.3 Total Bilirubin 0.4 AST 42 H ALT 12 L Alkaline Phosphatase 129 H Total Protein 7.8 Albumin 3.4 Urine Color Urine Appearance Urine pH Ur Specific [place] Urine Protein Urine Glucose (UA) Urine Ketones Urine Blood Urine Nitrite Urine Bilirubin Urine Urobilinogen Ur Leukocyte Esterase Urine WBC (Auto) Urine RBC (Auto) Urine Casts (Auto) U Epithel Cells (Auto) Urine Bacteria (Auto) Vancomycin Pre-Dose 23.6 12/24/18 12/24/18 06:45 06:45 WBC 5.7 Corrected WBC (auto) RBC 3.40 L Hgb 10.3 L Hct 31.7 L MCV 93.3 MCH 30.2 MCHC 32.4 RDW 17.4 H Plt Count 253 MPV 7.3 L Absolute Neuts (auto) Neutrophils % Lymphocytes % Monocytes % Eosinophils % Basophils % Nucleated RBC % Platelet Estimate Platelet Comment Sodium 140 Potassium 4.1 Chloride 107 Carbon Dioxide 25 Anion Gap 8 BUN 27.0 H Creatinine 1.7 H Est GFR (CKD-EPI)AfAm 38.40 Est GFR (CKD-EPI)NonAf 33.13 Random Glucose 79 Calcium 9.2 Total Bilirubin 0.3 AST 53 H ALT 13 Alkaline Phosphatase 105 Total Protein 7.1 Albumin 3.2 L Urine Color Urine Appearance Urine pH Ur Specific [place] Urine Protein Urine Glucose (UA) Urine Ketones Urine Blood Urine Nitrite Urine Bilirubin Urine Urobilinogen Ur Leukocyte Esterase Urine WBC (Auto) Urine RBC (Auto) Urine Casts (Auto) U Epithel Cells (Auto) Urine Bacteria (Auto) Vancomycin Pre-Dose Active Medications Generic Name Dose Route Start Last Admin Trade Name Freq PRN Reason Stop Dose Admin Acetaminophen 650 mg 12/21/18 21:58 12/25/18 03:36 Tylenol - PO 650 mg Q6H PRN Administration PAIN LEVEL 6-10 Albuterol Sulfate 1 amp 12/23/18 15:06 Ventolin 0.083% Nebulizer Soln - NEB Q4H PRN SHORT OF BREATH/WHEEZING Albuterol/Ipratropium 1 amp 12/23/18 20:00 12/25/18 14:06 Duoneb - NEB 1 amp RTID JIE Administration Amlodipine Besylate 10 mg 12/21/18 10:00 12/25/18 10:15 Norvasc - PO 10 mg DAILY JIE Administration Atorvastatin Calcium 40 mg 12/20/18 22:00 12/24/18 22:46 Lipitor - PO 40 mg HS JIE Administration Budesonide/Formoterol Fumarate 2 puff 12/23/18 22:00 12/25/18 10:17 Symbicort 160/4.5mcg - IH 2 puff BID JIE Administration Docusate Sodium 100 mg 12/20/18 14:50 12/24/18 09:12 Colace - PO 100 mg BID PRN Administration CONSTIPATION Enoxaparin Sodium 160 mg 12/20/18 22:00 12/25/18 10:15 Lovenox - SQ 160 mg BID JIE Administration Furosemide 20 mg 12/21/18 10:00 12/25/18 10:16 Lasix - PO 20 mg DAILY JIE Administration Hydralazine HCl 25 mg 12/20/18 22:00 12/25/18 13:18 Apresoline - PO 25 mg TID JIE Administration Ceftazidime 1 gm/ Dextrose 50 mls @ 100 mls/hr 12/21/18 12:00 12/25/18 10:16 IVPB 100 mls/hr Q8H-IV JIE Administration Lidocaine 1 patch 12/23/18 17:45 12/25/18 10:16 Lidoderm Patch - TP 1 patch DAILY JIE Administration Lisinopril 20 mg 12/20/18 22:00 12/25/18 10:15 Prinivil PO 20 mg BID JIE Administration Methadone HCl 40 mg/ Methadone 60 mg 12/21/18 07:30 12/25/18 05:54 HCl 20 mg PO 60 mg DAILY@0600 [facility] Administration Miscellaneous 1 each 12/23/18 22:00 12/24/18 22:47 Lidoderm Patch Removal MC 1 each DAILY@2200 [facility] Administration Pramipexole Dihydrochloride 1 mg 12/20/18 22:00 12/24/18 22:50 Mirapex - PO 1 mg HS JIE Administration Ranitidine HCl 150 mg 12/24/18 22:00 12/25/18 10:15 Zantac - PO 150 mg BID JIE Administration Warfarin Sodium 10 mg 12/25/18 18:00 Coumadin - PO DAILY@1800 [facility] Microbiology 12/20/18 13:10 Blood - Peripheral Venous Blood Culture - Final NO GROWTH AFTER 5 DAYS INCUBATION 12/20/18 11:00 Blood - Peripheral Venous Blood Culture - Final NO GROWTH AFTER 5 DAYS INCUBATION 12/20/18 12:17 Leg - Left Lower Gram Stain - Final 12/20/18 12:17 Leg - Left Lower Wound Culture - Final Pseudomonas Aeruginosa Alpha Hemolytic Streptococcus Staphylococcus Coagulase Neg 12/20/18 12:17 Urine - Urine Clean Catch Urine Culture - Final Normal Urogenital Sandy Condition: Stable - Instructions Diet, Activity, Other Instructions: follow up with Dr Goodwin on Friday for INR check [facility] Gabriel for COPD follow up with [facility] continue antibiotics as scheduled continue with medication regimen as prescribed [facility] for wound dressing and change return to ER if develop fever, respiratory distress, chest pain Referrals: Maddi Goodwin MD [Staff Physician] - Pedro Gabriel MD [Staff Physician] - Madelaine Hill MD [Staff Physician] - Disposition: VNS/HOME HEALTH CARE - Home Medications Comprehensive Discharge Medication List: Ambulatory Orders Atorvastatin Ca [Lipitor] 40 mg PO HS 05/30/14 Fluticasone Propionate [Flovent Diskus] 110 mcg IH PRN 05/30/14 Omeprazole Magnesium [Prilosec (OTC)] 20 mg PO DAILY 05/30/14 Hydralazine HCl 25 mg PO TID 10/25/17 Methadone [Dolophine -] 60 mg PO DAILY 10/28/17 Amlodipine Besylate [Norvasc -] 10 mg PO DAILY #30 tablet 04/20/18 Lisinopril [Prinivil] 20 mg PO BID #30 tablet 04/20/18 Nystatin Powder [Nystop Powder -] 15 gm TP TID #2 bottle 06/30/18 Albuterol Sulfate [Proair Respiclick] 90 mcg IH QID PRN 09/11/18 Diclofenac Sodium [Voltaren] 2 gm TP TID PRN #3 tube 09/11/18 Docusate Sodium [Colace -] 100 mg PO TID 09/11/18 Cholecalciferol (Vitamin D3) [Vitamin D3] 5,000 unit PO DAILY #30 capsule Pramipexole Dihydrochloride [Mirapex -] 1 - 2 tab PO HS #60 tablet 12/01/18 Albuterol 0.083% Nebulizer Micheline [Ventolin 0.083% Nebulizer Soln -] 1 amp NEB Q4H PRN #45 amp 12/25/18 Amlodipine Besylate [Norvasc -] 10 mg PO DAILY #30 tablet 12/25/18 Atorvastatin Ca [Lipitor] 40 mg PO HS tablet 12/25/18 Budesonide/Formeterol Fumarate [SYMBICORT 160/4.5mcg -] 2 puff IH BID #1 inhaler 12/25/18 Docusate Sodium [Colace -] 100 mg PO BID PRN #60 capsule 12/25/18 Furosemide [Lasix -] 20 mg PO DAILY #30 tablet 12/25/18 Lidocaine 5% Patch [Lidoderm -] 1 patch TP DAILY #30 patch 12/25/18 Lisinopril [Prinivil] 20 mg PO BID #60 tablet 12/25/18 Methadone [Dolophine -] 60 mg PO DAILY@0600 tablet MDD 1 12/25/18 Methadone [Dolophine -] 60 mg PO DAILY@0600 tablet MDD 1 12/25/18 Pramipexole Dihydrochloride [Mirapex -] 1 mg PO HS #30 tablet 12/25/18 Ranitidine [Zantac -] 150 mg PO BID #60 tablet 12/25/18 Warfarin Na [Coumadin -] 10 mg PO DAILY@1800 #30 tablet 12/25/18
[2018-12-25] MEDS ORDERED: PT OWN MED DRAWER 7, Y5N ONE (16:45)
[2018-12-25] MEDS ORDERED: WARFARIN NA 10 MG TABLET (FP) PO SCH (18:00)
[2018-12-25 19:14] LABS: INR 1.27 (0.83-1.09)
== END 2018-12-25 19:46 | disposition home health service (06) | DRG 593 ==
LOC: JER 09:45 → JERBED 12:13 → J7W 17:01
PROVIDERS: ADMIT Internal Medicine; ATTEND Family Medicine
PROC: 5A09557 Assistance with Respiratory Ventilation, Greater than 96 Consecutive Hours, Continuous Positive Airway Pressure (ICD-10-PCS; principal; 2018-12-20)
DX: L97.929 Non-pressure chronic ulcer of unspecified part of left lower leg with unspecified severity (principal); L03.115 Cellulitis of right lower limb; I50.32 Chronic diastolic (congestive) heart failure; Z68.43 Body mass index [BMI] 50.0-59.9, adult; F11.20 Opioid dependence, uncomplicated; I82.4Z1 Acute embolism and thrombosis of unspecified deep veins of right distal lower extremity; L03.116 Cellulitis of left lower limb; I69.351 Hemiplegia and hemiparesis following cerebral infarction affecting right dominant side; L97.919 Non-pressure chronic ulcer of unspecified part of right lower leg with unspecified severity; E66.01 Morbid (severe) obesity due to excess calories; J44.9 Chronic obstructive pulmonary disease, unspecified; F17.210 Nicotine dependence, cigarettes, uncomplicated; Z86.711 Personal history of pulmonary embolism; N18.3 Chronic kidney disease, stage 3 (moderate); G47.33 Obstructive sleep apnea (adult) (pediatric); K21.9 Gastro-esophageal reflux disease without esophagitis; E78.5 Hyperlipidemia, unspecified; G25.81 Restless legs syndrome; I11.0 Hypertensive heart disease with heart failure
CPT/HCPCS: 36415; 71045-TC-FY; 80048; 80053; 81003; 85025; 85027; 85520; 85610; 87040; 87070; 87077; 87086; 87186; 87205; 93005; 93010; 93971-TC; 94640; 94660; 99284-25; G0480

== ENCOUNTER 2019-01-26 00:04 | Inpatient (IN) | payer OTHER ==
--- NOTE | 2019-01-26 00:33 | PDOC ---
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 Pt reported when she was attempting to get out of bed today she felt a bit dizzy, and accidentally slid to the ground onto her coccyx. Pt denied head injury, LOC, vomiting, prodromal chest pain, prodromal shortness of breath, prodromal palpitations. Pt reported pain to her left anterior ramon, right knee, lumbar spine - reported pain is worst in her R knee. Pt reported she has been following in the wound care clinic and has a wound care nurse tend to her at home twice a week for her chronic lower extremity ulcers, which have been improving per her report. Past History - Past Medical History Allergies/Adverse Reactions: Allergies Allergy/AdvReac Type Severity Reaction Status Date / Time Penicillins Allergy Intermediate Hives Verified 01/26/19 00:27 Home Medications: Ambulatory Orders Atorvastatin Ca [Lipitor] 40 mg PO HS 05/30/14 Omeprazole Magnesium [Prilosec (OTC)] 20 mg PO DAILY 05/30/14 Hydralazine HCl 25 mg PO TID 10/25/17 Methadone [Dolophine -] 50 mg PO DAILY 10/28/17 Amlodipine Besylate [Norvasc -] 10 mg PO DAILY #30 tablet 04/20/18 Albuterol Sulfate [Proair Respiclick] 90 mcg IH QID PRN 09/11/18 Docusate Sodium [Colace -] 100 mg PO TID 09/11/18 Cholecalciferol (Vitamin D3) [Vitamin D3] 5,000 unit PO DAILY #30 capsule Albuterol 0.083% Nebulizer Micheline [Ventolin 0.083% Nebulizer Soln -] 1 amp NEB Q4H PRN #45 amp 12/25/18 Furosemide [Lasix -] 20 mg PO DAILY #30 tablet 12/25/18 Ranitidine [Zantac -] 150 mg PO BID #60 tablet 12/25/18 Dabigatran Etexilate Mesylate [Pradaxa -] 75 mg PO BID 01/26/19 Pramipexole Dihydrochloride [Mirapex -] 2 tab PO HS 01/26/19 Warfarin Sodium [Coumadin] 10 mg PO DAILY 01/26/19 Anemia: No Asthma: No Cancer: No Cardiac Disorders: No CVA: Yes (residual right sided weakness ) COPD: Yes (also with history of PE, on inhalers) CHF: Yes Dementia: No Diabetes: No Dialysis: No GI Disorders: Yes (GERD, Constipation) Disorders: No HTN: Yes Hypercholesterolemia: Yes Liver Disease: No Seizures: No Thyroid Disease: No Lung CA: No - Surgical History Abdominal Surgery: No Appendectomy: No Cardiac Surgery: No Cholecystectomy: No Lung Surgery: Yes (IVC filter in Rt groin for PE 2012) Neurologic Surgery: No Orthopedic Surgery: No - Psycho Social/Smoking Cessation Hx Smoking Status: Yes Smoking History: Never smoked Have you smoked in the past 12 months: No Number of Cigarettes Smoked Daily: 2 If you are a former smoker, when did you quit?: 1 month Information on smoking cessation initiated: No 'Breaking Loose' booklet given: 02/25/13 Hx Alcohol Use: No Drug/Substance Use Hx: No Substance Use Type: None, Heroin Hx Substance Use Treatment: Yes (Methadone) *Physical Exam - Vital Signs Last Vital Signs Temp Pulse Resp BP Pulse Ox 98.1 F 84 17 122/68 97 01/26/19 00:04 01/26/19 00:04 01/26/19 00:04 01/26/19 00:04 01/26/19 00:04 - Physical Exam Comments: ROS General: denied fever, chills, generalized weakness. HEENT: denied sore throat, rhinorrhea, ear pain. Cardiovascular: denied chest pain, palpitations, syncope, diaphoresis. Respiratory: denied shortness of breath, cough, sputum production, hemoptysis. Gastrointestinal: denied abdominal pain, nausea, vomiting, diarrhea, constipation, blood in stool. Genitourinary: denied dysuria, increased urinary frequency, hematuria, urinary incontinence, flank pain. Back: denied back pain. Musculoskeletal: admitted to right knee pain, left ramon pain, lumbar spine pain. Neurological: admitted to dizziness. denied headache, numbness, tingling, weakness. Integumentary: denied rash, laceration, abrasion. Hematologic/Lymphatic: denied bruising or bleeding. PE Constitutional: morbidly obese. HEENT: head is normocephalic, atraumatic. EOMI. PERRLA. Neck: supple. Full ROM. Cardiovascular: regular heart rhythm. no murmurs. Respiratory: clear to auscultation bilaterally. no crackles, rhonchi or wheezing. no stridor. Gastrointestinal: soft, nontender. normal bowel sounds. no rebound, guarding, masses. Extremities: peripheral pulses intact. Right knee: tenderness to palpation of knee. no swelling. Left lower extremity: no deformity. no swelling. no tenderness to palpation of tib/fib area. no tenderness to palpation of knee. Wound dressing in place. Back: no midline c-spine, t-spine or L-spine tenderness to palpation. no step offs. Neurological: CN 2-12 grossly intact. moves all four extremities. Psych: awake, alert, oriented x3. follows commands. answers questions appropriately. ED Treatment Course - LABORATORY CBC & Chemistry Diagram: 01/27/19 07:50 01/27/19 07:50 Medical Decision Making - Medical Decision Making 59 year old female with above PMH presented to ED for back pain, lower extremity pain s/p fall from bed today onto her coccyx. Initial Vital Signs Temp Pulse Resp BP Pulse Ox 98.1 F 84 17 122/68 97 01/26/19 00:04 01/26/19 00:04 01/26/19 00:04 01/26/19 00:04 01/26/19 00:04 Afebrile. No tachycardia. No tachypnea. No hypotension. No hypoxia on room air. Imaging ordered: XR right knee, XR left tib/fib, XR pelvis, XR lumbosacral Medications ordered: Tylenol 975 mg PO once 01/26/19 02:[address] Ceja, EM attending. No acute fracture/dislocation to extremity films. Pelvis XR shows bilateral sacro-iliac widening not see on prior films. --Pending official reports Imaging ordered: CT pelvis without contrast. Pt signed out to night resident. Discharge - Discharge Information Problems reviewed: Yes Clinical Impression/Diagnosis: Ambulatory dysfunction, JOSH (acute kidney injury), Chronic renal insufficiency , stage III (moderate), Dizziness, nonspecific Condition: Fair - Follow up/Referral - Patient Discharge Instructions - Post Discharge Activity
[2019-01-26] MEDS ORDERED: ACETAMINOPHEN 325 MG TABLET (FP) PO ONE (00:44)
[2019-01-26] MEDS ORDERED: ACETAMINOPHEN 325 MG TABLET (FP) ONE (02:04)
--- NOTE | 2019-01-26 02:25 | PDOC ---
Documentation entered by Aura Tran SCRIBE, acting as scribe for Taylor Ceja MD. Taylor Ceja MD: This documentation has been prepared by the Marc feliz Brenda, SCRIBE, under my direction and personally reviewed by me in its entirety. I confirm that the documentation accurately reflects all work, treatment, procedures, and medical decision making performed by me. Attending Attestation - Resident Resident Name: BaileyArabella - ED Attending Attestation I have performed the following: I have examined & evaluated the patient, The case was reviewed & discussed with the resident, I agree w/resident's findings & plan, Exceptions are as noted - HPI HPI: 01/26/19 00:52 The patient is a 59 year old female, with a significant PMH of obesity, CHF, COPD, DVT, PE s/p IVC filter, GERD, HTN, HLD, and CVA (2017 with residual right sided weakness), who presents to the emergency department after a fall. As per patient, she was trying to get out of bed, at which time she felt woozy and slid off the bed, on her butt, and falling on the ground. Patient endorses pain in the sacral area. The patient denies LOC, trauma. Denies chest pain, shortness of breath, headache and dizziness. Denies fever, chills, nausea, vomiting, diarrhea and constipation. Denies ay urinary symptoms. Allergies: penicillin Surgical History: IVC filter in Rt groin for PE 2012 PCP: Sara Velasco - Physicial Exam PE: 01/26/19 01:45 Morbidly obese 59 yo female had c/o back pain after slipping off her bed into the floor head ncat neck no midline cervical vertebral tenderness lungs no wheezing abdomen protuberant Torso tenderness in sacral area Extremities chronic venous stasis changes ,edema and rt knee soreness,left ramon soreness neuro axox3 psych labile 01/26/19 02:03 - Medical Decision Making 01/26/19 02:24 plan: ekg,labs,ct scan pelvis case s/o Dr Ventura
--- NOTE | 2019-01-26 02:50 | PDOC ---
*Physical Exam - Vital Signs Last Vital Signs Temp Pulse Resp BP Pulse Ox 98.1 F 84 17 122/68 97 01/26/19 00:04 01/26/19 00:04 01/26/19 00:04 01/26/19 00:04 01/26/19 00:04 ED Treatment Course - LABORATORY CBC & Chemistry Diagram: 01/26/19 03:52 01/26/19 03:52 - Medications Given in the ED: ED Medications Discontinued Medications Generic Name Dose Route Start Last Admin Trade Name Karlie PRN Reason Stop Dose Admin Acetaminophen 975 mg 01/26/19 00:44 01/26/19 01:45 Tylenol - PO 01/26/19 00:45 975 mg ONCE ONE Administration Medical Decision Making - Medical Decision Making 01/26/19 02:48 -Signout received from Dr. Avalos and Dr. Ceja -F/u CT Pelvis -CBC, CMP, CP -EKG -Saline Lock -Likely admission for dizziness / ambulatory dysfunction 01/26/19 04:09 -IV line inserted under ultrasound guidance 01/26/19 04:12 -CT pelvis without any fracture or other acute pathology -CBC, CMP, CP pending 01/26/19 04:36 -No leukocytosis, anemia with Hgb 9.7, elevated RDW -Normal electrolytes, normal LFTs -Negative troponin -Cr 2.5, JOSH (acute on chronic), ordered for 1L IVF 01/26/19 05:00 EKG: NSR, normal axis, normal intervals, no ischemic morphologies Admit Med/Surg for Dizziness, JOSH, Ambulatory Dysfunction 01/26/19 05:24 Sign-out given to overnight FOOD SERVICE ORDER CLERK, admitted Med/Surg under Buddy Discharge - Discharge Information Problems reviewed: Yes Clinical Impression/Diagnosis: Ambulatory dysfunction, JOSH (acute kidney injury), Chronic renal insufficiency , stage III (moderate), Dizziness, nonspecific Condition: Fair - Follow up/Referral - Patient Discharge Instructions - Post Discharge Activity
[2019-01-26 04:09] LABS: BASO % 0.5 % (0-2.0); EOS % 2.1 % (0-4.5); HEMATOCRIT 30.3 % (32.4-45.2); HEMOGLOBIN 9.7 GM/dL (10.7-15.3); LYMPH % 12.4 % (8-40); MCH 30.1 pg (25.7-33.7); MEAN CELL VOLUME 93.9 fl (80-96); MEAN PLT VOLUME 8.1 fl (7.5-11.1); MONO % 10.7 % (3.8-10.2); NEUT % 74.3 % (42.8-82.8); PLATELET COUNT 230 K/MM3 (134-434); RBC 3.22 M/mm3 (3.60-5.2); RDW 17.8 % (11.6-15.6); WHITE BLOOD COUNT 6.2 K/mm3 (4.0-10.0)
[2019-01-26 04:31] LABS: ALBUMIN 3.5 g/dl (3.4-5.0); ALK PHOS 111 U/L (45-117); ANION GAP 8 MMOL/L (8-16); BILIRUBIN,TOTAL 0.5 mg/dL (0.2-1); BLOOD UREA NITROGEN 30.8 mg/dL (7-18); CALCIUM 8.8 mg/dL (8.5-10.1); CHLORIDE 111 mmol/L (98-107); CO2 24 mmol/L (21-32); CREATININE 2.5 mg/dL (0.55-1.3); GLUCOSE,RANDOM 86 mg/dL (74-106); POTASSIUM 4.4 mmol/L (3.5-5.1); SGOT/AST 23 U/L (15-37); SGPT/ALT 19 U/L (13-61); SODIUM 143 mmol/L (136-145); TOT PROT 7.2 g/dl (6.4-8.2)
[2019-01-26] MEDS ORDERED: SODIUM CHLORIDE 0.9% 500 ML INFUS.BAG IV ONE (04:55)
--- NOTE | 2019-01-26 05:59 | HP ---
CHIEF COMPLAINT: s/p fall PCP: Krista HISTORY OF PRESENT ILLNESS: This is a 59yF with extensive past medical history including HTN, CHF, DVT/PE on pradaxa, MICHELE, OA, restless leg syndrome who presented to the ED after a fall last night. She states that she became lightheaded when she got up to go to the bathroom and slid to the floor, landing on her buttocks. She reports pain to her lower back, right knee and left lower leg. She states that she is unable to walk due to the pain. She denies further lightheadedness since arrival to the ED but has not attempted to get up. ER course was notable for: (1) troponin negative (2) ECG without acute changes (3) CT pelvis with no acute fracture Recent Travel: pt denies PAST MEDICAL HISTORY: HTN, CHF, HLD, PVD/venous stasis, DVT/PE (s/p IVC filter), MICHELE, OA, GERD, and restless leg syndrome PAST SURGICAL HISTORY: IVC filter Social History: Smokin cigarettes per day Alcohol: pt denies Drugs: pt denies (she states her methadone is for chronic pain and denies previous h/o opioid abuse; methadone clinic reports opioid abuse in past) Allergies Penicillins Allergy (Intermediate, Verified 01/26/19 00:27) Hives HOME MEDICATIONS: 3 Medication Instructions Recorded Atorvastatin Ca [Lipitor] 40 mg PO HS 05/30/14 Omeprazole Magnesium [Prilosec 20 mg PO DAILY 05/30/14 (OTC)] Hydralazine HCl 25 mg PO TID 10/25/17 Methadone [Dolophine -] 60 mg PO DAILY 10/28/17 Amlodipine Besylate [Norvasc -] 10 mg PO DAILY #30 tablet 04/20/18 Albuterol Sulfate [Proair 90 mcg IH QID PRN 09/11/18 Respiclick] Docusate Sodium [Colace -] 100 mg PO TID 09/11/18 Cholecalciferol (Vitamin D3) 5,000 unit PO DAILY #30 capsule 10/02/18 [Vitamin D3] Albuterol 0.083% Nebulizer Micheline 1 amp NEB Q4H PRN #45 amp 12/25/18 [Ventolin 0.083% Nebulizer Soln -] Furosemide [Lasix -] 20 mg PO DAILY #30 tablet 12/25/18 Ranitidine [Zantac -] 150 mg PO BID #60 tablet 12/25/18 Dabigatran Etexilate Mesylate 75 mg PO BID 01/26/19 [Pradaxa -] Pramipexole Dihydrochloride 2 tab PO HS 01/26/19 [Mirapex -] REVIEW OF SYSTEMS CONSTITUTIONAL: Absent: fever, chills, diaphoresis, generalized weakness, malaise, loss of appetite, weight change HEENT: Absent: rhinorrhea, nasal congestion, throat pain, throat swelling, difficulty swallowing, mouth swelling, ear pain, eye pain, visual changes CARDIOVASCULAR: Present: lightheadedness, peripheral edema Absent: chest pain, syncope, palpitations, irregular heart rate RESPIRATORY: Absent: cough, shortness of breath, dyspnea with exertion, orthopnea, wheezing, stridor, hemoptysis GASTROINTESTINAL: Absent: abdominal pain, abdominal distension, nausea, vomiting, diarrhea, constipation, melena, hematochezia GENITOURINARY: Absent: dysuria, frequency, urgency, hesitancy, hematuria, flank pain, genital pain MUSCULOSKELETAL: Absent: myalgia, arthralgia, joint swelling, back pain, neck pain SKIN: Absent: rash, itching, pallor HEMATOLOGIC/IMMUNOLOGIC: Absent: easy bleeding, easy bruising, lymphadenopathy, frequent infections ENDOCRINE: Absent: unexplained weight gain, unexplained weight loss, heat intolerance, cold intolerance NEUROLOGIC: Present: unsteady gait Absent: headache, focal weakness or paresthesias, dizziness, seizure, mental status changes, bladder or bowel incontinence PSYCHIATRIC: Absent: anxiety, depression, suicidal or homicidal ideation, hallucinations. PHYSICAL EXAMINATION Vital Signs - 24 hr 3 01/26/19 01/26/19 00:04 04:34 Temperature 98.1 F Pulse Rate 84 Pulse Rate [ 81 Apical] Respiratory 17 20 Rate Blood Pressure 122/68 Blood Pressure 120/78 [Right Arm] O2 Sat by Pulse 97 95 Oximetry (%) GENERAL: Awake, alert, and fully oriented, in no acute distress. HEAD: Normal with no signs of trauma. EYES: Pupils equal, round and reactive to light, extraocular movements intact, sclera anicteric, conjunctiva clear. No lid lag. EARS, NOSE, THROAT: Ears normal, nares patent, oropharynx clear without exudates. Moist mucous membranes. NECK: Normal range of motion, supple without lymphadenopathy, JVD, or masses. LUNGS: Breath sounds equal, clear to auscultation bilaterally. diminished bilat bases. No wheezes, and no crackles. No accessory muscle use. HEART: Regular rate and rhythm, normal S1 and S2 without murmur, rub or gallop. ABDOMEN: Obesity. Soft, nontender, not distended, normoactive bowel sounds, no guarding, no rebound, no masses. No hepatomegaly or splenomegaly. MUSCULOSKELETAL: Normal range of motion at all joints. No bony deformities or tenderness. No CVA tenderness. UPPER EXTREMITIES: 2+ pulses, warm, well-perfused. No cyanosis. No clubbing. No peripheral edema. LOWER EXTREMITIES: 2+ pulses, warm, well-perfused. No calf tenderness. 1+ peripheral edema B/L. chronic vascular changes, hypertrophic skin. shallow ulcer left lower posterior leg, wound bed pink. NEUROLOGICAL: Cranial nerves II-XII intact. Normal speech. PSYCHIATRIC: Cooperative. Good eye contact. Appropriate mood and affect. SKIN: Warm, dry, normal turgor, no rashes noted, normal capillary refill. Laboratory Results - last 24 hr 3 01/26/19 01/26/19 03:52 03:52 WBC 6.2 RBC 3.22 L Hgb 9.7 L Hct 30.3 L MCV 93.9 MCH 30.1 MCHC 32.0 RDW 17.8 H Plt Count 230 MPV 8.1 D Absolute Neuts (auto) 4.6 Neutrophils % 74.3 Lymphocytes % 12.4 D Monocytes % 10.7 H Eosinophils % 2.1 Basophils % 0.5 Nucleated RBC % 0 Sodium 143 Potassium 4.4 Chloride 111 H Carbon Dioxide 24 Anion Gap 8 BUN 30.8 H Creatinine 2.5 H Est GFR (CKD-EPI)AfAm 23.92 Est GFR (CKD-EPI)NonAf 20.64 Random Glucose 86 Calcium 8.8 Total Bilirubin 0.5 AST 23 ALT 19 Alkaline Phosphatase 111 Creatine Kinase 372 H Creatine Kinase Index 0.8 CK-MB (CK-2) 3.0 Troponin I < 0.02 Total Protein 7.2 Albumin 3.[address] pelvis IMPRESSION: No fracture or other acute pathology THIS IS A PRELIMINARY REPORT FROM [employer] [facility] THIS DOCUMENT HAS BEEN ELECTRONICALLY SIGNED Anson Zuleta MD 01/26/2019 03:28 EST ECG Normal Sinus Rhythm Vent rate 79, QTC [address] elevations, depressions. ASSESSMENT/PLAN: 59yF with PMH HTN, CHF, DVT/PE, OA presented s/p fall, ? near syncope now admitted due to inability to walk and further w/u of presyncope. Presyncope - troponin neg, no significant ECG changes - consider echocardiogram acute on chronic pain/OA in s/o recent fall - tylenol for acute pain, cont methadone, dose [facility] - f/u final xray / CT report - PT consult JOSH on CKD - hold home lasix for now, monitor BUN/Cr - consider renal consult HTN/HLD/CHF - cont home amlodipine, hydralazine, pt denies taking lisinopril any longer - hold lasix in s/o JOSH - cont home lipitor h/o DVT/PE - cont pradaxa venous stasis ulcer left lower leg - cont dressing changes daily, xeroform for now, f/u with wound care re: current regimen restless leg - cont mirapex HS DVT PPX - cont pradaxa FEN - tolerating po - bmp tomorrow - low sodium diet as tolerated Dispo: pt currently requires inpatient management of her emergent condition. Family Medical History Family Hx Nuerologic Problems: Mother (dementia), Father ( age 32, CVA) Other Family History: siblings alive and well, no known medical issues Visit type - Emergency Visit Emergency Visit: Yes ED Registration Date: 01/26/19 Care time: The patient presented to the Emergency Department on the above date and was hospitalized for further evaluation of their emergent condition. - New Patient This patient is new to me today: Yes Date on this admission: 01/26/19 - Critical Care Critical Care patient: No
[2019-01-26] MEDS ORDERED: ALBUTEROL SO4 0.083% IH SOL 2.5 MG/3 ML VIAL.NEB. NEB PRN (06:05)
[2019-01-26] MEDS: CHOLECALCIFEROL (VIT D3) 1,000 UNIT (25 MCG) TABLET PO SCH (09:59)
[2019-01-26] MEDS: FAMOTIDINE 20 MG TABLET PO SCH ×2 (09:59→22:06)
[2019-01-26] MEDS: PANTOPRAZOLE 20 MG TABLET (FP) PO SCH (09:59)
[2019-01-26] MEDS: amLODIPine BESYLATE 10 MG TABLET (FP) PO SCH (09:59)
[2019-01-26] MEDS ORDERED: OMEPRAZOLE MAGNESIUM 20 MG PO SCH (10:00)
--- NOTE | 2019-01-26 12:08 | EKG ---
Test Reason : Blood Pressure : / mmHG Vent. Rate : 079 BPM Atrial Rate : 079 BPM P-R Int : 208 ms QRS Dur : 084 ms QT Int : 398 ms P-R-T Axes : 050 019 019 degrees QTc Int : 456 ms NORMAL SINUS RHYTHM NORMAL ECG WHEN COMPARED WITH ECG OF 20-DEC-2018 12:18, NO SIGNIFICANT CHANGE WAS FOUND Confirmed by Ceferino Zambrano MD ([id number]) on 01/26/2019 12:08:00 PM Referred By: Confirmed By:Ceferino Zambrano MD
--- NOTE | 2019-01-26 13:10 | PN ---
Progress Note, Physician Chief Complaint: Fall Presyncope DVT/PE History of Present Illness: Previous notes and events reviewed awake and alert NAD complain of lower back pain denies chest pain or SOB - Current Medication List Current Medications: Active Medications Acetaminophen (Tylenol -) 650 mg PO Q6H PRN PRN Reason: PAIN Albuterol Sulfate (Ventolin 0.083% Nebulizer Soln -) 1 amp NEB RQ4H PRN PRN Reason: SHORT OF BREATH/WHEEZING Amlodipine Besylate (Norvasc -) 10 mg PO DAILY [facility] Last Admin: 01/26/19 09:59 Dose: 10 mg Atorvastatin Calcium (Lipitor -) 40 mg PO [facility] Cholecalciferol (Vitamin D3 -) 5,000 unit PO DAILY [facility] Last Admin: 01/26/19 09:59 Dose: 5,000 unit Docusate Sodium (Colace -) 100 mg PO TID [facility] Famotidine (Pepcid -) 20 mg PO BID [facility] Last Admin: 01/26/19 09:59 Dose: 20 mg Hydralazine HCl (Apresoline -) 25 mg PO TID [facility] Methadone HCl (Dolophine -) 50 mg PO DAILY@0600 [facility] Pantoprazole Sodium (Protonix -) 20 mg PO DAILY [facility] Last Admin: 01/26/19 09:59 Dose: 20 mg Pramipexole Dihydrochloride (Mirapex -) 0.5 mg PO [facility] - Objective Vital Signs: Vital Signs Temperature 97.5 F L 01/26/19 11:13 Pulse Rate 74 01/26/19 11:13 Respiratory Rate 20 01/26/19 11:13 Blood Pressure 113/49 L 01/26/19 11:13 O2 Sat by Pulse Oximetry (%) 97 01/26/19 11:40 Constitutional: Yes: No Distress, Calm, Obese Eyes: Yes: Conjunctiva Clear HENT: Yes: Atraumatic Cardiovascular: Yes: Regular Rate and Rhythm Respiratory: Yes: Regular, CTA Bilaterally Gastrointestinal: Yes: Normal Bowel Sounds, Soft, Abdomen, Obese Genitourinary: Yes: Incontinence Musculoskeletal: Yes: Muscle Weakness Extremities: Yes: WNL Edema: No Neurological: Yes: Alert, Oriented Psychiatric: Yes: Alert, Oriented Labs: CBC, BMP 01/26/19 03:52 01/26/19 03:52 Problem List - Problems (1) Ambulatory dysfunction Assessment/Plan: -PT -Fall Risk Precaution Code(s): R26.2 - DIFFICULTY IN WALKING, NOT ELSEWHERE CLASSIFIED (2) Pre-syncope Assessment/Plan: -Cardiology consult -Carotid US -EKG shows NSR -Fall Risk Precaution Code(s): R55 - SYNCOPE AND COLLAPSE (3) Chronic renal insufficiency, stage III (moderate) Assessment/Plan: -Renal Consult -BUN/Cr 30.8/2.5 -monitor renal function daily Code(s): N18.3 - CHRONIC KIDNEY DISEASE, STAGE 3 (MODERATE) (4) Back pain Assessment/Plan: -pain control Code(s): M54.9 - DORSALGIA, UNSPECIFIED (5) CHF (congestive heart failure) Assessment/Plan: -Furosemide on hold due to renal function -daily weights -strict I&Os -low Na diet Code(s): I50.9 - HEART FAILURE, UNSPECIFIED Qualifiers: Heart failure type: unspecified Heart failure chronicity: unspecified Qualified Code(s): I50.9 - Heart failure, unspecified (6) COPD (chronic obstructive pulmonary disease) Assessment/Plan: -Bronchodilators -keep SpO2 >90% -O2 via NC -Pulm consult Code(s): J44.9 - CHRONIC OBSTRUCTIVE PULMONARY DISEASE, UNSPECIFIED Qualifiers: COPD type: unspecified COPD Qualified Code(s): J44.9 - Chronic obstructive pulmonary disease, unspecified (7) DVT (deep venous thrombosis) Assessment/Plan: -Pradaxa Code(s): I82.409 - ACUTE EMBOLISM AND THOMBOS UNSP DEEP VN UNSP LOWER EXTREMITY Qualifiers: Affected thrombotic vein of extremity: femoral Laterality: left (8) HTN (hypertension) Assessment/Plan: -Amlodipine, Hydralazine, -low Na diet Code(s): I10 - ESSENTIAL (PRIMARY) HYPERTENSION Qualifiers: Hypertension type: essential hypertension Qualified Code(s): I10 - Essential (primary) hypertension (9) History of pulmonary embolism Assessment/Plan: -Pradaxa Code(s): Z86.711 - PERSONAL HISTORY OF PULMONARY EMBOLISM (10) Morbid obesity Assessment/Plan: -Dietary consult Code(s): E66.01 - MORBID (SEVERE) OBESITY DUE TO EXCESS CALORIES (11) Fall Assessment/Plan: -Fall risk precaution -PT -Pelvic CT scan shows no fracture, hip dislocation, acute bone or joint abnormalities, inguinal lymphadenopathy -Radiology shows degenerative changes to right knee joint space with decrease in the joint space in medial compartment, patellofemoral joint disease noted, effusion cannot be excluded due to body habitus, no fracture of the left tibia/ fibula Code(s): W19.XXXA - UNSPECIFIED FALL, INITIAL ENCOUNTER Assessment/Plan see problem list dvt ppx
[2019-01-26] MEDS: DOCUSATE SODIUM 100 MG CAPSULE (FP) PO SCH ×2 (14:07→22:04)
[2019-01-26] MEDS: hydrALAZINE HCL 25 MG TABLET (FP) PO SCH ×2 (14:07→22:02)
[2019-01-26] MEDS ORDERED: PT OWN MED DRAWER 7, Y5N ONE ×2 (15:12→21:26)
[2019-01-26 16:45] LABS: INR 1.69 (0.83-1.09); PROTHROMBIN TIME (PATIENT) 20.1 SEC (9.7-13.0)
--- NOTE | 2019-01-26 19:08 | PN ---
Teaching Attending Note Name of Resident: Shahzad Stearns ATTENDING PHYSICIAN STATEMENT I saw and evaluated the patient. I reviewed the resident's note and discussed the case with the resident. I agree with the resident's findings and plan as documented. 59 y/o lady with extensive past medical history including HTN, CHF, DVT/PE on dabigatran, MICHELE, OA, restless leg syndrome who presented to the ED after a fall last night. She stated in ER that she became lightheaded when she got up to go to the bathroom and slid to the floor, landing on her buttocks. She reports pain to her lower back, right knee and left lower leg. Reported inability to walk due to the pain. Denied night sweats, involuntary weight loss, bumps or lumps, NVD or any other symptoms other than the abovementioned SUBJECTIVE: Doing well OBJECTIVE: Last Vital Signs Temp Pulse Resp BP Pulse Ox 97.8 F 84 18 142/66 97 01/26/19 18:00 01/26/19 18:00 01/26/19 18:00 01/26/19 18:00 01/26/19 11:40 General: NAD HEENT: MMM CVS: S1, S2 Limited Lungs: CTAB Abdomen: Obese Neuro: Moves all extremities Extremities: + edema Lymphatic: Very limited exam due to body habitus but I did not palpate prominent lymph notes in neck, axilla or inguinal region ASSESSMENT AND PLAN: 59 y/o lady with morbid obesity, HTN, CHF, DVT/PE on Dabigatran, MICHELE, OA, RLS admitted due to a possible presyncopal event resulting in a fall with significant pain. Medical Oncology consulted due to incidentally found inguinal lymphadenopathy in abdomen CT scan. Plan: 1) Consult IR for evaluation for Core needle biopsy. 2) Thank you for this consultation
[2019-01-26] MEDS: ACETAMINOPHEN 325 MG TABLET (FP) PO PRN (19:11)
[2019-01-26] MEDS: ATORVASTATIN CA 40 MG TABLET (FP) PO SCH (22:03)
[2019-01-26] MEDS: DABIGATRAN ETEXILATE MESYLATE 75 MG CAPSULE PO SCH (22:04)
[2019-01-26] MEDS: PRAMIPEXOLE DIHYDROCHLORIDE 0.5 MG TABLET PO SCH (22:07)
--- NOTE | 2019-01-26 23:26 | CONSULT ---
Consult Consult Specialty:: Hematology and oncology Reason for Consultation:: Inguinal lymphadenopathy - History of Present Illness Chief Complaint: s/p fall History of Present Illness: The patient is a 59 y/o lady w/ PMH HTN, CHF, DVT/PE on dabigatran, MICHELE, OA, restless leg syndrome who presented to the ED s/p fall. She reports pain in her lower back, right knee and left lower leg. Patient states that she became lightheaded after she got up to go the bathroom. A CT of the abdomen and pelvis was done 2/2 her pain and incidentally discovered an inguinal lymphadenopathy. On interview, the patient is well appearing and has no complaints. She has never been told that she had a lymphadenopathy in the past. - History Source History Provided By: Patient, Medical Record Limitations to Obtaining History: No Limitations - Past Medical History Cardio/Vascular: Yes: CHF (Chronic Diastolic), HTN, Hyperlipdemia Pulmonary: Yes: Asthma, COPD, Sleep Apnea (Pt states negative recent test, will attempt to retrieve results) Gastrointestinal: Yes: GERD Musculoskeletal: Yes: Osteoarthritis - Alcohol/Substance Use Hx Alcohol Use: No History of Substance Use: reports: Heroin (denies IVDU, has snorted heroin many years ago) - Smoking History Smoking history: Former smoker Have you smoked in the past 12 months: Yes Aproximately how many cigarettes per day: 3 If you are a former smoker, when did you quit?: 1 month - Social History ADL: Independent History of Recent Travel: No Home Medications - Allergies Allergies/Adverse Reactions: Allergies Allergy/AdvReac Type Severity Reaction Status Date / Time Penicillins Allergy Intermediate Hives Verified 01/26/19 00:27 - Home Medications Home Medications: Ambulatory Orders Atorvastatin Ca [Lipitor] 40 mg PO HS 05/30/14 Omeprazole Magnesium [Prilosec (OTC)] 20 mg PO DAILY 05/30/14 Hydralazine HCl 25 mg PO TID 10/25/17 Methadone [Dolophine -] 50 mg PO DAILY 10/28/17 Amlodipine Besylate [Norvasc -] 10 mg PO DAILY #30 tablet 04/20/18 Albuterol Sulfate [Proair Respiclick] 90 mcg IH QID PRN 09/11/18 Docusate Sodium [Colace -] 100 mg PO TID 09/11/18 Cholecalciferol (Vitamin D3) [Vitamin D3] 5,000 unit PO DAILY #30 capsule Albuterol 0.083% Nebulizer Micheline [Ventolin 0.083% Nebulizer Soln -] 1 amp NEB Q4H PRN #45 amp 12/25/18 Furosemide [Lasix -] 20 mg PO DAILY #30 tablet 12/25/18 Ranitidine [Zantac -] 150 mg PO BID #60 tablet 12/25/18 Dabigatran Etexilate Mesylate [Pradaxa -] 75 mg PO BID 01/26/19 Pramipexole Dihydrochloride [Mirapex -] 2 tab PO HS 01/26/19 Warfarin Sodium [Coumadin] 10 mg PO DAILY 01/26/19 Review of Systems - Review of Systems Constitutional: denies: Chills, Fever, Unintentional Wgt. Loss Cardiovascular: denies: Chest Pain, Shortness of Breath Respiratory: denies: Cough, SOB, SOB on Exertion Gastrointestinal: denies: Abdominal Pain Genitourinary: denies: Burning, Discharge Musculoskeletal: reports: Back Pain, Extremity Pain (as in HPI) Physical Exam Vital Signs: Vital Signs Temperature 98.1 F 01/26/19 19:30 Pulse Rate 81 01/26/19 19:30 Respiratory Rate 16 01/26/19 19:30 Blood Pressure 127/61 01/26/19 19:30 O2 Sat by Pulse Oximetry (%) 97 01/26/19 19:30 Constitutional: Yes: Well Nourished, No Distress, Calm HENT: Yes: Atraumatic, Normocephalic Cardiovascular: Yes: Regular Rate and Rhythm, S1, S2. No: Gallop, Murmur, Rub Respiratory: Yes: Regular, CTA Bilaterally Gastrointestinal: Yes: Normal Bowel Sounds, Soft Edema: No Neurological: Yes: Alert, Oriented Labs: CBC, BMP 01/26/19 03:52 01/26/19 03:52 Assessment/Plan The patient is a 59 y/o lady w/ PMH HTN, CHF, DVT/PE on dabigatran, MICHELE, OA, restless leg syndrome who presented to the ED s/p fall. A CT of the abdomen and pelvis was done 2/2 her pain and incidentally discovered an inguinal lymphadenopathy. #inguinal lymphadenopathy -eitology unknown -r/o infectious cause; none noted on CT -recommend consulting IR for core needle biopsy.
[2019-01-27] MEDS: hydrALAZINE HCL 25 MG TABLET (FP) PO SCH ×3 (05:50→22:08)
[2019-01-27] MEDS: DOCUSATE SODIUM 100 MG CAPSULE (FP) PO SCH ×3 (05:51→22:07)
[2019-01-27 08:14] LABS: HEMATOCRIT 31.1 % (32.4-45.2); HEMOGLOBIN 9.9 GM/dL (10.7-15.3); MCH 29.9 pg (25.7-33.7); MCHC 31.9 g/dl (32.0-36.0); MEAN CELL VOLUME 93.6 fl (80-96); MEAN PLT VOLUME 7.9 fl (7.5-11.1); PLATELET COUNT 232 K/MM3 (134-434); RBC 3.32 M/mm3 (3.60-5.2); RDW 17.5 % (11.6-15.6); WHITE BLOOD COUNT 4.8 K/mm3 (4.0-10.0)
[2019-01-27 08:54] LABS: ALBUMIN 3.2 g/dl (3.4-5.0); BILIRUBIN,TOTAL 0.6 mg/dL (0.2-1); BLOOD UREA NITROGEN 24.9 mg/dL (7-18); CALCIUM 9.1 mg/dL (8.5-10.1); CREATININE 1.7 mg/dL (0.55-1.3); POTASSIUM 4.3 mmol/L (3.5-5.1); TOT PROT 7.2 g/dl (6.4-8.2)
--- NOTE | 2019-01-27 09:35 | PN ---
Progress Note, Physician Chief Complaint: Fall Presyncope DVT/PE History of Present Illness: Previous notes and events reviewed awake and alert NAD sts lower back pain is improving denies chest pain or SOB - Current Medication List Current Medications: Active Medications Acetaminophen (Tylenol -) 650 mg PO Q6H PRN PRN Reason: PAIN Last Admin: 01/26/19 19:11 Dose: 650 mg Albuterol Sulfate (Ventolin 0.083% Nebulizer Soln -) 1 amp NEB RQ4H PRN PRN Reason: SHORT OF BREATH/WHEEZING Amlodipine Besylate (Norvasc -) 10 mg PO DAILY [facility] Last Admin: 01/26/19 09:59 Dose: 10 mg Atorvastatin Calcium (Lipitor -) 40 mg PO HS [facility] Last Admin: 01/26/19 22:03 Dose: 40 mg Cholecalciferol (Vitamin D3 -) 5,000 unit PO DAILY [facility] Last Admin: 01/26/19 09:59 Dose: 5,000 unit Dabigatran (Pradaxa -) 75 mg PO BID [facility] Last Admin: 01/26/19 22:04 Dose: 75 mg Docusate Sodium (Colace -) 100 mg PO TID [facility] Last Admin: 01/27/19 05:51 Dose: 100 mg Famotidine (Pepcid -) 20 mg PO BID [facility] Last Admin: 01/26/19 22:06 Dose: 20 mg Hydralazine HCl (Apresoline -) 25 mg PO TID [facility] Last Admin: 01/27/19 05:50 Dose: 25 mg Lidocaine (Lidoderm Patch -) 1 patch TP DAILY [facility] Methadone HCl (Dolophine -) 50 mg PO DAILY@0600 [facility] Miscellaneous (Lidoderm Patch Removal) 1 each [facility] DAILY@2200 [facility] Pantoprazole Sodium (Protonix -) 20 mg PO DAILY [facility] Last Admin: 01/26/19 09:59 Dose: 20 mg Pramipexole Dihydrochloride (Mirapex -) 0.5 mg PO HS [facility] Last Admin: 01/26/19 22:07 Dose: 0.5 mg - Objective Vital Signs: Vital Signs Temperature 97.8 F 01/27/19 06:00 Pulse Rate 82 01/27/19 06:00 Respiratory Rate 18 01/27/19 06:00 Blood Pressure 109/67 01/27/19 06:00 O2 Sat by Pulse Oximetry (%) 97 01/26/19 19:30 Constitutional: Yes: No Distress, Calm, Obese Eyes: Yes: Conjunctiva Clear HENT: Yes: Atraumatic Cardiovascular: Yes: Regular Rate and Rhythm Respiratory: Yes: Regular, Diminished Gastrointestinal: Yes: Normal Bowel Sounds, Soft, Abdomen, Obese Genitourinary: Yes: Incontinence Musculoskeletal: Yes: Muscle Weakness Extremities: Yes: WNL Edema: Yes (bilateral lower extremity) Neurological: Yes: Alert, Oriented Psychiatric: Yes: Alert, Oriented Labs: CBC, BMP 01/27/19 07:50 01/27/19 07:50 INR, PTT INR 1.69 (0.83-1.09) H 01/26/19 14:30 Problem List - Problems (1) Ambulatory dysfunction Assessment/Plan: -PT -Fall Risk Precaution Code(s): R26.2 - DIFFICULTY IN WALKING, NOT ELSEWHERE CLASSIFIED (2) Pre-syncope Assessment/Plan: -Cardiology consult -Carotid US -EKG shows NSR -Fall Risk Precaution Code(s): R55 - SYNCOPE AND COLLAPSE (3) Chronic renal insufficiency, stage III (moderate) Assessment/Plan: -Renal Consult -BUN/Cr 24.9/1.7 -monitor renal function daily Code(s): N18.3 - CHRONIC KIDNEY DISEASE, STAGE 3 (MODERATE) (4) Back pain Assessment/Plan: -pain control Code(s): M54.9 - DORSALGIA, UNSPECIFIED (5) CHF (congestive heart failure) Assessment/Plan: -Furosemide on hold due to renal function -daily weights -strict I&Os -low Na diet Code(s): I50.9 - HEART FAILURE, UNSPECIFIED Qualifiers: Heart failure type: unspecified Heart failure chronicity: unspecified Qualified Code(s): I50.9 - Heart failure, unspecified (6) COPD (chronic obstructive pulmonary disease) Assessment/Plan: -Bronchodilators -keep SpO2 >90% -O2 via NC -Pulm consult Code(s): J44.9 - CHRONIC OBSTRUCTIVE PULMONARY DISEASE, UNSPECIFIED Qualifiers: COPD type: unspecified COPD Qualified Code(s): J44.9 - Chronic obstructive pulmonary disease, unspecified (7) DVT (deep venous thrombosis) Assessment/Plan: -Pradaxa Code(s): I82.409 - ACUTE EMBOLISM AND THOMBOS UNSP DEEP VN UNSP LOWER EXTREMITY Qualifiers: Affected thrombotic vein of extremity: femoral Laterality: left (8) HTN (hypertension) Assessment/Plan: -Amlodipine, Hydralazine, -low Na diet Code(s): I10 - ESSENTIAL (PRIMARY) HYPERTENSION Qualifiers: Hypertension type: essential hypertension Qualified Code(s): I10 - Essential (primary) hypertension (9) History of pulmonary embolism Assessment/Plan: -Pradaxa Code(s): Z86.711 - PERSONAL HISTORY OF PULMONARY EMBOLISM (10) Morbid obesity Assessment/Plan: -Dietary consult Code(s): E66.01 - MORBID (SEVERE) OBESITY DUE TO EXCESS CALORIES (11) Fall Assessment/Plan: -Fall risk precaution -PT -Pelvic CT scan shows no fracture, hip dislocation, acute bone or joint abnormalities, inguinal lymphadenopathy -Radiology shows degenerative changes to right knee joint space with decrease in the joint space in medial compartment, patellofemoral joint disease noted, effusion cannot be excluded due to body habitus, no fracture of the left tibia/ fibula Code(s): W19.XXXA - UNSPECIFIED FALL, INITIAL ENCOUNTER Assessment/Plan see problem list dvt ppx
[2019-01-27] MEDS: FAMOTIDINE 20 MG TABLET PO SCH ×2 (10:48→22:08)
[2019-01-27] MEDS: CHOLECALCIFEROL (VIT D3) 1,000 UNIT (25 MCG) TABLET PO SCH (10:48)
[2019-01-27] MEDS: PANTOPRAZOLE 20 MG TABLET (FP) PO SCH (10:48)
[2019-01-27] MEDS: METHADONE HCL 10 MG TABLET PO SCH (10:49)
[2019-01-27] MEDS: LIDOCAINE 5% TOPICAL PATCH TP SCH (10:50)
[2019-01-27] MEDS: DABIGATRAN ETEXILATE MESYLATE 75 MG CAPSULE PO SCH ×2 (10:51→22:08)
[2019-01-27] MEDS: amLODIPine BESYLATE 10 MG TABLET (FP) PO SCH (10:51)
--- NOTE | 2019-01-27 12:24 | CONSULT ---
Consult Consult Specialty:: Nephrology Reason for Consultation:: JOSH - History of Present Illness Chief Complaint: s/p fall History of Present Illness: Pt is a 59 year old female with pmhx of ckd, htn, hld, obesity, ivania, cva with residual right deficit, dvt, pe on pradaxa, IVC filter, an gerd who presented to the ER after a fall. She says that she has a hospital bed at home and fell out of it. She was found to have elevated creatinine and I was called to evaluate her. She does have history of CKD and was supposed to see me in the office but never made it. SHe denies dysuria or hematuria. Her renal function did improve over night. She has chronic lower ext edema and she has lower ext ulcers. - History Source History Provided By: Patient - Past Medical History Cardio/Vascular: Yes: CHF (Chronic Diastolic), HTN, Hyperlipdemia Pulmonary: Yes: Asthma, COPD, Sleep Apnea (Pt states negative recent test, will attempt to retrieve results) Gastrointestinal: Yes: GERD Renal/: Yes: Renal Inusuff Musculoskeletal: Yes: Osteoarthritis - Alcohol/Substance Use Hx Alcohol Use: No History of Substance Use: reports: Heroin (denies IVDU, has snorted heroin many years ago) - Smoking History Smoking history: Former smoker Have you smoked in the past 12 months: Yes Aproximately how many cigarettes per day: 3 If you are a former smoker, when did you quit?: 1 month - Social History ADL: Independent History of Recent Travel: No Home Medications - Allergies Allergies/Adverse Reactions: Allergies Allergy/AdvReac Type Severity Reaction Status Date / Time Penicillins Allergy Intermediate Hives Verified 01/26/19 00:27 - Home Medications Home Medications: Ambulatory Orders Atorvastatin Ca [Lipitor] 40 mg PO HS 05/30/14 Omeprazole Magnesium [Prilosec (OTC)] 20 mg PO DAILY 05/30/14 Hydralazine HCl 25 mg PO TID 10/25/17 Methadone [Dolophine -] 50 mg PO DAILY 10/28/17 Amlodipine Besylate [Norvasc -] 10 mg PO DAILY #30 tablet 04/20/18 Albuterol Sulfate [Proair Respiclick] 90 mcg IH QID PRN 09/11/18 Docusate Sodium [Colace -] 100 mg PO TID 09/11/18 Cholecalciferol (Vitamin D3) [Vitamin D3] 5,000 unit PO DAILY #30 capsule Albuterol 0.083% Nebulizer Micheline [Ventolin 0.083% Nebulizer Soln -] 1 amp NEB Q4H PRN #45 amp 12/25/18 Furosemide [Lasix -] 20 mg PO DAILY #30 tablet 12/25/18 Ranitidine [Zantac -] 150 mg PO BID #60 tablet 12/25/18 Dabigatran Etexilate Mesylate [Pradaxa -] 75 mg PO BID 01/26/19 Pramipexole Dihydrochloride [Mirapex -] 2 tab PO HS 01/26/19 Warfarin Sodium [Coumadin] 10 mg PO DAILY 01/26/19 Family Medical History Family History: Denies Review of Systems - Review of Systems Constitutional: reports: Malaise Eyes: reports: No Symptoms HENT: reports: No Symptoms Neck: reports: No Symptoms Cardiovascular: reports: Edema Respiratory: reports: No Symptoms Gastrointestinal: reports: No Symptoms Genitourinary: reports: No Symptoms Musculoskeletal: reports: Other (lower ext edema) Integumentary: reports: No Symptoms Neurological: reports: Seizure Hematology/Lymphatic: reports: No Symptoms Psychiatric: reports: No Symptoms Physical Exam Vital Signs: Vital Signs Temperature 97.8 F 01/27/19 06:00 Pulse Rate 82 01/27/19 06:00 Respiratory Rate 18 01/27/19 06:00 Blood Pressure 109/67 01/27/19 06:00 O2 Sat by Pulse Oximetry (%) 97 01/26/19 19:30 Constitutional: Yes: Calm Eyes: Yes: Conjunctiva Clear HENT: Yes: Atraumatic Neck: Yes: Supple Cardiovascular: Yes: S1, S2 Respiratory: Yes: CTA Bilaterally Gastrointestinal: Yes: Normal Bowel Sounds, Soft Renal/: Yes: WNL Musculoskeletal: Yes: WNL Edema: Yes (lynphedema) Edema: LLE: 2+, RLE: 2+ Neurological: Yes: Oriented Psychiatric: Yes: Oriented Labs: CBC, BMP 01/27/19 07:50 01/27/19 07:50 Laboratory Tests 12/23/18 12/24/18 01/26/19 07:00 06:45 03:52 Hgb Creatinine 1.8 H 1.7 H 2.5 H 01/27/19 01/27/19 07:50 07:50 Hgb 9.9 L Creatinine 1.7 H Problem List - Problems (1) CKD (chronic kidney disease) Code(s): N18.9 - CHRONIC KIDNEY DISEASE, UNSPECIFIED (2) JOSH (acute kidney injury) Code(s): N17.9 - ACUTE KIDNEY FAILURE, UNSPECIFIED (3) Ambulatory dysfunction Code(s): R26.2 - DIFFICULTY IN WALKING, NOT ELSEWHERE CLASSIFIED (4) Fall Code(s): W19.XXXA - UNSPECIFIED FALL, INITIAL ENCOUNTER (5) Morbid obesity Code(s): E66.01 - MORBID (SEVERE) OBESITY DUE TO EXCESS CALORIES Assessment/Plan Current Medications Generic Name Dose Route Start Last Admin Trade Name Freq PRN Reason Stop Dose Admin Acetaminophen 650 mg 01/26/19 05:59 01/26/19 19:11 Tylenol - PO 650 mg Q6H PRN Administration PAIN Albuterol Sulfate 1 amp 01/26/19 06:05 Ventolin 0.083% Nebulizer Soln - NEB RQ4H PRN SHORT OF BREATH/WHEEZING Amlodipine Besylate 10 mg 01/26/19 10:00 01/27/19 10:51 Norvasc - PO 10 mg DAILY JIE Administration Atorvastatin Calcium 40 mg 01/26/19 22:00 01/26/19 22:03 Lipitor - PO 40 mg HS JIE Administration Cholecalciferol 5,000 unit 01/26/19 10:00 01/27/19 10:48 Vitamin D3 - PO 5,000 unit DAILY JIE Administration Dabigatran 75 mg 01/26/19 22:00 01/27/19 10:51 Pradaxa - PO 75 mg BID JIE Administration Docusate Sodium 100 mg 01/26/19 14:00 01/27/19 05:51 Colace - PO 100 mg TID JIE Administration Famotidine 20 mg 01/26/19 10:00 01/27/19 10:48 Pepcid - PO 20 mg BID JIE Administration Hydralazine HCl 25 mg 01/26/19 14:00 01/27/19 05:50 Apresoline - PO 25 mg TID JIE Administration Lidocaine 1 patch 01/27/19 10:00 01/27/19 10:50 Lidoderm Patch - TP 1 patch DAILY JIE Administration Methadone HCl 50 mg 01/27/19 09:45 01/27/19 10:49 Dolophine - PO 50 mg DAILY@0600 JIE Administration Miscellaneous 1 each 01/27/19 22:00 Lidoderm Patch Removal MC DAILY@2200 JIE Pantoprazole Sodium 20 mg 01/26/19 10:00 01/27/19 10:48 Protonix - PO 20 mg DAILY JIE Administration Pramipexole Dihydrochloride 0.5 mg 01/26/19 22:00 01/26/19 22:07 Mirapex - PO 0.5 mg HS JIE Administration Impression 1. JOSH 2. CKD 3. s/p fall 4. obesity 5. ivania, 6. cva 7. pe 8. dvt 9. gerd Plan - hold amlodipine as bp is borderline - cont hydralazine, titrate dose as needed - stopping amlodipine may help with lower ext edema - sampler ovens improved - check renal ultrasound - check ua - will need more extensive workup as outpt
[2019-01-27 14:05] VITALS: BMI 54.5
--- NOTE | 2019-01-27 14:22 | CON.CARD ---
Consult Consult Specialty:: Cardiology Referred by:: Hospitalist Reason for Consultation:: Cardiac evaluation - History of Present Illness Chief Complaint: S/P fall History of Present Illness: Patient is a 59 year old female with underlying history of HTN, MICHELE, acute on chronic LV failure, history of DVT and PTE and restless leg syndrome who presented after a fall after becoming lightheaded when she got up from the bathroom and slid to the floor. She was unable to walk due to pain. She denies chest pain, shortness of breath or palpitations. She denies paroxysmal nocturnal dyspnea or orthopnea. She denies fever or chills. She denies nausea, vomiting, diarrhea or abdominal pain. She denies headache or lightheadedness at this time. She complains of back pain. - History Source History Provided By: Patient, Medical Record Limitations to Obtaining History: No Limitations - Past Medical History Cardio/Vascular: Yes: CHF (Chronic Diastolic), HTN, Hyperlipdemia Pulmonary: Yes: Asthma, COPD, Sleep Apnea Gastrointestinal: Yes: GERD Musculoskeletal: Yes: Osteoarthritis - Past Surgical History Additional Surgical History: IVC filter - Alcohol/Substance Use Hx Alcohol Use: No History of Substance Use: reports: Heroin (Previous use) - Smoking History Smoking history: Former smoker Have you smoked in the past 12 months: Yes Aproximately how many cigarettes per day: 3 If you are a former smoker, when did you quit?: 1 month - Social History ADL: Independent History of Recent Travel: No Home Medications - Allergies Allergies/Adverse Reactions: Allergies Allergy/AdvReac Type Severity Reaction Status Date / Time Penicillins Allergy Intermediate Hives Verified 01/26/19 00:27 - Home Medications Home Medications: Ambulatory Orders Atorvastatin Ca [Lipitor] 40 mg PO HS 05/30/14 Omeprazole Magnesium [Prilosec (OTC)] 20 mg PO DAILY 05/30/14 Hydralazine HCl 25 mg PO TID 10/25/17 Methadone [Dolophine -] 50 mg PO DAILY 10/28/17 Albuterol Sulfate [Proair Respiclick] 90 mcg IH QID PRN 09/11/18 Docusate Sodium [Colace -] 100 mg PO TID 09/11/18 Cholecalciferol (Vitamin D3) [Vitamin D3] 5,000 unit PO DAILY #30 capsule Albuterol 0.083% Nebulizer Micheline [Ventolin 0.083% Nebulizer Soln -] 1 amp NEB Q4H PRN #45 amp 12/25/18 Ranitidine [Zantac -] 150 mg PO BID #60 tablet 12/25/18 Dabigatran Etexilate Mesylate [Pradaxa -] 75 mg PO BID 01/26/19 Pramipexole Dihydrochloride [Mirapex -] 2 tab PO HS 01/26/19 Dabigatran Etexilate Mesylate [Pradaxa -] 75 mg PO BID #30 capsule 01/28/19 Nicotine Patch [Nicoderm Patch -] 14 mg TD DAILY #14 patch 01/28/19 Review of Systems - Review of Systems Constitutional: denies: Chills, Fever Cardiovascular: denies: Chest Pain, Palpitations, Shortness of Breath Respiratory: denies: Cough, Hemoptysis, Orthopnea, PND, SOB, SOB on Exertion Gastrointestinal: denies: Abdominal Pain, Constipation, Diarrhea, Melena, Nausea , Rectal Bleeding, Vomiting Genitourinary: denies: Dysuria, Hematuria Musculoskeletal: reports: Back Pain, Joint Pain Neurological: denies: Dizziness, Headache, Seizure, Syncope Vital Signs: Vital Signs Temperature 97.8 F 01/27/19 06:00 Pulse Rate 82 01/27/19 06:00 Respiratory Rate 18 01/27/19 06:00 Blood Pressure 109/67 01/27/19 06:00 O2 Sat by Pulse Oximetry (%) 97 01/26/19 19:30 Eyes: Yes: PERRL HENT: Yes: Atraumatic Neck: Yes: Supple Respiratory: Yes: CTA Bilaterally Gastrointestinal: Yes: Normal Bowel Sounds, Soft, Abdomen, Obese. No: Tenderness Cardiovascular: Yes: Regular Rate and Rhythm JVD: No PMI: Non-Displaced Heart Sounds: Yes: S1, S2. No: Gallop Edema: Yes Edema: LLE: Trace, RLE: Trace - Other Data Labs, Other Data: CBC, BMP 01/27/19 07:50 01/27/19 07:50 INR, PTT INR 1.69 (0.83-1.09) H 01/26/19 14:30 Normal sinus rhythm, normal ECG Imaging - Results X-ray: Report Reviewed (Degenerative joint disease) Ultrasound: Report Reviewed (Carotid Doppler moderate atherosclerotic disease) EKG: Report Reviewed Problem List - Problems (1) CKD (chronic kidney disease) Code(s): N18.9 - CHRONIC KIDNEY DISEASE, UNSPECIFIED (2) Fall Code(s): W19.XXXA - UNSPECIFIED FALL, INITIAL ENCOUNTER (3) Cerebrovascular accident (CVA) with involvement of right side of body Code(s): I63.9 - CEREBRAL INFARCTION, UNSPECIFIED (4) CHF (congestive heart failure) Code(s): I50.9 - HEART FAILURE, UNSPECIFIED Qualifiers: Heart failure type: unspecified Heart failure chronicity: unspecified Qualified Code(s): I50.9 - Heart failure, unspecified (5) COPD (chronic obstructive pulmonary disease) Code(s): J44.9 - CHRONIC OBSTRUCTIVE PULMONARY DISEASE, UNSPECIFIED Qualifiers: COPD type: unspecified COPD Qualified Code(s): J44.9 - Chronic obstructive pulmonary disease, unspecified (6) DVT (deep venous thrombosis) Code(s): I82.409 - ACUTE EMBOLISM AND THOMBOS UNSP DEEP VN UNSP LOWER EXTREMITY Qualifiers: Affected thrombotic vein of extremity: femoral Laterality: left (7) HTN (hypertension) Code(s): I10 - ESSENTIAL (PRIMARY) HYPERTENSION Qualifiers: Hypertension type: essential hypertension Qualified Code(s): I10 - Essential (primary) hypertension (8) History of pulmonary embolism Code(s): Z86.711 - PERSONAL HISTORY OF PULMONARY EMBOLISM (9) Methadone maintenance therapy patient Code(s): F11.20 - OPIOID DEPENDENCE, UNCOMPLICATED (10) Presence of IVC filter Code(s): Z95.828 - PRESENCE OF OTHER VASCULAR IMPLANTS AND GRAFTS (11) Sleep apnea Code(s): G47.30 - SLEEP APNEA, UNSPECIFIED Qualifiers: Sleep apnea type: obstructive Qualified Code(s): G47.33 - Obstructive sleep apnea (adult) (pediatric) (12) Vitamin D deficiency Code(s): E55.9 - VITAMIN D DEFICIENCY, UNSPECIFIED Assessment/Plan 1. Mechanical fall 2. Acute on CKD 3. HTN 4. Hypercholesterolemia 5. History of PTE/DVT 6. History of MICHELE with exogenous obesity PLAN: 1. Continue Hydralazine as tolerated. Taken off Amlodipine 2. Statin therapy 3. Continue Pradaxa 4. Echocardiography to assess LV/RV and valvular function 5. Monitor renal function 6. BIPAP Further plans are to follow Sang H. Lashonda MD
--- NOTE | 2019-01-27 16:08 | CON.PULM ---
Consult Consult Specialty:: PULMONARY Referred by:: Dr Goodwin Reason for Consultation:: MICHELE - History of Present Illness Chief Complaint: fall History of Present Illness: 59yo female with h/o HTN, LV diastolic dysfunction, COPD, MICHELE on BiPAP, h/o DVT/ PE on anticoagulation who was admitted s/p fall. Denies shortness of breath, chest pain, cough or wheezing. Reports compliance with BiPAP at home with nasal mask. Still smoking but down to 4 cigarettes/day. No fevers, chills or sweats. - History Source History Provided By: Patient, Medical Record Limitations to Obtaining History: No Limitations - Past Medical History Cardio/Vascular: Yes: CHF (Chronic Diastolic), HTN, Hyperlipdemia Pulmonary: Yes: Asthma, COPD, Sleep Apnea (Pt states negative recent test, will attempt to retrieve results) Gastrointestinal: Yes: GERD Musculoskeletal: Yes: Osteoarthritis - Alcohol/Substance Use Hx Alcohol Use: No History of Substance Use: reports: Heroin (denies IVDU, has snorted heroin many years ago) - Smoking History Smoking history: Former smoker Have you smoked in the past 12 months: Yes Aproximately how many cigarettes per day: 3 If you are a former smoker, when did you quit?: 1 month - Social History ADL: Independent History of Recent Travel: No Home Medications - Allergies Allergies/Adverse Reactions: Allergies Allergy/AdvReac Type Severity Reaction Status Date / Time Penicillins Allergy Intermediate Hives Verified 01/26/19 00:27 - Home Medications Home Medications: Ambulatory Orders Atorvastatin Ca [Lipitor] 40 mg PO HS 05/30/14 Omeprazole Magnesium [Prilosec (OTC)] 20 mg PO DAILY 05/30/14 Hydralazine HCl 25 mg PO TID 10/25/17 Methadone [Dolophine -] 50 mg PO DAILY 10/28/17 Amlodipine Besylate [Norvasc -] 10 mg PO DAILY #30 tablet 04/20/18 Albuterol Sulfate [Proair Respiclick] 90 mcg IH QID PRN 09/11/18 Docusate Sodium [Colace -] 100 mg PO TID 09/11/18 Cholecalciferol (Vitamin D3) [Vitamin D3] 5,000 unit PO DAILY #30 capsule Albuterol 0.083% Nebulizer Micheline [Ventolin 0.083% Nebulizer Soln -] 1 amp NEB Q4H PRN #45 amp 12/25/18 Furosemide [Lasix -] 20 mg PO DAILY #30 tablet 12/25/18 Ranitidine [Zantac -] 150 mg PO BID #60 tablet 12/25/18 Dabigatran Etexilate Mesylate [Pradaxa -] 75 mg PO BID 01/26/19 Pramipexole Dihydrochloride [Mirapex -] 2 tab PO HS 01/26/19 Warfarin Sodium [Coumadin] 10 mg PO DAILY 01/26/19 Review of Systems - Review of Systems Constitutional: reports: Weakness. denies: Chills, Fever Eyes: denies: Recent Change in Vision HENT: denies: Nasal Congestion, Throat Pain Neck: denies: Stiffness, Tenderness Cardiovascular: denies: Chest Pain, Shortness of Breath Respiratory: denies: Cough, Wheezing Gastrointestinal: denies: Abdominal Pain, Nausea, Vomiting Genitourinary: denies: Dysuria, Hematuria Neurological: denies: Dizziness, Headache Endocrine: denies: Unexplained Weight Loss Physical Exam Vital Sings: Vital Signs Temperature 98.4 F 01/27/19 14:00 Pulse Rate 88 01/27/19 14:00 Respiratory Rate 18 01/27/19 14:00 Blood Pressure 114/65 01/27/19 14:00 O2 Sat by Pulse Oximetry (%) 97 01/26/19 19:30 Constitutional: Yes: Calm Eyes: Yes: Conjunctiva Clear, EOM Intact HENT: Yes: Atraumatic, Normocephalic Neck: Yes: Supple, Trachea Midline Cardiovascular: Yes: Regular Rate and Rhythm Respiratory: Yes: Diminished (decreased breath sounds at the bases) ...Clubbing: No Gastrointestinal: Yes: Normal Bowel Sounds, Soft. No: Tenderness Edema: No Neurological: Yes: Alert, Oriented Labs: CBC, BMP 01/27/19 07:50 01/27/19 07:50 Assessment/Plan s/p Fall COPD MICHELE LV Diastolic Dysfunction h/o PE/DVT Morbid Obesity HTN Hyperlipidemia Smoker - inhaled bronchodilators as needed - nicotine patch - smoking cessation discussed - offered BiPAP with hospital machine but pt prefers to wait until daughter brings in her home BiPAP with nasal mask - continue anticoagulation Thank you for this consult Peewee Maya MD
[2019-01-27] MEDS: NICOTINE 14 MG/24 HOURS TOPICAL PATCH TD SCH (18:11)
[2019-01-27 20:47] LABS: PH,URINE 5.5 (5.0-8.0); URINE APPEARANCE CLEAR; URINE BILIRUBIN NEGATIVE (NEGATIVE); URINE COLOR YELLOW; URINE GLUCOSE (UA) NEGATIVE (NEGATIVE); URINE KETONE NEGATIVE (NEGATIVE); URINE LEUK ESTERASE NEGATIVE (NEGATIVE); URINE NITRITE NEGATIVE (NEGATIVE); URINE PROTEIN NEGATIVE (NEGATIVE); URINE UROBILINOGEN 0.2 mg/dL (0.2-1.0)
[2019-01-27] MEDS ORDERED: PT OWN MED DRAWER 7, Y5N ONE (21:18)
[2019-01-27] MEDS: ATORVASTATIN CA 40 MG TABLET (FP) PO SCH (22:07)
[2019-01-27] MEDS: PRAMIPEXOLE DIHYDROCHLORIDE 0.5 MG TABLET PO SCH (22:08)
[2019-01-27] MEDS: LIDOCAINE PATCH REMOVAL MC SCH (22:10)
[2019-01-28] MEDS: hydrALAZINE HCL 25 MG TABLET (FP) PO SCH ×3 (06:12→21:18)
[2019-01-28] MEDS: DOCUSATE SODIUM 100 MG CAPSULE (FP) PO SCH ×3 (06:12→21:18)
[2019-01-28] MEDS: METHADONE HCL 10 MG TABLET PO SCH (06:12)
[2019-01-28 07:50] LABS: HEMOGLOBIN 9.7 GM/dL (10.7-15.3); MCH 30.2 pg (25.7-33.7); MCHC 32.3 g/dl (32.0-36.0); MEAN CELL VOLUME 93.7 fl (80-96); MEAN PLT VOLUME 7.7 fl (7.5-11.1); PLATELET COUNT 233 K/MM3 (134-434); RBC 3.21 M/mm3 (3.60-5.2); RDW 17.7 % (11.6-15.6); WHITE BLOOD COUNT 4.8 K/mm3 (4.0-10.0)
[2019-01-28 08:41] LABS: ALBUMIN 3.1 g/dl (3.4-5.0); BILIRUBIN,TOTAL 0.6 mg/dL (0.2-1); BLOOD UREA NITROGEN 19.4 mg/dL (7-18); CALCIUM 8.9 mg/dL (8.5-10.1); CREATININE 1.4 mg/dL (0.55-1.3); TOT PROT 6.9 g/dl (6.4-8.2)
[2019-01-28] MEDS ORDERED: PT OWN MED DRAWER 7, Y5N ONE ×3 (11:05→21:16)
[2019-01-28] MEDS: amLODIPine BESYLATE 10 MG TABLET (FP) PO SCH (11:17)
[2019-01-28] MEDS: NICOTINE 14 MG/24 HOURS TOPICAL PATCH TD SCH (11:17)
[2019-01-28] MEDS: CHOLECALCIFEROL (VIT D3) 1,000 UNIT (25 MCG) TABLET PO SCH (11:17)
[2019-01-28] MEDS: LIDOCAINE 5% TOPICAL PATCH TP SCH (11:17)
[2019-01-28] MEDS: FAMOTIDINE 20 MG TABLET PO SCH ×2 (11:17→21:18)
[2019-01-28] MEDS: PANTOPRAZOLE 20 MG TABLET (FP) PO SCH (11:17)
--- NOTE | 2019-01-28 11:18 | DS ---
Physical Examination Vital Signs: Vital Signs Temperature 98.6 F 01/28/19 06:00 Pulse Rate 84 01/28/19 06:00 Respiratory Rate 18 01/28/19 06:00 Blood Pressure 128/78 01/28/19 06:00 O2 Sat by Pulse Oximetry (%) 97 01/26/19 19:30 Constitutional: Yes: Calm Cardiovascular: Yes: Regular Rate and Rhythm, S1, S2 Respiratory: Yes: CTA Bilaterally Gastrointestinal: Yes: Normal Bowel Sounds, Soft Extremities: Yes: Other (chronic venous stasis changes) Edema: Yes Neurological: Yes: Alert, Oriented Labs: CBC, BMP 01/28/19 07:14 01/28/19 07:14 Discharge Summary Problems reviewed: Yes Reason For Visit: ACUTE KIDNEY INJURY,AMBULATORY DYSFUNCTION,MORBID Current Active Problems JOSH (acute kidney injury) (Acute) Ambulatory dysfunction (Acute) CKD (chronic kidney disease) (Acute) Fall (Acute) Pre-syncope (Acute) Chronic renal insufficiency, stage III (moderate) (Chronic) Hospital Course: CHIEF COMPLAINT: s/p fall PCP: Krista HISTORY OF PRESENT ILLNESS: This is a 59yF with extensive past medical history including HTN, CHF, DVT/PE on pradaxa, MICHELE, OA, restless leg syndrome who presented to the ED after a fall last night. She states that she became lightheaded when she got up to go to the bathroom and slid to the floor, landing on her buttocks. She reports pain to her lower back, right knee and left lower leg. She states that she is unable to walk due to the pain. She denies further lightheadedness since arrival to the ED but has not attempted to get up. ER course was notable for: (1) troponin negative (2) ECG without acute changes (3) CT pelvis with no acute fracture patient renal function oimproved form 2.5 to 1.4, renal sono done carotid doppler no stenosis PT eval - ambulating with walker stop amlodipine conitnue paradaxa Condition: Fair - Instructions Referrals: Sara Velasco [Primary Care Provider] - Disposition: VNS/HOME HEALTH CARE - Home Medications Comprehensive Discharge Medication List: Ambulatory Orders Atorvastatin Ca [Lipitor] 40 mg PO HS 05/30/14 Omeprazole Magnesium [Prilosec (OTC)] 20 mg PO DAILY 05/30/14 Hydralazine HCl 25 mg PO TID 10/25/17 Methadone [Dolophine -] 50 mg PO DAILY 10/28/17 Amlodipine Besylate [Norvasc -] 10 mg PO DAILY #30 tablet 04/20/18 Albuterol Sulfate [Proair Respiclick] 90 mcg IH QID PRN 09/11/18 Docusate Sodium [Colace -] 100 mg PO TID 09/11/18 Cholecalciferol (Vitamin D3) [Vitamin D3] 5,000 unit PO DAILY #30 capsule Albuterol 0.083% Nebulizer Micheline [Ventolin 0.083% Nebulizer Soln -] 1 amp NEB Q4H PRN #45 amp 12/25/18 Furosemide [Lasix -] 20 mg PO DAILY #30 tablet 12/25/18 Ranitidine [Zantac -] 150 mg PO BID #60 tablet 12/25/18 Dabigatran Etexilate Mesylate [Pradaxa -] 75 mg PO BID 01/26/19 Pramipexole Dihydrochloride [Mirapex -] 2 tab PO HS 01/26/19 Warfarin Sodium [Coumadin] 10 mg PO DAILY 01/26/19
[2019-01-28] MEDS: DABIGATRAN ETEXILATE MESYLATE 75 MG CAPSULE PO SCH ×2 (11:22→21:18)
--- NOTE | 2019-01-28 14:13 | PN ---
Progress Note (short form) - Note Progress Note: PULMONARY Denies shortness of breath or chest pain. Vital Signs Period Temp Pulse Resp BP Sys/Yoder Pulse Ox Last 24 Hr 98.4 F-98.6 F 84-84 18-18 125-128/69-78 Gen: NAD at rest Heart: RRR Lung: decreased breath sounds at the bases Abd: soft, nontender Ext: no edema CBC, BMP 01/28/19 07:14 01/28/19 07:14 Active Medications Acetaminophen (Tylenol -) 650 mg PO Q6H PRN PRN Reason: PAIN Last Admin: 01/26/19 19:11 Dose: 650 mg Albuterol Sulfate (Ventolin 0.083% Nebulizer Soln -) 1 amp NEB RQ4H PRN PRN Reason: SHORT OF BREATH/WHEEZING Atorvastatin Calcium (Lipitor -) 40 mg PO HS [facility] Last Admin: 01/27/19 22:07 Dose: 40 mg Cholecalciferol (Vitamin D3 -) 5,000 unit PO DAILY [facility] Last Admin: 01/28/19 11:17 Dose: 5,000 unit Dabigatran (Pradaxa -) 75 mg PO BID [facility] Last Admin: 01/28/19 11:22 Dose: 75 mg Docusate Sodium (Colace -) 100 mg PO TID [facility] Last Admin: 01/28/19 13:58 Dose: 100 mg Famotidine (Pepcid -) 20 mg PO BID [facility] Last Admin: 01/28/19 11:17 Dose: 20 mg Hydralazine HCl (Apresoline -) 25 mg PO TID [facility] Last Admin: 01/28/19 13:58 Dose: 25 mg Lidocaine (Lidoderm Patch -) 1 patch TP DAILY [facility] Last Admin: 01/28/19 11:17 Dose: 1 patch Methadone HCl (Dolophine -) 50 mg PO DAILY@0600 [facility] Last Admin: 01/28/19 06:12 Dose: 50 mg Miscellaneous (Lidoderm Patch Removal) 1 each MC DAILY@2200 [facility] Last Admin: 01/27/19 22:10 Dose: 1 each Nicotine (Nicoderm Patch -) 14 mg TD DAILY [facility] Last Admin: 01/28/19 11:17 Dose: 14 mg Pantoprazole Sodium (Protonix -) 20 mg PO DAILY [facility] Last Admin: 01/28/19 11:17 Dose: 20 mg Pramipexole Dihydrochloride (Mirapex -) 0.5 mg PO HS [facility] Last Admin: 01/27/19 22:08 Dose: 0.5 mg A/P s/p Fall COPD MICHELE LV Diastolic Dysfunction h/o PE/DVT Morbid Obesity HTN Hyperlipidemia Smoker - inhaled bronchodilators as needed - nicotine patch - smoking cessation discussed - BiPAP at night - continue anticoagulation
--- NOTE | 2019-01-28 15:13 | PN ---
Progress Note, Physician History of Present Illness: Pt seen and examined at bedside. She is awake and alert. She is out of bed to work. - Current Medication List Current Medications: Active Medications Acetaminophen (Tylenol -) 650 mg PO Q6H PRN PRN Reason: PAIN Last Admin: 01/26/19 19:11 Dose: 650 mg Albuterol Sulfate (Ventolin 0.083% Nebulizer Soln -) 1 amp NEB RQ4H PRN PRN Reason: SHORT OF BREATH/WHEEZING Atorvastatin Calcium (Lipitor -) 40 mg PO HS [facility] Last Admin: 01/27/19 22:07 Dose: 40 mg Cholecalciferol (Vitamin D3 -) 5,000 unit PO DAILY [facility] Last Admin: 01/28/19 11:17 Dose: 5,000 unit Dabigatran (Pradaxa -) 75 mg PO BID [facility] Last Admin: 01/28/19 11:22 Dose: 75 mg Docusate Sodium (Colace -) 100 mg PO TID [facility] Last Admin: 01/28/19 13:58 Dose: 100 mg Famotidine (Pepcid -) 20 mg PO BID [facility] Last Admin: 01/28/19 11:17 Dose: 20 mg Hydralazine HCl (Apresoline -) 25 mg PO TID [facility] Last Admin: 01/28/19 13:58 Dose: 25 mg Lidocaine (Lidoderm Patch -) 1 patch TP DAILY [facility] Last Admin: 01/28/19 11:17 Dose: 1 patch Methadone HCl (Dolophine -) 50 mg PO DAILY@0600 [facility] Last Admin: 01/28/19 06:12 Dose: 50 mg Miscellaneous (Lidoderm Patch Removal) 1 each MC DAILY@2200 [facility] Last Admin: 01/27/19 22:10 Dose: 1 each Nicotine (Nicoderm Patch -) 14 mg TD DAILY [facility] Last Admin: 01/28/19 11:17 Dose: 14 mg Pantoprazole Sodium (Protonix -) 20 mg PO DAILY [facility] Last Admin: 01/28/19 11:17 Dose: 20 mg Pramipexole Dihydrochloride (Mirapex -) 0.5 mg PO HS [facility] Last Admin: 01/27/19 22:08 Dose: 0.5 mg - Objective Vital Signs: Vital Signs Temperature 98.2 F 01/28/19 10:00 Pulse Rate 77 01/28/19 10:00 Respiratory Rate 18 01/28/19 10:00 Blood Pressure 152/77 01/28/19 10:00 O2 Sat by Pulse Oximetry (%) 99 01/28/19 09:00 Constitutional: Yes: Calm Eyes: Yes: Conjunctiva Clear HENT: Yes: Atraumatic Neck: Yes: Supple Cardiovascular: Yes: S1, S2 Respiratory: Yes: CTA Bilaterally Gastrointestinal: Yes: Normal Bowel Sounds, Soft Genitourinary: Yes: WNL Extremities: Yes: WNL Edema: Yes Neurological: Yes: Oriented Psychiatric: Yes: Oriented Labs: CBC, BMP 01/28/19 07:14 01/28/19 07:14 INR, PTT INR 1.69 (0.83-1.09) H 01/26/19 14:30 Problem List - Problems (1) CKD (chronic kidney disease) Code(s): N18.9 - CHRONIC KIDNEY DISEASE, UNSPECIFIED (2) JOSH (acute kidney injury) Code(s): N17.9 - ACUTE KIDNEY FAILURE, UNSPECIFIED (3) Ambulatory dysfunction Code(s): R26.2 - DIFFICULTY IN WALKING, NOT ELSEWHERE CLASSIFIED (4) Fall Code(s): W19.XXXA - UNSPECIFIED FALL, INITIAL ENCOUNTER (5) Morbid obesity Code(s): E66.01 - MORBID (SEVERE) OBESITY DUE TO EXCESS CALORIES Assessment/Plan Current Medications Generic Name Dose Route Start Last Admin Trade Name Freq PRN Reason Stop Dose Admin Acetaminophen 650 mg 01/26/19 05:59 01/26/19 19:11 Tylenol - PO 650 mg Q6H PRN Administration PAIN Albuterol Sulfate 1 amp 01/26/19 06:05 Ventolin 0.083% Nebulizer Soln - NEB RQ4H PRN SHORT OF BREATH/WHEEZING Atorvastatin Calcium 40 mg 01/26/19 22:00 01/27/19 22:07 Lipitor - PO 40 mg HS JIE Administration Cholecalciferol 5,000 unit 01/26/19 10:00 01/28/19 11:17 Vitamin D3 - PO 5,000 unit DAILY JIE Administration Dabigatran 75 mg 01/26/19 22:00 01/28/19 11:22 Pradaxa - PO 75 mg BID JIE Administration Docusate Sodium 100 mg 01/26/19 14:00 01/28/19 13:58 Colace - PO 100 mg TID JIE Administration Famotidine 20 mg 01/26/19 10:00 01/28/19 11:17 Pepcid - PO 20 mg BID JIE Administration Hydralazine HCl 25 mg 01/26/19 14:00 01/28/19 13:58 Apresoline - PO 25 mg TID JIE Administration Lidocaine 1 patch 01/27/19 10:00 01/28/19 11:17 Lidoderm Patch - TP 1 patch DAILY JIE Administration Methadone HCl 50 mg 01/27/19 09:45 01/28/19 06:12 Dolophine - PO 50 mg DAILY@0600 JIE Administration Miscellaneous 1 each 01/27/19 22:00 01/27/19 22:10 Lidoderm Patch Removal MC 1 each DAILY@2200 JIE Administration Nicotine 14 mg 01/27/19 16:15 01/28/19 11:17 Nicoderm Patch - TD 14 mg DAILY JIE Administration Pantoprazole Sodium 20 mg 01/26/19 10:00 01/28/19 11:17 Protonix - PO 20 mg DAILY JIE Administration Pramipexole Dihydrochloride 0.5 mg 01/26/19 22:00 01/27/19 22:08 Mirapex - PO 0.5 mg HS JIE Administration Laboratory Tests 01/27/19 19:45 Urine Protein Negative Urine Blood Negative Impression 1. JOSH 2. CKD 3. s/p fall 4. obesity 5. ivania, 6. cva 7. pe 8. dvt 9. gerd Plan - can restart lasix, pt was on 20 mg - monitor lytes - follow renal ultrasound - titrate hydralazine as tolerated - will need more extensive workup as outpt
[2019-01-28] MEDS: FUROSEMIDE 20 MG TABLET (FP) PO SCH (17:38)
--- NOTE | 2019-01-28 21:02 | PN ---
Progress Note (short form) - Note Progress Note: Patient seen and examined No specific complaints AFVSS Morbid obesity Cor: RSR, No murmurs, No gallops Lungs: Clear to P&A Abd: Soft, Normal bowel sounds, No organomegaly Ext:No significant edema Labs/Meds reviewed A/P 59 y/o patient with morbid obesity, HTN, CHF, DVT/PE on Dabigatran, MICHELE, OA, RLS admitted due to a possible presyncopal event resulting in a fall with significant pain. Medical Oncology consulted due to incidentally found inguinal lymphadenopathy in abdomen CT scan. Will check U/S inguinal areas Suspect secondary to chronic stasis dermatitis of lower extremities
[2019-01-28] MEDS: PRAMIPEXOLE DIHYDROCHLORIDE 0.5 MG TABLET PO SCH (21:18)
[2019-01-28] MEDS: ATORVASTATIN CA 40 MG TABLET (FP) PO SCH (21:18)
[2019-01-28] MEDS: LIDOCAINE PATCH REMOVAL MC SCH (21:18)
[2019-01-29] MEDS: hydrALAZINE HCL 25 MG TABLET (FP) PO SCH ×2 (05:34→14:12)
[2019-01-29] MEDS: METHADONE HCL 10 MG TABLET PO SCH (05:34)
[2019-01-29] MEDS: DOCUSATE SODIUM 100 MG CAPSULE (FP) PO SCH ×2 (05:35→14:12)
[2019-01-29] MEDS: ACETAMINOPHEN 325 MG TABLET (FP) PO PRN (06:21)
[2019-01-29] MEDS: FUROSEMIDE 20 MG TABLET (FP) PO SCH (10:08)
[2019-01-29] MEDS: FAMOTIDINE 20 MG TABLET PO SCH (10:08)
[2019-01-29] MEDS: CHOLECALCIFEROL (VIT D3) 1,000 UNIT (25 MCG) TABLET PO SCH (10:10)
[2019-01-29] MEDS: LIDOCAINE 5% TOPICAL PATCH TP SCH (10:10)
[2019-01-29] MEDS: NICOTINE 14 MG/24 HOURS TOPICAL PATCH TD SCH (10:11)
[2019-01-29] MEDS: PANTOPRAZOLE 20 MG TABLET (FP) PO SCH (10:11)
[2019-01-29] MEDS: DABIGATRAN ETEXILATE MESYLATE 75 MG CAPSULE PO SCH (10:12)
--- NOTE | 2019-01-29 11:18 | PN ---
Progress Note (short form) - Note Progress Note: PULMONARY Denies shortness of breath Using Cpap HS VSS/Afebrile Gen: NAD at rest Heart: RRR Lung: decreased breath sounds at the bases Abd: soft, nontender Ext: no edema labs/meds/notes/images reviewed s/p Fall COPD MICHELE LV Diastolic Dysfunction h/o PE/DVT Morbid Obesity HTN Hyperlipidemia Smoker - inhaled bronchodilators as needed - nicotine patch - smoking cessation discussed - BiPAP at night - continue anticoagulation Jenn ALMARAZ MD
[2019-01-29 11:21] VITALS: TEMP 98.3
--- NOTE | 2019-01-29 13:07 | PN ---
Progress Note, Physician Chief Complaint: Not in distress History of Present Illness: Patient was seen and examined. Awake and alert. Chart was reviewed Sitting in chair. Denies chest pain, SOB or palpitations - Current Medication List Current Medications: Active Medications Acetaminophen (Tylenol -) 650 mg PO Q6H PRN PRN Reason: PAIN Last Admin: 01/29/19 06:21 Dose: 650 mg Albuterol Sulfate (Ventolin 0.083% Nebulizer Soln -) 1 amp NEB RQ4H PRN PRN Reason: SHORT OF BREATH/WHEEZING Atorvastatin Calcium (Lipitor -) 40 mg PO HS [facility] Last Admin: 01/28/19 21:18 Dose: 40 mg Cholecalciferol (Vitamin D3 -) 5,000 unit PO DAILY [facility] Last Admin: 01/29/19 10:10 Dose: 5,000 unit Dabigatran (Pradaxa -) 75 mg PO BID [facility] Last Admin: 01/29/19 10:12 Dose: 75 mg Docusate Sodium (Colace -) 100 mg PO TID [facility] Last Admin: 01/29/19 05:35 Dose: 100 mg Famotidine (Pepcid -) 20 mg PO BID [facility] Last Admin: 01/29/19 10:08 Dose: 20 mg Furosemide (Lasix -) 20 mg PO DAILY [facility] Last Admin: 01/29/19 10:08 Dose: 20 mg Hydralazine HCl (Apresoline -) 25 mg PO TID [facility] Last Admin: 01/29/19 05:34 Dose: 25 mg Lidocaine (Lidoderm Patch -) 1 patch TP DAILY [facility] Last Admin: 01/29/19 10:10 Dose: 1 patch Methadone HCl (Dolophine -) 50 mg PO DAILY@0600 [facility] Last Admin: 01/29/19 05:34 Dose: 50 mg Miscellaneous (Lidoderm Patch Removal) 1 each MC DAILY@2200 [facility] Last Admin: 01/28/19 21:18 Dose: Not Given Nicotine (Nicoderm Patch -) 14 mg TD DAILY [facility] Last Admin: 01/29/19 10:11 Dose: 14 mg Pantoprazole Sodium (Protonix -) 20 mg PO DAILY [facility] Last Admin: 01/29/19 10:11 Dose: 20 mg Pramipexole Dihydrochloride (Mirapex -) 0.5 mg PO HS [facility] Last Admin: 01/28/19 21:18 Dose: 0.5 mg - Objective Vital Signs: Vital Signs Temperature 98.3 F 01/29/19 10:00 Pulse Rate 90 01/29/19 10:00 Respiratory Rate 18 01/29/19 10:00 Blood Pressure 122/77 01/29/19 10:00 O2 Sat by Pulse Oximetry (%) 98 01/28/19 22:08 Eyes: Yes: PERRL HENT: Yes: Atraumatic Neck: Yes: Supple Cardiovascular: Yes: Regular Rate and Rhythm, S1, S2 Respiratory: Yes: Diminished Gastrointestinal: Yes: Normal Bowel Sounds, Soft, Abdomen, Obese. No: Tenderness Edema: Yes Edema: LLE: 3+, RLE: 3+ Integumentary: Yes: Venous Stasis Changes Labs: CBC, BMP 01/28/19 07:14 01/28/19 07:14 INR, PTT INR 1.69 (0.83-1.09) H 01/26/19 14:30 Problem List - Problems (1) CKD (chronic kidney disease) Code(s): N18.9 - CHRONIC KIDNEY DISEASE, UNSPECIFIED (2) Fall Code(s): W19.XXXA - UNSPECIFIED FALL, INITIAL ENCOUNTER (3) Cerebrovascular accident (CVA) with involvement of right side of body Code(s): I63.9 - CEREBRAL INFARCTION, UNSPECIFIED (4) CHF (congestive heart failure) Code(s): I50.9 - HEART FAILURE, UNSPECIFIED Qualifiers: Heart failure type: unspecified Heart failure chronicity: unspecified Qualified Code(s): I50.9 - Heart failure, unspecified (5) COPD (chronic obstructive pulmonary disease) Code(s): J44.9 - CHRONIC OBSTRUCTIVE PULMONARY DISEASE, UNSPECIFIED Qualifiers: COPD type: unspecified COPD Qualified Code(s): J44.9 - Chronic obstructive pulmonary disease, unspecified (6) DVT (deep venous thrombosis) Code(s): I82.409 - ACUTE EMBOLISM AND THOMBOS UNSP DEEP VN UNSP LOWER EXTREMITY Qualifiers: Affected thrombotic vein of extremity: femoral Laterality: left (7) HTN (hypertension) Code(s): I10 - ESSENTIAL (PRIMARY) HYPERTENSION Qualifiers: Hypertension type: essential hypertension Qualified Code(s): I10 - Essential (primary) hypertension (8) History of pulmonary embolism Code(s): Z86.711 - PERSONAL HISTORY OF PULMONARY EMBOLISM (9) Methadone maintenance therapy patient Code(s): F11.20 - OPIOID DEPENDENCE, UNCOMPLICATED (10) Presence of IVC filter Code(s): Z95.828 - PRESENCE OF OTHER VASCULAR IMPLANTS AND GRAFTS (11) Sleep apnea Code(s): G47.30 - SLEEP APNEA, UNSPECIFIED Qualifiers: Sleep apnea type: obstructive Qualified Code(s): G47.33 - Obstructive sleep apnea (adult) (pediatric) (12) Vitamin D deficiency Code(s): E55.9 - VITAMIN D DEFICIENCY, UNSPECIFIED Assessment/Plan 1. Mechanical fall, currently asymptomatic 2. Acute on CKD 3. HTN 4. Hypercholesterolemia 5. History of PTE/DVT 6. History of MICHELE with exogenous obesity PLAN: 1. Continue Hydralazine as tolerated. Taken off Amlodipine 2. Statin therapy 3. Continue Pradaxa 4. Echocardiography to assess LV/RV and valvular function 5. Monitor renal function 6. BIPAP Further plans are to follow Sid Gallego MD
--- NOTE | 2019-01-29 14:29 | PN ---
Progress Note, Physician Chief Complaint: Fall Presyncope DVT/PE History of Present Illness: Previous notes and events reviewed awake and alert NAD denies chest pain or SOB patient is scheduled for Echocardiogram - Current Medication List Current Medications: Active Medications Acetaminophen (Tylenol -) 650 mg PO Q6H PRN PRN Reason: PAIN Last Admin: 01/29/19 06:21 Dose: 650 mg Albuterol Sulfate (Ventolin 0.083% Nebulizer Soln -) 1 amp NEB RQ4H PRN PRN Reason: SHORT OF BREATH/WHEEZING Atorvastatin Calcium (Lipitor -) 40 mg PO HS [facility] Last Admin: 01/28/19 21:18 Dose: 40 mg Cholecalciferol (Vitamin D3 -) 5,000 unit PO DAILY [facility] Last Admin: 01/29/19 10:10 Dose: 5,000 unit Dabigatran (Pradaxa -) 75 mg PO BID [facility] Last Admin: 01/29/19 10:12 Dose: 75 mg Docusate Sodium (Colace -) 100 mg PO TID [facility] Last Admin: 01/29/19 14:12 Dose: 100 mg Famotidine (Pepcid -) 20 mg PO BID [facility] Last Admin: 01/29/19 10:08 Dose: 20 mg Furosemide (Lasix -) 20 mg PO DAILY [facility] Last Admin: 01/29/19 10:08 Dose: 20 mg Hydralazine HCl (Apresoline -) 25 mg PO TID [facility] Last Admin: 01/29/19 14:12 Dose: 25 mg Lidocaine (Lidoderm Patch -) 1 patch TP DAILY [facility] Last Admin: 01/29/19 10:10 Dose: 1 patch Methadone HCl (Dolophine -) 50 mg PO DAILY@0600 [facility] Last Admin: 01/29/19 05:34 Dose: 50 mg Miscellaneous (Lidoderm Patch Removal) 1 each MC DAILY@2200 [facility] Last Admin: 01/28/19 21:18 Dose: Not Given Nicotine (Nicoderm Patch -) 14 mg TD DAILY [facility] Last Admin: 01/29/19 10:11 Dose: 14 mg Pantoprazole Sodium (Protonix -) 20 mg PO DAILY [facility] Last Admin: 01/29/19 10:11 Dose: 20 mg Pramipexole Dihydrochloride (Mirapex -) 0.5 mg PO HS [facility] Last Admin: 01/28/19 21:18 Dose: 0.5 mg - Objective Vital Signs: Vital Signs Temperature 98.3 F 01/29/19 10:00 Pulse Rate 90 01/29/19 10:00 Respiratory Rate 18 01/29/19 10:00 Blood Pressure 122/77 01/29/19 10:00 O2 Sat by Pulse Oximetry (%) 98 01/29/19 09:00 Constitutional: Yes: No Distress, Calm, Obese Eyes: Yes: Conjunctiva Clear HENT: Yes: Atraumatic Cardiovascular: Yes: Regular Rate and Rhythm Respiratory: Yes: Regular, Diminished Gastrointestinal: Yes: Normal Bowel Sounds, Soft, Abdomen, Obese Musculoskeletal: Yes: Muscle Weakness Extremities: Yes: WNL Edema: No Neurological: Yes: Alert, Oriented Psychiatric: Yes: Alert, Oriented Labs: CBC, BMP 01/28/19 07:14 01/28/19 07:14 INR, PTT INR 1.69 (0.83-1.09) H 01/26/19 14:30 Problem List - Problems (1) Ambulatory dysfunction Assessment/Plan: -PT -Fall Risk Precaution Code(s): R26.2 - DIFFICULTY IN WALKING, NOT ELSEWHERE CLASSIFIED (2) Pre-syncope Assessment/Plan: -Cardiology consult -Carotid US -EKG shows NSR -Fall Risk Precaution -Echocardiogram Code(s): R55 - SYNCOPE AND COLLAPSE (3) Chronic renal insufficiency, stage III (moderate) Assessment/Plan: -Renal Consult -BUN/Cr 19.4/1.4 -monitor renal function daily Code(s): N18.3 - CHRONIC KIDNEY DISEASE, STAGE 3 (MODERATE) (4) Back pain Assessment/Plan: -pain control Code(s): M54.9 - DORSALGIA, UNSPECIFIED (5) CHF (congestive heart failure) Assessment/Plan: -Furosemide -daily weights -strict I&Os -low Na diet Code(s): I50.9 - HEART FAILURE, UNSPECIFIED Qualifiers: Heart failure type: unspecified Heart failure chronicity: unspecified Qualified Code(s): I50.9 - Heart failure, unspecified (6) COPD (chronic obstructive pulmonary disease) Assessment/Plan: -Bronchodilators -keep SpO2 >90% -O2 via NC -Pulm consult Code(s): J44.9 - CHRONIC OBSTRUCTIVE PULMONARY DISEASE, UNSPECIFIED Qualifiers: COPD type: unspecified COPD Qualified Code(s): J44.9 - Chronic obstructive pulmonary disease, unspecified (7) DVT (deep venous thrombosis) Assessment/Plan: -Pradaxa Code(s): I82.409 - ACUTE EMBOLISM AND THOMBOS UNSP DEEP VN UNSP LOWER EXTREMITY Qualifiers: Affected thrombotic vein of extremity: femoral Laterality: left (8) HTN (hypertension) Assessment/Plan: -Amlodipine, Hydralazine, -low Na diet Code(s): I10 - ESSENTIAL (PRIMARY) HYPERTENSION Qualifiers: Hypertension type: essential hypertension Qualified Code(s): I10 - Essential (primary) hypertension (9) History of pulmonary embolism Assessment/Plan: -Pradaxa Code(s): Z86.711 - PERSONAL HISTORY OF PULMONARY EMBOLISM (10) Morbid obesity Assessment/Plan: -Dietary consult Code(s): E66.01 - MORBID (SEVERE) OBESITY DUE TO EXCESS CALORIES (11) Fall Assessment/Plan: -Fall risk precaution -PT -Pelvic CT scan shows no fracture, hip dislocation, acute bone or joint abnormalities, inguinal lymphadenopathy -Radiology shows degenerative changes to right knee joint space with decrease in the joint space in medial compartment, patellofemoral joint disease noted, effusion cannot be excluded due to body habitus, no fracture of the left tibia/ fibula Code(s): W19.XXXA - UNSPECIFIED FALL, INITIAL ENCOUNTER Assessment/Plan see problem list dvt ppx dc home after echocardiogram
--- NOTE | 2019-01-29 14:44 | PN ---
Progress Note, Physician History of Present Illness: Pt seen and examined at bedside. SHe is awake and alert. She denies shortness of breath. - Current Medication List Current Medications: Active Medications Acetaminophen (Tylenol -) 650 mg PO Q6H PRN PRN Reason: PAIN Last Admin: 01/29/19 06:21 Dose: 650 mg Albuterol Sulfate (Ventolin 0.083% Nebulizer Soln -) 1 amp NEB RQ4H PRN PRN Reason: SHORT OF BREATH/WHEEZING Atorvastatin Calcium (Lipitor -) 40 mg PO HS [facility] Last Admin: 01/28/19 21:18 Dose: 40 mg Cholecalciferol (Vitamin D3 -) 5,000 unit PO DAILY [facility] Last Admin: 01/29/19 10:10 Dose: 5,000 unit Dabigatran (Pradaxa -) 75 mg PO BID [facility] Last Admin: 01/29/19 10:12 Dose: 75 mg Docusate Sodium (Colace -) 100 mg PO TID [facility] Last Admin: 01/29/19 14:12 Dose: 100 mg Famotidine (Pepcid -) 20 mg PO BID [facility] Last Admin: 01/29/19 10:08 Dose: 20 mg Furosemide (Lasix -) 20 mg PO DAILY [facility] Last Admin: 01/29/19 10:08 Dose: 20 mg Hydralazine HCl (Apresoline -) 25 mg PO TID [facility] Last Admin: 01/29/19 14:12 Dose: 25 mg Lidocaine (Lidoderm Patch -) 1 patch TP DAILY [facility] Last Admin: 01/29/19 10:10 Dose: 1 patch Methadone HCl (Dolophine -) 50 mg PO DAILY@0600 [facility] Last Admin: 01/29/19 05:34 Dose: 50 mg Miscellaneous (Lidoderm Patch Removal) 1 each MC DAILY@2200 [facility] Last Admin: 01/28/19 21:18 Dose: Not Given Nicotine (Nicoderm Patch -) 14 mg TD DAILY [facility] Last Admin: 01/29/19 10:11 Dose: 14 mg Pantoprazole Sodium (Protonix -) 20 mg PO DAILY [facility] Last Admin: 01/29/19 10:11 Dose: 20 mg Pramipexole Dihydrochloride (Mirapex -) 0.5 mg PO HS [facility] Last Admin: 01/28/19 21:18 Dose: 0.5 mg - Objective Vital Signs: Vital Signs Temperature 98.3 F 01/29/19 10:00 Pulse Rate 90 01/29/19 10:00 Respiratory Rate 18 01/29/19 10:00 Blood Pressure 122/77 01/29/19 10:00 O2 Sat by Pulse Oximetry (%) 98 01/29/19 09:00 Constitutional: Yes: Calm Eyes: Yes: Conjunctiva Clear HENT: Yes: Atraumatic Neck: Yes: Supple Cardiovascular: Yes: S1, S2 Respiratory: Yes: CTA Bilaterally Gastrointestinal: Yes: Soft Genitourinary: Yes: WNL Musculoskeletal: Yes: WNL Edema: Yes (lymphedema) Edema: LLE: 1+, RLE: 1+ Neurological: Yes: Oriented Psychiatric: Yes: Oriented Labs: CBC, BMP 01/28/19 07:14 01/28/19 07:14 INR, PTT INR 1.69 (0.83-1.09) H 01/26/19 14:30 Problem List - Problems (1) CKD (chronic kidney disease) Code(s): N18.9 - CHRONIC KIDNEY DISEASE, UNSPECIFIED (2) JOSH (acute kidney injury) Code(s): N17.9 - ACUTE KIDNEY FAILURE, UNSPECIFIED (3) Ambulatory dysfunction Code(s): R26.2 - DIFFICULTY IN WALKING, NOT ELSEWHERE CLASSIFIED (4) Fall Code(s): W19.XXXA - UNSPECIFIED FALL, INITIAL ENCOUNTER (5) Morbid obesity Code(s): E66.01 - MORBID (SEVERE) OBESITY DUE TO EXCESS CALORIES Assessment/Plan Current Medications Generic Name Dose Route Start Last Admin Trade Name Freq PRN Reason Stop Dose Admin Acetaminophen 650 mg 01/26/19 05:59 01/29/19 06:21 Tylenol - PO 650 mg Q6H PRN Administration PAIN Albuterol Sulfate 1 amp 01/26/19 06:05 Ventolin 0.083% Nebulizer Soln - NEB RQ4H PRN SHORT OF BREATH/WHEEZING Atorvastatin Calcium 40 mg 01/26/19 22:00 01/28/19 21:18 Lipitor - PO 40 mg HS JIE Administration Cholecalciferol 5,000 unit 01/26/19 10:00 01/29/19 10:10 Vitamin D3 - PO 5,000 unit DAILY JIE Administration Dabigatran 75 mg 01/26/19 22:00 01/29/19 10:12 Pradaxa - PO 75 mg BID JIE Administration Docusate Sodium 100 mg 01/26/19 14:00 01/29/19 14:12 Colace - PO 100 mg TID JIE Administration Famotidine 20 mg 01/26/19 10:00 01/29/19 10:08 Pepcid - PO 20 mg BID JIE Administration Furosemide 20 mg 01/28/19 15:15 01/29/19 10:08 Lasix - PO 20 mg DAILY JIE Administration Hydralazine HCl 25 mg 01/26/19 14:00 01/29/19 14:12 Apresoline - PO 25 mg TID JIE Administration Lidocaine 1 patch 01/27/19 10:00 01/29/19 10:10 Lidoderm Patch - TP 1 patch DAILY JIE Administration Methadone HCl 50 mg 01/27/19 09:45 01/29/19 05:34 Dolophine - PO 50 mg DAILY@0600 JIE Administration Miscellaneous 1 each 01/27/19 22:00 01/28/19 21:18 Lidoderm Patch Removal MC Not Given DAILY@2200 JIE Nicotine 14 mg 01/27/19 16:15 01/29/19 10:11 Nicoderm Patch - TD 14 mg DAILY JIE Administration Pantoprazole Sodium 20 mg 01/26/19 10:00 01/29/19 10:11 Protonix - PO 20 mg DAILY JIE Administration Pramipexole Dihydrochloride 0.5 mg 01/26/19 22:00 01/28/19 21:18 Mirapex - PO 0.5 mg HS JIE Administration Impression 1. JOSH 2. CKD 3. s/p fall 4. obesity 5. ivania, 6. cva 7. pe 8. dvt 9. gerd Plan - cont lasix 20 mg - monitor volume status - will see pt in office if she follows up - avoid nsaids - bp is stable
[2019-01-29 15:26] VITALS: BP 148/85; PULSE 83
--- NOTE | 2019-01-29 15:45 | ECHO ---
Name: NAHED GARCIAELLE Exam:Adult Echocardiogram Study Date: 01/29/2019 02:53 PM Age: 59 yrs Reason For Study: htn sob Height: 69 in Weight: 357 lb BSA: 2.6 m2 MMode/2D Measurements & Calculations IVSd: 1.0 cm Ao root diam: 2.6 cm LVIDd: 3.3 cm LA dimension: 1.9 cm LVIDs: 2.2 cm LVPWd: 1.2 cm LVPWs: 0.95 cm EDV(Teich): 44.0 ml ESV(Teich): 16.4 ml LVOT diam: 2.0 cm Doppler Measurements & Calculations MV E max camron: 62.7 cm/sec Ao V2 max: 157.4 cm/sec MV A max carmon: 94.8 cm/sec Ao max P.0 mmHg MV E/A: 0.66 MV dec time: 0.15 sec TONY(V,D): 2.5 cm2 LV V1 max P.0 mmHg PA V2 max: 101.8 cm/sec LV V1 max: 122.9 cm/sec PA max P.1 mmHg Med Peak E' Camron: 7.3 cm/sec Med E/e': 8.5 Lat Peak E' Camron: 7.8 cm/sec Lat E/e': 8.1 Procedure The study was technically difficult with many images being suboptimal in quality. Left Ventricle Left ventricular systolic function is normal. Ejection Fraction = 55-60%. The transmitral spectral Do ppler flow pattern is suggestive of impaired LV relaxation. Regional wall motion abnormalities cannot be ex cluded due to limited visualization. Right Ventricle The right ventricle is not well visualized. Atria Normal left and right atrial size and function. Mitral Valve There is moderate to severe mitral annular calcification. There is no mitral valve stenosis. There is mild mitral regurgitation. Tricuspid Valve The tricuspid valve is normal in structure and function. There is mild tricuspid regurgitation. Aortic Valve There is mild aortic sclerosis.;. No hemodynamically significant valvular aortic stenosis. No aortic regurgitation is present. Pulmonic Valve The pulmonic valve is not well seen, but is grossly normal. There is no pulmonic valvular stenosis. Great Vessels The aortic root is normal size. Pericardium/Pleura There is no pericardial effusion. Interpretation Summary The study was technically difficult with many images being suboptimal in quality. Left ventricular systolic function is normal. Ejection Fraction = 55-60%. The transmitral spectral Doppler flow pattern is suggestive of impaired LV relaxation. The right ventricle is not well visualized. There is moderate to severe mitral annular calcification. There is mild mitral regurgitation. There is mild tricuspid regurgitation. There is mild aortic sclerosis.; MD Bojorquez *Link 01/29/2019 03:44 PM
== END 2019-01-29 17:41 | disposition home health service (06) | DRG 683 ==
LOC: JER 00:04 → JERBED 04:44 → J8W 10:13
PROVIDERS: ADMIT Family Medicine; ATTEND Family Medicine
DX: N17.9 Acute kidney failure, unspecified (principal); I50.32 Chronic diastolic (congestive) heart failure; I13.0 Hypertensive heart and chronic kidney disease with heart failure and stage 1 through stage 4 chronic kidney disease, or unspecified chronic kidney disease; Z68.43 Body mass index [BMI] 50.0-59.9, adult; L97.921 Non-pressure chronic ulcer of unspecified part of left lower leg limited to breakdown of skin; R59.0 Localized enlarged lymph nodes; E66.01 Morbid (severe) obesity due to excess calories; I83.008 Varicose veins of unspecified lower extremity with ulcer other part of lower leg; F17.210 Nicotine dependence, cigarettes, uncomplicated; R26.9 Unspecified abnormalities of gait and mobility; N18.3 Chronic kidney disease, stage 3 (moderate); J44.9 Chronic obstructive pulmonary disease, unspecified; E78.5 Hyperlipidemia, unspecified; R55 Syncope and collapse; G47.33 Obstructive sleep apnea (adult) (pediatric)
CPT/HCPCS: 36415; 72100-TC-FY; 72170-TC-FY; 72192-TC; 73562-TC-RT-FY; 73590-TC-LT-FY; 76775-TC; 76882-TC-RT-FY; 80048; 80053; 81003; 82550; 82553; 83735; 84100; 84484; 85025; 85027; 85610; 93005; 93010; 93306-TC; 93880-TC; 94660; 97116-GP; 97162-GP; 99285-25

== ENCOUNTER 2019-02-04 13:56 | Inpatient (IN) | payer OTHER ==
[2019-02-04] MEDS ORDERED: ACETAMINOPHEN 325 MG TABLET (FP) PO ONE (14:20)
--- NOTE | 2019-02-04 14:20 | PDOC ---
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 The patient reports some slightly worse than baseline shortness of breath but denies any other complaints. ROS GENERAL/CONSTITUTIONAL: No fever or chills. No weakness. CARDIOVASCULAR: No chest pain + slight shortness of breath RESPIRATORY: No cough, wheezing, or hemoptysis. GASTROINTESTINAL: No nausea, vomiting, diarrhea or constipation. GENITOURINARY: No dysuria, frequency, or change in urination. MUSCULOSKELETAL: No joint or muscle swelling or pain. No neck or back pain. SKIN: No rash PE GENERAL: Awake, alert, and fully oriented, in no acute distress HEAD: No signs of trauma, normocephalic, atraumatic EYES: EOMI, sclera anicteric, conjunctiva clear ENT: oropharynx clear without exudates. Moist mucosa NECK: Normal ROM, supple LUNGS: No distress, speaks full sentences, distant breath sounds, clear to auscultation bilaterally HEART: Regular rate and rhythm, normal S1 and S2, no murmurs, rubs or gallops, peripheral pulses normal and equal bilaterally. ABDOMEN: Soft, nontender, No guarding, no rebound. No masses EXTREMITIES : Normal inspection, Normal range of motion, + 2+ pittign edema, L posterior calf stage 2 1.5cm ulcer, no pus or drainage NEUROLOGICAL: Cranial nerves II through XII grossly intact. Normal speech, no focal sensorimotor deficits SKIN: Warm, Dry, crusting on the R calf MDM DDX including but not limited to: r/o fx r/o chf exacerb ED Course: leukocytosis consider urianry source with small uti patient uinable to ambulate plan for admission Padmaja Toledo, PGY2 Emergency Medicine Past History - Past Medical History Allergies/Adverse Reactions: Allergies Allergy/AdvReac Type Severity Reaction Status Date / Time Penicillins Allergy Intermediate Hives Verified 01/26/19 00:27 Home Medications: Ambulatory Orders Atorvastatin Ca [Lipitor] 40 mg PO HS 05/30/14 Omeprazole Magnesium [Prilosec (OTC)] 20 mg PO DAILY 05/30/14 Hydralazine HCl 25 mg PO TID 10/25/17 Methadone [Dolophine -] 50 mg PO DAILY 10/28/17 Albuterol Sulfate [Proair Respiclick] 90 mcg IH QID PRN 09/11/18 Docusate Sodium [Colace -] 100 mg PO TID 09/11/18 Cholecalciferol (Vitamin D3) [Vitamin D3] 5,000 unit PO DAILY #30 capsule Albuterol 0.083% Nebulizer Micheline [Ventolin 0.083% Nebulizer Soln -] 1 amp NEB Q4H PRN #45 amp 12/25/18 Ranitidine [Zantac -] 150 mg PO BID #60 tablet 12/25/18 Pramipexole Dihydrochloride [Mirapex -] 2 tab PO HS 01/26/19 Dabigatran Etexilate Mesylate [Pradaxa -] 75 mg PO BID #30 capsule 01/28/19 Nicotine Patch [Nicoderm Patch -] 14 mg TD DAILY #14 patch 01/28/19 Anemia: No Asthma: No Cancer: No Cardiac Disorders: No CVA: Yes (residual right sided weakness ) COPD: Yes (also with history of PE, on inhalers) CHF: Yes Dementia: No Diabetes: No Dialysis: No GI Disorders: Yes (GERD, Constipation) Disorders: No HTN: Yes Hypercholesterolemia: Yes Liver Disease: No Seizures: No Thyroid Disease: No Lung CA: No - Surgical History Abdominal Surgery: No Appendectomy: No Cardiac Surgery: No Cholecystectomy: No Lung Surgery: Yes (IVC filter in Rt groin for PE 2012) Neurologic Surgery: No Orthopedic Surgery: No - Immunization History Td Vaccination: Yes TDAP Vaccination: Yes Immunization Up to Date: Yes - Psycho Social/Smoking Cessation Hx Smoking Status: Yes Smoking History: Never smoked Have you smoked in the past 12 months: No Number of Cigarettes Smoked Daily: 3 If you are a former smoker, when did you quit?: 1 month Information on smoking cessation initiated: No 'Breaking Loose' booklet given: 02/25/13 Hx Alcohol Use: No Drug/Substance Use Hx: No Substance Use Type: None, Heroin Hx Substance Use Treatment: Yes (Methadone) *Physical Exam - Vital Signs Last Vital Signs Temp Pulse Resp BP Pulse Ox 97.5 F L 108 H 16 143/86 95 02/04/19 14:14 02/04/19 14:14 02/04/19 14:14 02/04/19 14:14 02/04/19 14:14 ED Treatment Course - LABORATORY CBC & Chemistry Diagram: 02/08/19 07:25 02/08/19 07:25 Discharge - Discharge Information Problems reviewed: Yes Clinical Impression/Diagnosis: Fall Condition: Fair - Follow up/Referral - Patient Discharge Instructions - Post Discharge Activity
[2019-02-04] MEDS ORDERED: ACETAMINOPHEN 325 MG TABLET (FP) ONE (14:33)
[2019-02-04 15:06] LABS: BASO % 0.3 % (0-2.0); EOS % 0.1 % (0-4.5); HEMATOCRIT 32.4 % (32.4-45.2); HEMOGLOBIN 10.5 GM/dL (10.7-15.3); LYMPH % 2.8 % (8-40); MCH 30.1 pg (25.7-33.7); MCHC 32.4 g/dl (32.0-36.0); MEAN PLT VOLUME 8.2 fl (7.5-11.1); MONO % 7.8 % (3.8-10.2); PLATELET COUNT 269 K/MM3 (134-434); RBC 3.48 M/mm3 (3.60-5.2); RDW 17.7 % (11.6-15.6); WHITE BLOOD COUNT 17.1 K/mm3 (4.0-10.0)
[2019-02-04 15:33] LABS: INR 1.34 (0.83-1.09); PROTHROMBIN TIME (PATIENT) 15.9 SEC (9.7-13.0)
[2019-02-04 15:36] LABS: ACTIVATED PTT 29.8 SECONDS (25.2-36.5)
[2019-02-04 15:43] LABS: ALBUMIN 3.3 g/dl (3.4-5.0); BILIRUBIN,TOTAL 1.4 mg/dL (0.2-1); BLOOD UREA NITROGEN 39.7 mg/dL (7-18); CALCIUM 9.2 mg/dL (8.5-10.1); CREATININE 2.7 mg/dL (0.55-1.3); POTASSIUM 4.2 mmol/L (3.5-5.1); TOT PROT 8.4 g/dl (6.4-8.2)
[2019-02-04] MEDS: SODIUM CHLORIDE 500 ML IV SCH (17:11)
--- NOTE | 2019-02-04 17:26 | PDOC ---
Attending Attestation - Resident Resident Name: James Toledoie - ED Attending Attestation I have performed the following: I have examined & evaluated the patient, The case was reviewed & discussed with the resident, I agree w/resident's findings & plan, Exceptions are as noted - HPI HPI: 02/04/19 17:24 59 F with HTN, HLD, MICHELE, CVA, DVT/PE on pradaxa, presenting to ED with R sided pain after falling. Pt states that she was trying to get from her bed to her walker and slipped, falling onto her R knee. Pt now reports R knee and R ankle pain. Denies headstrike/LOC. Pt denies any lightheadedness/dizziness prior to falling but does endorse some SOB that is worse than her baseline. - Physicial Exam PE: 02/04/19 17:25 "GENERAL: Awake, alert, and fully oriented, in no acute distress. HEAD: No signs of trauma EYES: PERRLA, EOMI, sclera anicteric, conjunctiva clear ENT: Auricles normal inspection, hearing grossly normal, nares patent, oropharynx clear without exudates. Moist mucosa NECK: Nontender, no stepoffs, Normal ROM, supple, no lymphadenopathy, JVD, or masses LUNGS: Breath sounds equal, clear to auscultation bilaterally. No wheezes, and no crackles HEART: Regular rate and rhythm, normal S1 and S2, no murmurs, rubs or gallops ABDOMEN: Soft, nontender, normoactive bowel sounds. No guarding, no rebound. No masses EXTREMITIES: Normal range of motion, no edema. No clubbing or cyanosis. No cords, erythema, or tenderness NEUROLOGICAL: Cranial nerves II through XII intact. 5/5 strength and sensation in all extremities, Normal speech, normal gait, normal cerebellar function SKIN: Warm, Dry, normal turgor, no rashes or lesions noted. - Medical Decision Making 02/04/19 17:25 59 F with R leg pain s/p fall, also complaining of SOB. Pt has h/o PE but is anticoagulated. No clinical signs of DVT. Cannot obtain CTA due to renal insuff. - Labs, cardiac enzymes - XRs 02/04/19 17:28 CXR shows congestive changes Pt has BLE edema Will admit for volume overload Consider V/Q scan to r/o PE
[2019-02-04 18:18] LABS: EPI CELLS 2.9 /HPF (0-5/HPF); HYALINE CASTS 26 /lpf (0-8); URINE APPEARANCE CLOUDY; URINE BACTERIA 0.5 /hpf (NEGATIVE); URINE BILIRUBIN 2+ (NEGATIVE); URINE COLOR DK YELLOW; URINE GLUCOSE (UA) NEGATIVE (NEGATIVE); URINE KETONE TRACE (NEGATIVE); URINE LEUK ESTERASE TRACE (NEGATIVE); URINE NITRITE POSITIVE (NEGATIVE); URINE PROTEIN 2+ (NEGATIVE); URINE WBC 1 /hpf (0-5)
[2019-02-04 18:32] LABS: URINE RBC 3.9 /hpf (0-4)
--- NOTE | 2019-02-04 19:20 | HP ---
Admitting History and Physical - Primary Care Physician PCP: Sara Velasco ([facility]) - Admission Chief Complaint: s/p Fall, SOB History of Present Illness: This is a 59 year old woman with a PMHx of HTN, HLD, Severe Obesity, MICHELE, ambulates with walker, CVA w/ residual right sided deficits, 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 Who presents to the ED with R knee and R ankle pain s/p fall 2 days ago, while trying to get to her walker from her bed. The patient reports SOB worse then baseline. She reports pain to her left groin and left leg, worse on movement. Patient reports increased LLE swelling. Patient denies LOC or head trauma. Patient denies fever , chills, dizziness, JIMENEZ, CP, palpitations, AP, N/V/D, constipation. 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 deficits) Cardiovascular: Yes: CHF (Chronic Diastolic), HTN, Hyperlipdemia Pulmonary: Yes: Asthma, COPD, Sleep Apnea Gastrointestinal: Yes: GERD Renal/: Yes: Renal Inusuff Musculoskeletal: Yes: Osteoarthritis - Smoking History Smoking history: Never smoked Have you smoked in the past 12 months: No Aproximately how many cigarettes per day: 3 If you are a former smoker, when did you quit?: 1 month - Alcohol/Substance Use Hx Alcohol Use: No History of Substance Use: reports: Heroin (Previous use) - Social History Usual Living Arrangement: Yes: With Child ADL: Family Assistance History of Recent Travel: No Home Medications - Allergies Allergies/Adverse Reactions: Allergies Allergy/AdvReac Type Severity Reaction Status Date / Time Penicillins Allergy Intermediate Hives Verified 01/26/19 00:27 - Home Medications Home Medications: Ambulatory Orders Atorvastatin Ca [Lipitor] 40 mg PO HS 05/30/14 Omeprazole Magnesium [Prilosec (OTC)] 20 mg PO DAILY 05/30/14 Hydralazine HCl 25 mg PO TID 10/25/17 Methadone [Dolophine -] 50 mg PO DAILY 10/28/17 Albuterol Sulfate [Proair Respiclick] 90 mcg IH QID PRN 09/11/18 Docusate Sodium [Colace -] 100 mg PO TID 09/11/18 Cholecalciferol (Vitamin D3) [Vitamin D3] 5,000 unit PO DAILY #30 capsule Albuterol 0.083% Nebulizer Micheline [Ventolin 0.083% Nebulizer Soln -] 1 amp NEB Q4H PRN #45 amp 12/25/18 Ranitidine [Zantac -] 150 mg PO BID #60 tablet 12/25/18 Pramipexole Dihydrochloride [Mirapex -] 2 tab PO HS 01/26/19 Dabigatran Etexilate Mesylate [Pradaxa -] 75 mg PO BID #30 capsule 01/28/19 Nicotine Patch [Nicoderm Patch -] 14 mg TD DAILY #14 patch 01/28/19 Family Medical History Family History: Unable to Obtain Review of Systems - Review of Systems Constitutional: reports: Weakness Eyes: reports: No Symptoms HENT: reports: No Symptoms Neck: reports: No Symptoms Cardiovascular: reports: Shortness of Breath Respiratory: reports: Cough, SOB, SOB on Exertion Gastrointestinal: reports: No Symptoms Genitourinary: reports: No Symptoms Breasts: reports: No Symptoms Reported Musculoskeletal: reports: Decreased ROM, Extremity Pain, Joint Swelling Integumentary: reports: Erythema, Wound Neurological: reports: Pre-Existing Deficit, Unsteady Gait, Weakness Endocrine: reports: No Symptoms Hematology/Lymphatic: reports: No Symptoms Psychiatric: reports: No Symptoms Pain Intensity: 8 Physical Examination Vital Signs: Vital Signs Temperature 97.5 F L 02/04/19 14:14 Pulse Rate 108 H 02/04/19 14:14 Respiratory Rate 16 02/04/19 14:15 Blood Pressure 143/86 02/04/19 14:14 O2 Sat by Pulse Oximetry (%) 96 02/04/19 14:15 Constitutional: Yes: Mild Distress, Obese Eyes: Yes: WNL, Conjunctiva Clear, EOM Intact, PERRL HENT: Yes: WNL, Atraumatic, Normocephalic Neck: Yes: WNL, Supple, Trachea Midline Cardiovascular: Yes: WNL, Regular Rate and Rhythm, S1, S2 Respiratory: Yes: Rhonchi, Wheezes Gastrointestinal: Yes: Normal Bowel Sounds, Soft, Abdomen, Obese ...Rectal Exam: Yes: Deferred Renal/: Yes: WNL Breast(s): Yes: WNL Musculoskeletal: Yes: Joint Swelling, Muscle Pain Extremities: Yes: Erythema, Shortened (Left leg) Edema: Yes Edema: LLE: 3+, RLE: 2+ Peripheral Pulses WNL: Yes Integumentary: Yes: Erythema, Pressure Ulcer, Venous Stasis Changes Wound/Incision: Yes: Dressing Dry and Intact, Reddened Neurological: Yes: Alert, Oriented, Cran Nerves II-XII Intact, Pre-Existing Deficit Psychiatric: Yes: WNL, Alert, Oriented Labs: CBC, BMP 02/04/19 14:55 02/04/19 14:55 Laboratory Results - last 24 hr 02/04/19 02/04/19 02/04/19 14:55 14:55 14:55 WBC 17.1 H RBC 3.48 L Hgb 10.5 L Hct 32.4 MCV 93.0 MCH 30.1 MCHC 32.4 RDW 17.7 H Plt Count 269 MPV 8.2 Absolute Neuts (auto) 15.2 H Neutrophils % 89.0 H Lymphocytes % 2.8 L D Monocytes % 7.8 Eosinophils % 0.1 D Basophils % 0.3 Nucleated RBC % 0 PT with INR 15.90 H INR 1.34 H PTT (Actin FS) 29.8 Sodium Potassium Chloride Carbon Dioxide Anion Gap BUN Creatinine Est GFR (CKD-EPI)AfAm Est GFR (CKD-EPI)NonAf Random Glucose Calcium Total Bilirubin AST ALT Alkaline Phosphatase B-Natriuretic Peptide Total Protein Albumin Urine Color Urine Appearance Urine pH Ur Specific Bixby Urine Protein Urine Glucose (UA) Urine Ketones Urine Blood Urine Nitrite Urine Bilirubin Urine Urobilinogen Ur Leukocyte Esterase Urine WBC (Auto) Urine RBC (Auto) Urine Casts (Auto) U Pathogenic Cast Auto U Epithel Cells (Auto) Urine Bacteria (Auto) Blood Type B POSITIVE Antibody Screen Negative 02/04/19 02/04/19 02/04/19 14:55 14:55 18:00 WBC RBC Hgb Hct MCV MCH MCHC RDW Plt Count MPV Absolute Neuts (auto) Neutrophils % Lymphocytes % Monocytes % Eosinophils % Basophils % Nucleated RBC % PT with INR INR PTT (Actin FS) Sodium 139 Potassium 4.2 Chloride 104 Carbon Dioxide 26 Anion Gap 9 BUN 39.7 H Creatinine 2.7 H Est GFR (CKD-EPI)AfAm 21.80 Est GFR (CKD-EPI)NonAf 18.81 Random Glucose 117 H Calcium 9.2 Total Bilirubin 1.4 H AST 69 H ALT 44 Alkaline Phosphatase 156 H B-Natriuretic Peptide 158.6 H Total Protein 8.4 H Albumin 3.3 L Urine Color Dk yellow Urine Appearance Cloudy Urine pH 5.0 Ur Specific Bixby 1.023 Urine Protein 2+ H Urine Glucose (UA) Negative Urine Ketones Trace H Urine Blood 1+ H Urine Nitrite Positive H Urine Bilirubin 2+ H Urine Urobilinogen 2.0 H Ur Leukocyte Esterase Trace Urine WBC (Auto) 1 Urine RBC (Auto) 3.9 Urine Casts (Auto) 26 U Pathogenic Cast Auto Few U Epithel Cells (Auto) 2.9 Urine Bacteria (Auto) 0.5 Blood Type Antibody Screen Imaging - Results Chest X-ray: Image Reviewed X-ray: Image Reviewed Cat Scan: Image Reviewed EKG: Image Reviewed Problem List - Problems (1) COPD (chronic obstructive pulmonary disease) Assessment/Plan: acute flare Duonebs prn Continue home meds O2 Chest xray-reviewed Consider Pulm consult if condition worsens Code(s): J44.9 - CHRONIC OBSTRUCTIVE PULMONARY DISEASE, UNSPECIFIED Qualifiers: COPD type: unspecified COPD Qualified Code(s): J44.9 - Chronic obstructive pulmonary disease, unspecified (2) Fall Assessment/Plan: s/p fall likely mechanical Will need PT eval Appreciate Case Management for possible placement to SNF vs STR All images reviewed: Head CT- neg ICH, C- Spine CT- no subuxation, no fx, Pelvis /Hip Xray ? hairline fx in left trochanter, Chest vascular changes, Knee, R- Foot/Ankle- no acute fx appreciated Appreciate Ortho consult- ? left greater trochantar fx (read by the radiologist) Monitor vitals Repeat CBC, BMP Incentive Spirometry Code(s): W19.XXXA - UNSPECIFIED FALL, INITIAL ENCOUNTER (3) Ambulatory dysfunction Assessment/Plan: Recent Frequent Falls Appreciate Orth consult Fall Risk Code(s): R26.2 - DIFFICULTY IN WALKING, NOT ELSEWHERE CLASSIFIED (4) Cerebrovascular accident (CVA) with involvement of right side of body Assessment/Plan: will continue to monitor and treat with interventions accordingly Fall Precautions Code(s): I63.9 - CEREBRAL INFARCTION, UNSPECIFIED (5) CHF (congestive heart failure) Assessment/Plan: BNP 156 Continue home meds O2, prn Code(s): I50.9 - HEART FAILURE, UNSPECIFIED Qualifiers: Heart failure type: unspecified Heart failure chronicity: unspecified Qualified Code(s): I50.9 - Heart failure, unspecified (6) Lower extremity ulceration Assessment/Plan: Culture- pending Continue wound care regimen Code(s): L97.909 - NON-PRS CHRONIC ULC UNSP PRT OF UNSP LOW LEG W UNSP SEVERITY Qualifiers: Laterality: unspecified laterality (7) Chronic pain Assessment/Plan: Continue Methadone when verified at [facility] Code(s): G89.29 - OTHER CHRONIC PAIN (8) Chronic renal insufficiency, stage III (moderate) Assessment/Plan: Slightly above baseline Appreciate Nephrology consult Monitor BMP Monitor vitals Avoid Nephrotoxic drugs Code(s): N18.3 - CHRONIC KIDNEY DISEASE, STAGE 3 (MODERATE) (9) HTN (hypertension) Assessment/Plan: stable Monitor BP Continue home meds Code(s): I10 - ESSENTIAL (PRIMARY) HYPERTENSION Qualifiers: Hypertension type: essential hypertension Qualified Code(s): I10 - Essential (primary) hypertension (10) Venous stasis dermatitis of right lower extremity Assessment/Plan: Appreciate Vascular consult Continue current treatment plan, per vocational services specialist Elevate extremities Anuel reviewed from last visit Monitor CBC, BMP Monitor vitals Code(s): I87.2 - VENOUS INSUFFICIENCY (CHRONIC) (PERIPHERAL) (11) History of pulmonary embolism Assessment/Plan: Continue Pradaxa Monitor CBC Monitor vitals CT chest- reviewed Code(s): Z86.711 - PERSONAL HISTORY OF PULMONARY EMBOLISM (12) Morbid obesity Assessment/Plan: Counseled patient on portion control and healthy eating habits Patient verbalized understanding Code(s): E66.01 - MORBID (SEVERE) OBESITY DUE TO EXCESS CALORIES (13) Presence of IVC filter Assessment/Plan: continue current treatment plan Code(s): Z95.828 - PRESENCE OF OTHER VASCULAR IMPLANTS AND GRAFTS (14) Sleep apnea Assessment/Plan: BIPAP HS Code(s): G47.30 - SLEEP APNEA, UNSPECIFIED Qualifiers: Sleep apnea type: obstructive Qualified Code(s): G47.33 - Obstructive sleep apnea (adult) (pediatric) Assessment/Plan This is a 59 y/o woman with a significant past medical history of LV Diastolic Dysfunction, HTN, HLD, Severe Obesity, CVA (R- Residual Deficit), ambulates with walker, DVT/PE on Pradaxa, s/p IVC Filter, Treated for RLE DVT, GERD, Tobacco Dependence, MICHELE (Bipap). Admitted for COPD Exacerbation, Intractable Right Knee and Ankle Pain s/p Fall for further evaluation of their emergent condition Plan: See Problem List FEN Fluid Restriction 1L Replete lytes prn Low Na Diet DVT ppx OOB Continue Pradaxa Dispo: Requires Inpatient Care Visit type - Emergency Visit Emergency Visit: Yes ED Registration Date: 02/04/19 Care time: The patient presented to the Emergency Department on the above date and was hospitalized for further evaluation of their emergent condition. - New Patient This patient is new to me today: Yes Date on this admission: 02/04/19 - Critical Care Critical Care patient: No
[2019-02-04] MEDS ORDERED: ALBUTEROL SO4 8 GM HFA INHALER IH PRN (19:40)
[2019-02-04] MEDS ORDERED: PRAMIPEXOLE DIHYDROCHLORIDE 0.25 MG TABLET PO SCH (22:00)
[2019-02-04] MEDS ORDERED: ATORVASTATIN CA 40 MG TABLET (FP) ONE (22:21)
[2019-02-04] MEDS ORDERED: hydrALAZINE HCL 25 MG TABLET (FP) ONE (22:21)
[2019-02-04] MEDS ORDERED: DOCUSATE SODIUM 100 MG CAPSULE (FP) PO ONE (22:21)
[2019-02-04] MEDS: DABIGATRAN ETEXILATE MESYLATE 75 MG CAPSULE PO SCH (23:28)
[2019-02-04] MEDS: ATORVASTATIN CA 20 MG TABLET (FP) PO SCH (23:28)
[2019-02-04] MEDS: DOCUSATE SODIUM 100 MG CAPSULE (FP) PO SCH (23:28)
[2019-02-04] MEDS: hydrALAZINE HCL 25 MG TABLET (FP) PO SCH (23:28)
[2019-02-04] MEDS: CIPROFLOXACIN 200 MG/D5W 100 ML IVPB SCH (23:37)
[2019-02-05] MEDS: DOCUSATE SODIUM 100 MG CAPSULE (FP) PO SCH ×3 (06:37→21:36)
[2019-02-05] MEDS: hydrALAZINE HCL 25 MG TABLET (FP) PO SCH ×3 (06:37→21:36)
[2019-02-05] MEDS: SODIUM CHLORIDE 500 ML IV SCH ×2 (06:49→18:26)
--- NOTE | 2019-02-05 09:47 | PN ---
Progress Note (short form) - Note Progress Note: Ortho Pt in CT scan, will do full consult later today
[2019-02-05] MEDS: NICOTINE 14 MG/24 HOURS TOPICAL PATCH TD SCH (09:55)
[2019-02-05] MEDS ORDERED: VANCOMYCIN 1 GM in D5W (PRE-DOCKED) 1,000 MG/250 ML IVPB SCH (10:00)
[2019-02-05 10:41] LABS: BASO % 0.2 % (0-2.0); EOS % 0.4 % (0-4.5); HEMATOCRIT 26.7 % (32.4-45.2); MCH 31.3 pg (25.7-33.7); MCHC 33.7 g/dl (32.0-36.0); MEAN CELL VOLUME 92.9 fl (80-96); MEAN PLT VOLUME 8.4 fl (7.5-11.1); MONO % 8.2 % (3.8-10.2); NEUT % 86.2 % (42.8-82.8); PLATELET COUNT 257 K/MM3 (134-434); RBC 2.87 M/mm3 (3.60-5.2); RDW 17.1 % (11.6-15.6)
--- NOTE | 2019-02-05 10:51 | CONSULT ---
- Consultation REQUESTING PROVIDER: CONSULT REQUEST: We have been asked to surgically evaluate this patient for LLE venous stasis ulcer PCP:Maddi Goodwin HISTORY OF PRESENT ILLNESS: 59yo F was admitted to the hospital for LLE cellulitis and venous stasis ulcers. Pt is a difficult historian and give multiple answers to the same questions. Pt was admitted to the hospital in December with ulcers and was being treated with silver aginate and compression dressings. Pt following up in wound care clinic with Dr. Laura. Pt states that she has a history of recurrent venous stasis ulcers which has been going on for years. Pt doesn't currently follow with any vascular surgeons or wound care doctors. Pt denies h/ o vascular disease, but does have history of heavy tobacco use smoking 2 ppd until last year now 1/2 ppd. PMHx: HTN, HLD, Severe Obesity, MICHELE, ambulates with walker, CVA w/ residual right sided deficits, DVT/PE on Pradaxa s/p IVC filter, currently has RLE DVT, GERD Restless Leg Syndrome Home Medications Medication Instructions Recorded Atorvastatin Ca [Lipitor] 40 mg PO HS 05/30/14 Omeprazole Magnesium [Prilosec 20 mg PO DAILY 05/30/14 (OTC)] Hydralazine HCl 25 mg PO TID 10/25/17 Methadone [Dolophine -] 50 mg PO DAILY 10/28/17 Albuterol Sulfate [Proair 90 mcg IH QID PRN 09/11/18 Respiclick] Docusate Sodium [Colace -] 100 mg PO TID 09/11/18 Cholecalciferol (Vitamin D3) 5,000 unit PO DAILY #30 capsule 10/02/18 [Vitamin D3] Albuterol 0.083% Nebulizer Micheline 1 amp NEB Q4H PRN #45 amp 12/25/18 [Ventolin 0.083% Nebulizer Soln -] Ranitidine [Zantac -] 150 mg PO BID #60 tablet 12/25/18 Pramipexole Dihydrochloride 2 tab PO HS 01/26/19 [Mirapex -] Dabigatran Etexilate Mesylate 75 mg PO BID #30 capsule 01/28/19 [Pradaxa -] Nicotine Patch [Nicoderm Patch -] 14 mg TD DAILY #14 patch 01/28/19 Allergies Allergy/AdvReac Type Severity Reaction Status Date / Time Penicillins Allergy Intermediate Hives Verified 01/26/19 00:27 PHYSICAL EXAM: GENERAL: Awake, alert, and fully oriented, in no acute distress. HEAD: Normal with no signs of trauma. EYES: PERRL, sclera anicteric, conjunctiva clear. NECK: Normal ROM LUNGS: breathing comfortably. No accessory muscle use. HEART: Regular rate and rhythm. UPPER EXTREMITIES: 2+ pulses, warm, well-perfused. No cyanosis. Cap refill <2 seconds. No peripheral edema. LOWER EXTREMITIES: dopplarable pulses, warm, well-perfused. +2 edema b/l. LLE shows 5cm x 3 cm ulcer on posterior calf, with fibrinous tissue and open ulcers on proximal and distal aspects, serous drainage. Erythema noted from below knee down. NEUROLOGICAL: Normal speech, gait not observed. PSYCH: Cooperative. Good eye contact. Appropriate mood and affect. SKIN: Warm, dry, normal turgor, no rashes or lesions noted. Vital Signs Temperature 98.9 F 02/05/19 05:08 Pulse Rate 99 H 02/05/19 05:08 Respiratory Rate 19 02/05/19 09:00 Blood Pressure 140/71 02/05/19 05:08 O2 Sat by Pulse Oximetry (%) 96 02/05/19 09:00 Lab Results WBC 17.1 K/mm3 (4.0-10.0) H 02/04/19 14:55 RBC 3.48 M/mm3 (3.60-5.2) L 02/04/19 14:55 Hgb 10.5 GM/dL (10.7-15.3) L 02/04/19 14:55 Hct 32.4 % (32.4-45.2) 02/04/19 14:55 MCV 93.0 fl (80-96) 02/04/19 14:55 MCHC 32.4 g/dl (32.0-36.0) 02/04/19 14:55 RDW 17.7 % (11.6-15.6) H 02/04/19 14:55 Plt Count 269 K/MM3 (134-434) 02/04/19 14:55 Sodium 139 mmol/L (136-145) 02/04/19 14:55 Potassium 4.2 mmol/L (3.5-5.1) 02/04/19 14:55 Chloride 104 mmol/L (98-107) 02/04/19 14:55 Carbon Dioxide 26 mmol/L (21-32) 02/04/19 14:55 Anion Gap 9 MMOL/L (8-16) 02/04/19 14:55 BUN 39.7 mg/dL (7-18) H 02/04/19 14:55 Creatinine 2.7 mg/dL (0.55-1.3) H 02/04/19 14:55 Random Glucose 117 mg/dL (74-106) H 02/04/19 14:55 Calcium 9.2 mg/dL (8.5-10.1) 02/04/19 14:55 Blood Type B POSITIVE 02/04/19 14:55 Antibody Screen Negative 02/04/19 14:55 INR 1.34 (0.83-1.09) H 02/04/19 14:55 Problem List - Problems (1) Cellulitis and abscess of left leg Assessment/Plan: -abx as per medicine/ID Code(s): L03.116 - CELLULITIS OF LEFT LOWER LIMB; L02.416 - CUTANEOUS ABSCESS OF LEFT LOWER LIMB (2) Venous stasis ulcer of left lower leg with edema of left lower leg Assessment/Plan: -pt will need compression dressing with silver aginate once cellulitis has resolved, for now continue dry dressing -leg elevations -compression stocking/chelly wrap to RLE non-infected leg -pt will need to follow up with Wound care clinic after discharge. Case discussed with Dr. Narvaez who agrees with plan Code(s): I83.029 - VARICOSE VEINS OF LEFT LOWER EXTREMITY W ULCER OF UNSP SITE; I83.892 - VARICOSE VEINS OF L LOW EXTREM WITH OTHER COMPLICATIONS; L97.929 - NON -PRS CHRONIC ULC UNSP PRT OF L LOW LEG W UNSP SEVERITY; R60.9 - EDEMA, UNSPECIFIED
[2019-02-05] MEDS: CIPROFLOXACIN 200 MG/D5W 100 ML IVPB SCH (11:03)
--- NOTE | 2019-02-05 11:22 | CON.ID ---
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: CVA (right residual deficits) Cardio/Vascular: Yes: CHF (Chronic Diastolic), HTN, Hyperlipdemia Pulmonary: Yes: Asthma, COPD, Sleep Apnea Gastrointestinal: Yes: GERD Renal/: Yes: Renal Inusuff ...: No Musculoskeletal: Yes: Osteoarthritis - Alcohol/Substance Use Hx Alcohol Use: No History of Substance Use: reports: Heroin (Previous use) - Smoking History Smoking history: Never smoked Have you smoked in the past 12 months: No Aproximately how many cigarettes per day: 3 If you are a former smoker, when did you quit?: 1 month - Social History Usual Living Arrangement: With Child ADL: Family Assistance Place of : [facility] History of Recent Travel: No Home Medications - Allergies Allergies/Adverse Reactions: Allergies Allergy/AdvReac Type Severity Reaction Status Date / Time Penicillins Allergy Intermediate Hives Verified 01/26/19 00:27 - Home Medications Home Medications: Ambulatory Orders Atorvastatin Ca [Lipitor] 40 mg PO HS 05/30/14 Omeprazole Magnesium [Prilosec (OTC)] 20 mg PO DAILY 05/30/14 Hydralazine HCl 25 mg PO TID 10/25/17 Methadone [Dolophine -] 50 mg PO DAILY 10/28/17 Albuterol Sulfate [Proair Respiclick] 90 mcg IH QID PRN 09/11/18 Docusate Sodium [Colace -] 100 mg PO TID 09/11/18 Cholecalciferol (Vitamin D3) [Vitamin D3] 5,000 unit PO DAILY #30 capsule Albuterol 0.083% Nebulizer Micheline [Ventolin 0.083% Nebulizer Soln -] 1 amp NEB Q4H PRN #45 amp 12/25/18 Ranitidine [Zantac -] 150 mg PO BID #60 tablet 12/25/18 Pramipexole Dihydrochloride [Mirapex -] 2 tab PO HS 01/26/19 Dabigatran Etexilate Mesylate [Pradaxa -] 75 mg PO BID #30 capsule 01/28/19 Nicotine Patch [Nicoderm Patch -] 14 mg TD DAILY #14 patch 01/28/19 Family Medical History Family History: Unremarkable Review of Systems - Review of Systems Constitutional: reports: No Symptoms Eyes: reports: No Symptoms HENT: reports: No Symptoms Neck: reports: No Symptoms Cardiovascular: reports: No Symptoms Respiratory: reports: No Symptoms Gastrointestinal: reports: No Symptoms Genitourinary: reports: No Symptoms Physical Exam Vital Signs: Vital Signs Temperature 98.9 F 02/05/19 05:08 Pulse Rate 99 H 02/05/19 05:08 Respiratory Rate 19 02/05/19 09:00 Blood Pressure 140/71 02/05/19 05:08 O2 Sat by Pulse Oximetry (%) 96 02/05/19 09:00 Constitutional: Yes: Well Nourished, No Distress Eyes: Yes: Conjunctiva Clear HENT: Yes: Atraumatic, Pharyngeal Erythema Neck: Yes: Supple Cardiovascular: Yes: Regular Rate and Rhythm Respiratory: Yes: Regular, CTA Bilaterally, Diminished (at bases) Gastrointestinal: Yes: Normal Bowel Sounds, Soft ...Rectal Exam: Yes: Deferred Extremities: Yes: Other (edema, erythema of the LLE surrounding the ulcer on the posterior aspect of the lower leg 5 by 5 cm shallow with drainage) Edema: Yes Neurological: Yes: Alert, Oriented Labs: CBC, BMP 02/05/19 09:57 cultures pending Laboratory Tests 02/04/19 14:55 BUN 39.7 H Creatinine 2.7 H Imaging - Results Cat Scan: Report Reviewed (chest and pelvic ct scans noted) Problem List - Problems (1) Fall Code(s): W19.XXXA - UNSPECIFIED FALL, INITIAL ENCOUNTER (2) Cellulitis Code(s): L03.90 - CELLULITIS, UNSPECIFIED (3) CKD (chronic kidney disease) Code(s): N18.9 - CHRONIC KIDNEY DISEASE, UNSPECIFIED (4) Morbid obesity Code(s): E66.01 - MORBID (SEVERE) OBESITY DUE TO EXCESS CALORIES (5) Penicillin allergy Code(s): Z88.0 - ALLERGY STATUS TO PENICILLIN Assessment/Plan prior cultures reviewed-+pseudomonas was treated with fortaz and discharged on levaquin in December for the same leg ulcer cultures pending will treat with cefepime and vancomycin for now dose vancomycin by levels given acute renal failure history of penicillin allergy noted f/u cultures further reccd to follow
[2019-02-05 12:06] LABS: BLOOD UREA NITROGEN 30.7 mg/dL (7-18); CALCIUM 8.4 mg/dL (8.5-10.1); CREATININE 1.6 mg/dL (0.55-1.3); POTASSIUM 3.6 mmol/L (3.5-5.1)
[2019-02-05] MEDS ORDERED: METHADONE HCL 40 MG DISPERSABLE TABLET PO SCH (12:45)
[2019-02-05] MEDS ORDERED: METHADONE HCL 40 MG DISPERSABLE TABLET ONE (13:25)
[2019-02-05] MEDS ORDERED: METHADONE HCL 10 MG TABLET ONE (13:25)
[2019-02-05] MEDS ORDERED: PT OWN MED DRAWER 7, Y5N ONE ×2 (13:26→21:01)
[2019-02-05] MEDS: METHADONE 40 MG, METHADONE 10 MG PO SCH (13:36)
[2019-02-05] MEDS: DABIGATRAN ETEXILATE MESYLATE 75 MG CAPSULE PO SCH ×2 (13:37→21:35)
[2019-02-05] MEDS: NYSTATIN POWDER 100,000 UNITS/GM - 15 GM TOPICAL POWDER TP SCH ×2 (13:38→21:37)
[2019-02-05] MEDS ORDERED: CEFEPIME HCL 1 GM VIAL (RESTRICTED TO ID) ONE ×2 (13:39→21:01)
[2019-02-05] MEDS ORDERED: DEXTROSE 5%-WATER - 50 ML IVPB ONE ×2 (13:39→21:02)
[2019-02-05] MEDS: CEFEPIME 1 GM in DEXTROSE 5%-WATER - 50 ML IVPB SCH ×2 (13:40→21:36)
[2019-02-05] MEDS: POLYETHYLENE GLYCOL 3350 119 GM BTL PO SCH (13:45)
--- NOTE | 2019-02-05 14:27 | PN ---
Progress Note, Physician Chief Complaint: patient seen and examined - Current Medication List Current Medications: Active Medications Albuterol Sulfate (Ventolin 0.083% Nebulizer Soln -) 1 amp NEB Q4H PRN PRN Reason: SHORT OF BREATH/WHEEZING Albuterol Sulfate (Ventolin Hfa Inhaler -) 1 puff IH Q6H PRN PRN Reason: Dyspnea Atorvastatin Calcium (Lipitor -) 40 mg PO [facility] Last Admin: 02/04/19 23:28 Dose: 40 mg Dabigatran (Pradaxa -) 75 mg PO BID [facility] Last Admin: 02/05/19 13:37 Dose: 75 mg Docusate Sodium (Colace -) 100 mg PO TID [facility] Last Admin: 02/05/19 13:37 Dose: 100 mg Hydralazine HCl (Apresoline -) 25 mg PO TID [facility] Last Admin: 02/05/19 13:37 Dose: 25 mg Sodium Chloride (Normal Saline -) 500 mls @ 125 mls/hr IV ASDIR [facility] Last Admin: 02/05/19 06:49 Dose: 125 mls/hr Cefepime HCl 1 gm/ Dextrose 50 mls @ 100 mls/hr IVPB BID [facility]; Protocol Last Admin: 02/05/19 13:40 Dose: 100 mls/hr Methadone HCl 40 mg/ Methadone (HCl 10 mg) 50 mg PO DAILY@0600 [facility] Last Admin: 02/05/19 13:36 Dose: 50 mg Nicotine (Nicoderm Patch -) 14 mg TD DAILY [facility] Last Admin: 02/05/19 09:55 Dose: 14 mg Nystatin (Nystop Powder -) 1 applic TP BID [facility] Last Admin: 02/05/19 13:38 Dose: 1 applic Polyethylene Glycol (Miralax (For Daily Use) -) 17 gm PO DAILY [facility] Last Admin: 02/05/19 13:45 Dose: 17 gm Pramipexole Dihydrochloride (Mirapex -) 0.5 mg PO [facility] - Objective Vital Signs: Vital Signs Temperature 99.4 F 02/05/19 11:00 Pulse Rate 97 H 02/05/19 11:00 Respiratory Rate 21 H 02/05/19 11:00 Blood Pressure 150/78 02/05/19 11:00 O2 Sat by Pulse Oximetry (%) 96 02/05/19 09:00 Constitutional: Yes: Calm Cardiovascular: Yes: Regular Rate and Rhythm, S1, S2 Respiratory: Yes: CTA Bilaterally Gastrointestinal: Yes: Normal Bowel Sounds, Soft, Abdomen, Obese Extremities: Yes: Other (chornic skin changes wound on leg) Edema: Yes Labs: CBC, BMP 02/05/19 09:57 02/05/19 09:57 INR, PTT INR 1.34 (0.83-1.09) H 02/04/19 14:55 Problem List - Problems (1) Cellulitis Assessment/Plan: iv abx appreciate vascular consult Code(s): L03.90 - CELLULITIS, UNSPECIFIED (2) HTN (hypertension) Assessment/Plan: hydralazine tid Code(s): I10 - ESSENTIAL (PRIMARY) HYPERTENSION Qualifiers: Hypertension type: essential hypertension Qualified Code(s): I10 - Essential (primary) hypertension (3) Methadone maintenance therapy patient Assessment/Plan: on methadone Code(s): F11.20 - OPIOID DEPENDENCE, UNCOMPLICATED (4) Presence of IVC filter Assessment/Plan: h/o PE on pradaxa monitor h/h Code(s): Z95.828 - PRESENCE OF OTHER VASCULAR IMPLANTS AND GRAFTS (5) Sleep apnea Assessment/Plan: bipap at night bronchodilators Code(s): G47.30 - SLEEP APNEA, UNSPECIFIED Qualifiers: Sleep apnea type: obstructive Qualified Code(s): G47.33 - Obstructive sleep apnea (adult) (pediatric)
--- NOTE | 2019-02-05 14:30 | EKG ---
Test Reason : Blood Pressure : / mmHG Vent. Rate : 094 BPM Atrial Rate : 094 BPM P-R Int : 158 ms QRS Dur : 078 ms QT Int : 366 ms P-R-T Axes : 040 010 015 degrees QTc Int : 457 ms POOR DATA QUALITY, INTERPRETATION MAY BE ADVERSELY AFFECTED NORMAL SINUS RHYTHM POSSIBLE INFERIOR INFARCT , AGE UNDETERMINED ABNORMAL ECG Confirmed by VINCE ALLEN MD ([id number]) on 02/05/2019 2:30:26 PM Referred By: Confirmed By:VINCE ALLEN MD
--- NOTE | 2019-02-05 15:08 | CON.ORTH ---
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: CVA (right residual deficits) Cardio/Vascular: Yes: CHF (Chronic Diastolic), HTN, Hyperlipdemia Pulmonary: Yes: Asthma, COPD, Sleep Apnea Gastrointestinal: Yes: GERD Renal/: Yes: Renal Inusuff ...: No Musculoskeletal: Yes: Osteoarthritis - Alcohol/Substance Use Hx Alcohol Use: No History of Substance Use: reports: Heroin (Previous use) - Smoking History Smoking history: Never smoked Have you smoked in the past 12 months: No Aproximately how many cigarettes per day: 3 If you are a former smoker, when did you quit?: 1 month - Social History Usual Living Arrangement: With Child ADL: Family Assistance History of Recent Travel: No Home Medications - Allergies Allergies/Adverse Reactions: Allergies Allergy/AdvReac Type Severity Reaction Status Date / Time Penicillins Allergy Intermediate Hives Verified 01/26/19 00:27 - Home Medications Home Medications: Ambulatory Orders Atorvastatin Ca [Lipitor] 40 mg PO HS 05/30/14 Omeprazole Magnesium [Prilosec (OTC)] 20 mg PO DAILY 05/30/14 Hydralazine HCl 25 mg PO TID 10/25/17 Methadone [Dolophine -] 50 mg PO DAILY 10/28/17 Albuterol Sulfate [Proair Respiclick] 90 mcg IH QID PRN 09/11/18 Docusate Sodium [Colace -] 100 mg PO TID 09/11/18 Cholecalciferol (Vitamin D3) [Vitamin D3] 5,000 unit PO DAILY #30 capsule Albuterol 0.083% Nebulizer Micheline [Ventolin 0.083% Nebulizer Soln -] 1 amp NEB Q4H PRN #45 amp 12/25/18 Ranitidine [Zantac -] 150 mg PO BID #60 tablet 12/25/18 Pramipexole Dihydrochloride [Mirapex -] 2 tab PO HS 01/26/19 Dabigatran Etexilate Mesylate [Pradaxa -] 75 mg PO BID #30 capsule 01/28/19 Nicotine Patch [Nicoderm Patch -] 14 mg TD DAILY #14 patch 01/28/19 Physical Exam for Ortho Vital Signs: Vital Signs Temperature 99.4 F 02/05/19 11:00 Pulse Rate 97 H 02/05/19 11:00 Respiratory Rate 21 H 02/05/19 11:00 Blood Pressure 150/78 02/05/19 11:00 O2 Sat by Pulse Oximetry (%) 96 02/05/19 09:00 Constitutional: Yes: Obese Labs: CBC, BMP 02/05/19 09:57 02/05/19 09:57 INR, PTT INR 1.34 (0.83-1.09) H 02/04/19 14:55 - Lower Extremity Hip: Yes: Left, Pain, Other (equal limb lengths,+ ttp, + pain with ROM, nvi) Knee: Yes: Left, Limited ROM, Pain, Other (nvi) Imaging - Results X-ray: Image Reviewed Cat Scan: Report Reviewed, Image Reviewed Assessment/Plan 59 year old woman with a PMHx of HTN, HLD, Severe Obesity, MICHELE, ambulates with walker, CVA w/ residual right sided deficits, 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 Who presents to the ED with R knee and R ankle pain s/p fall 2 days ago, while trying to get to her walker from her bed. The patient reports SOB worse then baseline. She reports pain to her left groin and left leg, worse on movement. Patient reports increased LLE swelling. Patient denies LOC or head trauma. Patient denies fever, chills, dizziness, JIMENEZ, CP, palpitations, AP, N/V/D, constipation. 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 CT scan of pelvis neg for fx. a/p left hip, knee contusion in morbidly obese pt PT eval WBAT pain control will follow d/w Dr. Goss
[2019-02-05] MEDS: ACETAMINOPHEN 325 MG TABLET (FP) PO PRN (18:27)
[2019-02-05] MEDS: ATORVASTATIN CA 20 MG TABLET (FP) PO SCH (21:36)
[2019-02-05] MEDS: PRAMIPEXOLE DIHYDROCHLORIDE 0.5 MG TABLET PO SCH (21:36)
[2019-02-06] MEDS ORDERED: PT OWN MED DRAWER 7, Y5N ONE ×3 (02:35→20:55)
[2019-02-06] MEDS: SODIUM CHLORIDE 500 ML IV SCH ×3 (03:00→21:00)
[2019-02-06] MEDS ORDERED: METHADONE HCL 10 MG TABLET ONE (05:57)
[2019-02-06] MEDS ORDERED: METHADONE HCL 40 MG DISPERSABLE TABLET ONE (05:57)
[2019-02-06] MEDS: DOCUSATE SODIUM 100 MG CAPSULE (FP) PO SCH ×3 (06:24→21:10)
[2019-02-06] MEDS: METHADONE 40 MG, METHADONE 10 MG PO SCH (06:24)
[2019-02-06] MEDS: hydrALAZINE HCL 25 MG TABLET (FP) PO SCH ×3 (06:24→21:11)
[2019-02-06] MEDS ORDERED: CEFEPIME HCL 1 GM VIAL (RESTRICTED TO ID) ONE ×2 (09:41→20:56)
[2019-02-06] MEDS ORDERED: DEXTROSE 5%-WATER - 50 ML IVPB ONE ×2 (09:42→20:56)
[2019-02-06] MEDS: CEFEPIME 1 GM in DEXTROSE 5%-WATER - 50 ML IVPB SCH ×2 (09:45→21:11)
[2019-02-06] MEDS: DABIGATRAN ETEXILATE MESYLATE 75 MG CAPSULE PO SCH ×2 (09:45→21:12)
[2019-02-06] MEDS: NICOTINE 14 MG/24 HOURS TOPICAL PATCH TD SCH (09:45)
[2019-02-06] MEDS: NYSTATIN POWDER 100,000 UNITS/GM - 15 GM TOPICAL POWDER TP SCH ×2 (09:46→21:14)
[2019-02-06] MEDS: POLYETHYLENE GLYCOL 3350 119 GM BTL PO SCH ×2 (09:48→09:55)
--- NOTE | 2019-02-06 13:41 | PN ---
Progress Note, Physician Chief Complaint: Cellulitis S/p Fall LLE Pain History of Present Illness: Previous notes and events reviewed awake and alert NAD sts LLE pain is improved complain abdominal pain - Current Medication List Current Medications: Active Medications Acetaminophen (Tylenol -) 650 mg PO Q6H PRN PRN Reason: PAIN LEVEL 7 - 10 Last Admin: 02/05/19 18:27 Dose: 650 mg Albuterol Sulfate (Ventolin 0.083% Nebulizer Soln -) 1 amp NEB Q4H PRN PRN Reason: SHORT OF BREATH/WHEEZING Albuterol Sulfate (Ventolin Hfa Inhaler -) 1 puff IH Q6H PRN PRN Reason: Dyspnea Atorvastatin Calcium (Lipitor -) 40 mg PO [facility] Last Admin: 02/05/19 21:36 Dose: 40 mg Dabigatran (Pradaxa -) 75 mg PO BID [facility] Last Admin: 02/06/19 09:45 Dose: 75 mg Docusate Sodium (Colace -) 100 mg PO TID [facility] Last Admin: 02/06/19 12:59 Dose: 100 mg Hydralazine HCl (Apresoline -) 25 mg PO TID [facility] Last Admin: 02/06/19 12:59 Dose: 25 mg Sodium Chloride (Normal Saline -) 500 mls @ 125 mls/hr IV ASDIR [facility] Last Admin: 02/06/19 12:53 Dose: 125 mls/hr Cefepime HCl 1 gm/ Dextrose 50 mls @ 100 mls/hr IVPB BID [facility]; Protocol Last Admin: 02/06/19 09:45 Dose: 100 mls/hr Methadone HCl 40 mg/ Methadone (HCl 10 mg) 50 mg PO DAILY@0600 [facility] Last Admin: 02/06/19 06:24 Dose: 50 mg Nicotine (Nicoderm Patch -) 14 mg TD DAILY [facility] Last Admin: 02/06/19 09:45 Dose: 14 mg Nystatin (Nystop Powder -) 1 applic TP BID [facility] Last Admin: 02/06/19 09:46 Dose: 1 applic Polyethylene Glycol (Miralax (For Daily Use) -) 17 gm PO DAILY [facility] Last Admin: 02/06/19 09:55 Dose: Not Given Pramipexole Dihydrochloride (Mirapex -) 0.5 mg PO [facility] Last Admin: 02/05/19 21:36 Dose: 0.5 mg - Objective Vital Signs: Vital Signs Temperature 98.5 F 02/06/19 07:39 Pulse Rate 95 H 02/06/19 07:39 Respiratory Rate 16 02/06/19 07:39 Blood Pressure 120/60 02/06/19 07:39 O2 Sat by Pulse Oximetry (%) 97 02/06/19 09:00 Constitutional: Yes: No Distress, Calm, Obese Eyes: Yes: Conjunctiva Clear HENT: Yes: Atraumatic Cardiovascular: Yes: Regular Rate and Rhythm Respiratory: Yes: Regular, Diminished Gastrointestinal: Yes: Normal Bowel Sounds, Soft, Abdomen, Obese, Tenderness ( diffuse) Genitourinary: Yes: Incontinence Musculoskeletal: Yes: Muscle Weakness Extremities: Yes: WNL Edema: Yes (B/L lower extremity edema) Wound/Incision: Yes: Dressing Dry and Intact Neurological: Yes: Alert, Oriented Psychiatric: Yes: Alert, Oriented Labs: CBC, BMP 02/05/19 09:57 02/05/19 09:57 INR, PTT INR 1.34 (0.83-1.09) H 02/04/19 14:55 Microbiology 02/04/19 17:34 Calf - Left Posterior Gram Stain - Final 02/04/19 17:34 Calf - Left Posterior Wound Culture - Preliminary Non Lactose Fermenting Gnb 02/04/19 18:00 Urine - Urine - Catheterized Urine Culture - Final NO GROWTH OBTAINED 02/04/19 23:20 Blood - Peripheral Venous Blood Culture - Preliminary NO GROWTH OBTAINED AFTER 24 HOURS, INCUBATION TO CONTINUE FOR 4 DAYS. 02/04/19 23:20 Blood - Peripheral Venous Blood Culture - Preliminary NO GROWTH OBTAINED AFTER 24 HOURS, INCUBATION TO CONTINUE FOR 4 DAYS. Problem List - Problems (1) Cellulitis Assessment/Plan: -ID on board -Leukocytosis -afebrile -Cefepime -Wound culture L calf prelim positive Code(s): L03.90 - CELLULITIS, UNSPECIFIED (2) JOSH (acute kidney injury) Assessment/Plan: -BUN/Cr 30.7/1.6 -monitor renal function Code(s): N17.9 - ACUTE KIDNEY FAILURE, UNSPECIFIED (3) CHF (congestive heart failure) Assessment/Plan: -daily weights -fluid restriction -strict I&Os Code(s): I50.9 - HEART FAILURE, UNSPECIFIED Qualifiers: Heart failure type: unspecified Heart failure chronicity: unspecified Qualified Code(s): I50.9 - Heart failure, unspecified (4) COPD (chronic obstructive pulmonary disease) Assessment/Plan: -Bronchodilators -keep SpO2 >90% -O2 via NC Code(s): J44.9 - CHRONIC OBSTRUCTIVE PULMONARY DISEASE, UNSPECIFIED Qualifiers: COPD type: unspecified COPD Qualified Code(s): J44.9 - Chronic obstructive pulmonary disease, unspecified (5) HTN (hypertension) Assessment/Plan: -Hydralazine -low Na diet Code(s): I10 - ESSENTIAL (PRIMARY) HYPERTENSION Qualifiers: Hypertension type: essential hypertension Qualified Code(s): I10 - Essential (primary) hypertension (6) History of pulmonary embolism Assessment/Plan: -Pradaxa Code(s): Z86.711 - PERSONAL HISTORY OF PULMONARY EMBOLISM (7) Morbid obesity Assessment/Plan: -Dietary consult Code(s): E66.01 - MORBID (SEVERE) OBESITY DUE TO EXCESS CALORIES (8) Fall Assessment/Plan: -PT -Fall precautions -SNF for discharge -Pelvic CT scan shows no acute fracture or dislocation -Radiology of Knee, Hip/Pelvic/foot/ankle unremarkable Code(s): W19.XXXA - UNSPECIFIED FALL, INITIAL ENCOUNTER (9) Acute pain of left lower extremity Assessment/Plan: -Ortho on board -WBAT -PT -pain control Code(s): M79.605 - PAIN IN LEFT LEG Assessment/Plan see problem list dvt ppx
--- NOTE | 2019-02-06 13:51 | PN ---
Progress Note (short form) - Note Progress Note: feels improved no complaints pain is better in her left side Vital Signs Period Temp Pulse Resp BP Sys/Yoder Pulse Ox Last 24 Hr 98.5 F-99.5 F 92-95 16-20 118-151/57-88 96-97 cor-rrr lungs decreased bs at bases abd soft,nt ext less erythema and warmth LLE CBC, BMP 02/05/19 09:57 02/05/19 09:57 Microbiology 02/04/19 17:34 Calf - Left Posterior Gram Stain - Final 02/04/19 17:34 Calf - Left Posterior Wound Culture - Preliminary Non Lactose Fermenting Gnb 02/04/19 18:00 Urine - Urine - Catheterized Urine Culture - Final NO GROWTH OBTAINED 02/04/19 23:20 Blood - Peripheral Venous Blood Culture - Preliminary NO GROWTH OBTAINED AFTER 24 HOURS, INCUBATION TO CONTINUE FOR 4 DAYS. 02/04/19 23:20 Blood - Peripheral Venous Blood Culture - Preliminary NO GROWTH OBTAINED AFTER 24 HOURS, INCUBATION TO CONTINUE FOR 4 DAYS. Current Medications Acetaminophen (Tylenol -) 650 mg PO Q6H PRN PRN Reason: PAIN LEVEL 7 - 10 Last Admin: 02/05/19 18:27 Dose: 650 mg Albuterol Sulfate (Ventolin 0.083% Nebulizer Soln -) 1 amp NEB Q4H PRN PRN Reason: SHORT OF BREATH/WHEEZING Albuterol Sulfate (Ventolin Hfa Inhaler -) 1 puff IH Q6H PRN PRN Reason: Dyspnea Atorvastatin Calcium (Lipitor -) 40 mg PO HS [facility] Last Admin: 02/05/19 21:36 Dose: 40 mg Dabigatran (Pradaxa -) 75 mg PO BID [facility] Last Admin: 02/06/19 09:45 Dose: 75 mg Docusate Sodium (Colace -) 100 mg PO TID [facility] Last Admin: 02/06/19 12:59 Dose: 100 mg Hydralazine HCl (Apresoline -) 25 mg PO TID [facility] Last Admin: 02/06/19 12:59 Dose: 25 mg Sodium Chloride (Normal Saline -) 500 mls @ 125 mls/hr IV ASDIR [facility] Last Admin: 02/06/19 12:53 Dose: 125 mls/hr Cefepime HCl 1 gm/ Dextrose 50 mls @ 100 mls/hr IVPB BID [facility]; Protocol Last Admin: 02/06/19 09:45 Dose: 100 mls/hr Methadone HCl 40 mg/ Methadone (HCl 10 mg) 50 mg PO DAILY@0600 [facility] Last Admin: 02/06/19 06:24 Dose: 50 mg Nicotine (Nicoderm Patch -) 14 mg TD DAILY [facility] Last Admin: 02/06/19 09:45 Dose: 14 mg Nystatin (Nystop Powder -) 1 applic TP BID [facility] Last Admin: 02/06/19 09:46 Dose: 1 applic Polyethylene Glycol (Miralax (For Daily Use) -) 17 gm PO DAILY [facility] Last Admin: 02/06/19 09:55 Dose: Not Given Pramipexole Dihydrochloride (Mirapex -) 0.5 mg PO HS [facility] Last Admin: 02/05/19 21:36 Dose: 0.5 mg a/p a/p fall cellulitis of the LLE with chronic leg wound- continue cefepime, wound culture GNR f/u labs in am Problem List - Problems (1) Fall Code(s): W19.XXXA - UNSPECIFIED FALL, INITIAL ENCOUNTER (2) Cellulitis Code(s): L03.90 - CELLULITIS, UNSPECIFIED (3) CKD (chronic kidney disease) Code(s): N18.9 - CHRONIC KIDNEY DISEASE, UNSPECIFIED (4) Morbid obesity Code(s): E66.01 - MORBID (SEVERE) OBESITY DUE TO EXCESS CALORIES (5) Penicillin allergy Code(s): Z88.0 - ALLERGY STATUS TO PENICILLIN
--- NOTE | 2019-02-06 17:18 | PN ---
Progress Note (short form) - Note Progress Note: Ortho Pt seen and examined- LLE improving Selected Entries 02/06/19 14:21 Temperature 99.1 F Pulse Rate 98 H Respiratory 18 Rate Blood Pressure 116/61 Laboratory Tests 02/05/19 09:57 WBC 14.0 H Hgb 9.0 L Hct 26.7 L D Plt Count 257 decr pain, incr rom nvi a/p PT wbat continue abx for cellulitis Orthopedically stable re-consult prn d/w Dr. Goss
[2019-02-06] MEDS: ATORVASTATIN CA 20 MG TABLET (FP) PO SCH (21:10)
[2019-02-06] MEDS: PRAMIPEXOLE DIHYDROCHLORIDE 0.5 MG TABLET PO SCH (21:12)
[2019-02-07] MEDS ORDERED: METHADONE HCL 10 MG TABLET ONE (05:47)
[2019-02-07] MEDS ORDERED: METHADONE HCL 40 MG DISPERSABLE TABLET ONE (05:47)
[2019-02-07] MEDS: DOCUSATE SODIUM 100 MG CAPSULE (FP) PO SCH ×3 (05:49→21:06)
[2019-02-07] MEDS: METHADONE 40 MG, METHADONE 10 MG PO SCH (05:49)
[2019-02-07] MEDS: hydrALAZINE HCL 25 MG TABLET (FP) PO SCH ×3 (05:50→21:06)
[2019-02-07] MEDS: SODIUM CHLORIDE 500 ML IV SCH ×3 (05:51→21:09)
[2019-02-07 07:39] LABS: HEMATOCRIT 25.6 % (32.4-45.2); HEMOGLOBIN 8.6 GM/dL (10.7-15.3); MCH 30.8 pg (25.7-33.7); MCHC 33.5 g/dl (32.0-36.0); MEAN CELL VOLUME 92.2 fl (80-96); MEAN PLT VOLUME 7.9 fl (7.5-11.1); PLATELET COUNT 282 K/MM3 (134-434); RBC 2.77 M/mm3 (3.60-5.2); RDW 17.6 % (11.6-15.6); WHITE BLOOD COUNT 9.6 K/mm3 (4.0-10.0)
[2019-02-07 08:26] LABS: ALBUMIN 2.2 g/dl (3.4-5.0); BILIRUBIN,TOTAL 0.8 mg/dL (0.2-1); BLOOD UREA NITROGEN 15.8 mg/dL (7-18); CALCIUM 8.1 mg/dL (8.5-10.1); CREATININE 1.1 mg/dL (0.55-1.3); POTASSIUM 3.6 mmol/L (3.5-5.1); TOT PROT 6.4 g/dl (6.4-8.2)
[2019-02-07] MEDS ORDERED: PT OWN MED DRAWER 7, Y5N ONE ×2 (09:20→16:52)
[2019-02-07] MEDS ORDERED: CEFEPIME HCL 1 GM VIAL (RESTRICTED TO ID) ONE (09:20)
[2019-02-07] MEDS ORDERED: DEXTROSE 5%-WATER - 50 ML IVPB ONE (09:21)
[2019-02-07] MEDS: CEFEPIME 1 GM in DEXTROSE 5%-WATER - 50 ML IVPB SCH (09:27)
[2019-02-07] MEDS: DABIGATRAN ETEXILATE MESYLATE 75 MG CAPSULE PO SCH ×2 (09:27→21:07)
[2019-02-07] MEDS: NICOTINE 14 MG/24 HOURS TOPICAL PATCH TD SCH (09:27)
[2019-02-07] MEDS: NYSTATIN POWDER 100,000 UNITS/GM - 15 GM TOPICAL POWDER TP SCH ×2 (09:28→21:08)
[2019-02-07] MEDS: POLYETHYLENE GLYCOL 3350 119 GM BTL PO SCH (09:29)
--- NOTE | 2019-02-07 10:11 | PN ---
Progress Note, Physician Chief Complaint: AWAKE ALERT EVENTS REVIEWED - Current Medication List Current Medications: Active Medications Acetaminophen (Tylenol -) 650 mg PO Q6H PRN PRN Reason: PAIN LEVEL 7 - 10 Last Admin: 02/05/19 18:27 Dose: 650 mg Albuterol Sulfate (Ventolin 0.083% Nebulizer Soln -) 1 amp NEB Q4H PRN PRN Reason: SHORT OF BREATH/WHEEZING Albuterol Sulfate (Ventolin Hfa Inhaler -) 1 puff IH Q6H PRN PRN Reason: Dyspnea Atorvastatin Calcium (Lipitor -) 40 mg PO HS [facility] Last Admin: 02/06/19 21:10 Dose: 40 mg Dabigatran (Pradaxa -) 75 mg PO BID [facility] Last Admin: 02/07/19 09:27 Dose: 75 mg Docusate Sodium (Colace -) 100 mg PO TID [facility] Last Admin: 02/07/19 05:49 Dose: 100 mg Hydralazine HCl (Apresoline -) 25 mg PO TID [facility] Last Admin: 02/07/19 05:50 Dose: 25 mg Sodium Chloride (Normal Saline -) 500 mls @ 125 mls/hr IV ASDIR [facility] Last Admin: 02/07/19 09:32 Dose: 125 mls/hr Cefepime HCl 1 gm/ Dextrose 50 mls @ 100 mls/hr IVPB BID [facility]; Protocol Last Admin: 02/07/19 09:27 Dose: 100 mls/hr Methadone HCl 40 mg/ Methadone (HCl 10 mg) 50 mg PO DAILY@0600 [facility] Last Admin: 02/07/19 05:49 Dose: 50 mg Nicotine (Nicoderm Patch -) 14 mg TD DAILY [facility] Last Admin: 02/07/19 09:27 Dose: 14 mg Nystatin (Nystop Powder -) 1 applic TP BID [facility] Last Admin: 02/07/19 09:28 Dose: 1 applic Polyethylene Glycol (Miralax (For Daily Use) -) 17 gm PO DAILY [facility] Last Admin: 02/07/19 09:29 Dose: Not Given Pramipexole Dihydrochloride (Mirapex -) 0.5 mg PO HS [facility] Last Admin: 02/06/19 21:12 Dose: 0.5 mg - Objective Vital Signs: Vital Signs Temperature 98.2 F 02/07/19 07:42 Pulse Rate 90 02/07/19 07:42 Respiratory Rate 16 02/07/19 07:42 Blood Pressure 127/80 02/07/19 07:42 O2 Sat by Pulse Oximetry (%) 98 02/06/19 20:16 Constitutional: Yes: Mild Distress Cardiovascular: Yes: Regular Rate and Rhythm Respiratory: Yes: WNL Gastrointestinal: Yes: Soft, Abdomen, Obese Genitourinary: Yes: Incontinence Musculoskeletal: Yes: Muscle Weakness Extremities: Yes: Deformity, Erythema Edema: Yes Edema: LLE: 3+, RLE: 3+ Wound/Incision: Yes: Draining, Bleeding, Excoriated, Unapproximated Neurological: Yes: Loss of Sensation, Numbness, Pre-Existing Deficit, Weakness ...Motor Strength: LLE, RLE Psychiatric: Yes: Other Labs: CBC, BMP 02/07/19 06:48 02/07/19 06:48 INR, PTT INR 1.34 (0.83-1.09) H 02/04/19 14:55 Problem List - Problems (1) Acute pain of left lower extremity Code(s): M79.605 - PAIN IN LEFT LEG (2) Cellulitis and abscess of left leg Code(s): L03.116 - CELLULITIS OF LEFT LOWER LIMB; L02.416 - CUTANEOUS ABSCESS OF LEFT LOWER LIMB (3) Venous stasis ulcer of left lower leg with edema of left lower leg Code(s): I83.029 - VARICOSE VEINS OF LEFT LOWER EXTREMITY W ULCER OF UNSP SITE; I83.892 - VARICOSE VEINS OF L LOW EXTREM WITH OTHER COMPLICATIONS; L97.929 - NON -PRS CHRONIC ULC UNSP PRT OF L LOW LEG W UNSP SEVERITY; R60.9 - EDEMA, UNSPECIFIED (4) JOSH (acute kidney injury) Code(s): N17.9 - ACUTE KIDNEY FAILURE, UNSPECIFIED (5) CKD (chronic kidney disease) Code(s): N18.9 - CHRONIC KIDNEY DISEASE, UNSPECIFIED (6) Chronic renal insufficiency, stage III (moderate) Code(s): N18.3 - CHRONIC KIDNEY DISEASE, STAGE 3 (MODERATE) (7) History of pulmonary embolism Code(s): Z86.711 - PERSONAL HISTORY OF PULMONARY EMBOLISM (8) Methadone maintenance therapy patient Code(s): F11.20 - OPIOID DEPENDENCE, UNCOMPLICATED (9) Mobility poor Code(s): Z74.09 - OTHER REDUCED MOBILITY (10) Morbid obesity Code(s): E66.01 - MORBID (SEVERE) OBESITY DUE TO EXCESS CALORIES (11) Numbness and tingling of both legs below knees Code(s): R20.0 - ANESTHESIA OF SKIN; R20.2 - PARESTHESIA OF SKIN (12) Osteoarthritis of knees, bilateral Code(s): M17.0 - BILATERAL PRIMARY OSTEOARTHRITIS OF KNEE (13) Presence of IVC filter Code(s): Z95.828 - PRESENCE OF OTHER VASCULAR IMPLANTS AND GRAFTS (14) Sleep apnea Code(s): G47.30 - SLEEP APNEA, UNSPECIFIED Qualifiers: Sleep apnea type: obstructive Qualified Code(s): G47.33 - Obstructive sleep apnea (adult) (pediatric) (15) Venous stasis dermatitis of right lower extremity Code(s): I87.2 - VENOUS INSUFFICIENCY (CHRONIC) (PERIPHERAL) Assessment/Plan IV ABX PER ID WOUND CARE PODIATRY CONSULT EVALUATE FEET/ANKLES R/O FOREIGN BODY ON XRAY OF RIGHT TOES DVT PROPHYLAXIS IVF MONITOR RENAL FUNCTION ON IV ABX
--- NOTE | 2019-02-07 13:14 | PN ---
Progress Note (short form) - Note Progress Note: feels improved renal function improving still with pain xray negative for fracture Vital Signs Period Temp Pulse Resp BP Sys/Yoder Pulse Ox Last 24 Hr 98.2 F-99.9 F 89-100 16-20 116-139/61-81 98-98 cor-rrr lungs clear abd soft,nt ext ulcer is clean, less erythema of the LLE CBC, BMP 02/07/19 06:48 02/07/19 06:48 Microbiology 02/04/19 17:34 Calf - Left Posterior Gram Stain - Final 02/04/19 17:34 Calf - Left Posterior Wound Culture - Final Pseudomonas Aeruginosa Staphylococcus Coagulase Neg 02/04/19 23:20 Blood - Peripheral Venous Blood Culture - Preliminary NO GROWTH OBTAINED AFTER 48 HOURS, INCUBATION TO CONTINUE FOR 3 DAYS. 02/04/19 23:20 Blood - Peripheral Venous Blood Culture - Preliminary NO GROWTH OBTAINED AFTER 48 HOURS, INCUBATION TO CONTINUE FOR 3 DAYS. 02/04/19 18:00 Urine - Urine - Catheterized Urine Culture - Final NO GROWTH OBTAINED a/p s/p fall-will need PT evaluation, ?rehab cellulitis of the LLE with chronic leg wound- pseudomonas increase cefepime dose as renal function is now normal leukocytosis has resolved as well Problem List - Problems (1) Fall Code(s): W19.XXXA - UNSPECIFIED FALL, INITIAL ENCOUNTER (2) Cellulitis Code(s): L03.90 - CELLULITIS, UNSPECIFIED (3) CKD (chronic kidney disease) Code(s): N18.9 - CHRONIC KIDNEY DISEASE, UNSPECIFIED (4) Morbid obesity Code(s): E66.01 - MORBID (SEVERE) OBESITY DUE TO EXCESS CALORIES (5) Penicillin allergy Code(s): Z88.0 - ALLERGY STATUS TO PENICILLIN
[2019-02-07] MEDS: CEFEPIME 2 GM in DEXTROSE 5%-WATER - 100 ML IVPB SCH (17:03)
[2019-02-07] MEDS: ATORVASTATIN CA 20 MG TABLET (FP) PO SCH (21:06)
[2019-02-07] MEDS: PRAMIPEXOLE DIHYDROCHLORIDE 0.5 MG TABLET PO SCH (21:07)
[2019-02-08] MEDS: CEFEPIME 2 GM in DEXTROSE 5%-WATER - 100 ML IVPB SCH ×3 (02:54→17:59)
[2019-02-08] MEDS ORDERED: METHADONE HCL 10 MG TABLET ONE (05:43)
[2019-02-08] MEDS ORDERED: METHADONE HCL 40 MG DISPERSABLE TABLET ONE (05:43)
[2019-02-08] MEDS: METHADONE 40 MG, METHADONE 10 MG PO SCH (05:47)
[2019-02-08] MEDS: hydrALAZINE HCL 25 MG TABLET (FP) PO SCH ×3 (05:48→22:33)
[2019-02-08] MEDS: DOCUSATE SODIUM 100 MG CAPSULE (FP) PO SCH ×3 (05:48→22:33)
[2019-02-08] MEDS: SODIUM CHLORIDE 500 ML IV SCH (05:49)
[2019-02-08 08:19] LABS: HEMATOCRIT 26.3 % (32.4-45.2); HEMOGLOBIN 8.6 GM/dL (10.7-15.3); MCH 30.4 pg (25.7-33.7); MCHC 32.8 g/dl (32.0-36.0); MEAN CELL VOLUME 92.7 fl (80-96); MEAN PLT VOLUME 7.8 fl (7.5-11.1); PLATELET COUNT 307 K/MM3 (134-434); RBC 2.84 M/mm3 (3.60-5.2); RDW 18.3 % (11.6-15.6); WHITE BLOOD COUNT 8.7 K/mm3 (4.0-10.0)
[2019-02-08 08:41] LABS: BLOOD UREA NITROGEN 12.1 mg/dL (7-18); CALCIUM 8.4 mg/dL (8.5-10.1); POTASSIUM 4.7 mmol/L (3.5-5.1)
[2019-02-08] MEDS ORDERED: PT OWN MED DRAWER 7, Y5N ONE ×3 (10:21→21:34)
[2019-02-08] MEDS: DABIGATRAN ETEXILATE MESYLATE 75 MG CAPSULE PO SCH ×2 (10:26→22:36)
[2019-02-08] MEDS: NICOTINE 14 MG/24 HOURS TOPICAL PATCH TD SCH (10:26)
[2019-02-08] MEDS: NYSTATIN POWDER 100,000 UNITS/GM - 15 GM TOPICAL POWDER TP SCH ×2 (10:28→22:37)
[2019-02-08] MEDS ORDERED: KETOROLAC TROMETHAMINE 15 MG/ML VIAL IVPUSH ONE (14:38)
--- NOTE | 2019-02-08 14:41 | PN ---
Progress Note, Physician Chief Complaint: patient seen and examined in pain the left leg wound is hurting her - Current Medication List Current Medications: Active Medications Acetaminophen (Tylenol -) 650 mg PO Q6H PRN PRN Reason: PAIN LEVEL 7 - 10 Last Admin: 02/05/19 18:27 Dose: 650 mg Albuterol Sulfate (Ventolin 0.083% Nebulizer Soln -) 1 amp NEB Q4H PRN PRN Reason: SHORT OF BREATH/WHEEZING Albuterol Sulfate (Ventolin Hfa Inhaler -) 1 puff IH Q6H PRN PRN Reason: Dyspnea Atorvastatin Calcium (Lipitor -) 40 mg PO HS [facility] Last Admin: 02/07/19 21:06 Dose: 40 mg Dabigatran (Pradaxa -) 75 mg PO BID [facility] Last Admin: 02/08/19 10:26 Dose: 75 mg Docusate Sodium (Colace -) 100 mg PO TID [facility] Last Admin: 02/08/19 05:48 Dose: 100 mg Hydralazine HCl (Apresoline -) 25 mg PO TID [facility] Last Admin: 02/08/19 05:48 Dose: 25 mg Sodium Chloride (Normal Saline -) 500 mls @ 125 mls/hr IV ASDIR [facility] Last Admin: 02/08/19 05:49 Dose: 125 mls/hr Cefepime HCl 2 gm/ Dextrose 100 mls @ 200 mls/hr IVPB Q8H-IV [facility]; Protocol Last Admin: 02/08/19 10:27 Dose: 200 mls/hr Ketorolac Tromethamine (Toradol Injection -) 15 mg IVPUSH ONCE ONE Stop: 02/08/19 14:39 Methadone HCl 40 mg/ Methadone (HCl 10 mg) 50 mg PO DAILY@0600 [facility] Last Admin: 02/08/19 05:47 Dose: 50 mg Nicotine (Nicoderm Patch -) 14 mg TD DAILY [facility] Last Admin: 02/08/19 10:26 Dose: 14 mg Nystatin (Nystop Powder -) 1 applic TP BID [facility] Last Admin: 02/08/19 10:28 Dose: 1 applic Polyethylene Glycol (Miralax (For Daily Use) -) 17 gm PO DAILY [facility] Last Admin: 02/07/19 09:29 Dose: Not Given Pramipexole Dihydrochloride (Mirapex -) 0.5 mg PO [facility] Last Admin: 02/07/19 21:07 Dose: 0.5 mg - Objective Vital Signs: Vital Signs Temperature 98.0 F 02/08/19 10:00 Pulse Rate 78 02/08/19 10:00 Respiratory Rate 20 02/08/19 10:00 Blood Pressure 129/77 02/08/19 10:00 O2 Sat by Pulse Oximetry (%) 98 02/07/19 20:52 Constitutional: Yes: Mild Distress Cardiovascular: Yes: Regular Rate and Rhythm, S1, S2 Respiratory: Yes: CTA Bilaterally Gastrointestinal: Yes: Normal Bowel Sounds, Soft Extremities: Yes: Other (chronic skin changes left ulcer pink base) Labs: CBC, BMP 02/08/19 07:25 02/08/19 07:25 INR, PTT INR 1.34 (0.83-1.09) H 02/04/19 14:55 Problem List - Problems (1) Cellulitis Assessment/Plan: iv abx cefepime appreciate vascular consult Microbiology 02/04/19 17:34 Calf - Left Posterior Gram Stain - Final 02/04/19 17:34 Calf - Left Posterior Wound Culture - Final Pseudomonas Aeruginosa Staphylococcus Coagulase Neg pain control Code(s): L03.90 - CELLULITIS, UNSPECIFIED (2) HTN (hypertension) Assessment/Plan: hydralazine tid Code(s): I10 - ESSENTIAL (PRIMARY) HYPERTENSION Qualifiers: Hypertension type: essential hypertension Qualified Code(s): I10 - Essential (primary) hypertension (3) Methadone maintenance therapy patient Assessment/Plan: on methadone Code(s): F11.20 - OPIOID DEPENDENCE, UNCOMPLICATED (4) Presence of IVC filter Assessment/Plan: h/o PE on pradaxa monitor h/h Code(s): Z95.828 - PRESENCE OF OTHER VASCULAR IMPLANTS AND GRAFTS (5) Sleep apnea Assessment/Plan: bipap at night bronchodilators Code(s): G47.30 - SLEEP APNEA, UNSPECIFIED Qualifiers: Sleep apnea type: obstructive Qualified Code(s): G47.33 - Obstructive sleep apnea (adult) (pediatric)
--- NOTE | 2019-02-08 14:59 | PN ---
Progress Note (short form) - Note Progress Note: feels improved still with leg swelling and pain Vital Signs Period Temp Pulse Resp BP Sys/Yoder Pulse Ox Last 24 Hr 97.9 F-99.6 F 75-90 20-20 129-151/61-77 98 cor-rrr lungs clear abd soft,nt ext wound is clean, +erythema and warmth improving RLE, +swelling CBC, BMP 02/08/19 07:25 02/08/19 07:25 Microbiology 02/04/19 23:20 Blood - Peripheral Venous Blood Culture - Preliminary NO GROWTH OBTAINED AFTER 72 HOURS, INCUBATION TO CONTINUE FOR 2 DAYS. 02/04/19 23:20 Blood - Peripheral Venous Blood Culture - Preliminary NO GROWTH OBTAINED AFTER 72 HOURS, INCUBATION TO CONTINUE FOR 2 DAYS. 02/04/19 17:34 Calf - Left Posterior Gram Stain - Final 02/04/19 17:34 Calf - Left Posterior Wound Culture - Final Pseudomonas Aeruginosa Staphylococcus Coagulase Neg 02/04/19 18:00 Urine - Urine - Catheterized Urine Culture - Final NO GROWTH OBTAINED a/p s/p fall-will need PT evaluation, ?rehab cellulitis of the LLE with chronic leg wound- pseudomonas continue cefepime penicilllin allergy noted Problem List - Problems (1) Fall Code(s): W19.XXXA - UNSPECIFIED FALL, INITIAL ENCOUNTER (2) Cellulitis Code(s): L03.90 - CELLULITIS, UNSPECIFIED (3) CKD (chronic kidney disease) Code(s): N18.9 - CHRONIC KIDNEY DISEASE, UNSPECIFIED (4) Morbid obesity Code(s): E66.01 - MORBID (SEVERE) OBESITY DUE TO EXCESS CALORIES (5) Penicillin allergy Code(s): Z88.0 - ALLERGY STATUS TO PENICILLIN
[2019-02-08] MEDS: POLYETHYLENE GLYCOL 3350 119 GM BTL PO SCH (15:47)
--- NOTE | 2019-02-08 16:51 | CONSULT ---
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: CVA (right residual deficits) Cardio/Vascular: Yes: CHF (Chronic Diastolic), HTN, Hyperlipdemia Pulmonary: Yes: Asthma, COPD, Sleep Apnea Gastrointestinal: Yes: GERD Renal/: Yes: Renal Inusuff ...: No Musculoskeletal: Yes: Osteoarthritis - Alcohol/Substance Use Hx Alcohol Use: No History of Substance Use: reports: Heroin (Previous use) - Smoking History Smoking history: Never smoked Have you smoked in the past 12 months: No Aproximately how many cigarettes per day: 3 If you are a former smoker, when did you quit?: 1 month - Social History Usual Living Arrangement: With Child ADL: Family Assistance History of Recent Travel: No Home Medications - Allergies Allergies/Adverse Reactions: Allergies Allergy/AdvReac Type Severity Reaction Status Date / Time Penicillins Allergy Intermediate Hives Verified 01/26/19 00:27 - Home Medications Home Medications: Ambulatory Orders Atorvastatin Ca [Lipitor] 40 mg PO HS 05/30/14 Omeprazole Magnesium [Prilosec (OTC)] 20 mg PO DAILY 05/30/14 Hydralazine HCl 25 mg PO TID 10/25/17 Methadone [Dolophine -] 50 mg PO DAILY 10/28/17 Albuterol Sulfate [Proair Respiclick] 90 mcg IH QID PRN 09/11/18 Docusate Sodium [Colace -] 100 mg PO TID 09/11/18 Cholecalciferol (Vitamin D3) [Vitamin D3] 5,000 unit PO DAILY #30 capsule Albuterol 0.083% Nebulizer Micheline [Ventolin 0.083% Nebulizer Soln -] 1 amp NEB Q4H PRN #45 amp 12/25/18 Ranitidine [Zantac -] 150 mg PO BID #60 tablet 12/25/18 Pramipexole Dihydrochloride [Mirapex -] 2 tab PO HS 01/26/19 Dabigatran Etexilate Mesylate [Pradaxa -] 75 mg PO BID #30 capsule 01/28/19 Nicotine Patch [Nicoderm Patch -] 14 mg TD DAILY #14 patch 01/28/19 Physical Exam Vital Signs: Vital Signs Temperature 98.0 F 02/08/19 10:00 Pulse Rate 78 02/08/19 10:00 Respiratory Rate 20 02/08/19 10:00 Blood Pressure 129/77 02/08/19 10:00 O2 Sat by Pulse Oximetry (%) 98 02/07/19 20:52 Extremities: Yes: Other (xerosis b/l legs and feet, +wound left leg, +tender dystrophic mycotic nails with subungual debris x 10, +edema, +pitting,) Labs: CBC, BMP 02/08/19 07:25 02/08/19 07:25 Assessment/Plan onychomycosis pain edema xerosis wound left leg Ammonium lactate to b/l lower extremities. Vascular on case for wound left. Debride nails next visit. Will follow till dc.
[2019-02-08] MEDS ORDERED: AMMONIUM LACTATE 12% LOTION 225 GM BOTTLE TP PRN ×2 (16:53→16:55)
[2019-02-08] MEDS: ATORVASTATIN CA 20 MG TABLET (FP) PO SCH (22:33)
[2019-02-08] MEDS: ACETAMINOPHEN 325 MG TABLET (FP) PO PRN (22:33)
[2019-02-08] MEDS: PRAMIPEXOLE DIHYDROCHLORIDE 0.5 MG TABLET PO SCH (22:36)
[2019-02-08] MEDS: ALBUTEROL SO4 0.083% IH SOL 2.5 MG/3 ML VIAL.NEB. NEB PRN (22:43)
[2019-02-09] MEDS: CEFEPIME 2 GM in DEXTROSE 5%-WATER - 100 ML IVPB SCH ×3 (02:21→18:35)
[2019-02-09] MEDS ORDERED: METHADONE HCL 10 MG TABLET ONE (06:14)
[2019-02-09] MEDS ORDERED: METHADONE HCL 40 MG DISPERSABLE TABLET ONE (06:14)
[2019-02-09] MEDS: METHADONE 40 MG, METHADONE 10 MG PO SCH (06:20)
[2019-02-09] MEDS: hydrALAZINE HCL 25 MG TABLET (FP) PO SCH ×3 (06:20→21:19)
[2019-02-09] MEDS: DOCUSATE SODIUM 100 MG CAPSULE (FP) PO SCH ×3 (06:24→21:19)
[2019-02-09] MEDS ORDERED: PT OWN MED DRAWER 7, Y5N ONE ×2 (09:26→21:16)
[2019-02-09] MEDS: DABIGATRAN ETEXILATE MESYLATE 75 MG CAPSULE PO SCH ×2 (09:33→21:19)
[2019-02-09] MEDS: POLYETHYLENE GLYCOL 3350 119 GM BTL PO SCH ×2 (09:33→12:48)
[2019-02-09] MEDS: NICOTINE 14 MG/24 HOURS TOPICAL PATCH TD SCH (09:33)
[2019-02-09] MEDS: NYSTATIN POWDER 100,000 UNITS/GM - 15 GM TOPICAL POWDER TP SCH ×2 (09:34→21:19)
--- NOTE | 2019-02-09 11:31 | PN ---
Progress Note, Physician Chief Complaint: LLE cellulitis History of Present Illness: NAD in bed daughter at bedside Feels better - Current Medication List Current Medications: Active Medications Acetaminophen (Tylenol -) 650 mg PO Q6H PRN PRN Reason: PAIN LEVEL 7 - 10 Last Admin: 02/08/19 22:33 Dose: 650 mg Albuterol Sulfate (Ventolin 0.083% Nebulizer Soln -) 1 amp NEB Q4H PRN PRN Reason: SHORT OF BREATH/WHEEZING Last Admin: 02/08/19 22:43 Dose: 1 amp Albuterol Sulfate (Ventolin Hfa Inhaler -) 1 puff IH Q6H PRN PRN Reason: Dyspnea Atorvastatin Calcium (Lipitor -) 40 mg PO HS [facility] Last Admin: 02/08/19 22:33 Dose: 40 mg Dabigatran (Pradaxa -) 75 mg PO BID [facility] Last Admin: 02/09/19 09:33 Dose: 75 mg Docusate Sodium (Colace -) 100 mg PO TID [facility] Last Admin: 02/09/19 06:24 Dose: 100 mg Hydralazine HCl (Apresoline -) 25 mg PO TID [facility] Last Admin: 02/09/19 06:20 Dose: 25 mg Cefepime HCl 2 gm/ Dextrose 100 mls @ 200 mls/hr IVPB Q8H-IV [facility]; Protocol Last Admin: 02/09/19 09:33 Dose: 200 mls/hr Lactic Acid (Lac-Hydrin 12) 1 applic TP DAILY PRN PRN Reason: xerosis Methadone HCl 40 mg/ Methadone (HCl 10 mg) 50 mg PO DAILY@0600 [facility] Last Admin: 02/09/19 06:20 Dose: 50 mg Nicotine (Nicoderm Patch -) 14 mg TD DAILY [facility] Last Admin: 02/09/19 09:33 Dose: 14 mg Nystatin (Nystop Powder -) 1 applic TP BID [facility] Last Admin: 02/09/19 09:34 Dose: 1 applic Polyethylene Glycol (Miralax (For Daily Use) -) 17 gm PO DAILY [facility] Last Admin: 02/09/19 09:33 Dose: 17 gm Pramipexole Dihydrochloride (Mirapex -) 0.5 mg PO HS [facility] Last Admin: 02/08/19 22:36 Dose: 0.5 mg - Objective Vital Signs: Vital Signs Temperature 98.2 F 02/09/19 09:27 Pulse Rate 90 02/09/19 09:27 Respiratory Rate 20 02/09/19 09:27 Blood Pressure 135/77 02/09/19 09:27 O2 Sat by Pulse Oximetry (%) 97 02/08/19 21:00 Constitutional: Yes: Well Nourished, No Distress, Calm, Obese Cardiovascular: Yes: Regular Rate and Rhythm Respiratory: Yes: Regular Gastrointestinal: Yes: Normal Bowel Sounds, Soft, Abdomen, Obese Genitourinary: Yes: WNL Musculoskeletal: Yes: Muscle Weakness Extremities: Yes: WNL Edema: Yes (BLLE non pitting edema) Peripheral Pulses WNL: Yes Integumentary: Yes: Other (LLE warm to touch) Wound/Incision: Yes: Dressing Dry and Intact (LLE) Neurological: Yes: Alert, Oriented Psychiatric: Yes: Alert, Oriented Labs: CBC, BMP 02/08/19 07:25 02/08/19 07:25 INR, PTT INR 1.34 (0.83-1.09) H 02/04/19 14:55 Problem List - Problems (1) Anemia Assessment/Plan: -Check stool OB -Check Iron profile, thyroid + B12 -Monitor H/H Problems reviewed: Yes Code(s): D64.9 - ANEMIA, UNSPECIFIED Assessment/Plan (1) Cellulitis Assessment/Plan: -ID on board -Leukocytosis improved -afebrile -Cefepime -Wound culture L calf: Microbiology 02/04/19 23:20 Blood - Peripheral Venous Blood Culture - Preliminary NO GROWTH OBTAINED AFTER 96 HOURS, INCUBATION TO CONTINUE FOR 1 DAYS. 02/04/19 23:20 Blood - Peripheral Venous Blood Culture - Preliminary NO GROWTH OBTAINED AFTER 96 HOURS, INCUBATION TO CONTINUE FOR 1 DAYS. 02/04/19 17:34 Calf - Left Posterior Gram Stain - Final 02/04/19 17:34 Calf - Left Posterior Wound Culture - Final Pseudomonas Aeruginosa Staphylococcus Coagulase Neg 02/04/19 18:00 Urine - Urine - Catheterized Urine Culture - Final NO GROWTH OBTAINED Code(s): L03.90 - CELLULITIS, UNSPECIFIED (2) JOSH (acute kidney injury) Assessment/Plan: -resolved -monitor renal function Code(s): N17.9 - ACUTE KIDNEY FAILURE, UNSPECIFIED (3) CHF (congestive heart failure) Assessment/Plan: -daily weights -fluid restriction -strict I&Os -Euvolemic at this time Code(s): I50.9 - HEART FAILURE, UNSPECIFIED Qualifiers: Heart failure type: unspecified Heart failure chronicity: unspecified Qualified Code(s): I50.9 - Heart failure, unspecified (4) COPD (chronic obstructive pulmonary disease) Assessment/Plan: -Bronchodilators -keep SpO2 >90% -O2 via NC -CT Chest possible small infiltrate on LLL -Already on IV abx - Code(s): J44.9 - CHRONIC OBSTRUCTIVE PULMONARY DISEASE, UNSPECIFIED Qualifiers: COPD type: unspecified COPD Qualified Code(s): J44.9 - Chronic obstructive pulmonary disease, unspecified (5) HTN (hypertension) Assessment/Plan: -Hydralazine -low Na diet Code(s): I10 - ESSENTIAL (PRIMARY) HYPERTENSION Qualifiers: Hypertension type: essential hypertension Qualified Code(s): I10 - Essential (primary) hypertension (6) History of pulmonary embolism Assessment/Plan: -Pradaxa Code(s): Z86.711 - PERSONAL HISTORY OF PULMONARY EMBOLISM (7) Morbid obesity Assessment/Plan: -Dietary consult Code(s): E66.01 - MORBID (SEVERE) OBESITY DUE TO EXCESS CALORIES (8) Fall Assessment/Plan: -PT -Fall precautions -SNF for discharge when ready -Pelvic CT scan shows no acute fracture or dislocation -Radiology of Knee, Hip/Pelvic/foot/ankle unremarkable Code(s): W19.XXXA - UNSPECIFIED FALL, INITIAL ENCOUNTER (9) Acute pain of left lower extremity Assessment/Plan: -Ortho on board -WBAT -PT -pain control Code(s): M79.605 - PAIN IN LEFT LEG
[2019-02-09] MEDS: ACETAMINOPHEN 325 MG TABLET (FP) PO PRN (17:20)
[2019-02-09] MEDS: ALBUTEROL SO4 0.083% IH SOL 2.5 MG/3 ML VIAL.NEB. NEB PRN (21:03)
[2019-02-09] MEDS: PRAMIPEXOLE DIHYDROCHLORIDE 0.5 MG TABLET PO SCH (21:19)
[2019-02-09] MEDS: ATORVASTATIN CA 20 MG TABLET (FP) PO SCH (21:19)
[2019-02-10] MEDS: CEFEPIME 2 GM in DEXTROSE 5%-WATER - 100 ML IVPB SCH ×3 (01:21→17:34)
[2019-02-10] MEDS ORDERED: PT OWN MED DRAWER 7, Y5N ONE ×4 (03:39→20:59)
[2019-02-10] MEDS ORDERED: METHADONE HCL 10 MG TABLET ONE (06:03)
[2019-02-10] MEDS ORDERED: METHADONE HCL 40 MG DISPERSABLE TABLET ONE (06:04)
[2019-02-10] MEDS: hydrALAZINE HCL 25 MG TABLET (FP) PO SCH ×3 (06:05→21:52)
[2019-02-10] MEDS: METHADONE 40 MG, METHADONE 10 MG PO SCH (06:06)
[2019-02-10] MEDS: DOCUSATE SODIUM 100 MG CAPSULE (FP) PO SCH ×3 (06:07→21:52)
[2019-02-10 08:23] LABS: BASO % 0.4 % (0-2.0); EOS % 1.2 % (0-4.5); HEMATOCRIT 27.8 % (32.4-45.2); LYMPH % 8.3 % (8-40); MCH 30.4 pg (25.7-33.7); MCHC 32.3 g/dl (32.0-36.0); MEAN CELL VOLUME 94.1 fl (80-96); MONO % 9.2 % (3.8-10.2); NEUT % 80.9 % (42.8-82.8); PLATELET COUNT 395 K/MM3 (134-434); RBC 2.95 M/mm3 (3.60-5.2); WHITE BLOOD COUNT 10.2 K/mm3 (4.0-10.0)
[2019-02-10 09:13] LABS: ALBUMIN 2.3 g/dl (3.4-5.0); BILIRUBIN,TOTAL 0.5 mg/dL (0.2-1); BLOOD UREA NITROGEN 11.6 mg/dL (7-18); CREATININE 1.1 mg/dL (0.55-1.3); POTASSIUM 3.9 mmol/L (3.5-5.1); TOT PROT 7.1 g/dl (6.4-8.2)
[2019-02-10] MEDS: DABIGATRAN ETEXILATE MESYLATE 75 MG CAPSULE PO SCH ×2 (09:45→21:52)
[2019-02-10] MEDS: NICOTINE 14 MG/24 HOURS TOPICAL PATCH TD SCH (09:45)
[2019-02-10] MEDS: NYSTATIN POWDER 100,000 UNITS/GM - 15 GM TOPICAL POWDER TP SCH ×2 (09:46→21:53)
[2019-02-10 09:49] LABS: ANISOCYTOSIS 1+; MACROCYTOSIS 0; PLATELET ESTIMATE NORMAL
--- NOTE | 2019-02-10 10:44 | PN ---
Progress Note, Physician Chief Complaint: LLE cellulitis History of Present Illness: NAD in bed daughter at bedside Feels better - Current Medication List Current Medications: Active Medications Acetaminophen (Tylenol -) 650 mg PO Q6H PRN PRN Reason: PAIN LEVEL 7 - 10 Last Admin: 02/09/19 17:20 Dose: 650 mg Albuterol Sulfate (Ventolin 0.083% Nebulizer Soln -) 1 amp NEB Q4H PRN PRN Reason: SHORT OF BREATH/WHEEZING Last Admin: 02/09/19 21:03 Dose: 1 amp Albuterol Sulfate (Ventolin Hfa Inhaler -) 1 puff IH Q6H PRN PRN Reason: Dyspnea Atorvastatin Calcium (Lipitor -) 40 mg PO HS [facility] Last Admin: 02/09/19 21:19 Dose: 40 mg Dabigatran (Pradaxa -) 75 mg PO BID [facility] Last Admin: 02/10/19 09:45 Dose: 75 mg Docusate Sodium (Colace -) 100 mg PO TID [facility] Last Admin: 02/10/19 06:07 Dose: 100 mg Hydralazine HCl (Apresoline -) 25 mg PO TID [facility] Last Admin: 02/10/19 06:05 Dose: 25 mg Cefepime HCl 2 gm/ Dextrose 100 mls @ 200 mls/hr IVPB Q8H-IV [facility]; Protocol Last Admin: 02/10/19 09:44 Dose: 200 mls/hr Lactic Acid (Lac-Hydrin 12) 1 applic TP DAILY PRN PRN Reason: xerosis Methadone HCl 40 mg/ Methadone (HCl 10 mg) 50 mg PO DAILY@0600 [facility] Last Admin: 02/10/19 06:06 Dose: 50 mg Nicotine (Nicoderm Patch -) 14 mg TD DAILY [facility] Last Admin: 02/10/19 09:45 Dose: 14 mg Nystatin (Nystop Powder -) 1 applic TP BID [facility] Last Admin: 02/10/19 09:46 Dose: 1 applic Polyethylene Glycol (Miralax (For Daily Use) -) 17 gm PO DAILY [facility] Last Admin: 02/09/19 09:33 Dose: 17 gm Polyethylene Glycol (Miralax (For Daily Use) -) 17 gm PO DAILY [facility] Last Admin: 02/09/19 12:48 Dose: Not Given Polysaccharide Iron Complex (Niferex-150 -) 150 mg PO DAILY [facility] Pramipexole Dihydrochloride (Mirapex -) 0.5 mg PO HS [facility] Last Admin: 02/09/19 21:19 Dose: 0.5 mg - Objective Vital Signs: Vital Signs Temperature 98.9 F 02/10/19 08:02 Pulse Rate 90 02/10/19 08:02 Respiratory Rate 21 H 02/10/19 08:02 Blood Pressure 137/83 02/10/19 08:02 O2 Sat by Pulse Oximetry (%) 96 02/09/19 21:00 Constitutional: Yes: Well Nourished, No Distress, Calm, Obese Cardiovascular: Yes: Regular Rate and Rhythm Respiratory: Yes: Regular Gastrointestinal: Yes: Normal Bowel Sounds, Soft, Abdomen, Obese Genitourinary: Yes: WNL Musculoskeletal: Yes: Muscle Weakness Extremities: Yes: Other (BLLE warm to touch L>R) Peripheral Pulses WNL: Yes Wound/Incision: Yes: Dressing Dry and Intact Neurological: Yes: Alert, Oriented Psychiatric: Yes: Alert, Oriented Labs: CBC, BMP 02/10/19 07:25 02/10/19 07:25 INR, PTT INR 1.34 (0.83-1.09) H 02/04/19 14:55 Problem List - Problems (1) Anemia Assessment/Plan: -Check stool OB -Iron profile low in iron -Start Iron polysaccharide 1 tab po daily -thyroid + B12 normal -Monitor H/H Problems reviewed: Yes Code(s): D64.9 - ANEMIA, UNSPECIFIED Assessment/Plan (1) Cellulitis Assessment/Plan: -ID on board -Leukocytosis improved -afebrile -Cefepime -Wound culture L calf: Microbiology 02/04/19 23:20 Blood - Peripheral Venous Blood Culture - Preliminary NO GROWTH OBTAINED AFTER 96 HOURS, INCUBATION TO CONTINUE FOR 1 DAYS. 02/04/19 23:20 Blood - Peripheral Venous Blood Culture - Preliminary NO GROWTH OBTAINED AFTER 96 HOURS, INCUBATION TO CONTINUE FOR 1 DAYS. 02/04/19 17:34 Calf - Left Posterior Gram Stain - Final 02/04/19 17:34 Calf - Left Posterior Wound Culture - Final Pseudomonas Aeruginosa Staphylococcus Coagulase Neg 02/04/19 18:00 Urine - Urine - Catheterized Urine Culture - Final NO GROWTH OBTAINED Code(s): L03.90 - CELLULITIS, UNSPECIFIED (2) JOSH (acute kidney injury) Assessment/Plan: -resolved -monitor renal function Code(s): N17.9 - ACUTE KIDNEY FAILURE, UNSPECIFIED (3) CHF (congestive heart failure) Assessment/Plan: -daily weights -fluid restriction -strict I&Os -Euvolemic at this time Code(s): I50.9 - HEART FAILURE, UNSPECIFIED Qualifiers: Heart failure type: unspecified Heart failure chronicity: unspecified Qualified Code(s): I50.9 - Heart failure, unspecified (4) COPD (chronic obstructive pulmonary disease) Assessment/Plan: -Bronchodilators -keep SpO2 >90% -O2 via NC -CT Chest possible small infiltrate on LLL -Already on IV abx Code(s): J44.9 - CHRONIC OBSTRUCTIVE PULMONARY DISEASE, UNSPECIFIED Qualifiers: COPD type: unspecified COPD Qualified Code(s): J44.9 - Chronic obstructive pulmonary disease, unspecified (5) HTN (hypertension) Assessment/Plan: -Hydralazine -low Na diet Code(s): I10 - ESSENTIAL (PRIMARY) HYPERTENSION Qualifiers: Hypertension type: essential hypertension Qualified Code(s): I10 - Essential (primary) hypertension (6) History of pulmonary embolism Assessment/Plan: -Pradaxa Code(s): Z86.711 - PERSONAL HISTORY OF PULMONARY EMBOLISM (7) Morbid obesity Assessment/Plan: -Dietary consult Code(s): E66.01 - MORBID (SEVERE) OBESITY DUE TO EXCESS CALORIES (8) Fall Assessment/Plan: -PT -Fall precautions -SNF for discharge when ready -Pelvic CT scan shows no acute fracture or dislocation -Radiology of Knee, Hip/Pelvic/foot/ankle unremarkable Code(s): W19.XXXA - UNSPECIFIED FALL, INITIAL ENCOUNTER (9) Acute pain of left lower extremity Assessment/Plan: -Ortho on board -WBAT -PT -pain control Code(s): M79.605 - PAIN IN LEFT LEG
--- NOTE | 2019-02-10 13:05 | CON.PULM ---
Consult Consult Specialty:: PULMONARY Referred by:: Dr Goodwin Reason for Consultation:: COPD - History of Present Illness Chief Complaint: fall History of Present Illness: 59yo female with h/o HTN, hyperlipidemia, COPD, h/o CVA, h/o PE/DVT s/p IVC filter, morbid obesity, MICHELE who was admitted s/p fall with LLE swelling. Febrile this admission, started on antibiotics for cellulitis. She does report some shortness of breath initially which is now improved. No cough or wheezing. Reports compliance with her inhalers and CPAP at home. 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: CVA (right residual deficits) Cardio/Vascular: Yes: CHF (Chronic Diastolic), HTN, Hyperlipdemia Pulmonary: Yes: Asthma, COPD, Sleep Apnea Gastrointestinal: Yes: GERD Renal/: Yes: Renal Inusuff ...: No Musculoskeletal: Yes: Osteoarthritis - Alcohol/Substance Use Hx Alcohol Use: No History of Substance Use: reports: Heroin (Previous use) - Smoking History Smoking history: Never smoked Have you smoked in the past 12 months: No Aproximately how many cigarettes per day: 3 If you are a former smoker, when did you quit?: 1 month - Social History Usual Living Arrangement: With Child ADL: Family Assistance History of Recent Travel: No Home Medications - Allergies Allergies/Adverse Reactions: Allergies Allergy/AdvReac Type Severity Reaction Status Date / Time Penicillins Allergy Intermediate Hives Verified 01/26/19 00:27 - Home Medications Home Medications: Ambulatory Orders Atorvastatin Ca [Lipitor] 40 mg PO HS 05/30/14 Omeprazole Magnesium [Prilosec (OTC)] 20 mg PO DAILY 05/30/14 Hydralazine HCl 25 mg PO TID 10/25/17 Methadone [Dolophine -] 50 mg PO DAILY 10/28/17 Albuterol Sulfate [Proair Respiclick] 90 mcg IH QID PRN 09/11/18 Docusate Sodium [Colace -] 100 mg PO TID 09/11/18 Cholecalciferol (Vitamin D3) [Vitamin D3] 5,000 unit PO DAILY #30 capsule Albuterol 0.083% Nebulizer Micheline [Ventolin 0.083% Nebulizer Soln -] 1 amp NEB Q4H PRN #45 amp 09/20/19 Ranitidine [Zantac -] 150 mg PO BID #60 tablet 12/25/18 Pramipexole Dihydrochloride [Mirapex -] 2 tab PO HS 01/26/19 Dabigatran Etexilate Mesylate [Pradaxa -] 75 mg PO BID #30 capsule 01/28/19 Nicotine Patch [Nicoderm Patch -] 14 mg TD DAILY #14 patch 01/28/19 Review of Systems - Review of Systems Constitutional: reports: Fever, Weakness Eyes: denies: Recent Change in Vision HENT: denies: Nasal Congestion, Throat Pain Neck: denies: Stiffness, Tenderness Cardiovascular: reports: Edema, Shortness of Breath. denies: Chest Pain, Palpitations Respiratory: denies: Cough, Hemoptysis, Wheezing Gastrointestinal: denies: Abdominal Pain, Nausea, Vomiting Genitourinary: denies: Dysuria, Hematuria Neurological: denies: Dizziness, Headache Endocrine: denies: Unexplained Weight Loss Physical Exam Vital Sings: Vital Signs Temperature 98.9 F 02/10/19 08:02 Pulse Rate 90 02/10/19 08:02 Respiratory Rate 21 H 02/10/19 08:02 Blood Pressure 137/83 02/10/19 08:02 O2 Sat by Pulse Oximetry (%) 96 02/09/19 21:00 Constitutional: Yes: Calm Eyes: Yes: Conjunctiva Clear, EOM Intact HENT: Yes: Atraumatic, Normocephalic Neck: Yes: Supple, Trachea Midline Cardiovascular: Yes: Regular Rate and Rhythm Respiratory: Yes: Diminished (distant breath sounds) ...Clubbing: No Gastrointestinal: Yes: Normal Bowel Sounds, Soft. No: Tenderness Edema: Yes Neurological: Yes: Alert, Oriented Labs: CBC, BMP 02/10/19 07:25 02/10/19 07:25 Imaging - Results Chest X-ray: Report Reviewed, Image Reviewed Cat Scan: Report Reviewed, Image Reviewed (left atelectasis) Problem List - Problems (1) Cellulitis Code(s): L03.90 - CELLULITIS, UNSPECIFIED Assessment/Plan LLE Cellulitis Sepsis Acute Kidney Injury h/o PE/DVT s/p IVC filter Morbid Obesity MICHELE COPD Atelectasis HTN Hyperlipidemia h/o CVA Methadone Maintenance - continue antibiotics per ID - f/u cultures - O2 to keep SpO2 >90% - inhaled bronchodilators - offered CPAP at night but pt declining at this time - continue anticoagulation Thank you for this consult Peewee Maya MD
[2019-02-10] MEDS: traMADol HCL 50 MG TABLET PO PRN (13:36)
[2019-02-10] MEDS: IRON POLYSACCHARIDES 150 MG CAPSULE PO SCH (13:36)
[2019-02-10 13:44] VITALS: BMI 52.0
[2019-02-10] MEDS: ALBUTEROL SO4 2.5/IPRATROPIUM 0.5 INH SOL 3 ML VIAL.NEB. NEB SCH ×2 (16:00→20:40)
[2019-02-10] MEDS: PRAMIPEXOLE DIHYDROCHLORIDE 0.5 MG TABLET PO SCH (21:52)
[2019-02-10] MEDS: ATORVASTATIN CA 20 MG TABLET (FP) PO SCH (21:52)
[2019-02-11] MEDS: CEFEPIME 2 GM in DEXTROSE 5%-WATER - 100 ML IVPB SCH ×3 (01:25→10:05)
[2019-02-11] MEDS: traMADol HCL 50 MG TABLET PO PRN ×3 (03:55→21:21)
[2019-02-11] MEDS ORDERED: METHADONE HCL 40 MG DISPERSABLE TABLET ONE (06:08)
[2019-02-11] MEDS ORDERED: METHADONE HCL 10 MG TABLET ONE (06:08)
[2019-02-11] MEDS: METHADONE 40 MG, METHADONE 10 MG PO SCH (06:11)
[2019-02-11] MEDS: hydrALAZINE HCL 25 MG TABLET (FP) PO SCH ×3 (06:12→21:20)
[2019-02-11] MEDS: DOCUSATE SODIUM 100 MG CAPSULE (FP) PO SCH ×3 (06:12→21:20)
[2019-02-11] MEDS: ALBUTEROL SO4 2.5/IPRATROPIUM 0.5 INH SOL 3 ML VIAL.NEB. NEB SCH ×3 (07:27→19:58)
[2019-02-11] MEDS: IRON POLYSACCHARIDES 150 MG CAPSULE PO SCH (09:47)
[2019-02-11] MEDS: NICOTINE 14 MG/24 HOURS TOPICAL PATCH TD SCH (09:47)
[2019-02-11] MEDS: DABIGATRAN ETEXILATE MESYLATE 75 MG CAPSULE PO SCH ×2 (09:47→21:20)
[2019-02-11] MEDS: POLYETHYLENE GLYCOL 3350 119 GM BTL PO SCH ×2 (09:49)
[2019-02-11] MEDS: NYSTATIN POWDER 100,000 UNITS/GM - 15 GM TOPICAL POWDER TP SCH ×2 (09:52→21:22)
--- NOTE | 2019-02-11 09:58 | PN ---
Progress Note, Physician Chief Complaint: Cellulitis S/p Fall LLE Pain History of Present Illness: Previous notes and events reviewed awake and alert NAD complain of drainage from wound sts pain is better controlled denies chest pain or SOB refuses to use Bipap at night - Current Medication List Current Medications: Active Medications Acetaminophen (Tylenol -) 650 mg PO Q6H PRN PRN Reason: PAIN LEVEL 1 - 3 Albuterol Sulfate (Ventolin 0.083% Nebulizer Soln -) 1 amp NEB Q4H PRN PRN Reason: SHORT OF BREATH/WHEEZING Last Admin: 02/09/19 21:03 Dose: 1 amp Albuterol/Ipratropium (Duoneb -) 1 amp NEB RTID [facility] Last Admin: 02/11/19 07:27 Dose: 1 amp Atorvastatin Calcium (Lipitor -) 40 mg PO HS [facility] Last Admin: 02/10/19 21:52 Dose: 40 mg Dabigatran (Pradaxa -) 75 mg PO BID [facility] Last Admin: 02/11/19 09:47 Dose: 75 mg Docusate Sodium (Colace -) 100 mg PO TID [facility] Last Admin: 02/11/19 06:12 Dose: 100 mg Hydralazine HCl (Apresoline -) 25 mg PO TID [facility] Last Admin: 02/11/19 06:12 Dose: 25 mg Cefepime HCl 2 gm/ Dextrose 100 mls @ 200 mls/hr IVPB Q8H-IV [facility]; Protocol Last Admin: 02/11/19 09:47 Dose: 200 mls/hr Lactic Acid (Lac-Hydrin 12) 1 applic TP DAILY PRN PRN Reason: xerosis Methadone HCl 40 mg/ Methadone (HCl 10 mg) 50 mg PO DAILY@0600 [facility] Last Admin: 02/11/19 06:11 Dose: 50 mg Nicotine (Nicoderm Patch -) 14 mg TD DAILY [facility] Last Admin: 02/11/19 09:47 Dose: 14 mg Nystatin (Nystop Powder -) 1 applic TP BID [facility] Last Admin: 02/11/19 09:52 Dose: 1 applic Polyethylene Glycol (Miralax (For Daily Use) -) 17 gm PO DAILY [facility] Last Admin: 02/11/19 09:49 Dose: Not Given Polyethylene Glycol (Miralax (For Daily Use) -) 17 gm PO DAILY [facility] Last Admin: 02/11/19 09:49 Dose: Not Given Polysaccharide Iron Complex (Niferex-150 -) 150 mg PO DAILY [facility] Last Admin: 02/11/19 09:47 Dose: 150 mg Pramipexole Dihydrochloride (Mirapex -) 0.5 mg PO HS [facility] Last Admin: 02/10/19 21:52 Dose: 0.5 mg Tramadol HCl (Ultram -) 50 mg PO Q8H PRN PRN Reason: PAIN LEVEL 4 - 6 Last Admin: 02/11/19 03:55 Dose: 50 mg Tramadol HCl (Ultram -) 100 mg PO Q8H PRN PRN Reason: PAIN LEVEL 7 - 10 Last Admin: 02/10/19 13:36 Dose: 100 mg - Objective Vital Signs: Vital Signs Temperature 99.1 F 02/11/19 06:49 Pulse Rate 92 H 02/11/19 06:49 Respiratory Rate 20 02/11/19 06:49 Blood Pressure 139/91 02/11/19 06:49 O2 Sat by Pulse Oximetry (%) 96 02/10/19 21:00 Constitutional: Yes: No Distress, Calm, Obese Eyes: Yes: Conjunctiva Clear HENT: Yes: Atraumatic Cardiovascular: Yes: Regular Rate and Rhythm Respiratory: Yes: Regular, Diminished Gastrointestinal: Yes: Normal Bowel Sounds, Soft, Abdomen, Obese Genitourinary: Yes: Incontinence Musculoskeletal: Yes: Muscle Weakness Extremities: Yes: WNL Edema: Yes (b/l lower extremity) Wound/Incision: Yes: Other (dressing intact, purulent drainage noted on dressing ) Neurological: Yes: Alert, Oriented Psychiatric: Yes: Alert, Oriented Labs: CBC, BMP 02/10/19 07:25 02/10/19 07:25 INR, PTT INR 1.34 (0.83-1.09) H 02/04/19 14:55 Problem List - Problems (1) Cellulitis Assessment/Plan: -ID on board -Leukocytosis wbc 10.2 -afebrile -Cefepime -Wound culture L calf prelim positive Code(s): L03.90 - CELLULITIS, UNSPECIFIED (2) JOSH (acute kidney injury) Assessment/Plan: -BUN/Cr 11.6/1.1 -monitor renal function Code(s): N17.9 - ACUTE KIDNEY FAILURE, UNSPECIFIED (3) CHF (congestive heart failure) Assessment/Plan: -daily weights -fluid restriction -strict I&Os Code(s): I50.9 - HEART FAILURE, UNSPECIFIED Qualifiers: Heart failure type: unspecified Heart failure chronicity: unspecified Qualified Code(s): I50.9 - Heart failure, unspecified (4) COPD (chronic obstructive pulmonary disease) Assessment/Plan: -Bronchodilators -keep SpO2 >90% -O2 via NC -Pulm consult -patient refusing to use Bipap HS -Chest CT shows small left posterior basilar opacity atelectasis vs small infiltrate Code(s): J44.9 - CHRONIC OBSTRUCTIVE PULMONARY DISEASE, UNSPECIFIED Qualifiers: COPD type: unspecified COPD Qualified Code(s): J44.9 - Chronic obstructive pulmonary disease, unspecified (5) HTN (hypertension) Assessment/Plan: -Hydralazine -low Na diet Code(s): I10 - ESSENTIAL (PRIMARY) HYPERTENSION Qualifiers: Hypertension type: essential hypertension Qualified Code(s): I10 - Essential (primary) hypertension (6) History of pulmonary embolism Assessment/Plan: -Pradaxa Code(s): Z86.711 - PERSONAL HISTORY OF PULMONARY EMBOLISM (7) Morbid obesity Assessment/Plan: -Dietary consult Code(s): E66.01 - MORBID (SEVERE) OBESITY DUE TO EXCESS CALORIES (8) Fall Assessment/Plan: -PT -Fall precautions -SNF for discharge -Pelvic CT scan shows no acute fracture or dislocation -Radiology of Knee, Hip/Pelvic/foot/ankle unremarkable Code(s): W19.XXXA - UNSPECIFIED FALL, INITIAL ENCOUNTER (9) Acute pain of left lower extremity Assessment/Plan: -Ortho on board -WBAT -PT -pain control Code(s): M79.605 - PAIN IN LEFT LEG (10) Anemia Assessment/Plan: -Hg 9.0 -Iron Polysacchairde -Stool OB -Anemia profile noted with low Iron, TIBC, and Iron Sat -TSH wnl -Vit B12 wnl -monitor Hg daily transfuse for Hg <7.0 to avoid fluid overload Code(s): D64.9 - ANEMIA, UNSPECIFIED
--- NOTE | 2019-02-11 10:09 | PN ---
Progress Note (short form) - Note Progress Note: PULMONARY States breathing is better with neb treatments. Vital Signs Period Temp Pulse Resp BP Sys/Yoder Pulse Ox Last 24 Hr 98.4 F-99.1 F 80-93 20-21 138-146/80-100 96 Gen: NAD at rest Heart: RRR Lung: decreased breath sounds at the bases Abd: soft, nontender Ext: + edema CBC, BMP 02/10/19 07:25 02/10/19 07:25 Active Medications Acetaminophen (Tylenol -) 650 mg PO Q6H PRN PRN Reason: PAIN LEVEL 1 - 3 Albuterol Sulfate (Ventolin 0.083% Nebulizer Soln -) 1 amp NEB Q4H PRN PRN Reason: SHORT OF BREATH/WHEEZING Last Admin: 02/09/19 21:03 Dose: 1 amp Albuterol/Ipratropium (Duoneb -) 1 amp NEB RTID [facility] Last Admin: 02/11/19 07:27 Dose: 1 amp Atorvastatin Calcium (Lipitor -) 40 mg PO HS [facility] Last Admin: 02/10/19 21:52 Dose: 40 mg Dabigatran (Pradaxa -) 75 mg PO BID [facility] Last Admin: 02/11/19 09:47 Dose: 75 mg Docusate Sodium (Colace -) 100 mg PO TID [facility] Last Admin: 02/11/19 06:12 Dose: 100 mg Hydralazine HCl (Apresoline -) 25 mg PO TID [facility] Last Admin: 02/11/19 06:12 Dose: 25 mg Cefepime HCl 2 gm/ Dextrose 100 mls @ 200 mls/hr IVPB Q8H-IV [facility]; Protocol Last Admin: 02/11/19 10:05 Dose: Not Given Lactic Acid (Lac-Hydrin 12) 1 applic TP DAILY PRN PRN Reason: xerosis Methadone HCl 40 mg/ Methadone (HCl 10 mg) 50 mg PO DAILY@0600 [facility] Last Admin: 02/11/19 06:11 Dose: 50 mg Nicotine (Nicoderm Patch -) 14 mg TD DAILY [facility] Last Admin: 02/11/19 09:47 Dose: 14 mg Nystatin (Nystop Powder -) 1 applic TP BID [facility] Last Admin: 02/11/19 09:52 Dose: 1 applic Polyethylene Glycol (Miralax (For Daily Use) -) 17 gm PO DAILY [facility] Last Admin: 02/11/19 09:49 Dose: Not Given Polyethylene Glycol (Miralax (For Daily Use) -) 17 gm PO DAILY [facility] Last Admin: 02/11/19 09:49 Dose: Not Given Polysaccharide Iron Complex (Niferex-150 -) 150 mg PO DAILY [facility] Last Admin: 02/11/19 09:47 Dose: 150 mg Pramipexole Dihydrochloride (Mirapex -) 0.5 mg PO HS [facility] Last Admin: 02/10/19 21:52 Dose: 0.5 mg Tramadol HCl (Ultram -) 50 mg PO Q8H PRN PRN Reason: PAIN LEVEL 4 - 6 Last Admin: 02/11/19 03:55 Dose: 50 mg Tramadol HCl (Ultram -) 100 mg PO Q8H PRN PRN Reason: PAIN LEVEL 7 - 10 Last Admin: 02/10/19 13:36 Dose: 100 mg A/P LLE Cellulitis Sepsis Acute Kidney Injury h/o PE/DVT s/p IVC filter Morbid Obesity MICHELE COPD Atelectasis HTN Hyperlipidemia h/o CVA Methadone Maintenance - continue antibiotics per ID - f/u cultures - O2 to keep SpO2 >90% - inhaled bronchodilators - offered CPAP at night but pt declining at this time - continue anticoagulation Problem List - Problems (1) Cellulitis Code(s): L03.90 - CELLULITIS, UNSPECIFIED
[2019-02-11 15:11] LABS: BASO % 0.2 % (0-2.0); EOS % 1.2 % (0-4.5); HEMATOCRIT 28.8 % (32.4-45.2); HEMOGLOBIN 9.3 GM/dL (10.7-15.3); LYMPH % 6.8 % (8-40); MCH 29.9 pg (25.7-33.7); MCHC 32.5 g/dl (32.0-36.0); MEAN CELL VOLUME 92.1 fl (80-96); MEAN PLT VOLUME 7.4 fl (7.5-11.1); MONO % 7.7 % (3.8-10.2); NEUT % 84.1 % (42.8-82.8); PLATELET COUNT 453 K/MM3 (134-434); RBC 3.12 M/mm3 (3.60-5.2); RDW 17.5 % (11.6-15.6); WHITE BLOOD COUNT 10.4 K/mm3 (4.0-10.0)
[2019-02-11 15:46] LABS: ANISOCYTOSIS 1+; MACROCYTOSIS 1+; PLATELET ESTIMATE NORMAL
--- NOTE | 2019-02-11 16:09 | PN ---
Progress Note (short form) - Note Progress Note: Painful elongated thickened toe nails in shoe gear and ambulation. +tender dystrophic mycotic nails with subungual debris, +inflammed nail beds, + distal seperation of nail from bed onychomycosis with pain Debride nails x 10. Recommend foot care q8 weeks. Continue Ammonium lactate.
--- NOTE | 2019-02-11 16:46 | PN ---
Progress Note (short form) - Note Progress Note: improving Vital Signs Period Temp Pulse Resp BP Sys/Yoder Pulse Ox Last 24 Hr 98.6 F-99.1 F 80-101 18-21 137-142/80-91 94-96 cor-rrr lungs clear abd soft,nt ext ulcer is clean still some pain and mild erythema of the LLE CBC, BMP 02/11/19 14:20 02/10/19 07:25 Microbiology 02/04/19 23:20 Blood - Peripheral Venous Blood Culture - Final NO GROWTH AFTER 5 DAYS INCUBATION 02/04/19 23:20 Blood - Peripheral Venous Blood Culture - Final NO GROWTH AFTER 5 DAYS INCUBATION 02/04/19 17:34 Calf - Left Posterior Gram Stain - Final 02/04/19 17:34 Calf - Left Posterior Wound Culture - Final Pseudomonas Aeruginosa Staphylococcus Coagulase Neg 02/04/19 18:00 Urine - Urine - Catheterized Urine Culture - Final NO GROWTH OBTAINED a/p s/p fall-will need PT evaluation, ?rehab cellulitis of the LLE with chronic leg wound- pseudomonas day #5 cefepime, no iv access to switch to po levaquin for one week-500 mg daily penicilllin allergy noted please call back if needed Problem List - Problems (1) Fall Code(s): W19.XXXA - UNSPECIFIED FALL, INITIAL ENCOUNTER (2) Cellulitis Code(s): L03.90 - CELLULITIS, UNSPECIFIED (3) CKD (chronic kidney disease) Code(s): N18.9 - CHRONIC KIDNEY DISEASE, UNSPECIFIED (4) Morbid obesity Code(s): E66.01 - MORBID (SEVERE) OBESITY DUE TO EXCESS CALORIES (5) Penicillin allergy Code(s): Z88.0 - ALLERGY STATUS TO PENICILLIN
[2019-02-11] MEDS: ATORVASTATIN CA 20 MG TABLET (FP) PO SCH (21:20)
[2019-02-11] MEDS: PRAMIPEXOLE DIHYDROCHLORIDE 0.5 MG TABLET PO SCH (21:20)
[2019-02-12] MEDS ORDERED: METHADONE HCL 40 MG DISPERSABLE TABLET ONE (05:46)
[2019-02-12] MEDS ORDERED: METHADONE HCL 10 MG TABLET ONE (05:46)
[2019-02-12] MEDS: hydrALAZINE HCL 25 MG TABLET (FP) PO SCH ×3 (05:52→21:09)
[2019-02-12] MEDS: DOCUSATE SODIUM 100 MG CAPSULE (FP) PO SCH ×3 (05:53→21:09)
[2019-02-12] MEDS: METHADONE 40 MG, METHADONE 10 MG PO SCH (05:53)
[2019-02-12] MEDS: ALBUTEROL SO4 2.5/IPRATROPIUM 0.5 INH SOL 3 ML VIAL.NEB. NEB SCH ×3 (07:25→20:10)
[2019-02-12 08:12] LABS: HEMATOCRIT 27.2 % (32.4-45.2); MCH 30.2 pg (25.7-33.7); MEAN CELL VOLUME 91.6 fl (80-96); MEAN PLT VOLUME 7.3 fl (7.5-11.1); PLATELET COUNT 466 K/MM3 (134-434); RBC 2.97 M/mm3 (3.60-5.2); RDW 17.6 % (11.6-15.6); WHITE BLOOD COUNT 11.2 K/mm3 (4.0-10.0)
[2019-02-12 08:51] LABS: ALBUMIN 2.2 g/dl (3.4-5.0); BILIRUBIN,TOTAL 0.5 mg/dL (0.2-1); POTASSIUM 4.1 mmol/L (3.5-5.1); TOT PROT 6.9 g/dl (6.4-8.2)
[2019-02-12] MEDS ORDERED: PT OWN MED DRAWER 7, Y5N ONE ×2 (09:04→21:02)
[2019-02-12] MEDS: POLYETHYLENE GLYCOL 3350 119 GM BTL PO SCH ×2 (09:10)
[2019-02-12] MEDS: IRON POLYSACCHARIDES 150 MG CAPSULE PO SCH (09:10)
[2019-02-12] MEDS: NICOTINE 14 MG/24 HOURS TOPICAL PATCH TD SCH (09:10)
[2019-02-12] MEDS: NYSTATIN POWDER 100,000 UNITS/GM - 15 GM TOPICAL POWDER TP SCH ×2 (09:11→21:10)
[2019-02-12] MEDS: DABIGATRAN ETEXILATE MESYLATE 75 MG CAPSULE PO SCH ×2 (09:11→21:09)
--- NOTE | 2019-02-12 12:32 | PN ---
Progress Note (short form) - Note Progress Note: PULMONARY Breathing better VSS Gen: NAD at rest Heart: RRR Lung: decreased breath sounds at the bases Abd: soft, nontender Ext: + edema/left lower ext bandaged Active Medications Acetaminophen (Tylenol -) 650 mg PO Q6H PRN PRN Reason: PAIN LEVEL 1 - 3 Albuterol Sulfate (Ventolin 0.083% Nebulizer Soln -) 1 amp NEB Q4H PRN PRN Reason: SHORT OF BREATH/WHEEZING Last Admin: 02/09/19 21:03 Dose: 1 amp Albuterol/Ipratropium (Duoneb -) 1 amp NEB RTID [facility] Last Admin: 02/11/19 07:27 Dose: 1 amp Atorvastatin Calcium (Lipitor -) 40 mg PO HS [facility] Last Admin: 02/10/19 21:52 Dose: 40 mg Dabigatran (Pradaxa -) 75 mg PO BID [facility] Last Admin: 02/11/19 09:47 Dose: 75 mg Docusate Sodium (Colace -) 100 mg PO TID [facility] Last Admin: 02/11/19 06:12 Dose: 100 mg Hydralazine HCl (Apresoline -) 25 mg PO TID [facility] Last Admin: 02/11/19 06:12 Dose: 25 mg Cefepime HCl 2 gm/ Dextrose 100 mls @ 200 mls/hr IVPB Q8H-IV [facility]; Protocol Last Admin: 02/11/19 10:05 Dose: Not Given Lactic Acid (Lac-Hydrin 12) 1 applic TP DAILY PRN PRN Reason: xerosis Methadone HCl 40 mg/ Methadone (HCl 10 mg) 50 mg PO DAILY@0600 [facility] Last Admin: 02/11/19 06:11 Dose: 50 mg Nicotine (Nicoderm Patch -) 14 mg TD DAILY [facility] Last Admin: 02/11/19 09:47 Dose: 14 mg Nystatin (Nystop Powder -) 1 applic TP BID [facility] Last Admin: 02/11/19 09:52 Dose: 1 applic Polyethylene Glycol (Miralax (For Daily Use) -) 17 gm PO DAILY [facility] Last Admin: 02/11/19 09:49 Dose: Not Given Polyethylene Glycol (Miralax (For Daily Use) -) 17 gm PO DAILY [facility] Last Admin: 02/11/19 09:49 Dose: Not Given Polysaccharide Iron Complex (Niferex-150 -) 150 mg PO DAILY [facility] Last Admin: 02/11/19 09:47 Dose: 150 mg Pramipexole Dihydrochloride (Mirapex -) 0.5 mg PO HS [facility] Last Admin: 02/10/19 21:52 Dose: 0.5 mg Tramadol HCl (Ultram -) 50 mg PO Q8H PRN PRN Reason: PAIN LEVEL 4 - 6 Last Admin: 02/11/19 03:55 Dose: 50 mg Tramadol HCl (Ultram -) 100 mg PO Q8H PRN PRN Reason: PAIN LEVEL 7 - 10 Last Admin: 02/10/19 13:36 Dose: 100 mg A/P LLE Cellulitis Sepsis Acute Kidney Injury h/o PE/DVT s/p IVC filter Morbid Obesity MICHELE COPD Atelectasis HTN Hyperlipidemia h/o CVA Methadone Maintenance - continue antibiotics per ID - f/u cultures - O2 to keep SpO2 >90% - inhaled bronchodilators - offered CPAP at night but pt declining at this time - continue anticoagulation Jenn ALMARAZ MD
[2019-02-12] MEDS: traMADol HCL 50 MG TABLET PO PRN (12:40)
--- NOTE | 2019-02-12 16:00 | PN ---
Progress Note, Physician Chief Complaint: Cellulitis S/p Fall LLE Pain History of Present Illness: Previous notes and events reviewed awake and alert NAD sts pain to lower extremity is better PO antibiotics refusing Bipap HS - Current Medication List Current Medications: Active Medications Acetaminophen (Tylenol -) 650 mg PO Q6H PRN PRN Reason: PAIN LEVEL 1 - 3 Albuterol Sulfate (Ventolin 0.083% Nebulizer Soln -) 1 amp NEB Q4H PRN PRN Reason: SHORT OF BREATH/WHEEZING Last Admin: 02/09/19 21:03 Dose: 1 amp Albuterol/Ipratropium (Duoneb -) 1 amp NEB RTID [facility] Last Admin: 02/12/19 15:13 Dose: 1 amp Atorvastatin Calcium (Lipitor -) 40 mg PO HS [facility] Last Admin: 02/11/19 21:20 Dose: 40 mg Dabigatran (Pradaxa -) 75 mg PO BID [facility] Last Admin: 02/12/19 09:11 Dose: 75 mg Docusate Sodium (Colace -) 100 mg PO TID [facility] Last Admin: 02/12/19 05:53 Dose: 100 mg Hydralazine HCl (Apresoline -) 25 mg PO TID [facility] Last Admin: 02/12/19 05:52 Dose: 25 mg Lactic Acid (Lac-Hydrin 12) 1 applic TP DAILY PRN PRN Reason: xerosis Levofloxacin (Levaquin -) 500 mg PO DAILY@0600 [facility] Last Admin: 02/12/19 05:52 Dose: 500 mg Methadone HCl 40 mg/ Methadone (HCl 10 mg) 50 mg PO DAILY@0600 [facility] Last Admin: 02/12/19 05:53 Dose: 50 mg Nicotine (Nicoderm Patch -) 14 mg TD DAILY [facility] Last Admin: 02/12/19 09:10 Dose: 14 mg Nystatin (Nystop Powder -) 1 applic TP BID [facility] Last Admin: 02/12/19 09:11 Dose: 1 applic Polyethylene Glycol (Miralax (For Daily Use) -) 17 gm PO DAILY [facility] Last Admin: 02/12/19 09:10 Dose: Not Given Polyethylene Glycol (Miralax (For Daily Use) -) 17 gm PO DAILY [facility] Last Admin: 02/12/19 09:10 Dose: Not Given Polysaccharide Iron Complex (Niferex-150 -) 150 mg PO DAILY [facility] Last Admin: 02/12/19 09:10 Dose: 150 mg Pramipexole Dihydrochloride (Mirapex -) 0.5 mg PO HS [facility] Last Admin: 02/11/19 21:20 Dose: 0.5 mg Tramadol HCl (Ultram -) 50 mg PO Q8H PRN PRN Reason: PAIN LEVEL 4 - 6 Last Admin: 02/11/19 21:21 Dose: 50 mg Tramadol HCl (Ultram -) 100 mg PO Q8H PRN PRN Reason: PAIN LEVEL 7 - 10 Last Admin: 02/12/19 12:40 Dose: 100 mg - Objective Vital Signs: Vital Signs Temperature 98.6 F 02/12/19 14:31 Pulse Rate 94 H 02/12/19 14:31 Respiratory Rate 18 02/12/19 14:31 Blood Pressure 124/85 02/12/19 14:31 O2 Sat by Pulse Oximetry (%) 94 L 02/12/19 09:00 Constitutional: Yes: No Distress, Calm, Obese Eyes: Yes: Conjunctiva Clear HENT: Yes: Atraumatic Cardiovascular: Yes: Regular Rate and Rhythm Respiratory: Yes: Regular, Diminished Gastrointestinal: Yes: Normal Bowel Sounds, Soft, Abdomen, Obese Genitourinary: Yes: Incontinence Musculoskeletal: Yes: Muscle Weakness Extremities: Yes: WNL Edema: Yes (b/l lower extremity) Wound/Incision: Yes: Dressing Dry and Intact Neurological: Yes: Alert, Oriented Psychiatric: Yes: Alert, Oriented Labs: CBC, BMP 02/12/19 07:39 02/12/19 07:39 INR, PTT INR 1.34 (0.83-1.09) H 02/04/19 14:55 Microbiology 02/04/19 23:20 Blood - Peripheral Venous Blood Culture - Final NO GROWTH AFTER 5 DAYS INCUBATION 02/04/19 23:20 Blood - Peripheral Venous Blood Culture - Final NO GROWTH AFTER 5 DAYS INCUBATION 02/04/19 17:34 Calf - Left Posterior Gram Stain - Final 02/04/19 17:34 Calf - Left Posterior Wound Culture - Final Pseudomonas Aeruginosa Staphylococcus Coagulase Neg 02/04/19 18:00 Urine - Urine - Catheterized Urine Culture - Final NO GROWTH OBTAINED Problem List - Problems (1) Cellulitis Assessment/Plan: -ID on board -Leukocytosis wbc 11.2 -afebrile -Levaquin -Wound culture L calf prelim positive Code(s): L03.90 - CELLULITIS, UNSPECIFIED (2) JOSH (acute kidney injury) Assessment/Plan: -BUN/Cr 12.0/1.1 -monitor renal function -resolved Code(s): N17.9 - ACUTE KIDNEY FAILURE, UNSPECIFIED (3) CHF (congestive heart failure) Assessment/Plan: -daily weights -fluid restriction -strict I&Os Code(s): I50.9 - HEART FAILURE, UNSPECIFIED Qualifiers: Heart failure type: unspecified Heart failure chronicity: unspecified Qualified Code(s): I50.9 - Heart failure, unspecified (4) COPD (chronic obstructive pulmonary disease) Assessment/Plan: -Bronchodilators -keep SpO2 >90% -O2 via NC -Pulm consult -patient refusing to use Bipap HS -Chest CT shows small left posterior basilar opacity atelectasis vs small infiltrate Code(s): J44.9 - CHRONIC OBSTRUCTIVE PULMONARY DISEASE, UNSPECIFIED Qualifiers: COPD type: unspecified COPD Qualified Code(s): J44.9 - Chronic obstructive pulmonary disease, unspecified (5) HTN (hypertension) Assessment/Plan: -Hydralazine -low Na diet Code(s): I10 - ESSENTIAL (PRIMARY) HYPERTENSION Qualifiers: Hypertension type: essential hypertension Qualified Code(s): I10 - Essential (primary) hypertension (6) History of pulmonary embolism Assessment/Plan: -Pradaxa Code(s): Z86.711 - PERSONAL HISTORY OF PULMONARY EMBOLISM (7) Morbid obesity Assessment/Plan: -Dietary consult Code(s): E66.01 - MORBID (SEVERE) OBESITY DUE TO EXCESS CALORIES (8) Fall Assessment/Plan: -PT -Fall precautions -SNF for discharge -Pelvic CT scan shows no acute fracture or dislocation -Radiology of Knee, Hip/Pelvic/foot/ankle unremarkable Code(s): W19.XXXA - UNSPECIFIED FALL, INITIAL ENCOUNTER (9) Acute pain of left lower extremity Assessment/Plan: -Ortho on board -WBAT -PT -pain control Code(s): M79.605 - PAIN IN LEFT LEG (10) Anemia Assessment/Plan: -Hg 9.0 -Iron Polysacchairde -Stool OB -Anemia profile noted with low Iron, TIBC, and Iron Sat -TSH wnl -Vit B12 wnl -monitor Hg daily -transfuse for Hg <7.0 to avoid fluid overload Code(s): D64.9 - ANEMIA, UNSPECIFIED Assessment/Plan see problem list dvt ppx patient will be d/c to [facility] on 02/15/19, SNF will not have patient Methadone until then
[2019-02-12] MEDS: ATORVASTATIN CA 20 MG TABLET (FP) PO SCH (21:09)
[2019-02-12] MEDS: PRAMIPEXOLE DIHYDROCHLORIDE 0.5 MG TABLET PO SCH (21:10)
[2019-02-13] MEDS ORDERED: METHADONE HCL 10 MG TABLET ONE (05:22)
[2019-02-13] MEDS ORDERED: METHADONE HCL 40 MG DISPERSABLE TABLET ONE (05:23)
[2019-02-13] MEDS: METHADONE 40 MG, METHADONE 10 MG PO SCH (05:40)
[2019-02-13] MEDS: DOCUSATE SODIUM 100 MG CAPSULE (FP) PO SCH ×3 (05:41→21:18)
[2019-02-13] MEDS: hydrALAZINE HCL 25 MG TABLET (FP) PO SCH ×3 (05:41→21:18)
[2019-02-13] MEDS: ALBUTEROL SO4 2.5/IPRATROPIUM 0.5 INH SOL 3 ML VIAL.NEB. NEB SCH ×3 (08:00→20:00)
[2019-02-13 08:27] LABS: HEMATOCRIT 26.4 % (32.4-45.2); HEMOGLOBIN 8.6 GM/dL (10.7-15.3); MCH 30.4 pg (25.7-33.7); MCHC 32.7 g/dl (32.0-36.0); MEAN CELL VOLUME 92.9 fl (80-96); MEAN PLT VOLUME 7.2 fl (7.5-11.1); PLATELET COUNT 466 K/MM3 (134-434); RBC 2.85 M/mm3 (3.60-5.2); RDW 17.6 % (11.6-15.6); WHITE BLOOD COUNT 10.6 K/mm3 (4.0-10.0)
[2019-02-13 08:42] LABS: ALBUMIN 2.1 g/dl (3.4-5.0); BILIRUBIN,TOTAL 0.4 mg/dL (0.2-1); BLOOD UREA NITROGEN 11.2 mg/dL (7-18); POTASSIUM 3.9 mmol/L (3.5-5.1); TOT PROT 6.8 g/dl (6.4-8.2)
[2019-02-13] MEDS ORDERED: PT OWN MED DRAWER 7, Y5N ONE ×3 (10:22→21:08)
[2019-02-13] MEDS: NICOTINE 14 MG/24 HOURS TOPICAL PATCH TD SCH (10:23)
[2019-02-13] MEDS: DABIGATRAN ETEXILATE MESYLATE 75 MG CAPSULE PO SCH ×2 (10:23→21:19)
[2019-02-13] MEDS: IRON POLYSACCHARIDES 150 MG CAPSULE PO SCH (10:23)
[2019-02-13] MEDS: POLYETHYLENE GLYCOL 3350 119 GM BTL PO SCH ×4 (10:24→14:26)
[2019-02-13] MEDS: NYSTATIN POWDER 100,000 UNITS/GM - 15 GM TOPICAL POWDER TP SCH ×2 (10:28→21:19)
--- NOTE | 2019-02-13 10:59 | PN ---
Progress Note (short form) - Note Progress Note: Overall better. Some cough and MENA, but better. Intake & Output 02/10/19 02/11/19 02/12/19 02/13/19 23:59 23:59 23:59 23:59 Intake Total 8268 060 0269 240 Balance 1356 059 9177 240 Weight 350 lb 352 lb 355 lb 347 lb 8 oz Last Vital Signs Temp Pulse Resp BP Pulse Ox 98.7 F 100 H 20 138/80 95 02/13/19 06:52 02/13/19 06:52 02/13/19 06:52 02/13/19 06:52 02/12/19 21:00 Active Medications Acetaminophen (Tylenol -) 650 mg PO Q6H PRN PRN Reason: PAIN LEVEL 1 - 3 Albuterol Sulfate (Ventolin 0.083% Nebulizer Soln -) 1 amp NEB Q4H PRN PRN Reason: SHORT OF BREATH/WHEEZING Last Admin: 02/09/19 21:03 Dose: 1 amp Albuterol/Ipratropium (Duoneb -) 1 amp NEB RTID [facility] Last Admin: 02/13/19 08:00 Dose: 1 amp Atorvastatin Calcium (Lipitor -) 40 mg PO HS [facility] Last Admin: 02/12/19 21:09 Dose: 40 mg Dabigatran (Pradaxa -) 75 mg PO BID [facility] Last Admin: 02/13/19 10:23 Dose: 75 mg Docusate Sodium (Colace -) 100 mg PO TID [facility] Last Admin: 02/13/19 05:41 Dose: 100 mg Hydralazine HCl (Apresoline -) 25 mg PO TID [facility] Last Admin: 02/13/19 05:41 Dose: 25 mg Lactic Acid (Lac-Hydrin 12) 1 applic TP DAILY PRN PRN Reason: xerosis Levofloxacin (Levaquin -) 500 mg PO DAILY@0600 [facility] Last Admin: 02/13/19 05:41 Dose: 500 mg Methadone HCl 40 mg/ Methadone (HCl 10 mg) 50 mg PO DAILY@0600 [facility] Last Admin: 02/13/19 05:40 Dose: 50 mg Nicotine (Nicoderm Patch -) 14 mg TD DAILY [facility] Last Admin: 02/13/19 10:23 Dose: 14 mg Nystatin (Nystop Powder -) 1 applic TP BID [facility] Last Admin: 02/13/19 10:28 Dose: 1 applic Polyethylene Glycol (Miralax (For Daily Use) -) 17 gm PO DAILY [facility] Last Admin: 02/13/19 10:24 Dose: Not Given Polyethylene Glycol (Miralax (For Daily Use) -) 17 gm PO DAILY [facility] Last Admin: 02/13/19 10:24 Dose: Not Given Polysaccharide Iron Complex (Niferex-150 -) 150 mg PO DAILY [facility] Last Admin: 02/13/19 10:23 Dose: 150 mg Pramipexole Dihydrochloride (Mirapex -) 0.5 mg PO HS [facility] Last Admin: 02/12/19 21:10 Dose: 0.5 mg Tramadol HCl (Ultram -) 50 mg PO Q8H PRN PRN Reason: PAIN LEVEL 4 - 6 Last Admin: 02/11/19 21:21 Dose: 50 mg Tramadol HCl (Ultram -) 100 mg PO Q8H PRN PRN Reason: PAIN LEVEL 7 - 10 Last Admin: 02/12/19 12:40 Dose: 100 mg Gen: NAD at rest Heart: RRR Lung: decreased breath sounds at the bases Abd: soft, nontender Ext: + edema Laboratory Results - last 24 hr 02/13/19 02/13/19 07:14 07:14 WBC 10.6 H RBC 2.85 L Hgb 8.6 L Hct 26.4 L MCV 92.9 MCH 30.4 MCHC 32.7 RDW 17.6 H Plt Count 466 H MPV 7.2 L Sodium 138 Potassium 3.9 Chloride 108 H Carbon Dioxide 24 Anion Gap 6 L BUN 11.2 Creatinine 1.0 Est GFR (CKD-EPI)AfAm 72.42 Est GFR (CKD-EPI)NonAf 62.49 Random Glucose 79 Calcium 9.0 Total Bilirubin 0.4 AST 36 ALT 50 Alkaline Phosphatase 146 H Total Protein 6.8 Albumin 2.1 L Problem List - Problems (1) Cellulitis Code(s): L03.90 - CELLULITIS, UNSPECIFIED A/P LLE Cellulitis Sepsis Acute Kidney Injury h/o PE/DVT s/p IVC filter Morbid Obesity MICHELE COPD Atelectasis HTN Hyperlipidemia h/o CVA Methadone Maintenance - ABX per ID - O2 to keep SpO2 >90% - inhaled bronchodilators - offered CPAP at night but pt declining at this time - continue anticoagulation Dr Barnes
[2019-02-13] MEDS ORDERED: IRON SUCROSE INJECTION 300 MG in SODIUM CHLORIDE 235 ML IVPB ONE (13:43)
--- NOTE | 2019-02-13 13:44 | PN ---
Progress Note, Physician Chief Complaint: AWAKE ALERT DAUGHTER BEDSIDE DENIES CP/SOB - Current Medication List Current Medications: Active Medications Acetaminophen (Tylenol -) 650 mg PO Q6H PRN PRN Reason: PAIN LEVEL 1 - 3 Albuterol Sulfate (Ventolin 0.083% Nebulizer Soln -) 1 amp NEB Q4H PRN PRN Reason: SHORT OF BREATH/WHEEZING Last Admin: 02/09/19 21:03 Dose: 1 amp Albuterol/Ipratropium (Duoneb -) 1 amp NEB RTID [facility] Last Admin: 02/13/19 08:00 Dose: 1 amp Atorvastatin Calcium (Lipitor -) 40 mg PO HS [facility] Last Admin: 02/12/19 21:09 Dose: 40 mg Dabigatran (Pradaxa -) 75 mg PO BID [facility] Last Admin: 02/13/19 10:23 Dose: 75 mg Docusate Sodium (Colace -) 100 mg PO TID [facility] Last Admin: 02/13/19 05:41 Dose: 100 mg Hydralazine HCl (Apresoline -) 25 mg PO TID [facility] Last Admin: 02/13/19 05:41 Dose: 25 mg Lactic Acid (Lac-Hydrin 12) 1 applic TP DAILY PRN PRN Reason: xerosis Levofloxacin (Levaquin -) 500 mg PO DAILY@0600 [facility] Last Admin: 02/13/19 05:41 Dose: 500 mg Methadone HCl 40 mg/ Methadone (HCl 10 mg) 50 mg PO DAILY@0600 [facility] Last Admin: 02/13/19 05:40 Dose: 50 mg Nicotine (Nicoderm Patch -) 14 mg TD DAILY [facility] Last Admin: 02/13/19 10:23 Dose: 14 mg Nystatin (Nystop Powder -) 1 applic TP BID [facility] Last Admin: 02/13/19 10:28 Dose: 1 applic Polyethylene Glycol (Miralax (For Daily Use) -) 17 gm PO DAILY [facility] Last Admin: 02/13/19 10:24 Dose: Not Given Polyethylene Glycol (Miralax (For Daily Use) -) 17 gm PO DAILY [facility] Last Admin: 02/13/19 10:24 Dose: Not Given Polysaccharide Iron Complex (Niferex-150 -) 150 mg PO DAILY [facility] Last Admin: 02/13/19 10:23 Dose: 150 mg Pramipexole Dihydrochloride (Mirapex -) 0.5 mg PO HS [facility] Last Admin: 02/12/19 21:10 Dose: 0.5 mg - Objective Vital Signs: Vital Signs Temperature 98.7 F 02/13/19 06:52 Pulse Rate 100 H 02/13/19 06:52 Respiratory Rate 20 02/13/19 06:52 Blood Pressure 138/80 02/13/19 06:52 O2 Sat by Pulse Oximetry (%) 97 02/13/19 09:00 Constitutional: Yes: No Distress Cardiovascular: Yes: Regular Rate and Rhythm Respiratory: Yes: WNL Gastrointestinal: Yes: Abdomen, Obese Genitourinary: Yes: Incontinence Musculoskeletal: Yes: Muscle Weakness Edema: Yes Edema: LLE: 4+, RLE: 4+ Integumentary: Yes: Erythema, Pressure Ulcer, Rash, Venous Stasis Changes Wound/Incision: Yes: Dressing Dry and Intact, Draining Neurological: Yes: Pre-Existing Deficit ...Motor Strength: LLE, RLE Psychiatric: Yes: Other Labs: CBC, BMP 02/13/19 07:14 02/13/19 07:14 INR, PTT INR 1.34 (0.83-1.09) H 02/04/19 14:55 Problem List - Problems (1) Acute pain of left lower extremity Code(s): M79.605 - PAIN IN LEFT LEG (2) Cellulitis and abscess of left leg Code(s): L03.116 - CELLULITIS OF LEFT LOWER LIMB; L02.416 - CUTANEOUS ABSCESS OF LEFT LOWER LIMB (3) Venous stasis ulcer of left lower leg with edema of left lower leg Code(s): I83.029 - VARICOSE VEINS OF LEFT LOWER EXTREMITY W ULCER OF UNSP SITE; I83.892 - VARICOSE VEINS OF L LOW EXTREM WITH OTHER COMPLICATIONS; L97.929 - NON -PRS CHRONIC ULC UNSP PRT OF L LOW LEG W UNSP SEVERITY; R60.9 - EDEMA, UNSPECIFIED (4) JOSH (acute kidney injury) Code(s): N17.9 - ACUTE KIDNEY FAILURE, UNSPECIFIED (5) CKD (chronic kidney disease) Code(s): N18.9 - CHRONIC KIDNEY DISEASE, UNSPECIFIED (6) Chronic renal insufficiency, stage III (moderate) Code(s): N18.3 - CHRONIC KIDNEY DISEASE, STAGE 3 (MODERATE) (7) History of pulmonary embolism Code(s): Z86.711 - PERSONAL HISTORY OF PULMONARY EMBOLISM (8) Methadone maintenance therapy patient Code(s): F11.20 - OPIOID DEPENDENCE, UNCOMPLICATED (9) Mobility poor Code(s): Z74.09 - OTHER REDUCED MOBILITY (10) Morbid obesity Code(s): E66.01 - MORBID (SEVERE) OBESITY DUE TO EXCESS CALORIES (11) Numbness and tingling of both legs below knees Code(s): R20.0 - ANESTHESIA OF SKIN; R20.2 - PARESTHESIA OF SKIN (12) Osteoarthritis of knees, bilateral Code(s): M17.0 - BILATERAL PRIMARY OSTEOARTHRITIS OF KNEE (13) Presence of IVC filter Code(s): Z95.828 - PRESENCE OF OTHER VASCULAR IMPLANTS AND GRAFTS (14) Sleep apnea Code(s): G47.30 - SLEEP APNEA, UNSPECIFIED Qualifiers: Sleep apnea type: obstructive Qualified Code(s): G47.33 - Obstructive sleep apnea (adult) (pediatric) (15) Venous stasis dermatitis of right lower extremity Code(s): I87.2 - VENOUS INSUFFICIENCY (CHRONIC) (PERIPHERAL) Assessment/Plan IV ABX PER ID WOUND CARE PODIATRY CONSULT EVALUATE FEET/ANKLES R/O FOREIGN BODY ON XRAY OF RIGHT TOES DVT PROPHYLAXIS IVF MONITOR RENAL FUNCTION ON IV ABX
[2019-02-13] MEDS: ATORVASTATIN CA 20 MG TABLET (FP) PO SCH (21:18)
[2019-02-13] MEDS: PRAMIPEXOLE DIHYDROCHLORIDE 0.5 MG TABLET PO SCH (21:19)
[2019-02-14] MEDS ORDERED: METHADONE HCL 10 MG TABLET ONE (05:48)
[2019-02-14] MEDS ORDERED: METHADONE HCL 40 MG DISPERSABLE TABLET ONE (05:49)
[2019-02-14] MEDS: METHADONE 40 MG, METHADONE 10 MG PO SCH (06:22)
[2019-02-14] MEDS: DOCUSATE SODIUM 100 MG CAPSULE (FP) PO SCH ×3 (06:22→22:17)
[2019-02-14] MEDS: hydrALAZINE HCL 25 MG TABLET (FP) PO SCH ×3 (06:23→22:17)
[2019-02-14] MEDS: ACETAMINOPHEN 325 MG TABLET (FP) PO PRN ×2 (06:25→13:35)
[2019-02-14] MEDS: ALBUTEROL SO4 2.5/IPRATROPIUM 0.5 INH SOL 3 ML VIAL.NEB. NEB SCH ×3 (08:00→19:59)
[2019-02-14] MEDS: POLYETHYLENE GLYCOL 3350 119 GM BTL PO SCH ×2 (09:37→09:42)
[2019-02-14] MEDS: IRON POLYSACCHARIDES 150 MG CAPSULE PO SCH (09:39)
[2019-02-14] MEDS: DABIGATRAN ETEXILATE MESYLATE 75 MG CAPSULE PO SCH ×2 (09:39→22:17)
[2019-02-14] MEDS: NYSTATIN POWDER 100,000 UNITS/GM - 15 GM TOPICAL POWDER TP SCH ×2 (09:39→22:17)
[2019-02-14] MEDS: NICOTINE 14 MG/24 HOURS TOPICAL PATCH TD SCH (09:39)
--- NOTE | 2019-02-14 10:02 | PN ---
Progress Note (short form) - Note Progress Note: Overall better. Some cough and MENA, but better. No acute events overnight. Intake & Output 02/11/19 02/12/19 02/13/19 02/14/19 23:59 23:59 23:59 23:59 Intake Total 830 1090 890 250 Output Total 0 Balance 830 1090 890 250 Weight 352 lb 355 lb 347 lb 8 oz 250 lb 7 oz Last Vital Signs Temp Pulse Resp BP Pulse Ox 98.8 F 96 H 20 157/87 97 02/14/19 04:58 02/14/19 04:58 02/14/19 04:58 02/14/19 04:58 02/13/19 21:00 Active Medications Acetaminophen (Tylenol -) 650 mg PO Q6H PRN PRN Reason: PAIN LEVEL 1 - 3 Last Admin: 02/14/19 06:25 Dose: 650 mg Albuterol Sulfate (Ventolin 0.083% Nebulizer Soln -) 1 amp NEB Q4H PRN PRN Reason: SHORT OF BREATH/WHEEZING Last Admin: 02/09/19 21:03 Dose: 1 amp Albuterol/Ipratropium (Duoneb -) 1 amp NEB RTID [facility] Last Admin: 02/14/19 08:00 Dose: 1 amp Atorvastatin Calcium (Lipitor -) 40 mg PO HS [facility] Last Admin: 02/13/19 21:18 Dose: 40 mg Dabigatran (Pradaxa -) 75 mg PO BID [facility] Last Admin: 02/14/19 09:39 Dose: 75 mg Docusate Sodium (Colace -) 100 mg PO TID [facility] Last Admin: 02/14/19 06:22 Dose: 100 mg Hydralazine HCl (Apresoline -) 25 mg PO TID [facility] Last Admin: 02/14/19 06:23 Dose: 25 mg Lactic Acid (Lac-Hydrin 12) 1 applic TP DAILY PRN PRN Reason: xerosis Levofloxacin (Levaquin -) 500 mg PO DAILY@0600 [facility] Last Admin: 02/14/19 06:23 Dose: 500 mg Methadone HCl 40 mg/ Methadone (HCl 10 mg) 50 mg PO DAILY@0600 [facility] Last Admin: 02/14/19 06:22 Dose: 50 mg Nicotine (Nicoderm Patch -) 14 mg TD DAILY [facility] Last Admin: 02/14/19 09:39 Dose: 14 mg Nystatin (Nystop Powder -) 1 applic TP BID [facility] Last Admin: 02/14/19 09:39 Dose: 1 applic Polyethylene Glycol (Miralax (For Daily Use) -) 17 gm PO DAILY [facility] Last Admin: 02/14/19 09:42 Dose: Not Given Polyethylene Glycol (Miralax (For Daily Use) -) 17 gm PO DAILY [facility] Last Admin: 02/14/19 09:37 Dose: Not Given Polysaccharide Iron Complex (Niferex-150 -) 150 mg PO DAILY [facility] Last Admin: 02/14/19 09:39 Dose: 150 mg Pramipexole Dihydrochloride (Mirapex -) 0.5 mg PO HS [facility] Last Admin: 02/13/19 21:19 Dose: 0.5 mg Gen: NAD at rest Heart: RRR Lung: decreased breath sounds at the bases Abd: soft, nontender Ext: + edema Problem List - Problems (1) Cellulitis Code(s): L03.90 - CELLULITIS, UNSPECIFIED A/P LLE Cellulitis Sepsis Acute Kidney Injury h/o PE/DVT s/p IVC filter Morbid Obesity MICHELE COPD Atelectasis HTN Hyperlipidemia h/o CVA Methadone Maintenance - PO Levaquin per ID - O2 to keep SpO2 >90% - inhaled bronchodilators - offered CPAP at night but pt declining at this time - continue anticoagulation - DC planning Dr Barnes
--- NOTE | 2019-02-14 15:10 | DS ---
Physical Examination Vital Signs: Vital Signs Temperature 98.3 F 02/14/19 13:28 Pulse Rate 114 H 02/14/19 13:28 Respiratory Rate 18 02/14/19 13:28 Blood Pressure 150/92 02/14/19 13:28 O2 Sat by Pulse Oximetry (%) 95 02/14/19 09:00 Findings/Remarks: Home Medication List Medication Instructions Recorded Confirmed Type Atorvastatin Ca [Lipitor] 40 mg PO HS 05/30/14 02/04/19 History Omeprazole Magnesium [Prilosec 20 mg PO DAILY 05/30/14 02/04/19 History (OTC)] Hydralazine HCl 25 mg PO TID 10/25/17 02/04/19 History Methadone [Dolophine -] 50 mg PO DAILY 10/28/17 02/04/19 History Albuterol Sulfate [Proair 90 mcg IH QID PRN 09/11/18 02/04/19 History Respiclick] Docusate Sodium [Colace -] 100 mg PO TID 09/11/18 02/04/19 History Pramipexole Dihydrochloride 2 tab PO HS 01/26/19 02/04/19 History [Mirapex -] Active Medications Generic Name Dose Route Start Last Admin Trade Name Freq PRN Reason Stop Dose Admin Acetaminophen 650 mg 02/10/19 11:08 02/14/19 13:35 Tylenol - PO 650 mg Q6H PRN Administration PAIN LEVEL 1 - 3 Albuterol/Ipratropium 1 amp 02/10/19 14:00 02/14/19 13:50 Duoneb - NEB 1 amp RTID JIE Administration Atorvastatin Calcium 40 mg 02/04/19 22:00 02/13/19 21:18 Lipitor - PO 40 mg HS [facility]IE Administration Dabigatran 75 mg 02/04/19 22:00 02/14/19 09:39 Pradaxa - PO 75 mg BID JEI Administration Docusate Sodium 100 mg 02/04/19 22:00 02/14/19 13:35 Colace - PO 100 mg TID JIE Administration Hydralazine HCl 25 mg 02/04/19 22:00 02/14/19 13:35 Apresoline - PO 25 mg TID [facility] Administration Lactic Acid 1 applic 02/08/19 16:55 Lac-Hydrin 12 TP DAILY PRN xerosis Levofloxacin 500 mg 02/11/19 11:00 02/14/19 06:23 Levaquin - PO 500 mg DAILY@0600 [facility] Administration Methadone HCl 40 mg/ Methadone 50 mg 02/05/19 13:00 02/14/19 06:22 HCl 10 mg PO 50 mg DAILY@0600 [facility] Administration Nicotine 14 mg 02/05/19 10:00 02/14/19 09:39 Nicoderm Patch - TD 14 mg DAILY [facility] Administration Nystatin 1 applic 02/05/19 10:00 02/14/19 09:39 Nystop Powder - TP 1 applic BID [facility] Administration Polyethylene Glycol 17 gm 02/05/19 13:30 02/14/19 09:42 Miralax (For Daily Use) - PO Not Given DAILY [facility] Polyethylene Glycol 17 gm 02/09/19 12:30 02/14/19 09:37 Miralax (For Daily Use) - PO Not Given DAILY [facility] Polysaccharide Iron Complex 150 mg 02/10/19 10:45 02/14/19 09:39 Niferex-150 - PO 150 mg DAILY [facility] Administration Pramipexole Dihydrochloride 0.5 mg 02/04/19 22:25 02/13/19 21:19 Mirapex - PO 0.5 mg HS [facility] Administration Microbiology 02/04/19 23:20 Blood - Peripheral Venous Blood Culture - Final NO GROWTH AFTER 5 DAYS INCUBATION 02/04/19 23:20 Blood - Peripheral Venous Blood Culture - Final NO GROWTH AFTER 5 DAYS INCUBATION 02/04/19 17:34 Calf - Left Posterior Gram Stain - Final 02/04/19 17:34 Calf - Left Posterior Wound Culture - Final Pseudomonas Aeruginosa Staphylococcus Coagulase Neg 02/04/19 18:00 Urine - Urine - Catheterized Urine Culture - Final NO GROWTH OBTAINED Constitutional: Yes: No Distress, Calm, Obese Eyes: Yes: Conjunctiva Clear HENT: Yes: Atraumatic Cardiovascular: Yes: Regular Rate and Rhythm Respiratory: Yes: Regular, Diminished Gastrointestinal: Yes: Normal Bowel Sounds, Soft, Abdomen, Obese Musculoskeletal: Yes: Muscle Weakness Extremities: Yes: WNL Edema: Yes (lymphedema) Integumentary: Yes: Venous Stasis Changes Wound/Incision: Yes: Dressing Dry and Intact Neurological: Yes: Alert, Oriented Psychiatric: Yes: Alert, Oriented Labs: CBC, BMP 02/13/19 07:14 02/13/19 07:14 Discharge Summary Problems reviewed: Yes Reason For Visit: LEUKOCYTOSIS Current Active Problems Acute pain of left lower extremity (Acute) Anemia (Acute) Cellulitis (Acute) Cellulitis and abscess of left leg (Acute) Fall (Acute) Penicillin allergy (Acute) Venous stasis ulcer of left lower leg with edema of left lower leg (Acute) Hospital Course: This is a 59 year old woman with a PMHx of HTN, HLD, Severe Obesity, MICHELE, ambulates with walker, CVA w/ residual right sided deficits, 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 Who presents to the ED with R knee and R ankle pain s/p fall 2 days ago, while trying to get to her walker from her bed. The patient reports SOB worse then baseline. She reports pain to her left groin and left leg, worse on movement. Patient reports increased LLE swelling. Patient denies LOC or head trauma. Patient denies fever , chills, dizziness, JIMENEZ, CP, palpitations, AP, N/V/D, constipation. Patient reports that her daughter lives with her and is her [employer]. Plan of Treatment: Follow up with Vascular Dr Narvaez for lymphedema and chronic LLE wound at wound clinic Follow up with [employer] Dr Han follow up with Dr Flo morillo COPD Condition: Stable - Instructions Diet, Activity, Other Instructions: Follow up with Vascular Dr Narvaez for lymphedema and chronic LLE wound at wound clinic Follow up with [employer] Dr Han follow up with Dr Flo morillo COPD continue with medication as prescribed continue with Levaquin daily for 7 days (started on 02/11/19) return to ER if develop severe pain, respiratory distress, chest pain Referrals: Pedro Gabriel MD [Staff Physician] - Lonnie Rahman MD [Staff Physician] - Toño Narvaez DO [Staff Physician] - Severo Han DPM [Staff Physician] - Disposition: RESIDENTIAL FACILITY - Home Medications Comprehensive Discharge Medication List: Ambulatory Orders Atorvastatin Ca [Lipitor] 40 mg PO HS 05/30/14 Omeprazole Magnesium [Prilosec (OTC)] 20 mg PO DAILY 05/30/14 Hydralazine HCl 25 mg PO TID 10/25/17 Methadone [Dolophine -] 50 mg PO DAILY 10/28/17 Albuterol Sulfate [Proair Respiclick] 90 mcg IH QID PRN 09/11/18 Docusate Sodium [Colace -] 100 mg PO TID 09/11/18 Cholecalciferol (Vitamin D3) [Vitamin D3] 5,000 unit PO DAILY #30 capsule Albuterol 0.083% Nebulizer Micheline [Ventolin 0.083% Nebulizer Soln -] 1 amp NEB Q4H PRN #45 amp 12/25/18 Ranitidine [Zantac -] 150 mg PO BID #60 tablet 12/25/18 Pramipexole Dihydrochloride [Mirapex -] 2 tab PO HS 01/26/19 Dabigatran Etexilate Mesylate [Pradaxa -] 75 mg PO BID #30 capsule 01/28/19 Nicotine Patch [Nicoderm Patch -] 14 mg TD DAILY #14 patch 01/28/19
[2019-02-14] MEDS ORDERED: PT OWN MED DRAWER 7, Y5N ONE (21:36)
[2019-02-14] MEDS: ATORVASTATIN CA 20 MG TABLET (FP) PO SCH (22:16)
[2019-02-14] MEDS: PRAMIPEXOLE DIHYDROCHLORIDE 0.5 MG TABLET PO SCH (22:17)
[2019-02-15 05:50] VITALS: BP 141/74; PULSE 94; TEMP 98.6
[2019-02-15] MEDS ORDERED: METHADONE HCL 40 MG DISPERSABLE TABLET ONE (06:08)
[2019-02-15] MEDS ORDERED: METHADONE HCL 10 MG TABLET ONE (06:08)
[2019-02-15] MEDS: hydrALAZINE HCL 25 MG TABLET (FP) PO SCH (06:15)
[2019-02-15] MEDS: DOCUSATE SODIUM 100 MG CAPSULE (FP) PO SCH (06:15)
[2019-02-15] MEDS: METHADONE 40 MG, METHADONE 10 MG PO SCH (06:15)
[2019-02-15] MEDS: ALBUTEROL SO4 2.5/IPRATROPIUM 0.5 INH SOL 3 ML VIAL.NEB. NEB SCH (08:04)
[2019-02-15] MEDS: NICOTINE 14 MG/24 HOURS TOPICAL PATCH TD SCH (09:41)
[2019-02-15] MEDS: IRON POLYSACCHARIDES 150 MG CAPSULE PO SCH (09:41)
[2019-02-15] MEDS: POLYETHYLENE GLYCOL 3350 119 GM BTL PO SCH ×2 (09:41)
[2019-02-15] MEDS: NYSTATIN POWDER 100,000 UNITS/GM - 15 GM TOPICAL POWDER TP SCH (09:42)
[2019-02-15] MEDS: DABIGATRAN ETEXILATE MESYLATE 75 MG CAPSULE PO SCH (09:42)
--- NOTE | 2019-02-15 09:54 | PN ---
Progress Note (short form) - Note Progress Note: Overall better. Some cough and MENA, but better. No acute events overnight. Intake & Output 02/12/19 02/13/19 02/14/19 02/15/19 23:59 23:59 23:59 23:59 Intake Total 1090 890 880 30 Output Total 0 Balance 1090 890 880 30 Weight 355 lb 347 lb 8 oz 250 lb 7 oz 345 lb 4.8 oz Last Vital Signs Temp Pulse Resp BP Pulse Ox 98.6 F 94 H 16 141/74 95 02/15/19 05:00 02/15/19 05:00 02/15/19 05:00 02/15/19 05:00 02/14/19 21:00 Active Medications Acetaminophen (Tylenol -) 650 mg PO Q6H PRN PRN Reason: PAIN LEVEL 1 - 3 Last Admin: 02/14/19 13:35 Dose: 650 mg Albuterol/Ipratropium (Duoneb -) 1 amp NEB RTID [facility] [place] Last Admin: 02/15/19 08:04 Dose: 1 amp Atorvastatin Calcium (Lipitor -) 40 mg PO HS [facility] [place] Last Admin: 02/14/19 22:16 Dose: 40 mg Dabigatran (Pradaxa -) 75 mg PO BID [facility] [place] Last Admin: 02/15/19 09:42 Dose: 75 mg Docusate Sodium (Colace -) 100 mg PO TID [facility] [place] Last Admin: 02/15/19 06:15 Dose: 100 mg Hydralazine HCl (Apresoline -) 25 mg PO TID [facility] [place] Last Admin: 02/15/19 06:15 Dose: 25 mg Lactic Acid (Lac-Hydrin 12) 1 applic TP DAILY PRN PRN Reason: xerosis Levofloxacin (Levaquin -) 500 mg PO DAILY@0600 [facility] [place] Last Admin: 02/15/19 06:15 Dose: 500 mg Methadone HCl 40 mg/ Methadone (HCl 10 mg) 50 mg PO DAILY@0600 [facility] [place] Last Admin: 02/15/19 06:15 Dose: 50 mg Nicotine (Nicoderm Patch -) 14 mg TD DAILY [facility] [place] Last Admin: 02/15/19 09:41 Dose: 14 mg Nystatin (Nystop Powder -) 1 applic TP BID [facility] [place] Last Admin: 02/15/19 09:42 Dose: 1 applic Polyethylene Glycol (Miralax (For Daily Use) -) 17 gm PO DAILY [facility] [place] Last Admin: 02/15/19 09:41 Dose: Not Given Polyethylene Glycol (Miralax (For Daily Use) -) 17 gm PO DAILY [facility] [place] Last Admin: 02/15/19 09:41 Dose: Not Given Polysaccharide Iron Complex (Niferex-150 -) 150 mg PO DAILY [facility] [place] Last Admin: 02/15/19 09:41 Dose: 150 mg Pramipexole Dihydrochloride (Mirapex -) 0.5 mg PO HS [facility] [place] Last Admin: 02/14/19 22:17 Dose: 0.5 mg Gen: NAD at rest Heart: RRR Lung: decreased breath sounds at the bases Abd: soft, nontender Ext: + edema Problem List - Problems (1) Cellulitis Code(s): L03.90 - CELLULITIS, UNSPECIFIED A/P LLE Cellulitis Sepsis Acute Kidney Injury h/o PE/DVT s/p IVC filter Morbid Obesity MICHELE COPD Atelectasis HTN Hyperlipidemia h/o CVA Methadone Maintenance - PO Levaquin per ID - O2 to keep SpO2 >90% - inhaled bronchodilators - offered CPAP at night but pt declining at this time - continue anticoagulation - DC planning Dr Barnes
--- NOTE | 2019-02-15 11:04 | PN ---
Progress Note (short form) - Note Progress Note: FUV xerosis with mycotic nails b/l feet. +greatly improved xerosis b/l legs and feet, +mycotic nails x10 onychomycosis xerosis Continue Ammonium lactate. Foot care q8 weeks. Should follow outpatient with a helminthologist. Follow up in wound care for leg wound.
== END 2019-02-15 12:12 | DRG 603 ==
LOC: JER 13:56 → JERBED 15:25 → J6S 02-05 00:53
PROVIDERS: ADMIT Internal Medicine; ATTEND Family Medicine
DX: L03.116 Cellulitis of left lower limb (principal); J44.1 Chronic obstructive pulmonary disease with (acute) exacerbation; I13.0 Hypertensive heart and chronic kidney disease with heart failure and stage 1 through stage 4 chronic kidney disease, or unspecified chronic kidney disease; I50.32 Chronic diastolic (congestive) heart failure; Z68.43 Body mass index [BMI] 50.0-59.9, adult; N17.9 Acute kidney failure, unspecified; F11.20 Opioid dependence, uncomplicated; J98.11 Atelectasis; I69.351 Hemiplegia and hemiparesis following cerebral infarction affecting right dominant side; L02.416 Cutaneous abscess of left lower limb; R26.2 Difficulty in walking, not elsewhere classified; N18.3 Chronic kidney disease, stage 3 (moderate); J44.9 Chronic obstructive pulmonary disease, unspecified; E66.01 Morbid (severe) obesity due to excess calories; G47.33 Obstructive sleep apnea (adult) (pediatric); E78.5 Hyperlipidemia, unspecified; I87.2 Venous insufficiency (chronic) (peripheral); T14.8XXA Other injury of unspecified body region, initial encounter; B35.1 Tinea unguium; L85.3 Xerosis cutis; D64.9 Anemia, unspecified; Z88.0 Allergy status to penicillin; K21.9 Gastro-esophageal reflux disease without esophagitis; D72.829 Elevated white blood cell count, unspecified
CPT/HCPCS: 36415; 71045-TC-FY; 71250-TC; 72170-TC-FY; 72192-TC; 73560-TC-RT-FY; 73610-TC-LT-FY; 73610-TC-RT-FY; 73630-TC-LT; 73630-TC-RT-FY; 80048; 80053; 81003; 82607; 82728; 83036; 83540; 83550; 83880; 84439; 84443; 85025; 85027; 85610; 85730; 86850; 86900; 86901; 87040; 87070; 87086; 87186; 87205; 93005; 93010; 94640; 97116-GP; 97162-GP; 99285-25; G0480; J7030